=== PATIENT | male | born 1960 | race Caucasian/White ===

== ENCOUNTER 2018-05-19 11:11 | Outpatient (RCR) | payer OTHER, SELFPAY ==
[2018-05-19 11:46] VITALS: BP 149/102; PULSE 86; RESP 18; TEMP 36.4; BMI 29.9
--- NOTE | 2018-05-19 13:05 | PCM.WC.HP ---
(1) Ulcer of right leg Status: Chronic Current Visit: Yes Qualifiers: Non-pressure ulcer stage: unspecified non-pressure ulcer stage Qualified Code(s): L97.919 - Non-pressure chronic ulcer of unspecified part of right lower leg with unspecified severity Code(s): L97.919 - Non-pressure chronic ulcer of unspecified part of right lower leg with unspecified severity (2) Ulcer of right great toe due to diabetes mellitus Status: Chronic Current Visit: Yes Code(s): E11.621 - Type 2 diabetes mellitus with foot ulcer; L97.519 - Non-pressure chronic ulcer of other part of right foot with unspecified severity (3) Ulcer of right second toe Status: Chronic Current Visit: Yes Qualifiers: Non-pressure ulcer stage: unspecified non-pressure ulcer stage Qualified Code(s): L97.519 - Non-pressure chronic ulcer of other part of right foot with unspecified severity Code(s): L97.519 - Non-pressure chronic ulcer of other part of right foot with unspecified severity (4) DM (diabetes mellitus) with peripheral vascular complication Status: Chronic Current Visit: Yes Code(s): E11.51 - Type 2 diabetes mellitus with diabetic peripheral angiopathy without gangrene (5) PAD (peripheral artery disease) Status: Chronic Current Visit: Yes Code(s): I73.9 - Peripheral vascular disease, unspecified (6) Gangrene Status: Chronic Current Visit: Yes Code(s): I96 - Gangrene, not elsewhere classified (7) Coronary artery disease Status: Chronic Current Visit: No Qualifiers: Coronary Disease-Associated Artery/Lesion type: kaw artery [place] vs. transplanted heart: kaw heart Code(s): I25.10 - Atherosclerotic heart disease of kaw coronary artery without angina pectoris (8) Atrial fibrillation Status: Chronic Current Visit: No Code(s): I48.91 - Unspecified atrial fibrillation (9) Cardiac defibrillator in place Status: Chronic Current Visit: No Code(s): Z95.810 - Presence of automatic (implantable) cardiac defibrillator (10) Right leg swelling Status: Chronic Current Visit: Yes Code(s): M79.89 - Other specified soft tissue disorders (11) Ischemia of right lower extremity Status: Chronic Current Visit: Yes Code(s): I99.8 - Other disorder of circulatory system (12) History of coronary artery bypass graft x 3 Status: Acute Current Visit: No Code(s): Z95.1 - Presence of aortocoronary bypass graft (13) Tobacco abuse Status: Chronic Current Visit: Yes Code(s): Z72.0 - Tobacco use (14) Tobacco abuse counseling Status: Acute Current Visit: Yes Code(s): Z71.6 - Tobacco abuse counseling (15) Hyperlipidemia Status: Chronic Current Visit: No Code(s): E78.5 - Hyperlipidemia, unspecified History of Present Illness Date of Service: 05/19/18 Chief Complaint: Ischemia and peripheral arterial occlusive disease of the right lower extremity, associated with ulcerations of the right leg and toes. History of Wound: This is a 57-year-old male who presents as a referral from his primary care physician with ischemic ulcerations on the right leg and the toes of the right foot. These have been present for approximately 2 months. The patient has multiple medical problems. Among his problems is known peripheral arterial occlusive disease, for which she is under the care of a vascular surgeon at the [facility] in [place], [place], by the name of Dr. Joe. According to the patient, he has had extensive evaluation by Dr. Joe, including a CT scan of the vascular system of his neck, chest, abdomen, and lower extremities. The patient is scheduled to undergo major surgical revascularization of the lower extremities on June 17, 2018. As a prelude to surgical intervention, the patient has heart attack stress testing and pulmonary function tests scheduled for later this week. Unfortunately, none of the patient's [facility] records are available at this time. They will be requested, as they will be critical to the clinical management of the patient relative to his lower extremity ulcerations. The patient indicates that his right lower extremity typically swells late in the day. The etiology of the ulcerations on his right great and second toe may be due to pressure phenomenon from ill-fitted footwear. The source of the 2 ulcerations inferior to the right knee is uncertain. The patient is known to be a vasculopath, having previously suffered a myocardial infarction and having undergone coronary revascularization ?3 in the past. The patient is diabetic, and his arterial occlusive disease is likely related to his history of diabetes, and the fact he is a smoker. Prior to a referral from his primary care physician, the patient was recently treated with an intramuscular injection of Rocephin 2 g IM, and is currently taking a course of cefadroxil 1 g p.o. twice daily for a total of 7 days. The patient denies leg pain at night, but often experiences lower extremity pain with short distances of ambulation, which may represent intermittent claudication. Past Medical History Past Medical History: Chronic Problems Ulcer of right leg (Chronic) Ulcer of right great toe due to diabetes mellitus (Chronic) Ulcer of right second toe (Chronic) DM (diabetes mellitus) with peripheral vascular complication (Chronic) PAD (peripheral artery disease) (Chronic) Gangrene (Chronic) Coronary artery disease (Chronic) Atrial fibrillation (Chronic) Cardiac defibrillator in place (Chronic) Right leg swelling (Chronic) Ischemia of right lower extremity (Chronic) Tobacco abuse (Chronic) Hyperlipidemia (Chronic) Past Medical History: The patient has a history of myocardial infarction, diabetes mellitus, hyperlipidemia, hypertension, coronary artery disease, peripheral arterial occlusive disease, and atrial fibrillation. He denies a history of thyroid disease, pulmonary disease, renal disease, and cancer. Surgical History: - - Patient has previously undergone coronary revascularization ?3, at which time valve repair was performed. The patient is also undergone open reduction and internal fixation of the left femur fracture in the past. Allergies/Adverse Reactions: Allergies No Known Allergies Allergy (Verified 05/19/18 11:45) Home Medications: Ambulatory Orders Medication Instructions Recorded Aspirin E.C. [Ecotrin] 81 mg PO DAILY@0800 05/19/18 Atorvastatin Calcium [Lipitor] 40 mg PO QHS 05/19/18 Bisoprolol Fumarate [Zebeta] 10 mg PO DAILY 05/19/18 Cholecalciferol (Vitamin D3) 4,000 unit PO DAILY 05/19/18 [Vitamin D3] Famotidine 20 mg PO BID 05/19/18 Glucosamine/D3/Boswellia Melonie 1 each PO DAILY 05/19/18 [Osteo Bi-Flex Tablet] Lisinopril [Zestril] 20 mg PO DAILY 05/19/18 Metformin HCl [Metformin HCl ER] 500 mg PO TID 05/19/18 Multivitamin [Daily Multiple 1 each PO DAILY 05/19/18 Vitamin] - Family History Paternal - - The patient's father at the age of 78 from cancer of unknown etiology. The patient's mother at age of 68 from liver cancer. Lives: Spouse/ Significant Other Smoking Status: Current every day smoker - The patient smokes 1-1/2 packs of cigarettes per day and has done so for many years. Tobacco Use: Cigarettes Alcohol: Occasional Drugs: None Review of Systems Constitutional: Denies: Chills, Fever, Weight Change Eyes: Denies: Pain, Vision Change HEENT: Denies: Difficulty Hearing, Difficulty Swallowing, Sinus Congestion Cardiovascular: Denies: Chest Pain, Palpitations Respiratory: Denies: Cough, Shortness of Breath Gastrointestinal: Denies: Diarrhea, Nausea, Vomiting Genitourinary: Denies: Dysuria, Hematuria Endocrine: Denies: Heat/ Cold Intolerance, Polydipsia, Polyuria Hematologic/ Lymphatic: Denies: Easy Bruising, Easy Bleeding - Physical Exam Vital Signs Temp Pulse Resp BP 97.5 F L 86 18 149/102 H 05/19/18 11:46 05/19/18 11:46 05/19/18 11:46 05/19/18 11:46 General: Alert, Oriented x3, Cooperative, No apparent distress, Well developed, Well nourished HEENT: Atraumatic, PERRLA, EOMI, Normocephalic Oral: Moist Mucosa Neck: Supple, No JVD, Negative Carotid Bruits, Negative Hepatojugular Reflux, No Nodes, No Nuchal Rigidity, Trachea Midline Lungs: Clear to auscultation, Normal air movement, No rhonchi, No wheeze, No rales Cardiovascular: Regular rate, Regular Rhythm, Normal S1, Normal S2, No murmurs Abdomen: Soft, Non Tender, Non-Distended Extremities: No clubbing, No cyanosis, No edema, - - There are 2 ulcerations inferior to the right knee. Both are dry and escharous. There is a very slight rim of erythema surrounding the larger of the 2 ulcerations. Dimensions are documented elsewhere. 2 ulcerations are noted on the right great toe, and ulceration is also noted on the medial aspect of the right second toe. The toe ulcerations are also dry and escharous. There is no erythema associated with the toe ulcerations. Ulcer dimensions are documented elsewhere. Wound Measurements and Assessment WC - Nurse 1 - General Ulcer Measurement Start: 05/19/18 11:22 Freq: Status: Active Protocol: Activity Type Activity Date Activity User E-Sign Co-Sign Detail Recorded Client Recorded Date Recorded By Document 05/19/18 11:46 [id number] 05/19/18 12:07 05/19/18 11:46 Wound Center Nurse 1 [Ulcer Assessment] #4 RIGHT GREAT TOE -Combined with other wound No -Current Size (cm) - Length 0.4 -Current Size (cm) - Width 0.7 -Current Size (cm) - Depth 0.1 -Total Square Cm 0.28 -Date of Last Picture (Recall this 05/19/18 field) -Photo Taken Yes -Tunneling No -Undermining/Tunneling No -Circular Undermining No -Exudate Amt Small (1-33%) -Exudate Type Serosanguineous -Wound Margin Distinct, Outline Attached -Granulation Amt None Present (0 %) -Necrosis Amt None Present (0 %) -Necrotic Tissue Type Eschar -Structure Exposed None/Limited to Skin Breakdown -Texture (Scarlett-wound Skin Appearance) No Abnormality Assessed -Moisture (Scarlett-wound Skin Appearance No Abnormality ) Assessed -Color (Scarlett-wound Skin Appearance) No Abnormality Assessed -Temperature (Scarlett-wound Skin No Abnormality Appearance) (Pt Warm) -Tenderness on Palpation (Scarlett-wound No Skin Appearance) -Ulcer Cleansing Rinsed/ Irrigated with Saline -Foul Odor after Cleansing No -Anesthetic Used 4% Lidocaine Solution #3 RIGHT 2ND MEDIAL TOE -Combined with other wound No -Current Size (cm) - Length 0.7 -Current Size (cm) - Width 0.7 -Current Size (cm) - Depth 0.1 -Total Square Cm 0.49 -Date of Last Picture (Recall this 05/19/18 field) -Photo Taken Yes -Epithelialization None Present -Tunneling No -Undermining/Tunneling No -Exudate Amt Medium (34-66%) -Exudate Type Serosanguineous -Wound Margin Distinct, Outline Attached -Granulation Amt None Present (0 %) -Slough/Fibrin Yes -Necrosis Amt None Present (0 %) -Necrotic Tissue Type Eschar -Structure Exposed None/Limited to Skin Breakdown -Texture (Scarlett-wound Skin Appearance) No Abnormality Assessed -Moisture (Scarlett-wound Skin Appearance No Abnormality ) Assessed -Temperature (Scarlett-wound Skin No Abnormality Appearance) (Pt Warm) -Tenderness on Palpation (Scarlett-wound No Skin Appearance) -Ulcer Cleansing Rinsed/ Irrigated with Saline -Foul Odor after Cleansing No -Anesthetic Used 4% Lidocaine Solution #2 RU MEDIAL LE -Combined with other wound No -Current Size (cm) - Length 0.6 -Current Size (cm) - Width 0.7 -Current Size (cm) - Depth 0.1 -Total Square Cm 0.42 -Date of Last Picture (Recall this 05/19/18 field) -Photo Taken Yes -Tunneling No -Undermining/Tunneling No -Circular Undermining No -Exudate Amt None Present (0 %) -Wound Margin Distinct, Outline Attached -Granulation Amt None Present (0 %) -Slough/Fibrin No -Necrosis Amt None Present (0 %) -Necrotic Tissue Type Eschar -Structure Exposed None/Limited to Skin Breakdown -Texture (Scarlett-wound Skin Appearance) No Abnormality Assessed -Moisture (Scarlett-wound Skin Appearance No Abnormality ) Assessed -Color (Scarlett-wound Skin Appearance) No Abnormality Assessed -Temperature (Scarlett-wound Skin No Abnormality Appearance) (Pt Warm) -Tenderness on Palpation (Scarlett-wound No Skin Appearance) -Ulcer Cleansing Rinsed/ Irrigated with Saline -Foul Odor after Cleansing No -Anesthetic Used 4% Lidocaine Solution #1 RIGHT UPPER LE -Combined with other wound No -Current Size (cm) - Length 1.8 -Current Size (cm) - Width 1.6 -Current Size (cm) - Depth 0.1 -Total Square Cm 2.88 -Date of Last Picture (Recall this 05/19/18 field) -Photo Taken Yes -Tunneling No -Undermining/Tunneling No -Circular Undermining No -Exudate Amt None Present (0 %) -Wound Margin Distinct, Outline Attached -Granulation Amt None Present (0 %) -Slough/Fibrin No -Necrosis Amt None Present (0 %) -Necrotic Tissue Type Eschar -Texture (Scarlett-wound Skin Appearance) No Abnormality Assessed -Moisture (Scarlett-wound Skin Appearance No Abnormality ) Assessed -Color (Scarlett-wound Skin Appearance) No Abnormality Assessed -Temperature (Scarlett-wound Skin No Abnormality Appearance) (Pt Warm) -Tenderness on Palpation (Scarlett-wound No Skin Appearance) -Ulcer Cleansing Rinsed/ Irrigated with Saline -Foul Odor after Cleansing No -Anesthetic Used 4% Lidocaine Solution [Edema Assessment] -Lower Limb Edema Present Yes -Right Calf (cm) 40.2 -Right Ankle (cm) 23 -Left Calf (cm) 38.6 -Left Ankle (cm) 23.5 WC - Nurse 2 - General Ulcer CM Notes Start: 05/19/18 11:22 Freq: Status: Active Protocol: Activity Type Activity Date Activity User E-Sign Co-Sign Detail Recorded Client Recorded Date Recorded By Document 05/19/18 12:22 [email or web address] [id number] 05/19/18 13:00 [email or web address] 05/19/18 12:22 Wound Center Nurse 2 [Procedure/Treatment] #4 RIGHT GREAT TOE -Time 12:22 -Correct Patient Yes -Correct Side, Site, Position Yes -Correct Procedure Yes -Procedure Performed No -Wound/Ulcer Outcome Not Healed -Ulcer Cleansing Rinsed/ Irrigated with Saline -Foul Odor after Cleansing No -Bioengineered Tissue No -Bleeding Controlled with NA #3 RIGHT 2ND MEDIAL TOE -Time 12:22 -Correct Patient Yes -Correct Side, Site, Position Yes -Correct Procedure Yes -Procedure Performed No -Wound/Ulcer Outcome Not Healed -Ulcer Cleansing Not Cleansed -Foul Odor after Cleansing No -Bioengineered Tissue No -Bleeding Controlled with NA #2 RU MEDIAL LE -Time 12:22 -Correct Patient Yes -Correct Side, Site, Position Yes -Correct Procedure Yes -Procedure Performed No -Wound/Ulcer Outcome Not Healed -Ulcer Cleansing Not Cleansed -Foul Odor after Cleansing No -Bioengineered Tissue No -Bleeding Controlled with NA -Treatment Response Procedure Tolerated Well #1 RIGHT UPPER LE -Time 12:22 -Correct Patient Yes -Correct Side, Site, Position Yes -Correct Procedure Yes -Procedure Performed No -Wound/Ulcer Outcome Not Healed -Ulcer Cleansing Not Cleansed -Foul Odor after Cleansing No -Bioengineered Tissue No [See Physician Procedure note for Specifics] Pain Scale: 0-10 Numeric [Pain] -Is Patient Pain Free? Yes Neurological: Cranial nerves II-XII grossly intact, Neuro grossly intact Psych/Mental Status: Normal Affect, Agitated, Alert and oriented to time, place, person, mood and affect Debridement Note Post-Debridement Measurements/Treatment WC - Nurse 2 - General Ulcer CM Notes Start: 05/19/18 11:22 Freq: Status: Active Protocol: Activity Type Activity Date Activity User E-Sign Co-Sign Detail Recorded Client Recorded Date Recorded By Document 05/19/18 12:22 [id number] 05/19/18 13:00 05/19/18 12:22 Wound Center Nurse 2 #4 RIGHT GREAT TOE -Time 12:22 -Correct Patient Yes -Correct Side, Site, Position Yes -Correct Procedure Yes -Procedure Performed No -Wound/Ulcer Outcome Not Healed -Ulcer Cleansing Rinsed/ Irrigated with Saline -Foul Odor after Cleansing No -Bioengineered Tissue No -Bleeding Controlled with NA #3 RIGHT 2ND MEDIAL TOE -Time 12:22 -Correct Patient Yes -Correct Side, Site, Position Yes -Correct Procedure Yes -Procedure Performed No -Wound/Ulcer Outcome Not Healed -Ulcer Cleansing Not Cleansed -Foul Odor after Cleansing No -Bioengineered Tissue No -Bleeding Controlled with NA #2 RU MEDIAL LE -Time 12:22 -Correct Patient Yes -Correct Side, Site, Position Yes -Correct Procedure Yes -Procedure Performed No -Wound/Ulcer Outcome Not Healed -Ulcer Cleansing Not Cleansed -Foul Odor after Cleansing No -Bioengineered Tissue No -Bleeding Controlled with NA -Treatment Response Procedure Tolerated Well #1 RIGHT UPPER LE -Time 12:22 -Correct Patient Yes -Correct Side, Site, Position Yes -Correct Procedure Yes -Procedure Performed No -Wound/Ulcer Outcome Not Healed -Ulcer Cleansing Not Cleansed -Foul Odor after Cleansing No -Bioengineered Tissue No Pain Scale: 0-10 Numeric Is Patient Pain Free? Yes Laterality: Right The largest of the 2 ulcerations inferior to the right knee is dry and escharous. An attempt was made to unroof the ulceration by removing the eschar, but without success. The eschar is firmly adherent. Additionally, because of questions about the patient's lower extremity arterial perfusion, there was a reluctance to perform an aggressive debridement. Therefore, a #15 scalpel blade was used to gently score the eschar, in anticipation in preparation for the use of collagenase Santyl, as an enzymatic debriding agent. Assessment/Plan Active Problems Ulcer of right leg (Chronic) Ulcer of right great toe due to diabetes mellitus (Chronic) Ulcer of right second toe (Chronic) DM (diabetes mellitus) with peripheral vascular complication (Chronic) PAD (peripheral artery disease) (Chronic) Gangrene (Chronic) Right leg swelling (Chronic) Ischemia of right lower extremity (Chronic) Tobacco abuse (Chronic) Tobacco abuse counseling (Acute) Assessment: This is a 57-year-old diabetic male with severe peripheral arterial occlusive disease in his lower extremities. He is currently under the care of a vascular surgeon at the [facility] in [place], [place] - Dr. Joe. A major lower extremity revascularization procedure is scheduled for June 17, 2018. The patient is scheduled to undergo preliminary testing later this week, to include a cardiac stress test and a pulmonary function test. Patient has undergone relatively recent laboratory testing, with results as follows: BUN 12, creatinine 0.97, sodium 136, potassium 4.7, chloride 95, calcium 10.0, protein 7.0, albumin 4.4, total bilirubin 0.5, white blood count 10.2, hemoglobin 14.1, hematocrit 41.3, platelets 218,000. Triglycerides 221. Vitamin D 30.7, which appears to be low normal. Plan: The patient has been advised to elevate his lower extremities as much as possible, to minimize the swelling that he typically experiences at the end of each day. Activity has been encouraged. He has been advised to refrain from prolonged idle sitting. The patient has been counseled to stop smoking. We will defer to the patient's vascular surgeon at the [facility], who appears to be preparing for lower extremity revascularization. Optimizing perfusion is certainly a worthy goal in achieving wound healing. Given suspected severe peripheral arterial occlusive disease, it is felt that aggressive debridement of the patient's lower extremity wounds is ill advised at this time. The larger of the 2 wounds below the right knee has been gently scored, and we will implement the use of collagenase Santyl relative to the 2 ulcerations below the right knee. The ulcerations on the right foot will be kept clean and dry, and the patient has been advised to wear shoes which are properly fitted, and will not exert undue or unwanted pressure. We are to request records from the patient's caregivers at the [facility], namely Dr. Joe. The request for records will include the patient's arterial studies/CT scan. Collaboration and comanagement with the patient's other physicians is anticipated. The patient is to return in 1 week for reassessment. He has been advised to complete his course of oral antibiotics. He has been advised to contact our facility if the erythema about his ulceration should increase or worsen. The patient is known to be a smoker. Smoking cessation has been advised, in great detail. The patient has been counseled as to the adverse consequences of smoking relative to his peripheral arterial occlusive disease and wound healing potential. Influenza vaccine was not administered today. The patient weighs 220 pounds. He stands 6 feet 0 inches in height. His BMI is 29.9, which places him in an overweight category. While good and adequate nutrition has been advised, mild weight loss has been recommended, with collaboration from his primary care physician.
--- NOTE | 2018-05-19 13:11 | HP.PCM_ITS ---
(1) Ulcer of right leg Status: Chronic Current Visit: Yes Qualifiers: Non-pressure ulcer stage: unspecified non-pressure ulcer stage Qualified Code(s): L97.919 - Non-pressure chronic ulcer of unspecified part of right lower leg with unspecified severity Code(s): L97.919 - Non-pressure chronic ulcer of unspecified part of right lower leg with unspecified severity (2) Ulcer of right great toe due to diabetes mellitus Status: Chronic Current Visit: Yes Code(s): E11.621 - Type 2 diabetes mellitus with foot ulcer; L97.519 - Non-pressure chronic ulcer of other part of right foot with unspecified severity (3) Ulcer of right second toe Status: Chronic Current Visit: Yes Qualifiers: Non-pressure ulcer stage: unspecified non-pressure ulcer stage Qualified Code(s): L97.519 - Non-pressure chronic ulcer of other part of right foot with unspecified severity Code(s): L97.519 - Non-pressure chronic ulcer of other part of right foot with unspecified severity (4) DM (diabetes mellitus) with peripheral vascular complication Status: Chronic Current Visit: Yes Code(s): E11.51 - Type 2 diabetes mellitus with diabetic peripheral angiopathy without gangrene (5) PAD (peripheral artery disease) Status: Chronic Current Visit: Yes Code(s): I73.9 - Peripheral vascular disease, unspecified (6) Gangrene Status: Chronic Current Visit: Yes Code(s): I96 - Gangrene, not elsewhere classified (7) Coronary artery disease Status: Chronic Current Visit: No Qualifiers: Coronary Disease-Associated Artery/Lesion type: [place] artery [place] vs. transplanted heart: [place] heart Code(s): I25.10 - Atherosclerotic heart disease of [place] coronary artery without angina pectoris (8) Atrial fibrillation Status: Chronic Current Visit: No Code(s): I48.91 - Unspecified atrial fibrillation (9) Cardiac defibrillator in place Status: Chronic Current Visit: No Code(s): Z95.810 - Presence of automatic ( implantable) cardiac defibrillator (10) Right leg swelling Status: Chronic Current Visit: Yes Code(s): M79.89 - Other specified soft tissue disorders (11) Ischemia of right lower extremity Status: Chronic Current Visit: Yes Code(s): I99.8 - Other disorder of circulatory system (12) History of coronary artery bypass graft x 3 Status: Acute Current Visit: No Code(s): Z95.1 - Presence of aortocoronary bypass graft (13) Tobacco abuse Status: Chronic Current Visit: Yes Code(s): Z72.0 - Tobacco use (14) Tobacco abuse counseling Status: Acute Current Visit: Yes Code(s): Z71.6 - Tobacco abuse counseling (15) Hyperlipidemia Status: Chronic Current Visit: No Code(s): E78.5 - Hyperlipidemia, unspecified History of Present Illness Date of Service: 05/19/18 Chief Complaint: Ischemia and peripheral arterial occlusive disease of the right lower extremity, associated with ulcerations of the right leg and toes. History of Wound: This is a 57-year-old male who presents as a referral from his primary care physician with ischemic ulcerations on the right leg and the toes of the right foot. These have been present for approximately 2 months. The patient has multiple medical problems. Among his problems is known peripheral arterial occlusive disease, for which she is under the care of a vascular surgeon at the [facility] in [place], [place], by the name of Dr. Joe. According to the patient, he has had extensive evaluation by Dr. Joe , including a CT scan of the vascular system of his neck, chest, abdomen, and lower extremities. The patient is scheduled to undergo major surgical revascularization of the lower extremities on June 17, 2018. As a prelude to surgical intervention, the patient has heart attack stress testing and pulmonary function tests scheduled for later this week. Unfortunately, none of the patient's [facility] records are available at this time. They will be requested, as they will be critical to the clinical management of the patient relative to his lower extremity ulcerations. The patient indicates that his right lower extremity typically swells late in the day. The etiology of the ulcerations on his right great and second toe may be due to pressure phenomenon from ill-fitted footwear. The source of the 2 ulcerations inferior to the right knee is uncertain. The patient is known to be a vasculopath, having previously suffered a myocardial infarction and having undergone coronary revascularization ?3 in the past. The patient is diabetic, and his arterial occlusive disease is likely related to his history of diabetes, and the fact he is a smoker. Prior to a referral from his primary care physician, the patient was recently treated with an intramuscular injection of Rocephin 2 g IM, and is currently taking a course of cefadroxil 1 g p.o. twice daily for a total of 7 days. The patient denies leg pain at night, but often experiences lower extremity pain with short distances of ambulation, which may represent intermittent claudication. Past Medical History Past Medical History: Chronic Problems Ulcer of right leg (Chronic) Ulcer of right great toe due to diabetes mellitus (Chronic) Ulcer of right second toe (Chronic) DM (diabetes mellitus) with peripheral vascular complication (Chronic) PAD (peripheral artery disease) (Chronic) Gangrene (Chronic) Coronary artery disease (Chronic) Atrial fibrillation (Chronic) Cardiac defibrillator in place (Chronic) Right leg swelling (Chronic) Ischemia of right lower extremity (Chronic) Tobacco abuse (Chronic) Hyperlipidemia (Chronic) Past Medical History: The patient has a history of myocardial infarction, diabetes mellitus, hyperlipidemia, hypertension, coronary artery disease, peripheral arterial occlusive disease, and atrial fibrillation. He denies a history of thyroid disease, pulmonary disease, renal disease, and cancer. Surgical History: - - Patient has previously undergone coronary revascularization ?3, at which time valve repair was performed. The patient is also undergone open reduction and internal fixation of the left femur fracture in the past. Allergies/Adverse Reactions: Allergies No Known Allergies Allergy (Verified 05/19/18 11:45) Home Medications: Ambulatory Orders Medication Instructions Recorded Aspirin E.C. [Ecotrin] 81 mg PO DAILY@0800 05/19/18 Atorvastatin Calcium [Lipitor] 40 mg PO QHS 05/19/18 Bisoprolol Fumarate [Zebeta] 10 mg PO DAILY 05/19/18 Cholecalciferol (Vitamin D3) 4,000 unit PO DAILY 05/19/18 [Vitamin D3] Famotidine 20 mg PO BID 05/19/18 Glucosamine/D3/Boswellia Melonie 1 each PO DAILY 05/19/18 [Osteo Bi-Flex Tablet] Lisinopril [Zestril] 20 mg PO DAILY 05/19/18 Metformin HCl [Metformin HCl ER] 500 mg PO TID 05/19/18 Multivitamin [Daily Multiple 1 each PO DAILY 05/19/18 Vitamin] - Family History Paternal - - The patient's father at the age of 78 from cancer of unknown etiology. The patient's mother at age of 68 from liver cancer. Lives: Spouse/ Significant Other Smoking Status: Current every day smoker - The patient smokes 1-1/2 packs of cigarettes per day and has done so for many years. Tobacco Use: Cigarettes Alcohol: Occasional Drugs: None Review of Systems Constitutional: Denies: Chills, Fever, Weight Change Eyes: Denies: Pain, Vision Change HEENT: Denies: Difficulty Hearing, Difficulty Swallowing, Sinus Congestion Cardiovascular: Denies: Chest Pain, Palpitations Respiratory: Denies: Cough, Shortness of Breath Gastrointestinal: Denies: Diarrhea, Nausea, Vomiting Genitourinary: Denies: Dysuria, Hematuria Endocrine: Denies: Heat/ Cold Intolerance, Polydipsia, Polyuria Hematologic/ Lymphatic: Denies: Easy Bruising, Easy Bleeding - Physical Exam Vital Signs Temp Pulse Resp BP 97.5 F L 86 18 149/102 H 05/19/18 11:46 05/19/18 11:46 05/19/18 11:46 05/19/18 11:46 General: Alert, Oriented x3, Cooperative, No apparent distress, Well developed, Well nourished HEENT: Atraumatic, PERRLA, EOMI, Normocephalic Oral: Moist Mucosa Neck: Supple, No JVD, Negative Carotid Bruits, Negative Hepatojugular Reflux, No Nodes, No Nuchal Rigidity, Trachea Midline Lungs: Clear to auscultation, Normal air movement, No rhonchi, No wheeze, No rales Cardiovascular: Regular rate, Regular Rhythm, Normal S1, Normal S2, No murmurs Abdomen: Soft, Non Tender, Non-Distended Extremities: No clubbing, No cyanosis, No edema, - - There are 2 ulcerations inferior to the right knee. Both are dry and escharous. There is a very slight rim of erythema surrounding the larger of the 2 ulcerations. Dimensions are documented elsewhere. 2 ulcerations are noted on the right great toe, and ulceration is also noted on the medial aspect of the right second toe. The toe ulcerations are also dry and escharous. There is no erythema associated with the toe ulcerations. Ulcer dimensions are documented elsewhere. Wound Measurements and Assessment WC - Nurse 1 - General Ulcer Measurement Start: 05/19/18 11:22 Freq: Status: Active Protocol: Activity Type Activity Date Activity User E-Sign Co-Sign Detail Recorded Client Recorded Date Recorded By Document 05/19/18 11:46 [id number] 05/19/18 12:07 05/19/18 11:46 Wound Center Nurse 1 [Ulcer Assessment] #4 RIGHT GREAT TOE -Combined with other wound No -Current Size (cm) - Length 0.4 -Current Size (cm) - Width 0.7 -Current Size (cm) - Depth 0.1 -Total Square Cm 0.28 -Date of Last Picture (Recall this 05/19/18 field) -Photo Taken Yes -Tunneling No -Undermining/Tunneling No -Circular Undermining No -Exudate Amt Small (1-33%) -Exudate Type Serosanguineous -Wound Margin Distinct, Outline Attached -Granulation Amt None Present (0 %) -Necrosis Amt None Present (0 %) -Necrotic Tissue Type Eschar -Structure Exposed None/Limited to Skin Breakdown -Texture (Scarlett-wound Skin Appearance) No Abnormality Assessed -Moisture (Scarlett-wound Skin Appearance No Abnormality ) Assessed -Color (Scarlett-wound Skin Appearance) No Abnormality Assessed -Temperature (Scarlett-wound Skin No Abnormality Appearance) (Pt Warm) -Tenderness on Palpation (Scarlett-wound No Skin Appearance) -Ulcer Cleansing Rinsed/ Irrigated with Saline -Foul Odor after Cleansing No -Anesthetic Used 4% Lidocaine Solution #3 RIGHT 2ND MEDIAL TOE -Combined with other wound No -Current Size (cm) - Length 0.7 -Current Size (cm) - Width 0.7 -Current Size (cm) - Depth 0.1 -Total Square Cm 0.49 -Date of Last Picture (Recall this 05/19/18 field) -Photo Taken Yes -Epithelialization None Present -Tunneling No -Undermining/Tunneling No -Exudate Amt Medium (34-66%) -Exudate Type Serosanguineous -Wound Margin Distinct, Outline Attached -Granulation Amt None Present (0 %) -Slough/Fibrin Yes -Necrosis Amt None Present (0 %) -Necrotic Tissue Type Eschar -Structure Exposed None/Limited to Skin Breakdown -Texture (Scarlett-wound Skin Appearance) No Abnormality Assessed -Moisture (Scarlett-wound Skin Appearance No Abnormality ) Assessed -Temperature (Scarlett-wound Skin No Abnormality Appearance) (Pt Warm) -Tenderness on Palpation (Scarlett-wound No Skin Appearance) -Ulcer Cleansing Rinsed/ Irrigated with Saline -Foul Odor after Cleansing No -Anesthetic Used 4% Lidocaine Solution #2 RU MEDIAL LE -Combined with other wound No -Current Size (cm) - Length 0.6 -Current Size (cm) - Width 0.7 -Current Size (cm) - Depth 0.1 -Total Square Cm 0.42 -Date of Last Picture (Recall this 05/19/18 field) -Photo Taken Yes -Tunneling No -Undermining/Tunneling No -Circular Undermining No -Exudate Amt None Present (0 %) -Wound Margin Distinct, Outline Attached -Granulation Amt None Present (0 %) -Slough/Fibrin No -Necrosis Amt None Present (0 %) -Necrotic Tissue Type Eschar -Structure Exposed None/Limited to Skin Breakdown -Texture (Scarlett-wound Skin Appearance) No Abnormality Assessed -Moisture (Scarlett-wound Skin Appearance No Abnormality ) Assessed -Color (Scarlett-wound Skin Appearance) No Abnormality Assessed -Temperature (Scarlett-wound Skin No Abnormality Appearance) (Pt Warm) -Tenderness on Palpation (Scarlett-wound No Skin Appearance) -Ulcer Cleansing Rinsed/ Irrigated with Saline -Foul Odor after Cleansing No -Anesthetic Used 4% Lidocaine Solution #1 RIGHT UPPER LE -Combined with other wound No -Current Size (cm) - Length 1.8 -Current Size (cm) - Width 1.6 -Current Size (cm) - Depth 0.1 -Total Square Cm 2.88 -Date of Last Picture (Recall this 05/19/18 field) -Photo Taken Yes -Tunneling No -Undermining/Tunneling No -Circular Undermining No -Exudate Amt None Present (0 %) -Wound Margin Distinct, Outline Attached -Granulation Amt None Present (0 %) -Slough/Fibrin No -Necrosis Amt None Present (0 %) -Necrotic Tissue Type Eschar -Texture (Scarlett-wound Skin Appearance) No Abnormality Assessed -Moisture (Scarlett-wound Skin Appearance No Abnormality ) Assessed -Color (Scarlett-wound Skin Appearance) No Abnormality Assessed -Temperature (Scarlett-wound Skin No Abnormality Appearance) (Pt Warm) -Tenderness on Palpation (Scarlett-wound No Skin Appearance) -Ulcer Cleansing Rinsed/ Irrigated with Saline -Foul Odor after Cleansing No -Anesthetic Used 4% Lidocaine Solution [Edema Assessment] -Lower Limb Edema Present Yes -Right Calf (cm) 40.2 -Right Ankle (cm) 23 -Left Calf (cm) 38.6 -Left Ankle (cm) 23.5 WC - Nurse 2 - General Ulcer CM Notes Start: 05/19/18 11:22 Freq: Status: Active Protocol: Activity Type Activity Date Activity User E-Sign Co-Sign Detail Recorded Client Recorded Date Recorded By Document 05/19/18 12:22 [id number] 05/19/18 13:00 [email or web address] 05/19/18 12:22 Wound Center Nurse 2 [Procedure/Treatment] #4 RIGHT GREAT TOE -Time 12:22 -Correct Patient Yes -Correct Side, Site, Position Yes -Correct Procedure Yes -Procedure Performed No -Wound/Ulcer Outcome Not Healed -Ulcer Cleansing Rinsed/ Irrigated with Saline -Foul Odor after Cleansing No -Bioengineered Tissue No -Bleeding Controlled with NA #3 RIGHT 2ND MEDIAL TOE -Time 12:22 -Correct Patient Yes -Correct Side, Site, Position Yes -Correct Procedure Yes -Procedure Performed No -Wound/Ulcer Outcome Not Healed -Ulcer Cleansing Not Cleansed -Foul Odor after Cleansing No -Bioengineered Tissue No -Bleeding Controlled with NA #2 RU MEDIAL LE -Time 12:22 -Correct Patient Yes -Correct Side, Site, Position Yes -Correct Procedure Yes -Procedure Performed No -Wound/Ulcer Outcome Not Healed -Ulcer Cleansing Not Cleansed -Foul Odor after Cleansing No -Bioengineered Tissue No -Bleeding Controlled with NA -Treatment Response Procedure Tolerated Well #1 RIGHT UPPER LE -Time 12:22 -Correct Patient Yes -Correct Side, Site, Position Yes -Correct Procedure Yes -Procedure Performed No -Wound/Ulcer Outcome Not Healed -Ulcer Cleansing Not Cleansed -Foul Odor after Cleansing No -Bioengineered Tissue No [See Physician Procedure note for Specifics] Pain Scale: 0-10 Numeric [Pain] -Is Patient Pain Free? Yes Neurological: Cranial nerves II-XII grossly intact, Neuro grossly intact Psych/Mental Status: Normal Affect, Agitated, Alert and oriented to time, place , person, mood and affect Debridement Note Post-Debridement Measurements/Treatment WC - Nurse 2 - General Ulcer CM Notes Start: 05/19/18 11:22 Freq: Status: Active Protocol: Activity Type Activity Date Activity User E-Sign Co-Sign Detail Recorded Client Recorded Date Recorded By Document 05/19/18 12:22 [id number] 05/19/18 13:00 05/19/18 12:22 Wound Center Nurse 2 #4 RIGHT GREAT TOE -Time 12:22 -Correct Patient Yes -Correct Side, Site, Position Yes -Correct Procedure Yes -Procedure Performed No -Wound/Ulcer Outcome Not Healed -Ulcer Cleansing Rinsed/ Irrigated with Saline -Foul Odor after Cleansing No -Bioengineered Tissue No -Bleeding Controlled with NA #3 RIGHT 2ND MEDIAL TOE -Time 12:22 -Correct Patient Yes -Correct Side, Site, Position Yes -Correct Procedure Yes -Procedure Performed No -Wound/Ulcer Outcome Not Healed -Ulcer Cleansing Not Cleansed -Foul Odor after Cleansing No -Bioengineered Tissue No -Bleeding Controlled with NA #2 RU MEDIAL LE -Time 12:22 -Correct Patient Yes -Correct Side, Site, Position Yes -Correct Procedure Yes -Procedure Performed No -Wound/Ulcer Outcome Not Healed -Ulcer Cleansing Not Cleansed -Foul Odor after Cleansing No -Bioengineered Tissue No -Bleeding Controlled with NA -Treatment Response Procedure Tolerated Well #1 RIGHT UPPER LE -Time 12:22 -Correct Patient Yes -Correct Side, Site, Position Yes -Correct Procedure Yes -Procedure Performed No -Wound/Ulcer Outcome Not Healed -Ulcer Cleansing Not Cleansed -Foul Odor after Cleansing No -Bioengineered Tissue No Pain Scale: 0-10 Numeric Is Patient Pain Free? Yes Laterality: Right The largest of the 2 ulcerations inferior to the right knee is dry and escharous. An attempt was made to unroof the ulceration by removing the eschar , but without success. The eschar is firmly adherent. Additionally, because of questions about the patient's lower extremity arterial perfusion, there was a reluctance to perform an aggressive debridement. Therefore, a #15 scalpel blade was used to gently score the eschar, in anticipation in preparation for the use of collagenase Santyl, as an enzymatic debriding agent. Assessment/Plan Active Problems Ulcer of right leg (Chronic) Ulcer of right great toe due to diabetes mellitus (Chronic) Ulcer of right second toe (Chronic) DM (diabetes mellitus) with peripheral vascular complication (Chronic) PAD (peripheral artery disease) (Chronic) Gangrene (Chronic) Right leg swelling (Chronic) Ischemia of right lower extremity (Chronic) Tobacco abuse (Chronic) Tobacco abuse counseling (Acute) Assessment: This is a 57-year-old diabetic male with severe peripheral arterial occlusive disease in his lower extremities. He is currently under the care of a vascular surgeon at the [facility] in [place], [place] - Dr. Joe. A major lower extremity revascularization procedure is scheduled for June 17, 2018. The patient is scheduled to undergo preliminary testing later this week, to include a cardiac stress test and a pulmonary function test. Patient has undergone relatively recent laboratory testing, with results as follows: BUN 12 , creatinine 0.97, sodium 136, potassium 4.7, chloride 95, calcium 10.0, protein 7.0, albumin 4.4, total bilirubin 0.5, white blood count 10.2, hemoglobin 14.1, hematocrit 41.3, platelets 218,000. Triglycerides 221. Vitamin D 30.7, which appears to be low normal. Plan: The patient has been advised to elevate his lower extremities as much as possible, to minimize the swelling that he typically experiences at the end of each day. Activity has been encouraged. He has been advised to refrain from prolonged idle sitting. The patient has been counseled to stop smoking. We will defer to the patient's vascular surgeon at the [facility], who appears to be preparing for lower extremity revascularization. Optimizing perfusion is certainly a worthy goal in achieving wound healing. Given suspected severe peripheral arterial occlusive disease, it is felt that aggressive debridement of the patient's lower extremity wounds is ill advised at this time. The larger of the 2 wounds below the right knee has been gently scored, and we will implement the use of collagenase Santyl relative to the 2 ulcerations below the right knee. The ulcerations on the right foot will be kept clean and dry, and the patient has been advised to wear shoes which are properly fitted, and will not exert undue or unwanted pressure. We are to request records from the patient's caregivers at the [facility], namely Dr. Joe. The request for records will include the patient's arterial studies /CT scan. Collaboration and comanagement with the patient's other physicians is anticipated. The patient is to return in 1 week for reassessment. He has been advised to complete his course of oral antibiotics. He has been advised to contact our facility if the erythema about his ulceration should increase or worsen. The patient is known to be a smoker. Smoking cessation has been advised, in great detail. The patient has been counseled as to the adverse consequences of smoking relative to his peripheral arterial occlusive disease and wound healing potential. Influenza vaccine was not administered today. The patient weighs 220 pounds. He stands 6 feet 0 inches in height. His BMI is 29.9, which places him in an overweight category. While good and adequate nutrition has been advised, mild weight loss has been recommended, with collaboration from his primary care physician.
== END 2018-05-19 23:59 ==
LOC: WC 11:11
PROVIDERS: Family Provider Nurse Practitioner; PCP Nurse Practitioner; Visit Provider Surgery
DX: E11.621 Type 2 diabetes mellitus with foot ulcer (principal); E11.622 Type 2 diabetes mellitus with other skin ulcer; L97.511 Non-pressure chronic ulcer of other part of right foot limited to breakdown of skin; L97.811 Non-pressure chronic ulcer of other part of right lower leg limited to breakdown of skin; E11.51 Type 2 diabetes mellitus with diabetic peripheral angiopathy without gangrene; I25.10 Atherosclerotic heart disease of native coronary artery without angina pectoris; I48.91 Unspecified atrial fibrillation; M79.89 Other specified soft tissue disorders; Z95.1 Presence of aortocoronary bypass graft; E78.5 Hyperlipidemia, unspecified; Z79.899 Other long term (current) drug therapy; Z79.84 Long term (current) use of oral hypoglycemic drugs; F17.210 Nicotine dependence, cigarettes, uncomplicated
CPT/HCPCS: 99203; G0463

== ENCOUNTER 2018-05-26 08:17 | Outpatient (RCR) | payer OTHER, SELFPAY ==
[2018-05-20 01:35] VITALS: BP 149/102; PULSE 86; RESP 18; TEMP 36.4
[2018-05-26 12:37] VITALS: BP 131/69; PULSE 79; RESP 20; TEMP 36.6
--- NOTE | 2018-05-26 14:13 | PCM.WC.HP ---
(1) Ulcer of right leg Status: Chronic Current Visit: Yes Qualifiers: Non-pressure ulcer stage: unspecified non-pressure ulcer stage Qualified Code(s): L97.919 - Non-pressure chronic ulcer of unspecified part of right lower leg with unspecified severity Code(s): L97.919 - Non-pressure chronic ulcer of unspecified part of right lower leg with unspecified severity (2) Ulcer of right great toe due to diabetes mellitus Status: Chronic Current Visit: Yes Code(s): E11.621 - Type 2 diabetes mellitus with foot ulcer; L97.519 - Non-pressure chronic ulcer of other part of right foot with unspecified severity (3) Ulcer of right second toe Status: Chronic Current Visit: Yes Qualifiers: Non-pressure ulcer stage: unspecified non-pressure ulcer stage Code(s): L97.519 - Non-pressure chronic ulcer of other part of right foot with unspecified severity (4) DM (diabetes mellitus) with peripheral vascular complication Status: Chronic Current Visit: Yes Code(s): E11.51 - Type 2 diabetes mellitus with diabetic peripheral angiopathy without gangrene (5) PAD (peripheral artery disease) Status: Chronic Current Visit: No Code(s): I73.9 - Peripheral vascular disease, unspecified (6) Gangrene Status: Chronic Current Visit: No Code(s): I96 - Gangrene, not elsewhere classified (7) Coronary artery disease Status: Chronic Current Visit: No Qualifiers: Coronary Disease-Associated Artery/Lesion type: [place] artery [place] vs. transplanted heart: [place] heart Code(s): I25.10 - Atherosclerotic heart disease of [place] coronary artery without angina pectoris (8) Atrial fibrillation Status: Chronic Current Visit: No Code(s): I48.91 - Unspecified atrial fibrillation (9) Cardiac defibrillator in place Status: Chronic Current Visit: No Code(s): Z95.810 - Presence of automatic (implantable) cardiac defibrillator (10) Right leg swelling Status: Chronic Current Visit: No Code(s): M79.89 - Other specified soft tissue disorders (11) Ischemia of right lower extremity Status: Chronic Current Visit: Yes Code(s): I99.8 - Other disorder of circulatory system (12) History of coronary artery bypass graft x 3 Status: Acute Current Visit: No Code(s): Z95.1 - Presence of aortocoronary bypass graft (13) Tobacco abuse Status: Chronic Current Visit: Yes Code(s): Z72.0 - Tobacco use (14) Tobacco abuse counseling Status: Acute Current Visit: Yes Code(s): Z71.6 - Tobacco abuse counseling (15) Hyperlipidemia Status: Chronic Current Visit: No Code(s): E78.5 - Hyperlipidemia, unspecified History of Present Illness Date of Service: 05/26/18 Chief Complaint: Ischemia and peripheral arterial occlusive disease of the right lower extremity, associated with ulcerations of the right leg and toes. History of Wound: This is a 57-year-old male who presents as a referral from his primary care physician with ischemic ulcerations on the right leg and the toes of the right foot. These have been present for approximately 2 months. The patient has multiple medical problems. Among his problems is known peripheral arterial occlusive disease, for which she is under the care of a vascular surgeon at the [facility] in [place], [place], by the name of Dr. Joe. According to the patient, he has had extensive evaluation by Dr. Joe, including a CT scan of the vascular system of his neck, chest, abdomen, and lower extremities. The patient is scheduled to undergo major surgical revascularization of the lower extremities on June 17, 2018. As a prelude to surgical intervention, the patient has cardiac stress testing and pulmonary function tests scheduled for the next several weeks. We have obtained a copy of the patient's CTA report, which indicates the following: Normal caliber abdominal aorta with no significant focal stenosis; right leg indicates moderate stenosis of the common femoral artery extending into the origin of the profunda femoris. Superficial femoral artery is occluded shortly after its origin. Popliteal artery is reconstituted with a moderate focal stenosis in the above-knee segment. Two-vessel infrapopliteal runoff. The left leg demonstrates superficial femoral artery occluded shortly after its origin. Popliteal artery is reconstituted. Two-vessel infrapopliteal runoff. The patient indicates that his right lower extremity typically swells late in the day. The etiology of the ulcerations on his right great and second toe may be due to pressure phenomenon from ill-fitted footwear. The source of the 2 ulcerations inferior to the right knee is uncertain. The patient is known to be a vasculopath, having previously suffered a myocardial infarction and having undergone coronary revascularization ?3 in the past. The patient is diabetic, and his arterial occlusive disease is likely related to his history of diabetes, and the fact he is a smoker. The patient continues to smoke, despite medical advice to the contrary. Prior to a referral from his primary care physician, the patient was recently treated with an intramuscular injection of Rocephin 2 g IM, and is currently taking a course of cefadroxil 1 g p.o. twice daily for a total of 7 days. The patient denies leg pain at night, but often experiences lower extremity pain with short distances of ambulation, which likely represents intermittent claudication. Past Medical History Past Medical History: Chronic Problems Ulcer of right leg (Chronic) Ulcer of right great toe due to diabetes mellitus (Chronic) Ulcer of right second toe (Chronic) DM (diabetes mellitus) with peripheral vascular complication (Chronic) PAD (peripheral artery disease) (Chronic) Gangrene (Chronic) Coronary artery disease (Chronic) Atrial fibrillation (Chronic) Cardiac defibrillator in place (Chronic) Right leg swelling (Chronic) Ischemia of right lower extremity (Chronic) Tobacco abuse (Chronic) Hyperlipidemia (Chronic) Surgical History: - - Patient has previously undergone coronary revascularization ?3, at which time valve repair was performed. The patient is also undergone open reduction and internal fixation of the left femur fracture in the past. Allergies/Adverse Reactions: Allergies No Known Allergies Allergy (Verified 05/19/18 11:45) Home Medications: Ambulatory Orders Medication Instructions Recorded Aspirin E.C. [Ecotrin] 81 mg PO DAILY@0800 05/19/18 Atorvastatin Calcium [Lipitor] 40 mg PO QHS 05/19/18 Bisoprolol Fumarate [Zebeta] 10 mg PO DAILY 05/19/18 Cholecalciferol (Vitamin D3) 4,000 unit PO DAILY 05/19/18 [Vitamin D3] Famotidine 20 mg PO BID 05/19/18 Glucosamine/D3/Boswellia Melonie 1 each PO DAILY 05/19/18 [Osteo Bi-Flex Tablet] Lisinopril [Zestril] 20 mg PO DAILY 05/19/18 Metformin HCl [Metformin HCl ER] 500 mg PO TID 05/19/18 Multivitamin [Daily Multiple 1 each PO DAILY 05/19/18 Vitamin] - Family History Paternal - - The patient's father at the age of 78 from cancer of unknown etiology. The patient's mother at age of 68 from liver cancer. Smoking Status: Current every day smoker - The patient smokes 1-1/2 packs of cigarettes per day and has done so for many years. Tobacco Use: Cigarettes Review of Systems Constitutional: Denies: Chills, Fever, Weight Change Eyes: Denies: Pain, Vision Change HEENT: Denies: Difficulty Hearing, Difficulty Swallowing, Sinus Congestion Cardiovascular: Denies: Chest Pain, Palpitations Respiratory: Denies: Cough, Shortness of Breath Gastrointestinal: Denies: Diarrhea, Nausea, Vomiting Genitourinary: Denies: Dysuria, Hematuria Endocrine: Denies: Heat/ Cold Intolerance, Polydipsia, Polyuria Hematologic/ Lymphatic: Denies: Easy Bruising, Easy Bleeding - Physical Exam Vital Signs Temp Pulse Resp BP 97.9 F 79 20 H 131/69 H 05/26/18 12:37 05/26/18 12:37 05/26/18 12:37 05/26/18 12:37 General: Alert, Oriented x3, Cooperative, No apparent distress, Well developed, Well nourished HEENT: Atraumatic, PERRLA, EOMI, Normocephalic Oral: Moist Mucosa Neck: No JVD Lungs: Normal air movement Abdomen: Non-Distended Extremities: No clubbing, No cyanosis, No edema, No Calf Tenderness, - - There is little change of the patient's right lower extremity compared to the prior week. 2 escharous and dry ulcerations are noted inferior to the right knee. There is only slight erythema associated with these ulcerations. There is no significant swelling or edema in the lower extremities. 2 ulcerations are noted involving the right great toe, as well as an ulceration noted on the medial aspect of the right second toe. The foot ulcerations are dry and escharous. The right great toenail is slightly raised, suggesting the possibility of a subungual process. There is no erythema associated with the foot ulcerations. Dimensions of all ulcerations are documented elsewhere. Wound Measurements and Assessment WC - Nurse 1 - General Ulcer Measurement Start: 05/26/18 12:37 Freq: Status: Active Protocol: Activity Type Activity Date Activity User E-Sign Co-Sign Detail Recorded Client Recorded Date Recorded By Document 05/26/18 12:37 DL [id number] 05/26/18 12:50 DL 05/26/18 12:37 Wound Center Nurse 1 [Ulcer Assessment] #4 RIGHT GREAT TOE -Current Size (cm) - Length 0.3 -Current Size (cm) - Width 0.7 -Current Size (cm) - Depth 0.1 -Total Square Cm 0.21 -Photo Taken No -Exudate Amt None Present (0 %) -Wound Margin Thickened -Granulation Amt None Present (0 %) -Necrosis Amt Large (67-100%) -Necrotic Tissue Type Adherent Slough -Structure Exposed N/A -Texture (Scarlett-wound Skin Appearance) Localized Edema -Moisture (Scarlett-wound Skin Appearance Dry/Scaly ) -Color (Scarlett-wound Skin Appearance) Erythema Hemosiderin Staining Mottled -Tenderness on Palpation (Scarlett-wound Yes Skin Appearance) -Ulcer Cleansing Rinsed/ Irrigated with Saline -Foul Odor after Cleansing No -Anesthetic Used 4% Lidocaine Solution #3 RIGHT 2ND MEDIAL TOE -Current Size (cm) - Length 0.8 -Current Size (cm) - Width 0.7 -Current Size (cm) - Depth 0.1 -Total Square Cm 0.56 -Photo Taken No -Exudate Amt None Present (0 %) -Wound Margin Thickened -Granulation Amt None Present (0 %) -Necrosis Amt Large (67-100%) -Necrotic Tissue Type Eschar -Structure Exposed N/A -Texture (Scarlett-wound Skin Appearance) Localized Edema -Moisture (Scarlett-wound Skin Appearance Dry/Scaly ) -Color (Scarlett-wound Skin Appearance) Erythema Hemosiderin Staining Mottled -Temperature (Scarlett-wound Skin No Abnormality Appearance) (Pt Warm) -Tenderness on Palpation (Scarlett-wound Yes Skin Appearance) -Ulcer Cleansing Rinsed/ Irrigated with Saline -Foul Odor after Cleansing No -Anesthetic Used 4% Lidocaine Solution #2 RU MEDIAL LE -Current Size (cm) - Length 0.8 -Current Size (cm) - Width 0.8 -Current Size (cm) - Depth 0.1 -Total Square Cm 0.64 -Photo Taken No -Exudate Amt None Present (0 %) -Wound Margin Thickened -Granulation Amt None Present (0 %) -Necrosis Amt Large (67-100%) -Necrotic Tissue Type Eschar -Structure Exposed N/A -Texture (Scarlett-wound Skin Appearance) Scarring -Moisture (Scarlett-wound Skin Appearance No Abnormality ) -Color (Scarlett-wound Skin Appearance) Erythema -Temperature (Scarlett-wound Skin No Abnormality Appearance) (Pt Warm) -Ulcer Cleansing Rinsed/ Irrigated with Saline -Foul Odor after Cleansing No -Anesthetic Used 4% Lidocaine Solution #1 RIGHT UPPER LE -Current Size (cm) - Length 2.1 -Current Size (cm) - Width 2 -Current Size (cm) - Depth 0.1 -Total Square Cm 4.2 -Photo Taken No -Exudate Amt None Present (0 %) -Wound Margin Thickened -Granulation Amt None Present (0 %) -Necrosis Amt Large (67-100%) -Necrotic Tissue Type Eschar -Structure Exposed N/A -Texture (Scarlett-wound Skin Appearance) No Abnormality -Moisture (Scarlett-wound Skin Appearance No Abnormality ) -Color (Scarlett-wound Skin Appearance) Erythema Hemosiderin Staining -Temperature (Scarlett-wound Skin No Abnormality Appearance) (Pt Warm) -Ulcer Cleansing Rinsed/ Irrigated with Saline -Foul Odor after Cleansing No -Anesthetic Used 4% Lidocaine Solution [Edema Assessment] -Right Calf (cm) 39.6 -Right Ankle (cm) 23.5 WC - Nurse 2 - General Ulcer CM Notes Start: 05/26/18 12:37 Freq: Status: Active Protocol: Activity Type Activity Date Activity User E-Sign Co-Sign Detail Recorded Client Recorded Date Recorded By Document 05/26/18 13:55 KALEB [id number] 05/26/18 14:06 KALEB 05/26/18 13:55 Wound Center Nurse 2 [Procedure/Treatment] #4 RIGHT GREAT TOE -Time 13:55 -Correct Patient Yes -Correct Side, Site, Position Yes -Correct Procedure Yes -Procedure Performed No -Wound/Ulcer Outcome Not Healed -Ulcer Cleansing Rinsed/ Irrigated with Saline -Foul Odor after Cleansing No -Bioengineered Tissue No -Bleeding Controlled with NA #3 RIGHT 2ND MEDIAL TOE -Time 13:55 -Correct Patient Yes -Correct Side, Site, Position Yes -Correct Procedure Yes -Procedure Performed No -Wound/Ulcer Outcome Not Healed -Ulcer Cleansing Rinsed/ Irrigated with Saline -Foul Odor after Cleansing No -Bioengineered Tissue No -Bleeding Controlled with NA -Treatment Response Procedure Tolerated Well #2 RU MEDIAL LE -Time 13:56 -Correct Patient Yes -Correct Side, Site, Position Yes -Correct Procedure Yes -Procedure Performed Yes -Type of Procedure Debridement -Clinical Debridement Selective -Post Debridement Size (cm) - Length 0.8 -Post Debridement Size (cm) - Width 0.8 -Post Debridement Size (cm) - Depth 0.1 -Total Square Cm 0.64 -Wound/Ulcer Outcome Not Healed -Ulcer Cleansing Rinsed/ Irrigated with Saline -Foul Odor after Cleansing No -Bioengineered Tissue No -Bleeding Controlled with NA -Treatment Response Procedure Tolerated Well #1 RIGHT UPPER LE -Time 13:56 -Correct Patient Yes -Correct Side, Site, Position Yes -Correct Procedure Yes -Procedure Performed Yes -Type of Procedure Debridement -Clinical Debridement Selective -Post Debridement Size (cm) - Length 2.1 -Post Debridement Size (cm) - Width 2.0 -Post Debridement Size (cm) - Depth 0.1 -Total Square Cm 4.20 -Wound/Ulcer Outcome Not Healed -Ulcer Cleansing Rinsed/ Irrigated with Saline -Foul Odor after Cleansing No -Bioengineered Tissue No -Bleeding Controlled with NA -Treatment Response Procedure Tolerated Well [See Physician Procedure note for Specifics] Pain Scale: 0-10 Numeric [Pain] -Is Patient Pain Free? Yes Neurological: Cranial nerves II-XII grossly intact, Neuro grossly intact Psych/Mental Status: Normal Affect, Appropriate, Alert and oriented to time, place, person, mood and affect Debridement Note Post-Debridement Measurements/Treatment WC - Nurse 2 - General Ulcer CM Notes Start: 05/26/18 12:37 Freq: Status: Active Protocol: Activity Type Activity Date Activity User E-Sign Co-Sign Detail Recorded Client Recorded Date Recorded By Document 05/26/18 13:55 [id number] 05/26/18 14:06 KALEB 05/26/18 13:55 Wound Center Nurse 2 #4 RIGHT GREAT TOE -Time 13:55 -Correct Patient Yes -Correct Side, Site, Position Yes -Correct Procedure Yes -Procedure Performed No -Wound/Ulcer Outcome Not Healed -Ulcer Cleansing Rinsed/ Irrigated with Saline -Foul Odor after Cleansing No -Bioengineered Tissue No -Bleeding Controlled with NA #3 RIGHT 2ND MEDIAL TOE -Time 13:55 -Correct Patient Yes -Correct Side, Site, Position Yes -Correct Procedure Yes -Procedure Performed No -Wound/Ulcer Outcome Not Healed -Ulcer Cleansing Rinsed/ Irrigated with Saline -Foul Odor after Cleansing No -Bioengineered Tissue No -Bleeding Controlled with NA -Treatment Response Procedure Tolerated Well #2 RU MEDIAL LE -Time 13:56 -Correct Patient Yes -Correct Side, Site, Position Yes -Correct Procedure Yes -Procedure Performed Yes -Type of Procedure Debridement -Clinical Debridement Selective -Post Debridement Size (cm) - Length 0.8 -Post Debridement Size (cm) - Width 0.8 -Post Debridement Size (cm) - Depth 0.1 -Total Square Cm 0.64 -Wound/Ulcer Outcome Not Healed -Ulcer Cleansing Rinsed/ Irrigated with Saline -Foul Odor after Cleansing No -Bioengineered Tissue No -Bleeding Controlled with NA -Treatment Response Procedure Tolerated Well #1 RIGHT UPPER LE -Time 13:56 -Correct Patient Yes -Correct Side, Site, Position Yes -Correct Procedure Yes -Procedure Performed Yes -Type of Procedure Debridement -Clinical Debridement Selective -Post Debridement Size (cm) - Length 2.1 -Post Debridement Size (cm) - Width 2.0 -Post Debridement Size (cm) - Depth 0.1 -Total Square Cm 4.20 -Wound/Ulcer Outcome Not Healed -Ulcer Cleansing Rinsed/ Irrigated with Saline -Foul Odor after Cleansing No -Bioengineered Tissue No -Bleeding Controlled with NA -Treatment Response Procedure Tolerated Well Pain Scale: 0-10 Numeric Is Patient Pain Free? Yes Laterality: Right - Lower extremity Type of Debridement: Selective debridement Anesthesia Used: 4% Lidocaine Solution Depth: Down to and including healthy tissue Percentage of wound debrided: 100 Instrument Used: #10 blade Amount of bleeding with debridement: None Patient tolerated procedure well A #10 scalpel blade was again used to score the ulcerations inferior to the right knee. We are currently using collagenase Santyl topically, and seeking a means of penetrating the necrotic tissue which covers each of the 2 ulcerations. Therefore, the sterile scalpel was used to score the eschar overlying each site, in an effort to enable the collagenase Santyl to have a greater effect debriding the ulceration by enzymatic means. Assessment/Plan Active Problems Ulcer of right leg (Chronic) Ulcer of right great toe due to diabetes mellitus (Chronic) Ulcer of right second toe (Chronic) DM (diabetes mellitus) with peripheral vascular complication (Chronic) Ischemia of right lower extremity (Chronic) Tobacco abuse (Chronic) Tobacco abuse counseling (Acute) Assessment: This is a 57-year-old diabetic male with severe peripheral arterial occlusive disease in his lower extremities. He is currently under the care of a vascular surgeon at the [facility] in [place], [place] - Dr. Joe. A major lower extremity revascularization procedure is scheduled for June 17, 2018. The patient is scheduled to undergo preliminary testing in the near future, to include a cardiac stress test and a pulmonary function tests. Patient has undergone relatively recent laboratory testing, with results as follows: BUN 12, creatinine 0.97, sodium 136, potassium 4.7, chloride 95, calcium 10.0, protein 7.0, albumin 4.4, total bilirubin 0.5, white blood count 10.2, hemoglobin 14.1, hematocrit 41.3, platelets 218,000. Triglycerides 221. Vitamin D 30.7, which appears to be low normal. Plan: The patient has been advised to elevate his lower extremities as much as possible, to minimize the swelling that he typically experiences at the end of each day. Activity has been encouraged. He has been advised to refrain from prolonged idle sitting. The patient has been counseled to stop smoking. We will defer to the patient's vascular surgeon at the [facility], who appears to be preparing for lower extremity revascularization. Optimizing perfusion is certainly a worthy goal in achieving wound healing. Given peripheral arterial occlusive disease, it is felt that aggressive debridement of the patient's lower extremity wounds is ill-advised at this time. The 2 wounds below the right knee has been gently scored, and we will continue the use of collagenase Santyl relative to the 2 ulcerations below the right knee. The ulcerations on the right foot will be kept clean and dry, and the patient has been advised to wear shoes which are properly fitted, and will not exert undue or unwanted pressure. We are to request records from the patient's caregivers at the [facility], namely Dr. Joe. Collaboration and comanagement with the patient's other physicians is anticipated. We are to seek consultation with a panel bill of lading clerk to assist in the comanagement of the patient, particularly in regard to the patient's ischemic foot ulcerations. The patient is to return in 2 weeks for reassessment. One week hence, the patient has an appointment with his manager photography. He has been advised to contact our facility if the erythema about his ulceration should increase or worsen. The patient is known to be a smoker. Smoking cessation has been advised, in great detail. The patient has been counseled as to the adverse consequences of smoking relative to his peripheral arterial occlusive disease and wound healing potential. Influenza vaccine was not administered today. The patient weighs 220 pounds. He stands 6 feet 0 inches in height. His BMI is 29.9, which places him in an overweight category. While good and adequate nutrition has been advised, mild weight loss has been recommended, with collaboration from his primary care physician.
--- NOTE | 2018-05-26 14:21 | HP.PCM_ITS ---
(1) Ulcer of right leg Status: Chronic Current Visit: Yes Qualifiers: Non-pressure ulcer stage: unspecified non-pressure ulcer stage Qualified Code(s): L97.919 - Non-pressure chronic ulcer of unspecified part of right lower leg with unspecified severity Code(s): L97.919 - Non-pressure chronic ulcer of unspecified part of right lower leg with unspecified severity (2) Ulcer of right great toe due to diabetes mellitus Status: Chronic Current Visit: Yes Code(s): E11.621 - Type 2 diabetes mellitus with foot ulcer; L97.519 - Non-pressure chronic ulcer of other part of right foot with unspecified severity (3) Ulcer of right second toe Status: Chronic Current Visit: Yes Qualifiers: Non-pressure ulcer stage: unspecified non-pressure ulcer stage Code(s): L97.519 - Non-pressure chronic ulcer of other part of right foot with unspecified severity (4) DM (diabetes mellitus) with peripheral vascular complication Status: Chronic Current Visit: Yes Code(s): E11.51 - Type 2 diabetes mellitus with diabetic peripheral angiopathy without gangrene (5) PAD (peripheral artery disease) Status: Chronic Current Visit: No Code(s): I73.9 - Peripheral vascular disease, unspecified (6) Gangrene Status: Chronic Current Visit: No Code(s): I96 - Gangrene, not elsewhere classified (7) Coronary artery disease Status: Chronic Current Visit: No Qualifiers: Coronary Disease-Associated Artery/Lesion type: [place] artery [place] vs. transplanted heart: [place] heart Code(s): I25.10 - Atherosclerotic heart disease of [place] coronary artery without angina pectoris (8) Atrial fibrillation Status: Chronic Current Visit: No Code(s): I48.91 - Unspecified atrial fibrillation (9) Cardiac defibrillator in place Status: Chronic Current Visit: No Code(s): Z95.810 - Presence of automatic ( implantable) cardiac defibrillator (10) Right leg swelling Status: Chronic Current Visit: No Code(s): M79.89 - Other specified soft tissue disorders (11) Ischemia of right lower extremity Status: Chronic Current Visit: Yes Code(s): I99.8 - Other disorder of circulatory system (12) History of coronary artery bypass graft x 3 Status: Acute Current Visit: No Code(s): Z95.1 - Presence of aortocoronary bypass graft (13) Tobacco abuse Status: Chronic Current Visit: Yes Code(s): Z72.0 - Tobacco use (14) Tobacco abuse counseling Status: Acute Current Visit: Yes Code(s): Z71.6 - Tobacco abuse counseling (15) Hyperlipidemia Status: Chronic Current Visit: No Code(s): E78.5 - Hyperlipidemia, unspecified History of Present Illness Date of Service: 05/26/18 Chief Complaint: Ischemia and peripheral arterial occlusive disease of the right lower extremity, associated with ulcerations of the right leg and toes. History of Wound: This is a 57-year-old male who presents as a referral from his primary care physician with ischemic ulcerations on the right leg and the toes of the right foot. These have been present for approximately 2 months. The patient has multiple medical problems. Among his problems is known peripheral arterial occlusive disease, for which she is under the care of a vascular surgeon at the [facility] in [place], [place], by the name of Dr. Joe. According to the patient, he has had extensive evaluation by Dr. Joe , including a CT scan of the vascular system of his neck, chest, abdomen, and lower extremities. The patient is scheduled to undergo major surgical revascularization of the lower extremities on June 17, 2018. As a prelude to surgical intervention, the patient has cardiac stress testing and pulmonary function tests scheduled for the next several weeks. We have obtained a copy of the patient's CTA report, which indicates the following: Normal caliber abdominal aorta with no significant focal stenosis; right leg indicates moderate stenosis of the common femoral artery extending into the origin of the profunda femoris. Superficial femoral artery is occluded shortly after its origin. Popliteal artery is reconstituted with a moderate focal stenosis in the above-knee segment. Two-vessel infrapopliteal runoff. The left leg demonstrates superficial femoral artery occluded shortly after its origin. Popliteal artery is reconstituted. Two-vessel infrapopliteal runoff. The patient indicates that his right lower extremity typically swells late in the day. The etiology of the ulcerations on his right great and second toe may be due to pressure phenomenon from ill-fitted footwear. The source of the 2 ulcerations inferior to the right knee is uncertain. The patient is known to be a vasculopath, having previously suffered a myocardial infarction and having undergone coronary revascularization ?3 in the past. The patient is diabetic, and his arterial occlusive disease is likely related to his history of diabetes , and the fact he is a smoker. The patient continues to smoke, despite medical advice to the contrary. Prior to a referral from his primary care physician, the patient was recently treated with an intramuscular injection of Rocephin 2 g IM, and is currently taking a course of cefadroxil 1 g p.o. twice daily for a total of 7 days. The patient denies leg pain at night, but often experiences lower extremity pain with short distances of ambulation, which likely represents intermittent claudication. Past Medical History Past Medical History: Chronic Problems Ulcer of right leg (Chronic) Ulcer of right great toe due to diabetes mellitus (Chronic) Ulcer of right second toe (Chronic) DM (diabetes mellitus) with peripheral vascular complication (Chronic) PAD (peripheral artery disease) (Chronic) Gangrene (Chronic) Coronary artery disease (Chronic) Atrial fibrillation (Chronic) Cardiac defibrillator in place (Chronic) Right leg swelling (Chronic) Ischemia of right lower extremity (Chronic) Tobacco abuse (Chronic) Hyperlipidemia (Chronic) Surgical History: - - Patient has previously undergone coronary revascularization ?3, at which time valve repair was performed. The patient is also undergone open reduction and internal fixation of the left femur fracture in the past. Allergies/Adverse Reactions: Allergies No Known Allergies Allergy (Verified 05/19/18 11:45) Home Medications: Ambulatory Orders Medication Instructions Recorded Aspirin E.C. [Ecotrin] 81 mg PO DAILY@0800 05/19/18 Atorvastatin Calcium [Lipitor] 40 mg PO QHS 05/19/18 Bisoprolol Fumarate [Zebeta] 10 mg PO DAILY 05/19/18 Cholecalciferol (Vitamin D3) 4,000 unit PO DAILY 05/19/18 [Vitamin D3] Famotidine 20 mg PO BID 05/19/18 Glucosamine/D3/Boswellia Melonie 1 each PO DAILY 05/19/18 [Osteo Bi-Flex Tablet] Lisinopril [Zestril] 20 mg PO DAILY 05/19/18 Metformin HCl [Metformin HCl ER] 500 mg PO TID 05/19/18 Multivitamin [Daily Multiple 1 each PO DAILY 05/19/18 Vitamin] - Family History Paternal - - The patient's father at the age of 78 from cancer of unknown etiology. The patient's mother at age of 68 from liver cancer. Smoking Status: Current every day smoker - The patient smokes 1-1/2 packs of cigarettes per day and has done so for many years. Tobacco Use: Cigarettes Review of Systems Constitutional: Denies: Chills, Fever, Weight Change Eyes: Denies: Pain, Vision Change HEENT: Denies: Difficulty Hearing, Difficulty Swallowing, Sinus Congestion Cardiovascular: Denies: Chest Pain, Palpitations Respiratory: Denies: Cough, Shortness of Breath Gastrointestinal: Denies: Diarrhea, Nausea, Vomiting Genitourinary: Denies: Dysuria, Hematuria Endocrine: Denies: Heat/ Cold Intolerance, Polydipsia, Polyuria Hematologic/ Lymphatic: Denies: Easy Bruising, Easy Bleeding - Physical Exam Vital Signs Temp Pulse Resp BP 97.9 F 79 20 H 131/69 H 05/26/18 12:37 05/26/18 12:37 05/26/18 12:37 05/26/18 12:37 General: Alert, Oriented x3, Cooperative, No apparent distress, Well developed, Well nourished HEENT: Atraumatic, PERRLA, EOMI, Normocephalic Oral: Moist Mucosa Neck: No JVD Lungs: Normal air movement Abdomen: Non-Distended Extremities: No clubbing, No cyanosis, No edema, No Calf Tenderness, - - There is little change of the patient's right lower extremity compared to the prior week. 2 escharous and dry ulcerations are noted inferior to the right knee. There is only slight erythema associated with these ulcerations. There is no significant swelling or edema in the lower extremities. 2 ulcerations are noted involving the right great toe, as well as an ulceration noted on the medial aspect of the right second toe. The foot ulcerations are dry and escharous. The right great toenail is slightly raised, suggesting the possibility of a subungual process. There is no erythema associated with the foot ulcerations. Dimensions of all ulcerations are documented elsewhere. Wound Measurements and Assessment WC - Nurse 1 - General Ulcer Measurement Start: 05/26/18 12:37 Freq: Status: Active Protocol: Activity Type Activity Date Activity User E-Sign Co-Sign Detail Recorded Client Recorded Date Recorded By Document 05/26/18 12:37 DL [id number] 05/26/18 12:50 DL 05/26/18 12:37 Wound Center Nurse 1 [Ulcer Assessment] #4 RIGHT GREAT TOE -Current Size (cm) - Length 0.3 -Current Size (cm) - Width 0.7 -Current Size (cm) - Depth 0.1 -Total Square Cm 0.21 -Photo Taken No -Exudate Amt None Present (0 %) -Wound Margin Thickened -Granulation Amt None Present (0 %) -Necrosis Amt Large (67-100%) -Necrotic Tissue Type Adherent Slough -Structure Exposed N/A -Texture (Scarlett-wound Skin Appearance) Localized Edema -Moisture (Scarlett-wound Skin Appearance Dry/Scaly ) -Color (Scarlett-wound Skin Appearance) Erythema Hemosiderin Staining Mottled -Tenderness on Palpation (Scarlett-wound Yes Skin Appearance) -Ulcer Cleansing Rinsed/ Irrigated with Saline -Foul Odor after Cleansing No -Anesthetic Used 4% Lidocaine Solution #3 RIGHT 2ND MEDIAL TOE -Current Size (cm) - Length 0.8 -Current Size (cm) - Width 0.7 -Current Size (cm) - Depth 0.1 -Total Square Cm 0.56 -Photo Taken No -Exudate Amt None Present (0 %) -Wound Margin Thickened -Granulation Amt None Present (0 %) -Necrosis Amt Large (67-100%) -Necrotic Tissue Type Eschar -Structure Exposed N/A -Texture (Scarlett-wound Skin Appearance) Localized Edema -Moisture (Scarlett-wound Skin Appearance Dry/Scaly ) -Color (Scarlett-wound Skin Appearance) Erythema Hemosiderin Staining Mottled -Temperature (Scarlett-wound Skin No Abnormality Appearance) (Pt Warm) -Tenderness on Palpation (Scarlett-wound Yes Skin Appearance) -Ulcer Cleansing Rinsed/ Irrigated with Saline -Foul Odor after Cleansing No -Anesthetic Used 4% Lidocaine Solution #2 RU MEDIAL LE -Current Size (cm) - Length 0.8 -Current Size (cm) - Width 0.8 -Current Size (cm) - Depth 0.1 -Total Square Cm 0.64 -Photo Taken No -Exudate Amt None Present (0 %) -Wound Margin Thickened -Granulation Amt None Present (0 %) -Necrosis Amt Large (67-100%) -Necrotic Tissue Type Eschar -Structure Exposed N/A -Texture (Scarlett-wound Skin Appearance) Scarring -Moisture (Scarlett-wound Skin Appearance No Abnormality ) -Color (Scarlett-wound Skin Appearance) Erythema -Temperature (Scarlett-wound Skin No Abnormality Appearance) (Pt Warm) -Ulcer Cleansing Rinsed/ Irrigated with Saline -Foul Odor after Cleansing No -Anesthetic Used 4% Lidocaine Solution #1 RIGHT UPPER LE -Current Size (cm) - Length 2.1 -Current Size (cm) - Width 2 -Current Size (cm) - Depth 0.1 -Total Square Cm 4.2 -Photo Taken No -Exudate Amt None Present (0 %) -Wound Margin Thickened -Granulation Amt None Present (0 %) -Necrosis Amt Large (67-100%) -Necrotic Tissue Type Eschar -Structure Exposed N/A -Texture (Scarlett-wound Skin Appearance) No Abnormality -Moisture (Scarlett-wound Skin Appearance No Abnormality ) -Color (Scarlett-wound Skin Appearance) Erythema Hemosiderin Staining -Temperature (Scarlett-wound Skin No Abnormality Appearance) (Pt Warm) -Ulcer Cleansing Rinsed/ Irrigated with Saline -Foul Odor after Cleansing No -Anesthetic Used 4% Lidocaine Solution [Edema Assessment] -Right Calf (cm) 39.6 -Right Ankle (cm) 23.5 WC - Nurse 2 - General Ulcer CM Notes Start: 05/26/18 12:37 Freq: Status: Active Protocol: Activity Type Activity Date Activity User E-Sign Co-Sign Detail Recorded Client Recorded Date Recorded By Document 05/26/18 13:55 KALEB [id number] 05/26/18 14:06 KALEB 05/26/18 13:55 Wound Center Nurse 2 [Procedure/Treatment] #4 RIGHT GREAT TOE -Time 13:55 -Correct Patient Yes -Correct Side, Site, Position Yes -Correct Procedure Yes -Procedure Performed No -Wound/Ulcer Outcome Not Healed -Ulcer Cleansing Rinsed/ Irrigated with Saline -Foul Odor after Cleansing No -Bioengineered Tissue No -Bleeding Controlled with NA #3 RIGHT 2ND MEDIAL TOE -Time 13:55 -Correct Patient Yes -Correct Side, Site, Position Yes -Correct Procedure Yes -Procedure Performed No -Wound/Ulcer Outcome Not Healed -Ulcer Cleansing Rinsed/ Irrigated with Saline -Foul Odor after Cleansing No -Bioengineered Tissue No -Bleeding Controlled with NA -Treatment Response Procedure Tolerated Well #2 RU MEDIAL LE -Time 13:56 -Correct Patient Yes -Correct Side, Site, Position Yes -Correct Procedure Yes -Procedure Performed Yes -Type of Procedure Debridement -Clinical Debridement Selective -Post Debridement Size (cm) - Length 0.8 -Post Debridement Size (cm) - Width 0.8 -Post Debridement Size (cm) - Depth 0.1 -Total Square Cm 0.64 -Wound/Ulcer Outcome Not Healed -Ulcer Cleansing Rinsed/ Irrigated with Saline -Foul Odor after Cleansing No -Bioengineered Tissue No -Bleeding Controlled with NA -Treatment Response Procedure Tolerated Well #1 RIGHT UPPER LE -Time 13:56 -Correct Patient Yes -Correct Side, Site, Position Yes -Correct Procedure Yes -Procedure Performed Yes -Type of Procedure Debridement -Clinical Debridement Selective -Post Debridement Size (cm) - Length 2.1 -Post Debridement Size (cm) - Width 2.0 -Post Debridement Size (cm) - Depth 0.1 -Total Square Cm 4.20 -Wound/Ulcer Outcome Not Healed -Ulcer Cleansing Rinsed/ Irrigated with Saline -Foul Odor after Cleansing No -Bioengineered Tissue No -Bleeding Controlled with NA -Treatment Response Procedure Tolerated Well [See Physician Procedure note for Specifics] Pain Scale: 0-10 Numeric [Pain] -Is Patient Pain Free? Yes Neurological: Cranial nerves II-XII grossly intact, Neuro grossly intact Psych/Mental Status: Normal Affect, Appropriate, Alert and oriented to time, place, person, mood and affect Debridement Note Post-Debridement Measurements/Treatment WC - Nurse 2 - General Ulcer CM Notes Start: 05/26/18 12:37 Freq: Status: Active Protocol: Activity Type Activity Date Activity User E-Sign Co-Sign Detail Recorded Client Recorded Date Recorded By Document 05/26/18 13:55 [id number] 05/26/18 14:06 KALEB 05/26/18 13:55 Wound Center Nurse 2 #4 RIGHT GREAT TOE -Time 13:55 -Correct Patient Yes -Correct Side, Site, Position Yes -Correct Procedure Yes -Procedure Performed No -Wound/Ulcer Outcome Not Healed -Ulcer Cleansing Rinsed/ Irrigated with Saline -Foul Odor after Cleansing No -Bioengineered Tissue No -Bleeding Controlled with NA #3 RIGHT 2ND MEDIAL TOE -Time 13:55 -Correct Patient Yes -Correct Side, Site, Position Yes -Correct Procedure Yes -Procedure Performed No -Wound/Ulcer Outcome Not Healed -Ulcer Cleansing Rinsed/ Irrigated with Saline -Foul Odor after Cleansing No -Bioengineered Tissue No -Bleeding Controlled with NA -Treatment Response Procedure Tolerated Well #2 RU MEDIAL LE -Time 13:56 -Correct Patient Yes -Correct Side, Site, Position Yes -Correct Procedure Yes -Procedure Performed Yes -Type of Procedure Debridement -Clinical Debridement Selective -Post Debridement Size (cm) - Length 0.8 -Post Debridement Size (cm) - Width 0.8 -Post Debridement Size (cm) - Depth 0.1 -Total Square Cm 0.64 -Wound/Ulcer Outcome Not Healed -Ulcer Cleansing Rinsed/ Irrigated with Saline -Foul Odor after Cleansing No -Bioengineered Tissue No -Bleeding Controlled with NA -Treatment Response Procedure Tolerated Well #1 RIGHT UPPER LE -Time 13:56 -Correct Patient Yes -Correct Side, Site, Position Yes -Correct Procedure Yes -Procedure Performed Yes -Type of Procedure Debridement -Clinical Debridement Selective -Post Debridement Size (cm) - Length 2.1 -Post Debridement Size (cm) - Width 2.0 -Post Debridement Size (cm) - Depth 0.1 -Total Square Cm 4.20 -Wound/Ulcer Outcome Not Healed -Ulcer Cleansing Rinsed/ Irrigated with Saline -Foul Odor after Cleansing No -Bioengineered Tissue No -Bleeding Controlled with NA -Treatment Response Procedure Tolerated Well Pain Scale: 0-10 Numeric Is Patient Pain Free? Yes Laterality: Right - Lower extremity Type of Debridement: Selective debridement Anesthesia Used: 4% Lidocaine Solution Depth: Down to and including healthy tissue Percentage of wound debrided: 100 Instrument Used: #10 blade Amount of bleeding with debridement: None Patient tolerated procedure well A #10 scalpel blade was again used to score the ulcerations inferior to the right knee. We are currently using collagenase Santyl topically, and seeking a means of penetrating the necrotic tissue which covers each of the 2 ulcerations. Therefore, the sterile scalpel was used to score the eschar overlying each site, in an effort to enable the collagenase Santyl to have a greater effect debriding the ulceration by enzymatic means. Assessment/Plan Active Problems Ulcer of right leg (Chronic) Ulcer of right great toe due to diabetes mellitus (Chronic) Ulcer of right second toe (Chronic) DM (diabetes mellitus) with peripheral vascular complication (Chronic) Ischemia of right lower extremity (Chronic) Tobacco abuse (Chronic) Tobacco abuse counseling (Acute) Assessment: This is a 57-year-old diabetic male with severe peripheral arterial occlusive disease in his lower extremities. He is currently under the care of a vascular surgeon at the [facility] in [place], [place] - Dr. Joe. A major lower extremity revascularization procedure is scheduled for June 17, 2018. The patient is scheduled to undergo preliminary testing in the near future, to include a cardiac stress test and a pulmonary function tests. Patient has undergone relatively recent laboratory testing, with results as follows: BUN 12, creatinine 0.97, sodium 136, potassium 4.7, chloride 95, calcium 10.0, protein 7.0, albumin 4.4, total bilirubin 0.5, white blood count 10.2, hemoglobin 14.1, hematocrit 41.3, platelets 218,000. Triglycerides 221. Vitamin D 30.7, which appears to be low normal. Plan: The patient has been advised to elevate his lower extremities as much as possible, to minimize the swelling that he typically experiences at the end of each day. Activity has been encouraged. He has been advised to refrain from prolonged idle sitting. The patient has been counseled to stop smoking. We will defer to the patient's vascular surgeon at the [facility], who appears to be preparing for lower extremity revascularization. Optimizing perfusion is certainly a worthy goal in achieving wound healing. Given peripheral arterial occlusive disease, it is felt that aggressive debridement of the patient's lower extremity wounds is ill-advised at this time. The 2 wounds below the right knee has been gently scored, and we will continue the use of collagenase Santyl relative to the 2 ulcerations below the right knee. The ulcerations on the right foot will be kept clean and dry, and the patient has been advised to wear shoes which are properly fitted, and will not exert undue or unwanted pressure. We are to request records from the patient's caregivers at the [facility], namely Dr. Joe. Collaboration and comanagement with the patient's other physicians is anticipated. We are to seek consultation with a panel underwriting specialist to assist in the comanagement of the patient, particularly in regard to the patient's ischemic foot ulcerations. The patient is to return in 2 weeks for reassessment. One week hence, the patient has an appointment with his infection control nurse. He has been advised to contact our facility if the erythema about his ulceration should increase or worsen. The patient is known to be a smoker. Smoking cessation has been advised, in great detail. The patient has been counseled as to the adverse consequences of smoking relative to his peripheral arterial occlusive disease and wound healing potential. Influenza vaccine was not administered today. The patient weighs 220 pounds. He stands 6 feet 0 inches in height. His BMI is 29.9, which places him in an overweight category. While good and adequate nutrition has been advised, mild weight loss has been recommended, with collaboration from his primary care physician.
== END 2018-06-19 23:59 ==
LOC: WC 08:17
PROVIDERS: Family Provider Nurse Practitioner; PCP Nurse Practitioner; Visit Provider Surgery
DX: E11.621 Type 2 diabetes mellitus with foot ulcer (principal); E11.51 Type 2 diabetes mellitus with diabetic peripheral angiopathy without gangrene; E11.622 Type 2 diabetes mellitus with other skin ulcer; F17.210 Nicotine dependence, cigarettes, uncomplicated; E78.5 Hyperlipidemia, unspecified; Z95.810 Presence of automatic (implantable) cardiac defibrillator; M79.89 Other specified soft tissue disorders; I48.2 Chronic atrial fibrillation; L97.819 Non-pressure chronic ulcer of other part of right lower leg with unspecified severity; L97.519 Non-pressure chronic ulcer of other part of right foot with unspecified severity
CPT/HCPCS: 97597

== ENCOUNTER 2018-06-07 16:09 | Emergency (ER) | payer OTHER, SELFPAY ==
[2018-06-07 16:10] VITALS: BP 112/70; PULSE 81; RESP 16; TEMP 36.4; BMI 29.6
--- NOTE | 2018-06-07 17:08 | ED.VISSUMM ---
- ER Visit Summary Date of Service: 06/07/18 Chief Complaint: Patient presents for antibiotics because he thinks he has an infected right foot. History of Present Illness: The patient is a 58 M who has multiple significant medical problems including peripheral arterial disease and scheduled for vascular surgery June 17 at [facility]. He presents with 2-3 day history of pain at rest or with walking 1 or 2 steps. He has had significant redness to the foot. He was unaware that his right great toe was pale. He does complain of pain in his right great toe and does have necrosis of the tip as well as medial portion of the right great toe. He does smoke. He denies any other symptoms please read written note Physical Examination: Vital signs are normal. Head is atraumatic normocephalic. Pupils are equal round reactive. Extraocular muscles are intact. TMs are pearly white with landmarks noted. Nares patent with no drainage. Posterior pharynx without erythema or exudate. Uvula is midline. There is no dysphonia or dysphasia. Trachea is midline. There is no stridor with auscultation of the neck. Heart is regular without murmur, gallop or rub. S1 and S2 are normal. Lungs are clear to auscultation with good movement of air bilaterally. Examination of the lower extremities reveals delayed capillary refill right foot and pallor to the right great toe. There are 3 areas of necrosis noted. There is no palpable PT or DP pulse right or left. There is biphasic flow PT left no flow DP left. There is monophasic flow PT right no flow DP. Patient's foot becomes pale with elevation of 1-2 feet after 15-30 seconds. Patient has a nonhealing wound proximal right leg inferior the patella. Test Results: Lab results are pending. CBC, BMP, PT/INR and PTT were ordered. Emergency Department Course and Treatment: Call was placed to the clinic clinic for transfer line and the transfer person was informed of patient's vascular surgeon. I did speak with him. He was informed of patient's history physical my concerns. I asked specifically if he would like patient anticoagulated. He replied that is your call . Based on prior experience and similar clinical presentations other vascular surgeons requested anticoagulation; therefore, patient was anticoagulated with heparin weight-based protocol. Treatment Plan: Anticoagulation, and transferred to [facility]. Disposition: Transfer to vascular surgery [facility] main campus Impression: Ischemia right great toe and foot secondary to worsening peripheral arterial disease History of coronary disease History of hypertension History of hypercholesterolemia History of diabetes This note was generated with Spayee dictation software. It may contain incorrect words, spelling, and punctuation that were not noted in review of the chart prior to signing ED Disposition - Plan for ED Patient: Chief Complaint: Wound Referrals: Carrie Hicks [Primary Care Provider] -
[2018-06-07 17:11] LABS: Absolute Lymphocyte Count 3.23 X10^3/ul (0.83-4.51); Absolute Neutrophil Count 7.5 X10^3/uL (2.0-7.7); Basophil# 0.03 X10^3/uL; Basophil% 0.2 % (0-1); Eosinophil# 0.09 X10^3/uL; Eosinophils% 0.7 % (0-5); Hematocrit 41.2 % (40-54); Hemoglobin 14.6 g/dl (13.0-16.5); Lymphocyte # 3.23 X10^3/ul (4.0); Lymphocyte % 26.9 % (19-41); Mean Corp Hgb Conc 35.4 g/gl (32-36); Mean Corpuscular Hgb 32.4 pg (27.0-32.0); Mean Corpuscular Volume 91.4 fL (80-94); Monocyte# 1.09 X10^3/uL; Monocyte% 9.1 % (0-10); Neutrophil # 7.53 X10^3/uL (2.7-7.7); Neutrophil % 62.8 % (47-70); Platelet Count 247 K/mm3 (150-450); RBC Distribution Width CV 13.3 % (11.6-14.6); RBC Distribution Width SD 43.9 fl (35.1-43.9); Red Blood Count 4.51 M/mm3 (4.6-6.2)
[2018-06-07 17:12] LABS: POSITIVE COUNT NO; POSITIVE DIFFERENTIAL NO; POSITIVE MORPHOLOGY NO
[2018-06-07 17:21] LABS: Partial Thromboplast Time 27.1 Seconds (24.1-36.2); Prothrombin Time (Protime)PT. 12.8 SECONDS (11.7-14.9)
[2018-06-07 17:29] LABS: Anion Gap 7 (5-15); BUN 7 mg/dL (7-18); BUN/Creat Ratio 6.7 RATIO (10-20); Calcium,Total 9.2 mg/dL (8.5-10.1); Chloride 99 mmol/L (98-107); Creatinine, Serum 1.04 mg/dL (0.70-1.30); EST Glomerular Filtration Rate 78 mL/min (>60); Est Glom Filt Rate - Afr Amer 94 mL/min (>60); Estimated Creatinine Clearance 83.94 ml/min; Glucose 132 mg/dL (74-106); Potassium 4.1 mmol/L (3.5-5.1); Sodium Level 133 mmol/L (136-145)
[2018-06-07] MEDS: HEPARIN/D5w 25,000 UNITS 25,000 UNITS/250 ML IV.SOLN. 14 UNITS IV (17:57)
[2018-06-07] MEDS: Heparin Injection (Vial) 5,000 UNIT/ML VIAL 7500 UNIT IV (17:57)
[2018-06-07 18:21] VITALS: BP 123/73; PULSE 75; RESP 16; O2SAT 98
--- NOTE | 2018-06-07 18:41 | NURSING ---
KOREY MORGAN SAID WAIT TIME WILL BE 2.5 HOURS OR LONGER SINCE SQUAD ALREAD[facility] SA[facility] 2 HOURS AT THE MOST BUT TRY TO GET SQUTIM HERE SOONER
[2018-06-07 20:43] VITALS: BP 128/66; PULSE 83; RESP 16; O2SAT 97
== END 2018-06-07 21:38 | disposition short-term general hospital (02) ==
PROVIDERS: Emergency Provider Emergency Medicine; Family Provider Nurse Practitioner; PCP Nurse Practitioner
DX: I73.9 Peripheral vascular disease, unspecified (principal); I25.10 Atherosclerotic heart disease of native coronary artery without angina pectoris; I10 Essential (primary) hypertension; E78.00 Pure hypercholesterolemia, unspecified; E11.9 Type 2 diabetes mellitus without complications; I48.91 Unspecified atrial fibrillation; Z72.0 Tobacco use
CPT/HCPCS: 80048; 85025; 85610; 85730; 93005; 99284; A4216

== ENCOUNTER 2018-07-04 14:43 | Emergency (ER) | payer OTHER, SELFPAY ==
[2018-07-04 14:43] VITALS: BP 108/59; PULSE 85; RESP 18; TEMP 37; O2SAT 99; BMI 29.7
[2018-07-04 15:42] LABS: Absolute Lymphocyte Count 1.21 X10^3/ul (0.83-4.51); Basophil# 0.03 X10^3/uL; Basophil% 0.2 % (0-1); Differential Indicated SCAN CRITERIA MET; Eosinophil# 0.01 X10^3/uL; Eosinophils% 0.1 % (0-5); Hematocrit 37.2 % (40-54); Hemoglobin 12.6 g/dl (13.0-16.5); Lymphocyte # 1.21 X10^3/ul (4.0); Lymphocyte % 6.3 % (19-41); Mean Corp Hgb Conc 33.9 g/gl (32-36); Mean Corpuscular Hgb 31.7 pg (27.0-32.0); Mean Corpuscular Volume 93.7 fL (80-94); Mean Platelet Vol. 10.1 fl (6.2-12.0); Monocyte# 2.02 X10^3/uL; Monocyte% 10.4 % (0-10); Neutrophil # 16.01 X10^3/uL (2.7-7.7); Neutrophil % 82.7 % (47-70); POSITIVE COUNT NO; POSITIVE DIFFERENTIAL YES; POSITIVE MORPHOLOGY NO; Platelet Count 270 K/mm3 (150-450); RBC Distribution Width CV 13.9 % (11.6-14.6); RBC Distribution Width SD 45.9 fl (35.1-43.9); Red Blood Count 3.97 M/mm3 (4.6-6.2); White Blood Count 19.3 K/mm3 (4.4-11.0)
--- NOTE | 2018-07-04 15:45 | RAD_ITS ---
STUDY: X-RAY CHEST REASON FOR EXAM: Male, 58 years old. Flulike symptoms. TECHNIQUE: PA and lateral views. COMPARISON: None. FINDINGS: Sternotomy wires are present with mitral valve replacement. A single lead cardiac pacemaker is noted on the left. The lungs are clear and expanded. There is no demonstrated pleural abnormality. Normal size heart. Normal mediastinum and sanjiv. Normal visualized pulmonary arteries. Normal visualized aortic arch and descending thoracic aorta. There is mild thoracic spondylosis. Soft tissues and bony structures are otherwise unremarkable. RAD/Chest PA and Lateral IMPRESSION: No acute process. Electronically Signed: Aruna dEouard MD at 16:38 EDT Tel , Service support ,
[2018-07-04 15:54] LABS: International Normalized Ratio 2.2; Prothrombin Time (Protime)PT. 24.9 SECONDS (11.7-14.9)
[2018-07-04 15:58] LABS: Mucous, Urine 0 SEEN /hpf (<or=2+); Squamous Epithelial Cells - UA 0 SEEN /hpf (0-5); White Blood Cells 0 SEEN /hpf (0-5)
[2018-07-04 16:03] LABS: Color, Urine Yellow (Yellow); Glucose, Dipstick Normal (Normal); Ketone-Dipstick 15 mg/dl (Negative); Leukocyte Esterase-Dipstick Negative /ul (Negative); Nitrite-Dipstick Negative (Negative); Occult Blood-Urine 25 /ul (Negative); Protein-Dipstick Negative (Negative); Urine Bilirubin Dipstick Negative (Negative); Urine Clarity Clear (Clear); Urine Urobilinogen 1 mg/dl (Normal)
[2018-07-04 16:11] LABS: Bacteria RARE /hpf (None Seen); Red Blood Cells-Urine 0-5 SEEN /hpf (0-5)
[2018-07-04 16:24] LABS: Differential Comment SCANNED
[2018-07-04 16:40] LABS: D-Dimer Quantitative (DVT/PE) 1.27 FEU/ug/m (0.27-0.49)
--- NOTE | 2018-07-04 16:40 | ED.RN ---
ddimer 1.27 called from the lab. dr hall aware
[2018-07-04 17:19] LABS: Anion Gap 7 (5-15); BUN 12 mg/dL (7-18); BUN/Creat Ratio 10.9 RATIO (10-20); Calcium,Total 8.9 mg/dL (8.5-10.1); Chloride 100 mmol/L (98-107); EST Glomerular Filtration Rate 73 mL/min (>60); Est Glom Filt Rate - Afr Amer 88 mL/min (>60); Estimated Creatinine Clearance 79.36 ml/min; Glucose 145 mg/dL (74-106); Potassium 5.4 mmol/L (3.5-5.1); Sodium Level 131 mmol/L (136-145)
[2018-07-04 17:21] VITALS: BP 136/65; PULSE 99; RESP 17; TEMP 37.9; O2SAT 97
--- NOTE | 2018-07-04 17:36 | EKG12_ITS ---
Test Reason : GENERAL ILLNESS Blood Pressure : / mmHG Vent. Rate : 100 BPM Atrial Rate : 100 BPM P-R Int : 142 ms QRS Dur : 112 ms QT Int : 346 ms P-R-T Axes : 023 007 095 degrees QTc Int : 446 ms Normal sinus rhythm Inferior infarct , age undetermined Abnormal ECG Confirmed by PHILIP LLAMAS, LISA ([id number]), editor magazine CLEO ESTEBAN ([id number]) on 07/06/2018 3:30:14 PM Referred By: CORBY Confirmed By:LISA PALACIOS MD
--- NOTE | 2018-07-04 18:44 | ED.VISSUMM ---
- ER Visit Summary Date of Service: 07/04/18 Chief Complaint: Fever History of Present Illness: The patient is a 58 M who presents with flulike symptoms. He recently had a vascular bypass for an ischemic right great toe. The surgery was on June 11. The way the patient describes what was done it sounds like he had a femoral-popliteal bypass. He also had a vascular stent. Over the last 3 days he complains of generalized malaise and low-grade fevers. He was unable to contact his surgeon. He contacted his primary care physician who advised that he go to the emergency department and vocalize concern for DVT. The patient denies any other clear source of infection. He denies shortness of breath cough congestion rhinorrhea sore throat nausea vomiting diarrhea abdominal pain or urinary symptoms. Physical Examination: Afebrile vitals are unremarkable and within normal limits Moist mucous membranes Heart regular rate and rhythm Lungs are clear Abdomen soft nontender The incisions at his right groin and leg appear to be clean dry and intact no erythema fluctuance or drainage he has a weak dorsalis pedis Doppler signal but a strong posterior tibial Doppler signal he does have edema of the right leg and right foot Test Results: EKG shows sinus rhythm at a rate of 100. Chest x-ray shows no acute process. Urinalysis unremarkable. D-dimer 1.27. INR 2.2. Potassium 5.4 with normal BUN and creatinine. He does have white blood cell count of 19.3. Emergency Department Course and Treatment: Patient's temperature went up to 100.3. He does not have a clear source of infection. Chest x-ray and urine are normal. I do not believe his wounds are infected. Given recent vascular surgery I would be concerned for bacteremia. I spoke to the patient's vascular surgeon who had no specific concerns but advised that we could talk to the transfer line and transfer the patient. Patient was empirically treated with Zosyn and vancomycin and blood and urine cultures were obtained. I spoke to Dr. Ray, of medicine who accepted the patient for transfer to [facility]. Treatment Plan: [] Disposition: Transfer Impression: Fever of unknown origin Leukocytosis Recent vascular surgery This note was generated with Lab42ation software. It may contain incorrect words, spelling, and punctuation that were not noted in review of the chart prior to signing ED Disposition - Plan for ED Patient: Chief Complaint: General Illness Referrals: Carrie Hicks [Primary Care Provider] -
[2018-07-04 19:00] VITALS: RESP 18; O2SAT 95
[2018-07-04 21:15] VITALS: BP 128/67; PULSE 80; RESP 17; TEMP 37.4; O2SAT 95
[2018-07-04 23:00] VITALS: BP 130/72; PULSE 74; RESP 18; O2SAT 95
[2018-07-05 01:13] VITALS: BP 137/63; PULSE 72; RESP 16; O2SAT 97
== END 2018-07-05 01:40 | disposition short-term general hospital (02) ==
LOC: ED 15:04
PROVIDERS: Emergency Provider Emergency Medicine; Family Provider Nurse Practitioner; PCP Nurse Practitioner
DX: R50.9 Fever, unspecified (principal); D72.829 Elevated white blood cell count, unspecified; Z98.890 Other specified postprocedural states; K21.9 Gastro-esophageal reflux disease without esophagitis; E11.9 Type 2 diabetes mellitus without complications; I10 Essential (primary) hypertension; E78.00 Pure hypercholesterolemia, unspecified; Z72.0 Tobacco use; I73.9 Peripheral vascular disease, unspecified
CPT/HCPCS: 71046; 80048; 81001; 85025; 85379; 85610; 87040; 87086; 87088; 93005; 96365; 96366; 96367; 99285; J7040

== ENCOUNTER → 2018-07-10 10:27 | Outpatient (CLI) | payer OTHER, SELFPAY ==
[2018-07-10 11:16] LABS: Absolute Lymphocyte Count 2.02 X10^3/ul (0.83-4.51); Absolute Neutrophil Count 7.2 X10^3/uL (2.0-7.7); Basophil# 0.05 X10^3/uL; Basophil% 0.5 % (0-1); Eosinophil# 0.22 X10^3/uL; Eosinophils% 2.1 % (0-5); Hematocrit 36.2 % (40-54); Hemoglobin 11.9 g/dl (13.0-16.5); Lymphocyte # 2.02 X10^3/ul (4.0); Lymphocyte % 19.6 % (19-41); Mean Corp Hgb Conc 32.9 g/gl (32-36); Mean Corpuscular Hgb 30.5 pg (27.0-32.0); Mean Corpuscular Volume 92.8 fL (80-94); Mean Platelet Vol. 9.9 fl (6.2-12.0); Monocyte% 7.8 % (0-10); Neutrophil # 7.17 X10^3/uL (2.7-7.7); Neutrophil % 69.5 % (47-70); Platelet Count 310 K/mm3 (150-450); RBC Distribution Width CV 13.5 % (11.6-14.6); RBC Distribution Width SD 45.8 fl (35.1-43.9); White Blood Count 10.3 K/mm3 (4.4-11.0)
[2018-07-10 11:21] LABS: POSITIVE COUNT NO; POSITIVE DIFFERENTIAL NO; POSITIVE MORPHOLOGY NO
[2018-07-10 11:22] LABS: Erythrocyte Sedimentation Rate 83 mm/hr (0-20)
[2018-07-10 11:28] LABS: ALB/GLOB Ratio 0.7 RATIO (0.9-2.4); AST(SGOT) 27 U/L (15-37); Alanine Aminotransfer ALT/SGPT 76 U/L (16-61); Alkaline Phosphatase 81 U/L (45-117); Anion Gap 10 (5-15); BUN 12 mg/dL (7-18); BUN/Creat Ratio 13.2 RATIO (10-20); Calcium,Total 9.1 mg/dL (8.5-10.1); Chloride 101 mmol/L (98-107); Creatinine, Serum 0.91 mg/dL (0.70-1.30); EST Glomerular Filtration Rate 91 mL/min (>60); Est Glom Filt Rate - Afr Amer 110 mL/min (>60); Globulin 4.3 g/dL (2.2-4.2); Glucose 144 mg/dL (74-106); Potassium 4.4 mmol/L (3.5-5.1); Protein, Total 7.3 g/dL (6.4-8.2); Sodium Level 136 mmol/L (136-145)
== END ==
PROVIDERS: Family Provider Nurse Practitioner; PCP Nurse Practitioner; Visit Provider Nurse Practitioner
DX: L03.115 Cellulitis of right lower limb (principal)
CPT/HCPCS: 36415; 80053; 85025; 85652; 86140

== ENCOUNTER 2018-07-14 09:30 | Outpatient (RCR) | payer OTHER, SELFPAY ==
[2018-06-20 01:36] VITALS: BP 131/69; PULSE 79; RESP 20; TEMP 36.6
[2018-06-23 13:41] VITALS: BP 128/70; PULSE 85; RESP 16; TEMP 36.4
--- NOTE | 2018-06-23 14:10 | PCM.WC.HP ---
(1) Ulcer of right leg Status: Chronic Current Visit: Yes Qualifiers: Non-pressure ulcer stage: with fat layer exposed Qualified Code(s): L97.912 - Non-pressure chronic ulcer of unspecified part of right lower leg with fat layer exposed Code(s): L97.919 - Non-pressure chronic ulcer of unspecified part of right lower leg with unspecified severity (2) Ulcer of right great toe due to diabetes mellitus Status: Chronic Current Visit: Yes Code(s): E11.621 - Type 2 diabetes mellitus with foot ulcer; L97.519 - Non-pressure chronic ulcer of other part of right foot with unspecified severity (3) Ulcer of right second toe Status: Chronic Current Visit: Yes Qualifiers: Non-pressure ulcer stage: unspecified non-pressure ulcer stage Code(s): L97.519 - Non-pressure chronic ulcer of other part of right foot with unspecified severity (4) DM (diabetes mellitus) with peripheral vascular complication Status: Chronic Current Visit: Yes Code(s): E11.51 - Type 2 diabetes mellitus with diabetic peripheral angiopathy without gangrene (5) PAD (peripheral artery disease) Status: Chronic Current Visit: Yes Code(s): I73.9 - Peripheral vascular disease, unspecified (6) Gangrene Status: Chronic Current Visit: Yes Code(s): I96 - Gangrene, not elsewhere classified (7) Coronary artery disease Status: Chronic Current Visit: No Code(s): I25.10 - Atherosclerotic heart disease of [place] coronary artery without angina pectoris (8) Atrial fibrillation Status: Chronic Current Visit: No Code(s): I48.91 - Unspecified atrial fibrillation (9) Cardiac defibrillator in place Status: Chronic Current Visit: No Code(s): Z95.810 - Presence of automatic (implantable) cardiac defibrillator (10) Right leg swelling Status: Chronic Current Visit: Yes Code(s): M79.89 - Other specified soft tissue disorders (11) Ischemia of right lower extremity Status: Chronic Current Visit: Yes Code(s): I99.8 - Other disorder of circulatory system (12) History of coronary artery bypass graft x 3 Status: Acute Current Visit: No Code(s): Z95.1 - Presence of aortocoronary bypass graft (13) Tobacco abuse Status: Chronic Current Visit: Yes Code(s): Z72.0 - Tobacco use (14) Tobacco abuse counseling Status: Chronic Current Visit: Yes Code(s): Z71.6 - Tobacco abuse counseling (15) Hyperlipidemia Status: Chronic Current Visit: No Code(s): E78.5 - Hyperlipidemia, unspecified History of Present Illness Date of Service: 06/23/18 Chief Complaint: Ischemia and peripheral arterial occlusive disease of the right lower extremity, associated with ulcerations of the right leg and toes. History of Wound: This is a 58-year-old male who presented as a referral from his primary care physician with ischemic ulcerations on the right leg and the toes of the right foot. These had been present for approximately 2 months. The patient has multiple medical problems. Among his problems is known peripheral arterial occlusive disease, for which he is under the care of a vascular surgeon at the [facility] in [place], [place], by the name of Dr. Joe. According to the patient, he has had extensive evaluation by Dr. Joe, including a CT scan of the vascular system of his neck, chest, abdomen, and lower extremities. The patient underwent right lower extremity revascularization on June 11, 2018. Surgery was performed at the [facility]. It appears he underwent a right femoralpopliteal bypass graft, with prosthetic graft material. Evaluation today reveals an incision on the proximal portion of the medial right calf, which is healing appropriately. The distal right lower extremity is slightly swollen. The right lower extremity is warm and appears to be well perfused. The patient is diabetic, and his arterial occlusive disease is likely related to his history of diabetes, and the fact he is a smoker. The patient continues to smoke, despite medical advice to the contrary. He has, however, diminished his smoking significantly. Past Medical History Past Medical History: Chronic Problems Ulcer of right leg (Chronic) Ulcer of right great toe due to diabetes mellitus (Chronic) Ulcer of right second toe (Chronic) DM (diabetes mellitus) with peripheral vascular complication (Chronic) PAD (peripheral artery disease) (Chronic) Gangrene (Chronic) Coronary artery disease (Chronic) Atrial fibrillation (Chronic) Cardiac defibrillator in place (Chronic) Right leg swelling (Chronic) Ischemia of right lower extremity (Chronic) Tobacco abuse (Chronic) Tobacco abuse counseling (Chronic) Hyperlipidemia (Chronic) Surgical History: - - Patient has previously undergone coronary revascularization ?3, at which time valve repair was performed. The patient is also undergone open reduction and internal fixation of the left femur fracture in the past. Allergies/Adverse Reactions: Allergies No Known Allergies Allergy (Verified 05/19/18 11:45) Home Medications: Ambulatory Orders Medication Instructions Recorded Aspirin E.C. [Ecotrin] 81 mg PO DAILY@0800 05/19/18 Atorvastatin Calcium [Lipitor] 40 mg PO QHS 05/19/18 Bisoprolol Fumarate [Zebeta] 5 mg PO DAILY 05/19/18 Cholecalciferol (Vitamin D3) 4,000 unit PO DAILY 05/19/18 [Vitamin D3] Famotidine 20 mg PO BID 05/19/18 Glucosamine/D3/Boswellia Melonie 1 each PO DAILY 05/19/18 [Osteo Bi-Flex Tablet] Lisinopril [Zestril] 10 mg PO DAILY 05/19/18 Metformin HCl [Metformin HCl ER] 500 mg PO TID 05/19/18 Multivitamin [Daily Multiple 1 each PO DAILY 05/19/18 Vitamin] Sitagliptin Phosphate [Januvia] 100 mg PO DAILY 06/07/18 Spironolactone [Aldactone] 25 mg PO DAILY 06/07/18 - Family History Paternal - - The patient's father at the age of 78 from cancer of unknown etiology. The patient's mother at age of 68 from liver cancer. Smoking Status: Current every day smoker Tobacco Use: Cigarettes Review of Systems Constitutional: Denies: Chills, Fever, Weight Change Eyes: Denies: Pain, Vision Change HEENT: Denies: Difficulty Hearing, Difficulty Swallowing, Sinus Congestion Cardiovascular: Denies: Chest Pain, Palpitations Respiratory: Denies: Cough, Shortness of Breath Gastrointestinal: Denies: Diarrhea, Nausea, Vomiting Genitourinary: Denies: Dysuria, Hematuria Endocrine: Denies: Heat/ Cold Intolerance, Polydipsia, Polyuria Hematologic/ Lymphatic: Denies: Easy Bruising, Easy Bleeding - Physical Exam Vital Signs Temp Pulse Resp BP 97.6 F L 85 16 128/70 H 06/23/18 13:41 06/23/18 13:41 06/23/18 13:41 06/23/18 13:41 General: Alert, Oriented x3, Cooperative, No apparent distress, Well developed, Well nourished HEENT: Atraumatic, PERRLA, EOMI, Normocephalic Oral: Moist Mucosa Neck: No JVD Lungs: Normal air movement Abdomen: Non-Distended Extremities: No clubbing, No cyanosis, No Calf Tenderness, - - Mild swelling and edema are noted in the distal right lower extremity. A well approximated surgical incision is noted in the proximal portion of the right medial calf. This is related to the patient's recent right lower extremity revascularization. Dry eschar is noted in 2 areas inferior to the right knee. In addition, dry eschar involves the right great toe, the right second toe, and a small area on the right heel. There is no sign of infection or cellulitis involving any of these areas. Dimensions are documented elsewhere. The distal right lower extremity is well vascularized and warm. Pedal pulses are palpable. Skin: No rashes Wound Measurements and Assessment WC - Nurse 1 - General Ulcer Measurement Start: 06/23/18 13:41 Freq: Status: Active Protocol: Activity Type Activity Date Activity User E-Sign Co-Sign Detail Recorded Client Recorded Date Recorded By Document 06/23/18 13:41 [id number] 06/23/18 13:46 06/23/18 13:41 Wound Center Nurse 1 [Ulcer Assessment] #4 RIGHT GREAT TOE -Combined with other wound No -Photo Taken No -Necrotic Tissue Type Eschar -Temperature (Scarlett-wound Skin No Abnormality Appearance) (Pt Warm) -Tenderness on Palpation (Scarlett-wound No Skin Appearance) -Ulcer Cleansing Not Cleansed -Foul Odor after Cleansing No -Anesthetic Used 4% Lidocaine Solution #3 RIGHT 2ND MEDIAL TOE -Combined with other wound No -Current Size (cm) - Length 1 -Current Size (cm) - Width 0.6 -Current Size (cm) - Depth 0.1 -Total Square Cm 0.6 -Photo Taken No -Tunneling No -Undermining/Tunneling No -Circular Undermining No -Temperature (Scarlett-wound Skin No Abnormality Appearance) (Pt Warm) -Tenderness on Palpation (Scarlett-wound No Skin Appearance) -Ulcer Cleansing Not Cleansed -Foul Odor after Cleansing No -Anesthetic Used 4% Lidocaine Solution #2 RU MEDIAL LE -Combined with other wound No -Current Size (cm) - Length 1 -Current Size (cm) - Width 0.9 -Current Size (cm) - Depth 0.1 -Total Square Cm 0.9 -Photo Taken No -Tunneling No -Undermining/Tunneling No -Circular Undermining No -Granulation Amt None Present (0 %) -Necrotic Tissue Type Eschar -Moisture (Scarlett-wound Skin Appearance Dry/Scaly ) -Temperature (Scarlett-wound Skin No Abnormality Appearance) (Pt Warm) -Tenderness on Palpation (Scarlett-wound No Skin Appearance) -Ulcer Cleansing Not Cleansed -Foul Odor after Cleansing No -Anesthetic Used 4% Lidocaine Solution #1 RIGHT UPPER LE -Combined with other wound No -Current Size (cm) - Length 2.3 -Current Size (cm) - Width 2.2 -Current Size (cm) - Depth 0.1 -Total Square Cm 5.06 -Photo Taken No -Tunneling No -Undermining/Tunneling No -Circular Undermining No -Necrotic Tissue Type Eschar -Temperature (Scarlett-wound Skin No Abnormality Appearance) (Pt Warm) -Tenderness on Palpation (Scarlett-wound No Skin Appearance) -Ulcer Cleansing Not Cleansed -Foul Odor after Cleansing No -Anesthetic Used 4% Lidocaine Solution [Edema Assessment] -Lower Limb Edema Present Yes -Right Calf (cm) 43 -Right Ankle (cm) 25.5 -Left Calf (cm) 39.1 -Left Ankle (cm) 24.1 WC - Nurse 2 - General Ulcer CM Notes Start: 06/23/18 13:41 Freq: Status: Active Protocol: Activity Type Activity Date Activity User E-Sign Co-Sign Detail Recorded Client Recorded Date Recorded By Document 06/23/18 13:57 [email or web address] [id number] 06/23/18 14:06 KALEB 06/23/18 13:57 Wound Center Nurse 2 [Procedure/Treatment] #4 RIGHT GREAT TOE -Time 13:57 -Correct Patient Yes -Correct Side, Site, Position Yes -Correct Procedure Yes -Procedure Performed No -Wound/Ulcer Outcome Not Healed -Ulcer Cleansing Rinsed/ Irrigated with Saline -Foul Odor after Cleansing No -Bioengineered Tissue No -Bleeding Controlled with NA #3 RIGHT 2ND MEDIAL TOE -Time 13:58 -Correct Patient Yes -Correct Side, Site, Position Yes -Correct Procedure Yes -Procedure Performed No -Wound/Ulcer Outcome Not Healed -Ulcer Cleansing Rinsed/ Irrigated with Saline -Foul Odor after Cleansing No -Bioengineered Tissue No -Bleeding Controlled with NA -Treatment Response Procedure Tolerated Well #2 RU MEDIAL LE -Time 13:58 -Correct Patient Yes -Correct Side, Site, Position Yes -Correct Procedure Yes -Procedure Performed Yes -Type of Procedure Debridement -Clinical Debridement Subcutaneous -Post Debridement Size (cm) - Length 0.9 -Post Debridement Size (cm) - Width 0.8 -Post Debridement Size (cm) - Depth 0.2 -Total Square Cm 0.72 -Wound/Ulcer Outcome Not Healed -Ulcer Cleansing Rinsed/ Irrigated with Saline -Foul Odor after Cleansing No -Bioengineered Tissue No -Bleeding Controlled with NA -Treatment Response Procedure Tolerated Well #1 RIGHT UPPER LE -Time 13:58 -Correct Patient Yes -Correct Side, Site, Position Yes -Correct Procedure Yes -Procedure Performed Yes -Type of Procedure Debridement -Clinical Debridement Subcutaneous -Post Debridement Size (cm) - Length 2.1 -Post Debridement Size (cm) - Width 2.1 -Post Debridement Size (cm) - Depth 0.1 -Total Square Cm 4.41 -Wound/Ulcer Outcome Not Healed -Ulcer Cleansing Rinsed/ Irrigated with Saline -Foul Odor after Cleansing No -Bioengineered Tissue No -Bleeding Controlled with NA -Treatment Response Procedure Tolerated Well [See Physician Procedure note for Specifics] Pain Scale: 0-10 Numeric [Pain] -Is Patient Pain Free? Yes Neurological: Cranial nerves II-XII grossly intact, Neuro grossly intact Psych/Mental Status: Normal Affect, Appropriate, Alert and oriented to time, place, person, mood and affect Debridement Note Post-Debridement Measurements/Treatment WC - Nurse 2 - General Ulcer CM Notes Start: 06/23/18 13:41 Freq: Status: Active Protocol: Activity Type Activity Date Activity User E-Sign Co-Sign Detail Recorded Client Recorded Date Recorded By Document 06/23/18 13:57 [id number] 06/23/18 14:06 KALEB 06/23/18 13:57 Wound Center Nurse 2 #4 RIGHT GREAT TOE -Time 13:57 -Correct Patient Yes -Correct Side, Site, Position Yes -Correct Procedure Yes -Procedure Performed No -Wound/Ulcer Outcome Not Healed -Ulcer Cleansing Rinsed/ Irrigated with Saline -Foul Odor after Cleansing No -Bioengineered Tissue No -Bleeding Controlled with NA #3 RIGHT 2ND MEDIAL TOE -Time 13:58 -Correct Patient Yes -Correct Side, Site, Position Yes -Correct Procedure Yes -Procedure Performed No -Wound/Ulcer Outcome Not Healed -Ulcer Cleansing Rinsed/ Irrigated with Saline -Foul Odor after Cleansing No -Bioengineered Tissue No -Bleeding Controlled with NA -Treatment Response Procedure Tolerated Well #2 RU MEDIAL LE -Time 13:58 -Correct Patient Yes -Correct Side, Site, Position Yes -Correct Procedure Yes -Procedure Performed Yes -Type of Procedure Debridement -Clinical Debridement Subcutaneous -Post Debridement Size (cm) - Length 0.9 -Post Debridement Size (cm) - Width 0.8 -Post Debridement Size (cm) - Depth 0.2 -Total Square Cm 0.72 -Wound/Ulcer Outcome Not Healed -Ulcer Cleansing Rinsed/ Irrigated with Saline -Foul Odor after Cleansing No -Bioengineered Tissue No -Bleeding Controlled with NA -Treatment Response Procedure Tolerated Well #1 RIGHT UPPER LE -Time 13:58 -Correct Patient Yes -Correct Side, Site, Position Yes -Correct Procedure Yes -Procedure Performed Yes -Type of Procedure Debridement -Clinical Debridement Subcutaneous -Post Debridement Size (cm) - Length 2.1 -Post Debridement Size (cm) - Width 2.1 -Post Debridement Size (cm) - Depth 0.1 -Total Square Cm 4.41 -Wound/Ulcer Outcome Not Healed -Ulcer Cleansing Rinsed/ Irrigated with Saline -Foul Odor after Cleansing No -Bioengineered Tissue No -Bleeding Controlled with NA -Treatment Response Procedure Tolerated Well Pain Scale: 0-10 Numeric Is Patient Pain Free? Yes Laterality: Right - Leg Type of Debridement: Excisional debridement Anesthesia Used: 4% Lidocaine Solution Depth: Down to and including healthy tissue, in the subcutaneous layer Percentage of wound debrided: 100 Instrument Used: 5mm curette Severity: Fat Layer Exposed Amount of bleeding with debridement: Mild Bleeding Controlled with: Compression and gauze Patient tolerated procedure well There are 2 areas on the anterior aspect of the right lower extremity, inferior to the right knee, which had been previously treated by means of scoring with a scalpel, and the use of topical collagenase Santyl daily. These 2 areas of eschar were debrided today. Debridement was performed using a sterile 5 mm curet. In each case, the eschar was removed, having responded to the use of collagenase Santyl over the last several weeks. Underlying each of the eschar sites, a pink, healthy wound bed was noted. Assessment/Plan Active Problems Ulcer of right leg (Chronic) Ulcer of right great toe due to diabetes mellitus (Chronic) Ulcer of right second toe (Chronic) DM (diabetes mellitus) with peripheral vascular complication (Chronic) PAD (peripheral artery disease) (Chronic) Gangrene (Chronic) Right leg swelling (Chronic) Ischemia of right lower extremity (Chronic) Tobacco abuse (Chronic) Tobacco abuse counseling (Chronic) Assessment: This is a 58-year-old diabetic male with severe peripheral arterial occlusive disease in his lower extremities. He is currently under the care of a vascular surgeon at the [facility] in [place], [place] - Dr. Joe. He underwent right lower extremity revascularization at the [facility] on June 11, 2018. He appears to have had a good result. He is currently on Coumadin 7.5 mg p.o. daily. Plan: The patient has been advised to elevate his lower extremities as much as possible, to minimize the swelling that is noted, particularly in the right lower extremity. Following debridement of the ulcerations on the right leg, is to continue using collagenase Santyl topically on a daily basis. We are to leave the dry escharous, gangrenous sites on the right great toe, the right second toe, and the right heel undisturbed. These will be monitored serially. We are to avoid moist dressings, to minimize the likelihood of maceration. The patient continues to smoke, contrary to medical advice, though he has decreased his smoking habits significantly. He is well aware of the adverse consequences of his smoking habit. He has been advised to refrain from prolonged idle sitting. The gangrenous ulcerations on the right foot will be kept clean and dry, and the patient has been advised to wear shoes which are properly fitted, and will not exert undue or unwanted pressure. Collaboration and comanagement with the patient's other physicians is to continue. The patient is to return in 1 week for reassessment. The patient is known to be a smoker. Smoking cessation has been advised, in great detail. The patient has been counseled as to the adverse consequences of smoking relative to his peripheral arterial occlusive disease and wound healing potential. Influenza vaccine was not administered today. The patient weighs 220 pounds. He stands 6 feet 0 inches in height. His BMI is 29.9, which places him in an overweight category. While good and adequate nutrition has been advised, mild weight loss has been recommended, with collaboration from his primary care physician.
[2018-06-30 09:53] VITALS: BP 126/70; PULSE 78; RESP 16; TEMP 36.1
--- NOTE | 2018-06-30 11:23 | HP.PCM_ITS ---
(1) Ulcer of right leg Status: Chronic Current Visit: Yes Qualifiers: Non-pressure ulcer stage: with fat layer exposed Qualified Code(s): L97.912 - Non-pressure chronic ulcer of unspecified part of right lower leg with fat layer exposed Code(s): L97.919 - Non-pressure chronic ulcer of unspecified part of right lower leg with unspecified severity (2) Ulcer of right great toe due to diabetes mellitus Status: Chronic Current Visit: Yes Code(s): E11.621 - Type 2 diabetes mellitus with foot ulcer; L97.519 - Non-pressure chronic ulcer of other part of right foot with unspecified severity (3) Ulcer of right second toe Status: Chronic Current Visit: Yes Qualifiers: Non-pressure ulcer stage: unspecified non-pressure ulcer stage Code(s): L97.519 - Non-pressure chronic ulcer of other part of right foot with unspecified severity (4) DM (diabetes mellitus) with peripheral vascular complication Status: Chronic Current Visit: Yes Code(s): E11.51 - Type 2 diabetes mellitus with diabetic peripheral angiopathy without gangrene (5) PAD (peripheral artery disease) Status: Chronic Current Visit: Yes Code(s): I73.9 - Peripheral vascular disease, unspecified (6) Gangrene Status: Chronic Current Visit: Yes Code(s): I96 - Gangrene, not elsewhere classified (7) Coronary artery disease Status: Chronic Current Visit: No Code(s): I25.10 - Atherosclerotic heart disease of [place] coronary artery without angina pectoris (8) Atrial fibrillation Status: Chronic Current Visit: No Code(s): I48.91 - Unspecified atrial fibrillation (9) Cardiac defibrillator in place Status: Chronic Current Visit: No Code(s): Z95.810 - Presence of automatic ( implantable) cardiac defibrillator (10) Right leg swelling Status: Chronic Current Visit: Yes Code(s): M79.89 - Other specified soft tissue disorders (11) Ischemia of right lower extremity Status: Chronic Current Visit: Yes Code(s): I99.8 - Other disorder of circulatory system (12) History of coronary artery bypass graft x 3 Status: Acute Current Visit: No Code(s): Z95.1 - Presence of aortocoronary bypass graft (13) Tobacco abuse Status: Chronic Current Visit: Yes Code(s): Z72.0 - Tobacco use (14) Tobacco abuse counseling Status: Chronic Current Visit: Yes Code(s): Z71.6 - Tobacco abuse counseling (15) Hyperlipidemia Status: Chronic Current Visit: No Code(s): E78.5 - Hyperlipidemia, unspecified History of Present Illness Date of Service: 06/30/18 Chief Complaint: Ischemia and peripheral arterial occlusive disease of the right lower extremity, associated with ulcerations of the right leg and toes. History of Wound: This is a 58-year-old male who presented as a referral from his primary care physician with ischemic ulcerations on the right leg and the toes of the right foot. These had been present for approximately 2 months. The patient has multiple medical problems. Among his problems is known peripheral arterial occlusive disease, for which he is under the care of a vascular surgeon at the [facility] in [place], [place], by the name of Dr. Joe. According to the patient, he has had extensive evaluation by Dr. Joe , including a CT scan of the vascular system of his neck, chest, abdomen, and lower extremities. The patient underwent right lower extremity revascularization on June 11, 2018. Surgery was performed at the [facility]. It appears he underwent a right femoral?popliteal bypass graft, with prosthetic graft material. Evaluation today reveals an incision on the proximal portion of the medial right calf, which is healing appropriately. The distal right lower extremity is slightly swollen. The right lower extremity is warm and appears to be well perfused. The patient is diabetic, and his arterial occlusive disease is likely related to his history of diabetes, and the fact he is a smoker. The patient continues to smoke, despite medical advice to the contrary. He has, however, diminished his smoking significantly. Past Medical History Past Medical History: Chronic Problems Ulcer of right leg (Chronic) Ulcer of right great toe due to diabetes mellitus (Chronic) Ulcer of right second toe (Chronic) DM (diabetes mellitus) with peripheral vascular complication (Chronic) PAD (peripheral artery disease) (Chronic) Gangrene (Chronic) Coronary artery disease (Chronic) Atrial fibrillation (Chronic) Cardiac defibrillator in place (Chronic) Right leg swelling (Chronic) Ischemia of right lower extremity (Chronic) Tobacco abuse (Chronic) Tobacco abuse counseling (Chronic) Hyperlipidemia (Chronic) Surgical History: - - Patient has previously undergone coronary revascularization ?3, at which time valve repair was performed. The patient is also undergone open reduction and internal fixation of the left femur fracture in the past. Allergies/Adverse Reactions: Allergies No Known Allergies Allergy (Verified 05/19/18 11:45) Home Medications: Ambulatory Orders Medication Instructions Recorded Aspirin E.C. [Ecotrin] 81 mg PO DAILY@0800 05/19/18 Atorvastatin Calcium [Lipitor] 40 mg PO QHS 05/19/18 Bisoprolol Fumarate [Zebeta] 5 mg PO DAILY 05/19/18 Cholecalciferol (Vitamin D3) 4,000 unit PO DAILY 05/19/18 [Vitamin D3] Famotidine 20 mg PO BID 05/19/18 Glucosamine/D3/Boswellia Melonie 1 each PO DAILY 05/19/18 [Osteo Bi-Flex Tablet] Lisinopril [Zestril] 10 mg PO DAILY 05/19/18 Metformin HCl [Metformin HCl ER] 500 mg PO TID 05/19/18 Multivitamin [Daily Multiple 1 each PO DAILY 05/19/18 Vitamin] Sitagliptin Phosphate [Januvia] 100 mg PO DAILY 06/07/18 Spironolactone [Aldactone] 25 mg PO DAILY 06/07/18 - Family History Paternal - - The patient's father at the age of 78 from cancer of unknown etiology. The patient's mother at age of 68 from liver cancer. Smoking Status: Current every day smoker Tobacco Use: Cigarettes Review of Systems Constitutional: Denies: Chills, Fever, Weight Change Eyes: Denies: Pain, Vision Change HEENT: Denies: Difficulty Hearing, Difficulty Swallowing, Sinus Congestion Cardiovascular: Denies: Chest Pain, Palpitations Respiratory: Denies: Cough, Shortness of Breath Gastrointestinal: Denies: Diarrhea, Nausea, Vomiting Genitourinary: Denies: Dysuria, Hematuria Endocrine: Denies: Heat/ Cold Intolerance, Polydipsia, Polyuria Hematologic/ Lymphatic: Denies: Easy Bruising, Easy Bleeding - Physical Exam Vital Signs Temp Pulse Resp BP 96.9 F L 78 16 126/70 H 06/30/18 09:53 06/30/18 09:53 06/30/18 09:53 06/30/18 09:53 General: Alert, Oriented x3, Cooperative, No apparent distress, Well developed, Well nourished HEENT: Atraumatic, PERRLA, EOMI, Normocephalic Oral: Moist Mucosa Neck: No JVD Lungs: Normal air movement Abdomen: Non-Distended Extremities: No clubbing, No cyanosis, No Calf Tenderness, - - The right lower extremity remains warm and well perfused. The ulcerations on the right heel, right great toe, and right second toe are dry, desiccated, and escharous. The ulcerations near the right knee are now nearly totally healed and epithelialized. They have decreased significantly in size. Dimensions are documented elsewhere. There is no sign of infection or cellulitis. Wound Measurements and Assessment WC - Nurse 1 - General Ulcer Measurement Start: 06/23/18 13:41 Freq: Status: Active Protocol: Activity Type Activity Date Activity User E-Sign Co-Sign Detail Recorded Client Recorded Date Recorded By Document 06/30/18 09:53 [facility] [id number] 06/30/18 10:02 [facility] 06/30/18 09:53 Wound Center Nurse 1 [Ulcer Assessment] #4 RIGHT GREAT TOE -Combined with other wound No -Current Size (cm) - Length 1.9 -Current Size (cm) - Width 2.5 -Current Size (cm) - Depth 0.1 -Total Square Cm 4.75 -Photo Taken No -Epithelialization None Present -Tunneling No -Undermining/Tunneling No -Circular Undermining No -Exudate Amt None Present (0 %) -Wound Margin Distinct, Outline Attached -Granulation Amt None Present (0 %) -Slough/Fibrin Yes -Necrosis Amt Large (67-100%) -Necrotic Tissue Type Eschar -Structure Exposed N/A -Texture (Scarlett-wound Skin Appearance) Callus Scarring -Moisture (Scarlett-wound Skin Appearance Dry/Scaly ) -Color (Scarlett-wound Skin Appearance) Assessed -Temperature (Scarlett-wound Skin No Abnormality Appearance) (Pt Warm) -Tenderness on Palpation (Scarlett-wound No Skin Appearance) #3 RIGHT 2ND MEDIAL TOE -Combined with other wound No -Current Size (cm) - Length 0.8 -Current Size (cm) - Width 0.8 -Current Size (cm) - Depth 0.1 -Total Square Cm 0.64 -Photo Taken No -Epithelialization None Present -Tunneling No -Undermining/Tunneling No -Circular Undermining No -Exudate Amt None Present (0 %) -Wound Margin Distinct, Outline Attached -Granulation Amt None Present (0 %) -Slough/Fibrin Yes -Necrosis Amt Large (67-100%) -Necrotic Tissue Type Eschar -Structure Exposed N/A -Texture (Scarlett-wound Skin Appearance) Callus Scarring -Moisture (Scarlett-wound Skin Appearance Dry/Scaly ) -Color (Scarlett-wound Skin Appearance) Assessed -Temperature (Scarlett-wound Skin No Abnormality Appearance) (Pt Warm) -Tenderness on Palpation (Scarlett-wound No Skin Appearance) #2 RU MEDIAL LE -Combined with other wound No -Current Size (cm) - Length 0.1 -Current Size (cm) - Width 0.1 -Current Size (cm) - Depth 0.1 -Total Square Cm 0.01 -Epithelialization Large 67-100% -Tunneling No -Undermining/Tunneling No -Circular Undermining No -Granulation Amt None Present (0 %) -Necrosis Amt None Present (0 %) -Structure Exposed N/A -Texture (Scarlett-wound Skin Appearance) Scarring -Moisture (Scarlett-wound Skin Appearance Dry/Scaly ) -Color (Scarlett-wound Skin Appearance) Assessed -Temperature (Scarlett-wound Skin No Abnormality Appearance) (Pt Warm) -Tenderness on Palpation (Scarlett-wound No Skin Appearance) -Ulcer Cleansing Rinsed/ Irrigated with Saline -Foul Odor after Cleansing No -Anesthetic Used 4% Lidocaine Solution #1 RIGHT UPPER LE -Combined with other wound No -Current Size (cm) - Length 0.1 -Current Size (cm) - Width 0.1 -Current Size (cm) - Depth 0.1 -Total Square Cm 0.01 -Photo Taken No -Epithelialization Large 67-100% -Tunneling No -Undermining/Tunneling No -Circular Undermining No -Exudate Amt None Present (0 %) -Granulation Amt None Present (0 %) -Slough/Fibrin No -Necrosis Amt None Present (0 %) -Structure Exposed N/A -Texture (Scarlett-wound Skin Appearance) Scarring -Moisture (Scarlett-wound Skin Appearance Dry/Scaly ) -Color (Scarlett-wound Skin Appearance) Assessed -Temperature (Scarlett-wound Skin No Abnormality Appearance) (Pt Warm) -Tenderness on Palpation (Scarlett-wound No Skin Appearance) -Ulcer Cleansing Rinsed/ Irrigated with Saline -Foul Odor after Cleansing No -Anesthetic Used 4% Lidocaine Solution Neurological: Cranial nerves II-XII grossly intact, Neuro grossly intact Psych/Mental Status: Normal Affect, Appropriate, Alert and oriented to time, place, person, mood and affect Debridement Note Post-Debridement Measurements/Treatment WC - Nurse 2 - General Ulcer CM Notes Start: 06/23/18 13:41 Freq: Status: Active Protocol: Activity Type Activity Date Activity User E-Sign Co-Sign Detail Recorded Client Recorded Date Recorded By Document 06/23/18 13:57 [facility] [id number] 06/23/18 14:06 [facility] 06/23/18 13:57 Wound Center Nurse 2 #4 RIGHT GREAT TOE -Time 13:57 -Correct Patient Yes -Correct Side, Site, Position Yes -Correct Procedure Yes -Procedure Performed No -Wound/Ulcer Outcome Not Healed -Ulcer Cleansing Rinsed/ Irrigated with Saline -Foul Odor after Cleansing No -Bioengineered Tissue No -Bleeding Controlled with NA #3 RIGHT 2ND MEDIAL TOE -Time 13:58 -Correct Patient Yes -Correct Side, Site, Position Yes -Correct Procedure Yes -Procedure Performed No -Wound/Ulcer Outcome Not Healed -Ulcer Cleansing Rinsed/ Irrigated with Saline -Foul Odor after Cleansing No -Bioengineered Tissue No -Bleeding Controlled with NA -Treatment Response Procedure Tolerated Well #2 RU MEDIAL LE -Time 13:58 -Correct Patient Yes -Correct Side, Site, Position Yes -Correct Procedure Yes -Procedure Performed Yes -Type of Procedure Debridement -Clinical Debridement Subcutaneous -Post Debridement Size (cm) - Length 0.9 -Post Debridement Size (cm) - Width 0.8 -Post Debridement Size (cm) - Depth 0.2 -Total Square Cm 0.72 -Wound/Ulcer Outcome Not Healed -Ulcer Cleansing Rinsed/ Irrigated with Saline -Foul Odor after Cleansing No -Bioengineered Tissue No -Bleeding Controlled with NA -Treatment Response Procedure Tolerated Well #1 RIGHT UPPER LE -Time 13:58 -Correct Patient Yes -Correct Side, Site, Position Yes -Correct Procedure Yes -Procedure Performed Yes -Type of Procedure Debridement -Clinical Debridement Subcutaneous -Post Debridement Size (cm) - Length 2.1 -Post Debridement Size (cm) - Width 2.1 -Post Debridement Size (cm) - Depth 0.1 -Total Square Cm 4.41 -Wound/Ulcer Outcome Not Healed -Ulcer Cleansing Rinsed/ Irrigated with Saline -Foul Odor after Cleansing No -Bioengineered Tissue No -Bleeding Controlled with NA -Treatment Response Procedure Tolerated Well Pain Scale: 0-10 Numeric Is Patient Pain Free? Yes No debridement was completed today Assessment/Plan Active Problems Ulcer of right leg (Chronic) Ulcer of right great toe due to diabetes mellitus (Chronic) Ulcer of right second toe (Chronic) DM (diabetes mellitus) with peripheral vascular complication (Chronic) PAD (peripheral artery disease) (Chronic) Gangrene (Chronic) Right leg swelling (Chronic) Ischemia of right lower extremity (Chronic) Tobacco abuse (Chronic) Tobacco abuse counseling (Chronic) Assessment: This is a 58-year-old diabetic male with severe peripheral arterial occlusive disease in his lower extremities. He is currently under the care of a vascular surgeon at the [facility] in [place], [place] - Dr. Joe. He underwent right lower extremity revascularization at the [facility] on June 11, 2018. He appears to have had a good result. He is currently on Coumadin 7.5 mg p.o. daily. Plan: The patient has been advised to elevate his lower extremities as much as possible, to minimize the swelling that is noted, particularly in the right lower extremity. The ulcerations of the right leg are now nearly totally healed. We will now transition from the use of collagenase Santyl to the use of collagen hydrogel. Collagen hydrogel will be applied topically to the right leg ulcerations. We will leave the ulcerations of the right foot undisturbed. They are dry and desiccated, and likely to slough at some point in the future. We hope to avoid any application of moist dressings which could lead to maceration. Offloading measures and proper footwear has been recommended. Otherwise, we will continue to follow and monitor the ulcerations of the right foot serially. We are to leave the dry escharous, gangrenous sites on the right great toe, the right second toe, and the right heel undisturbed. These will be monitored serially. We are to avoid moist dressings, to minimize the likelihood of maceration. The patient continues to smoke, contrary to medical advice, though he has decreased his smoking habits significantly. He is well aware of the adverse consequences of his smoking habit. He has been advised to refrain from prolonged idle sitting. The gangrenous ulcerations on the right foot will be kept clean and dry, and the patient has been advised to wear shoes which are properly fitted, and will not exert undue or unwanted pressure. Collaboration and comanagement with the patient's other physicians is to continue. The patient is to return in 2 weeks for reassessment. The patient is known to be a smoker. Smoking cessation has been advised, in great detail. The patient has been counseled as to the adverse consequences of smoking relative to his peripheral arterial occlusive disease and wound healing potential. Influenza vaccine was not administered today. The patient weighs 220 pounds. He stands 6 feet 0 inches in height. His BMI is 29.9, which places him in an overweight category. While good and adequate nutrition has been advised, mild weight loss has been recommended, with collaboration from his primary care physician.
[2018-07-14 09:38] VITALS: BP 116/68; PULSE 87; RESP 18; TEMP 35.7
--- NOTE | 2018-07-14 10:25 | PCM.WC.HP ---
(1) Ulcer of right leg Status: Chronic Current Visit: Yes Qualifiers: Non-pressure ulcer stage: with fat layer exposed Qualified Code(s): L97.912 - Non-pressure chronic ulcer of unspecified part of right lower leg with fat layer exposed Code(s): L97.919 - Non-pressure chronic ulcer of unspecified part of right lower leg with unspecified severity (2) Ulcer of right great toe due to diabetes mellitus Status: Chronic Current Visit: Yes Code(s): E11.621 - Type 2 diabetes mellitus with foot ulcer; L97.519 - Non-pressure chronic ulcer of other part of right foot with unspecified severity (3) Ulcer of right second toe Status: Chronic Current Visit: Yes Qualifiers: Non-pressure ulcer stage: unspecified non-pressure ulcer stage Code(s): L97.519 - Non-pressure chronic ulcer of other part of right foot with unspecified severity (4) DM (diabetes mellitus) with peripheral vascular complication Status: Chronic Current Visit: Yes Code(s): E11.51 - Type 2 diabetes mellitus with diabetic peripheral angiopathy without gangrene (5) PAD (peripheral artery disease) Status: Chronic Current Visit: Yes Code(s): I73.9 - Peripheral vascular disease, unspecified (6) Gangrene Status: Chronic Current Visit: Yes Code(s): I96 - Gangrene, not elsewhere classified (7) Coronary artery disease Status: Chronic Current Visit: No Code(s): I25.10 - Atherosclerotic heart disease of [place] coronary artery without angina pectoris (8) Atrial fibrillation Status: Chronic Current Visit: No Code(s): I48.91 - Unspecified atrial fibrillation (9) Cardiac defibrillator in place Status: Chronic Current Visit: No Code(s): Z95.810 - Presence of automatic (implantable) cardiac defibrillator (10) Right leg swelling Status: Chronic Current Visit: Yes Code(s): M79.89 - Other specified soft tissue disorders (11) Ischemia of right lower extremity Status: Chronic Current Visit: Yes Code(s): I99.8 - Other disorder of circulatory system (12) History of coronary artery bypass graft x 3 Status: Acute Current Visit: No Code(s): Z95.1 - Presence of aortocoronary bypass graft (13) Tobacco abuse Status: Chronic Current Visit: Yes Code(s): Z72.0 - Tobacco use (14) Tobacco abuse counseling Status: Chronic Current Visit: Yes Code(s): Z71.6 - Tobacco abuse counseling (15) Hyperlipidemia Status: Chronic Current Visit: No Code(s): E78.5 - Hyperlipidemia, unspecified History of Present Illness Chief Complaint: Ischemia and peripheral arterial occlusive disease of the right lower extremity, associated with ulcerations of the right leg and toes. History of Wound: This is a 58-year-old male who presented as a referral from his primary care physician with ischemic ulcerations on the right leg and the toes of the right foot. These had been present for approximately 2 months. The patient has multiple medical problems. Among his problems is known peripheral arterial occlusive disease, for which he is under the care of a vascular surgeon at the [facility] in [place], [place], by the name of Dr. Joe. According to the patient, he has had extensive evaluation by Dr. Joe, including a CT scan of the vascular system of his neck, chest, abdomen, and lower extremities. The patient underwent right lower extremity revascularization on June 11, 2018. Surgery was performed at the [facility]. It appears he underwent a right femoral?popliteal bypass graft, with prosthetic graft material. Evaluation today reveals an incision on the proximal portion of the medial right calf, which is healing appropriately. The distal right lower extremity is slightly swollen. The right lower extremity is warm and appears to be well perfused. The patient is diabetic, and his arterial occlusive disease is likely related to his history of diabetes, and the fact he is a smoker. The patient continues to smoke, despite medical advice to the contrary. He has, however, diminished his smoking significantly. Past Medical History Past Medical History: Chronic Problems Ulcer of right leg (Chronic) Ulcer of right great toe due to diabetes mellitus (Chronic) Ulcer of right second toe (Chronic) DM (diabetes mellitus) with peripheral vascular complication (Chronic) PAD (peripheral artery disease) (Chronic) Gangrene (Chronic) Coronary artery disease (Chronic) Atrial fibrillation (Chronic) Cardiac defibrillator in place (Chronic) Right leg swelling (Chronic) Ischemia of right lower extremity (Chronic) Tobacco abuse (Chronic) Tobacco abuse counseling (Chronic) Hyperlipidemia (Chronic) Surgical History: - - Patient has previously undergone coronary revascularization ?3, at which time valve repair was performed. The patient is also undergone open reduction and internal fixation of the left femur fracture in the past. Allergies/Adverse Reactions: Allergies No Known Allergies Allergy (Verified 07/04/18 14:47) Home Medications: Ambulatory Orders Medication Instructions Recorded Aspirin E.C. [Ecotrin] 81 mg PO DAILY@0800 05/19/18 Atorvastatin Calcium [Lipitor] 40 mg PO QHS 05/19/18 Bisoprolol Fumarate [Zebeta] 5 mg PO DAILY 05/19/18 Cholecalciferol (Vitamin D3) 4,000 unit PO DAILY 05/19/18 [Vitamin D3] Famotidine 20 mg PO BID 05/19/18 Glucosamine/D3/Boswellia Melonie 1 each PO DAILY 05/19/18 [Osteo Bi-Flex Tablet] Lisinopril [Zestril] 10 mg PO DAILY 05/19/18 Metformin HCl [Metformin HCl ER] 500 mg PO TID 05/19/18 Multivitamin [Daily Multiple 1 each PO DAILY 05/19/18 Vitamin] Sitagliptin Phosphate [Januvia] 100 mg PO DAILY 06/07/18 Spironolactone [Aldactone] 25 mg PO DAILY 06/07/18 Cyanocobalamin (Vitamin B-12) 500 mcg PO DAILY 07/04/18 [Vitamin B-12] Magnesium Oxide [Magnesium] 400 mg PO DAILY 07/04/18 Warfarin [Coumadin ([facility])] 7.5 mg PO SUMOWETHFR 07/04/18 Warfarin [Coumadin ([facility])] 7.5 mg PO TUSA 07/04/18 - Family History Paternal - - The patient's father at the age of 78 from cancer of unknown etiology. The patient's mother at age of 68 from liver cancer. Smoking Status: Current every day smoker Tobacco Use: Cigarettes Review of Systems Constitutional: Denies: Chills, Fever, Weight Change Eyes: Denies: Pain, Vision Change HEENT: Denies: Difficulty Hearing, Difficulty Swallowing, Sinus Congestion Cardiovascular: Denies: Chest Pain, Palpitations Respiratory: Denies: Cough, Shortness of Breath Gastrointestinal: Denies: Diarrhea, Nausea, Vomiting Genitourinary: Denies: Dysuria, Hematuria Endocrine: Denies: Heat/ Cold Intolerance, Polydipsia, Polyuria Hematologic/ Lymphatic: Denies: Easy Bruising, Easy Bleeding - Physical Exam Vital Signs Temp Pulse Resp BP 96.2 F L 87 18 116/68 07/14/18 09:38 07/14/18 09:38 07/14/18 09:38 07/14/18 09:38 General: Alert, Oriented x3, Cooperative, No apparent distress, Well developed, Well nourished HEENT: Atraumatic, PERRLA, EOMI, Normocephalic Oral: Moist Mucosa Neck: No JVD Lungs: Normal air movement Abdomen: Non-Distended Extremities: No clubbing, No cyanosis, No edema, No Calf Tenderness, - - The ulcerations inferior to the right knee are now completely healed and epithelialized. There is a very small open ulceration on the medial aspect of the right second toe. Dry gangrene persists at the distal tip of the right great toe, with some elevation of the dry eschar. There is no sign of infection or cellulitis. Dimensions are documented elsewhere. Skin: No rashes Wound Measurements and Assessment WC - Nurse 1 - General Ulcer Measurement Start: 06/23/18 13:41 Freq: Status: Active Protocol: Activity Type Activity Date Activity User E-Sign Co-Sign Detail Recorded Client Recorded Date Recorded By Document 07/14/18 09:38 DV [id number] 07/14/18 09:49 DV 07/14/18 09:38 Wound Center Nurse 1 [Ulcer Assessment] #4 RIGHT GREAT TOE -Combined with other wound No -Current Size (cm) - Length 3.0 -Current Size (cm) - Width 2.2 -Current Size (cm) - Depth 0.1 -Total Square Cm 6.60 -Date of Last Picture (Recall this 07/14/18 field) -Photo Taken Yes -Epithelialization None Present -Tunneling No -Undermining/Tunneling No -Circular Undermining No -Exudate Amt Small (1-33%) -Exudate Type Serosanguineous -Wound Margin Indistinct, Non -Visible -Granulation Amt None Present (0 %) -Granulation Quality N/A -Slough/Fibrin Yes -Necrosis Amt Large (67-100%) -Necrotic Tissue Type Eschar -Structure Exposed None/Limited to Skin Breakdown -Texture (Scarlett-wound Skin Appearance) Assessed Scarring -Moisture (Scarlett-wound Skin Appearance Assessed ) Dry/Scaly -Color (Scarlett-wound Skin Appearance) Assessed Palor -Temperature (Scarlett-wound Skin No Abnormality Appearance) (Pt Warm) -Tenderness on Palpation (Scarlett-wound No Skin Appearance) -Ulcer Cleansing Rinsed/ Irrigated with Saline -Foul Odor after Cleansing No -Anesthetic Used 4% Lidocaine Solution #3 RIGHT 2ND MEDIAL TOE -Combined with other wound No -Current Size (cm) - Length 0.6 -Current Size (cm) - Width 0.2 -Current Size (cm) - Depth 0.1 -Total Square Cm 0.12 -Date of Last Picture (Recall this 07/14/18 field) -Photo Taken Yes -Epithelialization Small 1-33% -Tunneling No -Undermining/Tunneling No -Circular Undermining No -Exudate Amt Small (1-33%) -Wound Margin Distinct, Outline Attached -Granulation Amt None Present (0 %) -Granulation Quality N/A -Slough/Fibrin No -Necrosis Amt Small (1-33%) -Necrotic Tissue Type Adherent Slough -Structure Exposed None/Limited to Skin Breakdown -Texture (Scarlett-wound Skin Appearance) Assessed Scarring -Moisture (Scarlett-wound Skin Appearance Assessed ) Dry/Scaly -Color (Scarlett-wound Skin Appearance) Assessed Palor -Temperature (Scarlett-wound Skin No Abnormality Appearance) (Pt Warm) -Tenderness on Palpation (Scarlett-wound No Skin Appearance) -Ulcer Cleansing Rinsed/ Irrigated with Saline -Foul Odor after Cleansing No -Anesthetic Used 4% Lidocaine Solution #2 RU MEDIAL LE -Combined with other wound No -Current Size (cm) - Length 0.1 -Current Size (cm) - Width 0.1 -Current Size (cm) - Depth 0.1 -Total Square Cm 0.01 -Date of Last Picture (Recall this 07/14/18 field) -Photo Taken Yes -Epithelialization Large 67-100% -Tunneling No -Undermining/Tunneling No -Circular Undermining No -Exudate Amt None Present (0 %) -Wound Margin Flat & Intact -Granulation Amt None Present (0 %) -Granulation Quality N/A -Slough/Fibrin No -Necrosis Amt None Present (0 %) -Structure Exposed N/A -Texture (Scarlett-wound Skin Appearance) Assessed Scarring -Moisture (Scarlett-wound Skin Appearance No Abnormality ) Assessed -Color (Scarlett-wound Skin Appearance) No Abnormality Assessed -Temperature (Scarlett-wound Skin No Abnormality Appearance) (Pt Warm) -Ulcer Cleansing Rinsed/ Irrigated with Saline -Foul Odor after Cleansing No #1 RIGHT UPPER LE -Combined with other wound No -Current Size (cm) - Length 0.1 -Current Size (cm) - Width 0.1 -Current Size (cm) - Depth 0.1 -Total Square Cm 0.01 -Date of Last Picture (Recall this 07/14/18 field) -Photo Taken Yes -Epithelialization Large 67-100% -Tunneling No -Undermining/Tunneling No -Circular Undermining No -Exudate Amt None Present (0 %) -Wound Margin Flat & Intact -Necrosis Amt None Present (0 %) -Structure Exposed None/Limited to Skin Breakdown -Texture (Scarlett-wound Skin Appearance) No Abnormality Assessed -Moisture (Scarlett-wound Skin Appearance No Abnormality ) Assessed -Color (Scarlett-wound Skin Appearance) No Abnormality Assessed -Ulcer Cleansing Rinsed/ Irrigated with Saline -Foul Odor after Cleansing No [Edema Assessment] -Lower Limb Edema Present No -Right Calf (cm) 43.0 -Right Ankle (cm) 26.0 WC - Nurse 2 - General Ulcer CM Notes Start: 06/23/18 13:41 Freq: Status: Active Protocol: Activity Type Activity Date Activity User E-Sign Co-Sign Detail Recorded Client Recorded Date Recorded By Document 07/14/18 09:59 [id number] 07/14/18 10:23 07/14/18 09:59 Wound Center Nurse 2 [Procedure/Treatment] #4 RIGHT GREAT TOE -Time 09:59 -Correct Patient Yes -Correct Side, Site, Position Yes -Correct Procedure Yes -Procedure Performed Yes -Type of Procedure Debridement -Clinical Debridement Subcutaneous -Post Debridement Size (cm) - Length 0.5 -Post Debridement Size (cm) - Width 1.0 -Post Debridement Size (cm) - Depth 0.2 -Total Square Cm 0.50 -Wound/Ulcer Outcome Healed- Epithelialized -Ulcer Cleansing Rinsed/ Irrigated with Saline -Foul Odor after Cleansing No -Bioengineered Tissue No -Bleeding Controlled with NA -Treatment Response Procedure Tolerated Well #3 RIGHT 2ND MEDIAL TOE -Time 10:06 -Correct Patient Yes -Correct Side, Site, Position Yes -Correct Procedure Yes -Procedure Performed Yes -Type of Procedure Debridement -Clinical Debridement Subcutaneous -Post Debridement Size (cm) - Length 0.4 -Post Debridement Size (cm) - Width 0.3 -Post Debridement Size (cm) - Depth 0.1 -Total Square Cm 0.12 -Wound/Ulcer Outcome Not Healed -Ulcer Cleansing Rinsed/ Irrigated with Saline -Foul Odor after Cleansing No -Bioengineered Tissue No -Topical Lidocaine (%) 4 -Lidocaine (ml) 5 -Bleeding Controlled with NA -Treatment Response Procedure Tolerated Well #2 RU MEDIAL LE -Time 10:05 -Correct Patient Yes -Correct Side, Site, Position Yes -Correct Procedure Yes -Procedure Performed No -Post Debridement Size (cm) - Length 0 -Post Debridement Size (cm) - Width 0 -Post Debridement Size (cm) - Depth 0 -Total Square Cm 0 -Wound/Ulcer Outcome Healed- Epithelialized #1 RIGHT UPPER LE -Time 10:05 -Correct Patient Yes -Correct Side, Site, Position Yes -Correct Procedure Yes -Procedure Performed No -Post Debridement Size (cm) - Length 0 -Post Debridement Size (cm) - Width 0 -Post Debridement Size (cm) - Depth 0 -Total Square Cm 0 -Wound/Ulcer Outcome Healed- Epithelialized [See Physician Procedure note for Specifics] Pain Scale: 0-10 Numeric [Pain] -Is Patient Pain Free? Yes Neurological: Cranial nerves II-XII grossly intact, Neuro grossly intact Psych/Mental Status: Normal Affect, Appropriate, Alert and oriented to time, place, person, mood and affect Debridement Note Post-Debridement Measurements/Treatment WC - Nurse 2 - General Ulcer CM Notes Start: 06/23/18 13:41 Freq: Status: Active Protocol: Activity Type Activity Date Activity User E-Sign Co-Sign Detail Recorded Client Recorded Date Recorded By Document 06/23/18 13:57 [id number] 06/23/18 14:06 JS Document 06/30/18 11:00 JS [id number] 06/30/18 11:20 JS Document 07/14/18 09:59 [id number] 07/14/18 10:23 JS 06/23/18 06/30/18 07/14/18 13:57 11:00 09:59 Wound Center Nurse 2 #4 RIGHT GREAT TOE -Time 13:57 11:00 09:59 -Correct Patient Yes Yes Yes -Correct Side, Site, Position Yes Yes Yes -Correct Procedure Yes Yes Yes -Procedure Performed No No Yes -Type of Procedure Debridement -Clinical Debridement Subcutaneous -Post Debridement Size (cm) - Length 0.5 -Post Debridement Size (cm) - Width 1.0 -Post Debridement Size (cm) - Depth 0.2 -Total Square Cm 0.50 -Wound/Ulcer Outcome Not Healed Not Healed Healed- Epithelialized -Ulcer Cleansing Rinsed/ Rinsed/ Rinsed/ Irrigated with Irrigated with Irrigated with Saline Saline Saline -Foul Odor after Cleansing No No No -Bioengineered Tissue No No No -Bleeding Controlled with NA NA NA -Treatment Response Procedure Tolerated Well #3 RIGHT 2ND MEDIAL TOE -Time 13:58 11:00 10:06 -Correct Patient Yes Yes Yes -Correct Side, Site, Position Yes Yes Yes -Correct Procedure Yes Yes Yes -Procedure Performed No No Yes -Type of Procedure Debridement -Clinical Debridement Subcutaneous -Post Debridement Size (cm) - Length 0.4 -Post Debridement Size (cm) - Width 0.3 -Post Debridement Size (cm) - Depth 0.1 -Total Square Cm 0.12 -Wound/Ulcer Outcome Not Healed Not Healed Not Healed -Ulcer Cleansing Rinsed/ Rinsed/ Rinsed/ Irrigated with Irrigated with Irrigated with Saline Saline Saline -Foul Odor after Cleansing No No No -Bioengineered Tissue No No No -Topical Lidocaine (%) 4 -Lidocaine (ml) 5 -Bleeding Controlled with NA NA NA -Treatment Response Procedure Procedure Procedure Tolerated Well Tolerated Well Tolerated Well #2 RU MEDIAL LE -Time : 11:01 10:05 -Correct Patient Yes Yes Yes -Correct Side, Site, Position Yes Yes Yes -Correct Procedure Yes Yes Yes -Procedure Performed Yes No No -Type of Procedure Debridement -Clinical Debridement Subcutaneous -Post Debridement Size (cm) - Length 0.9 0 -Post Debridement Size (cm) - Width 0.8 0 -Post Debridement Size (cm) - Depth 0.2 0 -Total Square Cm 0.72 0 -Wound/Ulcer Outcome Not Healed Not Healed Healed- Epithelialized -Ulcer Cleansing Rinsed/ Rinsed/ Irrigated with Irrigated with Saline Saline -Foul Odor after Cleansing No No -Bioengineered Tissue No No -Bleeding Controlled with NA NA -Treatment Response Procedure Procedure Tolerated Well Tolerated Well #1 RIGHT UPPER LE -Time 13:58 11:01 10:05 -Correct Patient Yes Yes Yes -Correct Side, Site, Position Yes Yes Yes -Correct Procedure Yes Yes Yes -Procedure Performed Yes No No -Type of Procedure Debridement -Clinical Debridement Subcutaneous -Post Debridement Size (cm) - Length 2.1 0 -Post Debridement Size (cm) - Width 2.1 0 -Post Debridement Size (cm) - Depth 0.1 0 -Total Square Cm 4.41 0 -Wound/Ulcer Outcome Not Healed Not Healed Healed- Epithelialized -Ulcer Cleansing Rinsed/ Rinsed/ Irrigated with Irrigated with Saline Saline -Foul Odor after Cleansing No No -Bioengineered Tissue No No -Bleeding Controlled with NA NA -Treatment Response Procedure Procedure Tolerated Well Tolerated Well Pain Scale: 0-10 Numeric Is Patient Pain Free? Yes Yes Yes Laterality: Right - Medial second toe Type of Debridement: Excisional debridement Anesthesia Used: 4% Lidocaine Solution Depth: Down to and including healthy tissue, in the subcutaneous layer Percentage of wound debrided: 100 Instrument Used: 7mm curette Severity: Fat Layer Exposed Amount of bleeding with debridement: Mild Bleeding Controlled with: Compression and gauze Patient tolerated procedure well With respect to the patient's right great toe ulceration, the portion of the dry eschar has auto-elevated, and that portion which has elevated has been sharply excised. This has left a very small superficial open ulceration on the plantar aspect of the right great toe, though the remaining of the ulceration of the right great toe consists of dry eschar. - Additional Wound Laterality: Right - Great toe Type of Debridement: Excisional debridement Anesthesia Used: 4% Lidocaine Solution Depth: Down to and including healthy tissue, in the subcutaneous layer Percentage of wound debrided: 100 Instrument Used: 7mm curette Severity: Fat Layer Exposed Amount of bleeding with debridement: Mild Bleeding Controlled with: Compression and gauze Patient tolerated procedure: Patient tolerated procedure well Assessment/Plan Active Problems Ulcer of right leg (Chronic) Ulcer of right great toe due to diabetes mellitus (Chronic) Ulcer of right second toe (Chronic) DM (diabetes mellitus) with peripheral vascular complication (Chronic) PAD (peripheral artery disease) (Chronic) Gangrene (Chronic) Right leg swelling (Chronic) Ischemia of right lower extremity (Chronic) Tobacco abuse (Chronic) Tobacco abuse counseling (Chronic) Assessment: This is a 58-year-old diabetic male with severe peripheral arterial occlusive disease in his lower extremities. He is currently under the care of a vascular surgeon at the [facility] in [place], [place] - Dr. Joe. He underwent right lower extremity revascularization at the [facility] on June 11, 2018. He appears to have had a good result. He is currently on Coumadin 7.5 mg p.o. daily. Plan: The patient has been advised to elevate his lower extremities as much as possible, to minimize the swelling that is noted, particularly in the right lower extremity. The ulcerations of the right leg inferior to the right knee, are totally healed. Collagen hydrogel will be used topically on the small ulceration on the medial aspect of the right second toe. Collagen hydrogel will also be used topically on a very small open portion of the ulceration on the right great toe. The dry eschar on the remaining portion of the right great toe will be left undisturbed. Offloading measures and proper footwear has been recommended. Otherwise, we will continue to follow and monitor the ulcerations of the right foot serially. We are to leave the dry escharous, gangrenous sites on the right great toe undisturbed. This will be monitored serially. The patient continues to smoke, contrary to medical advice, though he has decreased his smoking habits significantly. He is well aware of the adverse consequences of his smoking habit. He has been advised to refrain from prolonged idle sitting. The gangrenous ulcerations on the right foot will be kept clean and dry, and the patient has been advised to wear shoes which are properly fitted, and will not exert undue or unwanted pressure. Collaboration and comanagement with the patient's other physicians is to continue. The patient is to return in 2 weeks for reassessment. The patient is known to be a smoker. Smoking cessation has been advised, in great detail. The patient has been counseled as to the adverse consequences of smoking relative to his peripheral arterial occlusive disease and wound healing potential. Influenza vaccine was not administered today. The patient weighs 220 pounds. He stands 6 feet 0 inches in height. His BMI is 29.9, which places him in an overweight category. While good and adequate nutrition has been advised, mild weight loss has been recommended, with collaboration from his primary care physician.
--- NOTE | 2018-07-14 10:30 | HP.PCM_ITS ---
(1) Ulcer of right leg Status: Chronic Current Visit: Yes Qualifiers: Non-pressure ulcer stage: with fat layer exposed Qualified Code(s): L97.912 - Non-pressure chronic ulcer of unspecified part of right lower leg with fat layer exposed Code(s): L97.919 - Non-pressure chronic ulcer of unspecified part of right lower leg with unspecified severity (2) Ulcer of right great toe due to diabetes mellitus Status: Chronic Current Visit: Yes Code(s): E11.621 - Type 2 diabetes mellitus with foot ulcer; L97.519 - Non-pressure chronic ulcer of other part of right foot with unspecified severity (3) Ulcer of right second toe Status: Chronic Current Visit: Yes Qualifiers: Non-pressure ulcer stage: unspecified non-pressure ulcer stage Code(s): L97.519 - Non-pressure chronic ulcer of other part of right foot with unspecified severity (4) DM (diabetes mellitus) with peripheral vascular complication Status: Chronic Current Visit: Yes Code(s): E11.51 - Type 2 diabetes mellitus with diabetic peripheral angiopathy without gangrene (5) PAD (peripheral artery disease) Status: Chronic Current Visit: Yes Code(s): I73.9 - Peripheral vascular disease, unspecified (6) Gangrene Status: Chronic Current Visit: Yes Code(s): I96 - Gangrene, not elsewhere classified (7) Coronary artery disease Status: Chronic Current Visit: No Code(s): I25.10 - Atherosclerotic heart disease of [place] coronary artery without angina pectoris (8) Atrial fibrillation Status: Chronic Current Visit: No Code(s): I48.91 - Unspecified atrial fibrillation (9) Cardiac defibrillator in place Status: Chronic Current Visit: No Code(s): Z95.810 - Presence of automatic (implantable) cardiac defibrillator (10) Right leg swelling Status: Chronic Current Visit: Yes Code(s): M79.89 - Other specified soft tissue disorders (11) Ischemia of right lower extremity Status: Chronic Current Visit: Yes Code(s): I99.8 - Other disorder of circulatory system (12) History of coronary artery bypass graft x 3 Status: Acute Current Visit: No Code(s): Z95.1 - Presence of aortocoronary bypass graft (13) Tobacco abuse Status: Chronic Current Visit: Yes Code(s): Z72.0 - Tobacco use (14) Tobacco abuse counseling Status: Chronic Current Visit: Yes Code(s): Z71.6 - Tobacco abuse counseling (15) Hyperlipidemia Status: Chronic Current Visit: No Code(s): E78.5 - Hyperlipidemia, unspecified History of Present Illness Chief Complaint: Ischemia and peripheral arterial occlusive disease of the right lower extremity, associated with ulcerations of the right leg and toes. History of Wound: This is a 58-year-old male who presented as a referral from his primary care physician with ischemic ulcerations on the right leg and the toes of the right foot. These had been present for approximately 2 months. The patient has multiple medical problems. Among his problems is known peripheral arterial occlusive disease, for which he is under the care of a vascular surgeon at the [facility] in [place], [place], by the name of Dr. Joe. Mariia g to the patient, he has had extensive evaluation by Dr. Joe, including a CT scan of the vascular system of his neck, chest, abdomen, and lower extremities. The patient underwent right lower extremity revascularization on June 11, 2018. Surgery was performed at the [facility]. It appears he underwent a right femoral?popliteal bypass graft, with prosthetic graft material. Evaluation today reveals an incision on the proximal portion of the medial right calf, which is healing appropriately. The distal right lower extremity is slightly swollen. The right lower extremity is warm and appears to be well perfused. The patient is diabetic, and his arterial occlusive disease is likely related to his history of diabetes, and the fact he is a smoker. The patient continues to smoke, despite medical advice to the contrary. He has, however, diminished his smoking significantly. Past Medical History Past Medical History: Chronic Problems Ulcer of right leg (Chronic) Ulcer of right great toe due to diabetes mellitus (Chronic) Ulcer of right second toe (Chronic) DM (diabetes mellitus) with peripheral vascular complication (Chronic) PAD (peripheral artery disease) (Chronic) Gangrene (Chronic) Coronary artery disease (Chronic) Atrial fibrillation (Chronic) Cardiac defibrillator in place (Chronic) Right leg swelling (Chronic) Ischemia of right lower extremity (Chronic) Tobacco abuse (Chronic) Tobacco abuse counseling (Chronic) Hyperlipidemia (Chronic) Surgical History: - - Patient has previously undergone coronary revascularization ?3, at which time valve repair was performed. The patient is also undergone open reduction and internal fixation of the left femur fracture in the past. Allergies/Adverse Reactions: Allergies No Known Allergies Allergy (Verified 07/04/18 14:47) Home Medications: Ambulatory Orders Medication Instructions Recorded Aspirin E.C. [Ecotrin] 81 mg PO DAILY@0800 05/19/18 Atorvastatin Calcium [Lipitor] 40 mg PO QHS 05/19/18 Bisoprolol Fumarate [Zebeta] 5 mg PO DAILY 05/19/18 Cholecalciferol (Vitamin D3) 4,000 unit PO DAILY 05/19/18 [Vitamin D3] Famotidine 20 mg PO BID 05/19/18 Glucosamine/D3/Boswellia Melonie 1 each PO DAILY 05/19/18 [Osteo Bi-Flex Tablet] Lisinopril [Zestril] 10 mg PO DAILY 05/19/18 Metformin HCl [Metformin HCl ER] 500 mg PO TID 05/19/18 Multivitamin [Daily Multiple 1 each PO DAILY 05/19/18 Vitamin] Sitagliptin Phosphate [Januvia] 100 mg PO DAILY 06/07/18 Spironolactone [Aldactone] 25 mg PO DAILY 06/07/18 Cyanocobalamin (Vitamin B-12) 500 mcg PO DAILY 07/04/18 [Vitamin B-12] Magnesium Oxide [Magnesium] 400 mg PO DAILY 07/04/18 Warfarin [Coumadin ([facility])] 7.5 mg PO SUMOWETHFR 07/04/18 Warfarin [Coumadin ([facility])] 7.5 mg PO TUSA 07/04/18 - Family History Paternal - - The patient's father at the age of 78 from cancer of unknown etiology. The patient's mother at age of 68 from liver cancer. Smoking Status: Current every day smoker Tobacco Use: Cigarettes Review of Systems Constitutional: Denies: Chills, Fever, Weight Change Eyes: Denies: Pain, Vision Change HEENT: Denies: Difficulty Hearing, Difficulty Swallowing, Sinus Congestion Cardiovascular: Denies: Chest Pain, Palpitations Respiratory: Denies: Cough, Shortness of Breath Gastrointestinal: Denies: Diarrhea, Nausea, Vomiting Genitourinary: Denies: Dysuria, Hematuria Endocrine: Denies: Heat/ Cold Intolerance, Polydipsia, Polyuria Hematologic/ Lymphatic: Denies: Easy Bruising, Easy Bleeding - Physical Exam Vital Signs Temp Pulse Resp BP 96.2 F L 87 18 116/68 09/25/18 09:38 07/14/18 09:38 07/14/18 09:38 07/14/18 09:38 General: Alert, Oriented x3, Cooperative, No apparent distress, Well developed, Well nourished HEENT: Atraumatic, PERRLA, EOMI, Normocephalic Oral: Moist Mucosa Neck: No JVD Lungs: Normal air movement Abdomen: Non-Distended Extremities: No clubbing, No cyanosis, No edema, No Calf Tenderness, - - The ulcerations inferior to the right knee are now completely healed and epithelialized. There is a very small open ulceration on the medial aspect of the right second toe. Dry gangrene persists at the distal tip of the right great toe, with some elevation of the dry eschar. There is no sign of infection or cellulitis. Dimensions are documented elsewhere. Skin: No rashes Wound Measurements and Assessment WC - Nurse 1 - General Ulcer Measurement Start: 06/23/18 13:41 Freq: Status: Active Protocol: Activity Type Activity Date Activity User E-Sign Co-Sign Detail Recorded Client Recorded Date Recorded By Document 07/14/18 09:38 DV [id number] 07/14/18 09:49 DV 07/14/18 09:38 Wound Center Nurse 1 [Ulcer Assessment] #4 RIGHT GREAT TOE -Combined with other wound No -Current Size (cm) - Length 3.0 -Current Size (cm) - Width 2.2 -Current Size (cm) - Depth 0.1 -Total Square Cm 6.60 -Date of Last Picture (Recall this 07/14/18 field) -Photo Taken Yes -Epithelialization None Present -Tunneling No -Undermining/Tunneling No -Circular Undermining No -Exudate Amt Small (1-33%) -Exudate Type Serosanguineous -Wound Margin Indistinct, Non -Visible -Granulation Amt None Present (0 %) -Granulation Quality N/A -Slough/Fibrin Yes -Necrosis Amt Large (67-100%) -Necrotic Tissue Type Eschar -Structure Exposed None/Limited to Skin Breakdown -Texture (Scarlett-wound Skin Appearance) Assessed Scarring -Moisture (Scarlett-wound Skin Appearance Assessed ) Dry/Scaly -Color (Scarlett-wound Skin Appearance) Assessed Palor -Temperature (Scarlett-wound Skin No Abnormality Appearance) (Pt Warm) -Tenderness on Palpation (Scarlett-wound No Skin Appearance) -Ulcer Cleansing Rinsed/ Irrigated with Saline -Foul Odor after Cleansing No -Anesthetic Used 4% Lidocaine Solution #3 RIGHT 2ND MEDIAL TOE -Combined with other wound No -Current Size (cm) - Length 0.6 -Current Size (cm) - Width 0.2 -Current Size (cm) - Depth 0.1 -Total Square Cm 0.12 -Date of Last Picture (Recall this 07/14/18 field) -Photo Taken Yes -Epithelialization Small 1-33% -Tunneling No -Undermining/Tunneling No -Circular Undermining No -Exudate Amt Small (1-33%) -Wound Margin Distinct, Outline Attached -Granulation Amt None Present (0 %) -Granulation Quality N/A -Slough/Fibrin No -Necrosis Amt Small (1-33%) -Necrotic Tissue Type Adherent Slough -Structure Exposed None/Limited to Skin Breakdown -Texture (Scarlett-wound Skin Appearance) Assessed Scarring -Moisture (Scarlett-wound Skin Appearance Assessed ) Dry/Scaly -Color (Scarlett-wound Skin Appearance) Assessed Palor -Temperature (Scarlett-wound Skin No Abnormality Appearance) (Pt Warm) -Tenderness on Palpation (Scarlett-wound No Skin Appearance) -Ulcer Cleansing Rinsed/ Irrigated with Saline -Foul Odor after Cleansing No -Anesthetic Used 4% Lidocaine Solution #2 RU MEDIAL LE -Combined with other wound No -Current Size (cm) - Length 0.1 -Current Size (cm) - Width 0.1 -Current Size (cm) - Depth 0.1 -Total Square Cm 0.01 -Date of Last Picture (Recall this 07/14/18 field) -Photo Taken Yes -Epithelialization Large 67-100% -Tunneling No -Undermining/Tunneling No -Circular Undermining No -Exudate Amt None Present (0 %) -Wound Margin Flat & Intact -Granulation Amt None Present (0 %) -Granulation Quality N/A -Slough/Fibrin No -Necrosis Amt None Present (0 %) -Structure Exposed N/A -Texture (Scarlett-wound Skin Appearance) Assessed Scarring -Moisture (Scarlett-wound Skin Appearance No Abnormality ) Assessed -Color (Scarlett-wound Skin Appearance) No Abnormality Assessed -Temperature (Scarlett-wound Skin No Abnormality Appearance) (Pt Warm) -Ulcer Cleansing Rinsed/ Irrigated with Saline -Foul Odor after Cleansing No #1 RIGHT UPPER LE -Combined with other wound No -Current Size (cm) - Length 0.1 -Current Size (cm) - Width 0.1 -Current Size (cm) - Depth 0.1 -Total Square Cm 0.01 -Date of Last Picture (Recall this 07/14/18 field) -Photo Taken Yes -Epithelialization Large 67-100% -Tunneling No -Undermining/Tunneling No -Circular Undermining No -Exudate Amt None Present (0 %) -Wound Margin Flat & Intact -Necrosis Amt None Present (0 %) -Structure Exposed None/Limited to Skin Breakdown -Texture (Scarlett-wound Skin Appearance) No Abnormality Assessed -Moisture (Scarlett-wound Skin Appearance No Abnormality ) Assessed -Color (Scarlett-wound Skin Appearance) No Abnormality Assessed -Ulcer Cleansing Rinsed/ Irrigated with Saline -Foul Odor after Cleansing No [Edema Assessment] -Lower Limb Edema Present No -Right Calf (cm) 43.0 -Right Ankle (cm) 26.0 WC - Nurse 2 - General Ulcer CM Notes Start: 06/23/18 13:41 Freq: Status: Active Protocol: Activity Type Activity Date Activity User E-Sign Co-Sign Detail Recorded Client Recorded Date Recorded By Document 07/14/18 09:59 [id number] 07/14/18 10:23 07/14/18 09:59 Wound Center Nurse 2 [Procedure/Treatment] #4 RIGHT GREAT TOE -Time 09:59 -Correct Patient Yes -Correct Side, Site, Position Yes -Correct Procedure Yes -Procedure Performed Yes -Type of Procedure Debridement -Clinical Debridement Subcutaneous -Post Debridement Size (cm) - Length 0.5 -Post Debridement Size (cm) - Width 1.0 -Post Debridement Size (cm) - Depth 0.2 -Total Square Cm 0.50 -Wound/Ulcer Outcome Healed- Epithelialized -Ulcer Cleansing Rinsed/ Irrigated with Saline -Foul Odor after Cleansing No -Bioengineered Tissue No -Bleeding Controlled with NA -Treatment Response Procedure Tolerated Well #3 RIGHT 2ND MEDIAL TOE -Time 10:06 -Correct Patient Yes -Correct Side, Site, Position Yes -Correct Procedure Yes -Procedure Performed Yes -Type of Procedure Debridement -Clinical Debridement Subcutaneous -Post Debridement Size (cm) - Length 0.4 -Post Debridement Size (cm) - Width 0.3 -Post Debridement Size (cm) - Depth 0.1 -Total Square Cm 0.12 -Wound/Ulcer Outcome Not Healed -Ulcer Cleansing Rinsed/ Irrigated with Saline -Foul Odor after Cleansing No -Bioengineered Tissue No -Topical Lidocaine (%) 4 -Lidocaine (ml) 5 -Bleeding Controlled with NA -Treatment Response Procedure Tolerated Well #2 RU MEDIAL LE -Time 10:05 -Correct Patient Yes -Correct Side, Site, Position Yes -Correct Procedure Yes -Procedure Performed No -Post Debridement Size (cm) - Length 0 -Post Debridement Size (cm) - Width 0 -Post Debridement Size (cm) - Depth 0 -Total Square Cm 0 -Wound/Ulcer Outcome Healed- Epithelialized #1 RIGHT UPPER LE -Time 10:05 -Correct Patient Yes -Correct Side, Site, Position Yes -Correct Procedure Yes -Procedure Performed No -Post Debridement Size (cm) - Length 0 -Post Debridement Size (cm) - Width 0 -Post Debridement Size (cm) - Depth 0 -Total Square Cm 0 -Wound/Ulcer Outcome Healed- Epithelialized [See Physician Procedure note for Specifics] Pain Scale: 0-10 Numeric [Pain] -Is Patient Pain Free? Yes Neurological: Cranial nerves II-XII grossly intact, Neuro grossly intact Psych/Mental Status: Normal Affect, Appropriate, Alert and oriented to time, place, person, mood and affect Debridement Note Post-Debridement Measurements/Treatment WC - Nurse 2 - General Ulcer CM Notes Start: 06/23/18 13:41 Freq: Status: Active Protocol: Activity Type Activity Date Activity User E-Sign Co-Sign Detail Recorded Client Recorded Date Recorded By Document 06/23/18 13:57 [id number] 06/23/18 14:06 JS Document 06/30/18 11:00 JS [id number] 06/30/18 11:20 JS Document 07/14/18 09:59 [id number] 07/14/18 10:23 JS 06/23/18 06/30/18 07/14/18 13:57 11:00 09:59 Wound Center Nurse 2 #4 RIGHT GREAT TOE -Time 13:57 11:00 09:59 -Correct Patient Yes Yes Yes -Correct Side, Site, Position Yes Yes Yes -Correct Procedure Yes Yes Yes -Procedure Performed No No Yes -Type of Procedure Debridement -Clinical Debridement Subcutaneous -Post Debridement Size (cm) - Length 0.5 -Post Debridement Size (cm) - Width 1.0 -Post Debridement Size (cm) - Depth 0.2 -Total Square Cm 0.50 -Wound/Ulcer Outcome Not Healed Not Healed Healed- Epithelialized -Ulcer Cleansing Rinsed/ Rinsed/ Rinsed/ Irrigated with Irrigated with Irrigated with Saline Saline Saline -Foul Odor after Cleansing No No No -Bioengineered Tissue No No No -Bleeding Controlled with NA NA NA -Treatment Response Procedure Tolerated Well #3 RIGHT 2ND MEDIAL TOE -Time 13: 11:00 10:06 -Correct Patient Yes Yes Yes -Correct Side, Site, Position Yes Yes Yes -Correct Procedure Yes Yes Yes -Procedure Performed No No Yes -Type of Procedure Debridement -Clinical Debridement Subcutaneous -Post Debridement Size (cm) - Length 0.4 -Post Debridement Size (cm) - Width 0.3 -Post Debridement Size (cm) - Depth 0.1 -Total Square Cm 0.12 -Wound/Ulcer Outcome Not Healed Not Healed Not Healed -Ulcer Cleansing Rinsed/ Rinsed/ Rinsed/ Irrigated with Irrigated with Irrigated with Saline Saline Saline -Foul Odor after Cleansing No No No -Bioengineered Tissue No No No -Topical Lidocaine (%) 4 -Lidocaine (ml) 5 -Bleeding Controlled with NA NA NA -Treatment Response Procedure Procedure Procedure Tolerated Well Tolerated Well Tolerated Well #2 RU MEDIAL LE -Time : 11:01 10:05 -Correct Patient Yes Yes Yes -Correct Side, Site, Position Yes Yes Yes -Correct Procedure Yes Yes Yes -Procedure Performed Yes No No -Type of Procedure Debridement -Clinical Debridement Subcutaneous -Post Debridement Size (cm) - Length 0.9 0 -Post Debridement Size (cm) - Width 0.8 0 -Post Debridement Size (cm) - Depth 0.2 0 -Total Square Cm 0.72 0 -Wound/Ulcer Outcome Not Healed Not Healed Healed- Epithelialized -Ulcer Cleansing Rinsed/ Rinsed/ Irrigated with Irrigated with Saline Saline -Foul Odor after Cleansing No No -Bioengineered Tissue No No -Bleeding Controlled with NA NA -Treatment Response Procedure Procedure Tolerated Well Tolerated Well #1 RIGHT UPPER LE -Time 13:58 11:01 10:05 -Correct Patient Yes Yes Yes -Correct Side, Site, Position Yes Yes Yes -Correct Procedure Yes Yes Yes -Procedure Performed Yes No No -Type of Procedure Debridement -Clinical Debridement Subcutaneous -Post Debridement Size (cm) - Length 2.1 0 -Post Debridement Size (cm) - Width 2.1 0 -Post Debridement Size (cm) - Depth 0.1 0 -Total Square Cm 4.41 0 -Wound/Ulcer Outcome Not Healed Not Healed Healed- Epithelialized -Ulcer Cleansing Rinsed/ Rinsed/ Irrigated with Irrigated with Saline Saline -Foul Odor after Cleansing No No -Bioengineered Tissue No No -Bleeding Controlled with NA NA -Treatment Response Procedure Procedure Tolerated Well Tolerated Well Pain Scale: 0-10 Numeric Is Patient Pain Free? Yes Yes Yes Laterality: Right - Medial second toe Type of Debridement: Excisional debridement Anesthesia Used: 4% Lidocaine Solution Depth: Down to and including healthy tissue, in the subcutaneous layer Percentage of wound debrided: 100 Instrument Used: 7mm curette Severity: Fat Layer Exposed Amount of bleeding with debridement: Mild Bleeding Controlled with: Compression and gauze Patient tolerated procedure well With respect to the patient's right great toe ulceration, the portion of the dry eschar has auto-elevated, and that portion which has elevated has been sharply excised. This has left a very small superficial open ulceration on the plantar aspect of the right great toe, though the remaining of the ulceration of the right great toe consists of dry eschar. - Additional Wound Laterality: Right - Great toe Type of Debridement: Excisional debridement Anesthesia Used: 4% Lidocaine Solution Depth: Down to and including healthy tissue, in the subcutaneous layer Percentage of wound debrided: 100 Instrument Used: 7mm curette Severity: Fat Layer Exposed Amount of bleeding with debridement: Mild Bleeding Controlled with: Compression and gauze Patient tolerated procedure: Patient tolerated procedure well Assessment/Plan Active Problems Ulcer of right leg (Chronic) Ulcer of right great toe due to diabetes mellitus (Chronic) Ulcer of right second toe (Chronic) DM (diabetes mellitus) with peripheral vascular complication (Chronic) PAD (peripheral artery disease) (Chronic) Gangrene (Chronic) Right leg swelling (Chronic) Ischemia of right lower extremity (Chronic) Tobacco abuse (Chronic) Tobacco abuse counseling (Chronic) Assessment: This is a 58-year-old diabetic male with severe peripheral arterial occlusive disease in his lower extremities. He is currently under the care of a vascular surgeon at the [facility] in [place], [place] - Dr. Joe. He underwent right lower extremity revascularization at the [facility] on June 11, 2018. He appears to have had a good result. He is currently on Coum lorri 7.5 mg p.o. daily. Plan: The patient has been advised to elevate his lower extremities as much as possible, to minimize the swelling that is noted, particularly in the right lower extremity. The ulcerations of the right leg inferior to the right knee, are totally healed. Collagen hydrogel will be used topically on the small ulceration on the medial aspect of the right second toe. Collagen hydrogel will also be used topically on a very small open portion of the ulceration on the right great toe. The dry eschar on the remaining portion of the right great toe will be left undisturbed. Offloading measures and proper footwear has been recommended. Otherwise, we will continue to follow and monitor the ulcerations of the right foot serially. We are to leave the dry escharous, gangrenous sites on the right great toe undisturbed. This will be monitored serially. The patient continues to smoke, contrary to medical advice, though he has decreased his smoking habits significantly. He is well aware of the adverse consequences of his smoking habit. He has been advised to refrain from prolonged idle sitting. The gangrenous ulcerations on the right foot will be kept clean and dry, and the patient has been advised to wear shoes which are properly fitted, and will not exert undue or unwanted pressure. Collaboration and comanagement with the patient's other physicians is to continue. The patient is to return in 2 weeks for reassessment. The patient is known to be a smoker. Smoking cessation has been advised, in great detail. The patient has been counseled as to the adverse consequences of smoking relative to his peripheral arterial occlusive disease and wound healing potential. Influenza vaccine was not administered today. The patient weighs 220 pounds. He stands 6 feet 0 inches in height. His BMI is 29.9, which places him in an overweight category. While good and adequate nutrition has been advised, mild weight loss has been recommen ded, with collaboration from his primary care physician.
== END 2018-07-19 23:59 ==
LOC: WC 09:30
PROVIDERS: Family Provider Nurse Practitioner; PCP Nurse Practitioner; Visit Provider Surgery
DX: E11.622 Type 2 diabetes mellitus with other skin ulcer (principal); L97.812 Non-pressure chronic ulcer of other part of right lower leg with fat layer exposed; M79.89 Other specified soft tissue disorders; F17.210 Nicotine dependence, cigarettes, uncomplicated; E78.5 Hyperlipidemia, unspecified; Z79.899 Other long term (current) drug therapy; Z79.82 Long term (current) use of aspirin; E11.52 Type 2 diabetes mellitus with diabetic peripheral angiopathy with gangrene; I96 Gangrene, not elsewhere classified; I25.10 Atherosclerotic heart disease of native coronary artery without angina pectoris; Z95.1 Presence of aortocoronary bypass graft; I48.2 Chronic atrial fibrillation; Z95.810 Presence of automatic (implantable) cardiac defibrillator; E11.621 Type 2 diabetes mellitus with foot ulcer; L97.512 Non-pressure chronic ulcer of other part of right foot with fat layer exposed
CPT/HCPCS: 11042; 99212; 99213; G0463

== ENCOUNTER 2018-08-18 10:00 | Outpatient (RCR) | payer OTHER, SELFPAY ==
[2018-07-20 01:12] VITALS: BP 116/68; PULSE 87; RESP 18; TEMP 35.7
[2018-07-21 09:40] VITALS: BP 132/82; PULSE 84; RESP 18; TEMP 36.1
--- NOTE | 2018-07-21 10:30 | PCM.WC.HP ---
(1) Ulcer of right leg Status: Resolved Current Visit: No Qualifiers: Code(s): L97.919 - Non-pressure chronic ulcer of unspecified part of right lower leg with unspecified severity (2) Ulcer of right great toe due to diabetes mellitus Status: Chronic Current Visit: Yes Code(s): E11.621 - Type 2 diabetes mellitus with foot ulcer; L97.519 - Non-pressure chronic ulcer of other part of right foot with unspecified severity (3) Ulcer of right second toe Status: Chronic Current Visit: Yes Qualifiers: Non-pressure ulcer stage: with fat layer exposed Qualified Code(s): L97.512 - Non-pressure chronic ulcer of other part of right foot with fat layer exposed Code(s): L97.519 - Non-pressure chronic ulcer of other part of right foot with unspecified severity (4) DM (diabetes mellitus) with peripheral vascular complication Status: Chronic Current Visit: Yes Code(s): E11.51 - Type 2 diabetes mellitus with diabetic peripheral angiopathy without gangrene (5) PAD (peripheral artery disease) Status: Chronic Current Visit: Yes Code(s): I73.9 - Peripheral vascular disease, unspecified (6) Gangrene Status: Chronic Current Visit: Yes Code(s): I96 - Gangrene, not elsewhere classified (7) Coronary artery disease Status: Chronic Current Visit: No Code(s): I25.10 - Atherosclerotic heart disease of [place] coronary artery without angina pectoris (8) Atrial fibrillation Status: Chronic Current Visit: No Code(s): I48.91 - Unspecified atrial fibrillation (9) Cardiac defibrillator in place Status: Chronic Current Visit: No Code(s): Z95.810 - Presence of automatic (implantable) cardiac defibrillator (10) Right leg swelling Status: Chronic Current Visit: Yes Code(s): M79.89 - Other specified soft tissue disorders (11) Ischemia of right lower extremity Status: Chronic Current Visit: Yes Code(s): I99.8 - Other disorder of circulatory system (12) History of coronary artery bypass graft x 3 Status: Acute Current Visit: No Code(s): Z95.1 - Presence of aortocoronary bypass graft (13) Tobacco abuse Status: Chronic Current Visit: Yes Code(s): Z72.0 - Tobacco use (14) Tobacco abuse counseling Status: Chronic Current Visit: Yes Code(s): Z71.6 - Tobacco abuse counseling (15) Hyperlipidemia Status: Chronic Current Visit: No Code(s): E78.5 - Hyperlipidemia, unspecified History of Present Illness Chief Complaint: Ischemia and peripheral arterial occlusive disease of the right lower extremity, associated with ulcerations of the right leg and toes. History of Wound: This is a 58-year-old male who presented as a referral from his primary care physician with ischemic ulcerations on the right leg and the toes of the right foot. These had been present for approximately 2 months. The patient has multiple medical problems. Among his problems is known peripheral arterial occlusive disease, for which he is under the care of a vascular surgeon at the [facility] in [place], [place], by the name of Dr. Joe. According to the patient, he has had extensive evaluation by Dr. Joe, including a CT scan of the vascular system of his neck, chest, abdomen, and lower extremities. The patient underwent right lower extremity revascularization on June 11, 2018. Surgery was performed at the [facility]. It appears he underwent a right femoral?popliteal bypass graft, with prosthetic graft material. Evaluation today reveals an incision on the proximal portion of the medial right calf, which is healing appropriately. The distal right lower extremity is slightly swollen. The right lower extremity is warm and appears to be well perfused. The patient is diabetic, and his arterial occlusive disease is likely related to his history of diabetes, and the fact he is a smoker. The patient continues to smoke, despite medical advice to the contrary. He has, however, diminished his smoking significantly. Past Medical History Past Medical History: Chronic Problems Ulcer of right great toe due to diabetes mellitus (Chronic) Ulcer of right second toe (Chronic) DM (diabetes mellitus) with peripheral vascular complication (Chronic) PAD (peripheral artery disease) (Chronic) Gangrene (Chronic) Coronary artery disease (Chronic) Atrial fibrillation (Chronic) Cardiac defibrillator in place (Chronic) Right leg swelling (Chronic) Ischemia of right lower extremity (Chronic) Tobacco abuse (Chronic) Tobacco abuse counseling (Chronic) Hyperlipidemia (Chronic) Surgical History: - - Patient has previously undergone coronary revascularization ?3, at which time valve repair was performed. The patient is also undergone open reduction and internal fixation of the left femur fracture in the past. Allergies/Adverse Reactions: Allergies No Known Allergies Allergy (Verified 07/04/18 14:47) Home Medications: Ambulatory Orders Medication Instructions Recorded Aspirin E.C. [Ecotrin] 81 mg PO DAILY@0800 05/19/18 Atorvastatin Calcium [Lipitor] 40 mg PO QHS 05/19/18 Bisoprolol Fumarate [Zebeta] 5 mg PO DAILY 05/19/18 Cholecalciferol (Vitamin D3) 4,000 unit PO DAILY 05/19/18 [Vitamin D3] Famotidine 20 mg PO BID 05/19/18 Glucosamine/D3/Boswellia Melonie 1 each PO DAILY 05/19/18 [Osteo Bi-Flex Tablet] Lisinopril [Zestril] 10 mg PO DAILY 05/19/18 Metformin HCl [Metformin HCl ER] 500 mg PO TID 05/19/18 Multivitamin [Daily Multiple 1 each PO DAILY 05/19/18 Vitamin] Sitagliptin Phosphate [Januvia] 100 mg PO DAILY 06/07/18 Spironolactone [Aldactone] 25 mg PO DAILY 06/07/18 Cyanocobalamin (Vitamin B-12) 500 mcg PO DAILY 07/04/18 [Vitamin B-12] Magnesium Oxide [Magnesium] 400 mg PO DAILY 07/04/18 Warfarin [Coumadin ([facility])] 7.5 mg PO SUMOWETHFR 07/04/18 Warfarin [Coumadin ([facility])] 7.5 mg PO TUSA 07/04/18 - Family History Paternal - - The patient's father at the age of 78 from cancer of unknown etiology. The patient's mother at age of 68 from liver cancer. Smoking Status: Current every day smoker Tobacco Use: Cigarettes Review of Systems Constitutional: Denies: Chills, Fever, Weight Change Eyes: Denies: Pain, Vision Change HEENT: Denies: Difficulty Hearing, Difficulty Swallowing, Sinus Congestion Cardiovascular: Denies: Chest Pain, Palpitations Respiratory: Denies: Cough, Shortness of Breath Gastrointestinal: Denies: Diarrhea, Nausea, Vomiting Genitourinary: Denies: Dysuria, Hematuria Endocrine: Denies: Heat/ Cold Intolerance, Polydipsia, Polyuria Hematologic/ Lymphatic: Denies: Easy Bruising, Easy Bleeding - Physical Exam Vital Signs Temp Pulse Resp BP 96.9 F L 84 18 132/82 H 07/21/18 09:40 07/21/18 09:40 07/21/18 09:40 10/02/18 09:40 General: Alert, Oriented x3, Cooperative, No apparent distress, Well developed, Well nourished HEENT: Atraumatic, PERRLA, EOMI, Normocephalic Oral: Moist Mucosa Neck: No JVD Lungs: Normal air movement Abdomen: Non-Distended Extremities: No clubbing, No cyanosis, No Calf Tenderness, - - Slight swelling and edema persist in the right lower extremity. The patient's recent surgical incisions appear to be healing appropriately. The patient's right leg ulcerations remain completely healed. The ulcerations at the tip of the right great toe and on the medial aspect of the right second toe are dry and escharous. There is no sign of infection or cellulitis. Dimensions are documented elsewhere. Skin: No rashes, No breakdown Wound Measurements and Assessment WC - Nurse 1 - General Ulcer Measurement Start: 07/21/18 09:40 Freq: Status: Active Protocol: Activity Type Activity Date Activity User E-Sign Co-Sign Detail Recorded Client Recorded Date Recorded By Document 07/21/18 09:40 [id number] 07/21/18 09:54 07/21/18 09:40 Wound Center Nurse 1 [Ulcer Assessment] #4 RIGHT GREAT TOE -Combined with other wound No -Current Size (cm) - Length 0.1 -Current Size (cm) - Width 0.1 -Current Size (cm) - Depth 0.1 -Total Square Cm 0.01 -Photo Taken Yes -Epithelialization Small 1-33% -Tunneling No -Undermining/Tunneling No -Circular Undermining No -Classification - Thickness Unclassifiable (Eschar Covered ) -Exudate Amt None Present (0 %) -Wound Margin Indistinct, Non -Visible -Granulation Amt None Present (0 %) -Slough/Fibrin Yes -Necrosis Amt Large (67-100%) -Necrotic Tissue Type Eschar -Structure Exposed N/A -Texture (Scarlett-wound Skin Appearance) No Abnormality Assessed -Moisture (Scarlett-wound Skin Appearance Assessed ) Dry/Scaly -Color (Scarlett-wound Skin Appearance) Assessed -Temperature (Scarlett-wound Skin No Abnormality Appearance) (Pt Warm) -Tenderness on Palpation (Scarlett-wound No Skin Appearance) -Ulcer Cleansing Rinsed/ Irrigated with Saline -Foul Odor after Cleansing No #3 RIGHT 2ND MEDIAL TOE -Combined with other wound No -Current Size (cm) - Length 0.4 -Current Size (cm) - Width 0.3 -Current Size (cm) - Depth 0.1 -Total Square Cm 0.12 -Photo Taken Yes -Epithelialization Medium 34-66% -Tunneling No -Undermining/Tunneling No -Circular Undermining No -Exudate Amt None Present (0 %) -Wound Margin Flat & Intact -Granulation Amt None Present (0 %) -Slough/Fibrin Yes -Necrosis Amt Large (67-100%) -Necrotic Tissue Type Eschar -Structure Exposed N/A -Texture (Scarlett-wound Skin Appearance) Assessed -Moisture (Scarlett-wound Skin Appearance Assessed ) Dry/Scaly -Color (Scarlett-wound Skin Appearance) Assessed -Temperature (Scarlett-wound Skin No Abnormality Appearance) (Pt Warm) -Tenderness on Palpation (Scarlett-wound No Skin Appearance) -Ulcer Cleansing Rinsed/ Irrigated with Saline -Foul Odor after Cleansing No -Anesthetic Used 4% Lidocaine Solution #2 RU MEDIAL LE -Combined with other wound No -Current Size (cm) - Length 0 -Current Size (cm) - Width 0 -Current Size (cm) - Depth 0 -Total Square Cm 0 -Photo Taken Yes -Epithelialization Large 67-100% #1 RIGHT UPPER LE -Combined with other wound No -Current Size (cm) - Length 0 -Current Size (cm) - Width 0 -Current Size (cm) - Depth 0 -Total Square Cm 0 -Photo Taken Yes -Epithelialization Large 67-100% [Edema Assessment] -Lower Limb Edema Present Yes -Right Calf (cm) 41.7 -Right Ankle (cm) 27.0 WC - Nurse 2 - General Ulcer CM Notes Start: 07/21/18 09:40 Freq: Status: Active Protocol: Activity Type Activity Date Activity User E-Sign Co-Sign Detail Recorded Client Recorded Date Recorded By Document 07/21/18 10:26 DV [id number] 07/21/18 10:28 DV 07/21/18 10:26 Wound Center Nurse 2 [Procedure/Treatment] #4 RIGHT GREAT TOE -Time 10:27 -Correct Patient Yes -Correct Side, Site, Position Yes -Procedure Performed No -Wound/Ulcer Outcome Not Healed -Bleeding Controlled with NA #3 RIGHT 2ND MEDIAL TOE -Time 10:27 -Correct Patient Yes -Correct Side, Site, Position Yes -Procedure Performed No -Wound/Ulcer Outcome Not Healed -Bleeding Controlled with NA [See Physician Procedure note for Specifics] Pain Scale: 0-10 Numeric [Pain] -Is Patient Pain Free? Yes Musculoskeletal: No Muscle Wasting Neurological: Cranial nerves II-XII grossly intact, Neuro grossly intact Psych/Mental Status: Normal Affect, Appropriate, Alert and oriented to time, place, person, mood and affect Debridement Note Post-Debridement Measurements/Treatment WC - Nurse 2 - General Ulcer CM Notes Start: 07/21/18 09:40 Freq: Status: Active Protocol: Activity Type Activity Date Activity User E-Sign Co-Sign Detail Recorded Client Recorded Date Recorded By Document 07/21/18 10:26 DV [id number] 07/21/18 10:28 DV 07/21/18 10:26 Wound Center Nurse 2 #4 RIGHT GREAT TOE -Time 10:27 -Correct Patient Yes -Correct Side, Site, Position Yes -Procedure Performed No -Wound/Ulcer Outcome Not Healed -Bleeding Controlled with NA #3 RIGHT 2ND MEDIAL TOE -Time 10:27 -Correct Patient Yes -Correct Side, Site, Position Yes -Procedure Performed No -Wound/Ulcer Outcome Not Healed -Bleeding Controlled with NA Pain Scale: 0-10 Numeric Is Patient Pain Free? Yes No debridement was completed today Assessment/Plan Active Problems Ulcer of right great toe due to diabetes mellitus (Chronic) Ulcer of right second toe (Chronic) DM (diabetes mellitus) with peripheral vascular complication (Chronic) PAD (peripheral artery disease) (Chronic) Gangrene (Chronic) Right leg swelling (Chronic) Ischemia of right lower extremity (Chronic) Tobacco abuse (Chronic) Tobacco abuse counseling (Chronic) Assessment: This is a 58-year-old diabetic male with severe peripheral arterial occlusive disease in his lower extremities. He is currently under the care of a vascular surgeon at the [facility] in [place], [place] - Dr. Joe. He underwent right lower extremity revascularization at the [facility] on June 11, 2018. He appears to have had a good result. He is currently on Coumadin 7.5 mg p.o. daily. He was evaluated by Dr. Joe last week, who was pleased with the patient's progress. Plan: The patient has been advised to elevate his lower extremities as much as possible, to minimize the swelling that is noted, particularly in the right lower extremity. The ulcerations of the right leg inferior to the right knee remain totally healed. The gangrenous ulcerations of the medial right second toe and of the tip of the right great toe are dry, without evidence of infection or cellulitis. The patient has been instructed to keep the sites clean and dry, as there appears to be no need for any topical dressings at this time. The gangrenous areas are likely to auto-amputate and slough. In other words, the dry gangrene on the right great toe and second toe will be left undisturbed. Offloading measures and proper footwear has been recommended. Otherwise, we will continue to follow and monitor the ulcerations of the right foot serially. The patient continues to smoke, contrary to medical advice, though he has decreased his smoking habits significantly. He is well aware of the adverse consequences of his smoking habit. He has been advised to refrain from prolonged idle sitting. The gangrenous ulcerations on the right foot will be kept clean and dry, and the patient has been advised to wear shoes which are properly fitted, and will not exert undue or unwanted pressure. Collaboration and comanagement with the patient's other physicians is to continue. The patient is to return in 2 weeks for reassessment. The patient is known to be a smoker. Smoking cessation has been advised, in great detail. The patient has been counseled as to the adverse consequences of smoking relative to his peripheral arterial occlusive disease and wound healing potential. Influenza vaccine was not administered today. The patient weighs 220 pounds. He stands 6 feet 0 inches in height. His BMI is 29.9, which places him in an overweight category. While good and adequate nutrition has been advised, mild weight loss has been recommended, with collaboration from his primary care physician.
[2018-08-04 10:13] VITALS: BP 119/71; PULSE 79; RESP 16; TEMP 36.6
--- NOTE | 2018-08-04 11:48 | PCM.WC.HP ---
(1) Ulcer of right great toe due to diabetes mellitus Status: Chronic Current Visit: Yes Code(s): E11.621 - Type 2 diabetes mellitus with foot ulcer; L97.519 - Non-pressure chronic ulcer of other part of right foot with unspecified severity (2) Ulcer of right second toe Status: Chronic Current Visit: Yes Qualifiers: Non-pressure ulcer stage: with fat layer exposed Qualified Code(s): L97.512 - Non-pressure chronic ulcer of other part of right foot with fat layer exposed Code(s): L97.519 - Non-pressure chronic ulcer of other part of right foot with unspecified severity (3) DM (diabetes mellitus) with peripheral vascular complication Status: Chronic Current Visit: Yes Code(s): E11.51 - Type 2 diabetes mellitus with diabetic peripheral angiopathy without gangrene (4) PAD (peripheral artery disease) Status: Chronic Current Visit: Yes Code(s): I73.9 - Peripheral vascular disease, unspecified (5) Gangrene Status: Chronic Current Visit: Yes Code(s): I96 - Gangrene, not elsewhere classified (6) Coronary artery disease Status: Chronic Current Visit: No Code(s): I25.10 - Atherosclerotic heart disease of [place] coronary artery without angina pectoris (7) Atrial fibrillation Status: Chronic Current Visit: No Code(s): I48.91 - Unspecified atrial fibrillation (8) Cardiac defibrillator in place Status: Chronic Current Visit: No Code(s): Z95.810 - Presence of automatic (implantable) cardiac defibrillator (9) Right leg swelling Status: Chronic Current Visit: Yes Code(s): M79.89 - Other specified soft tissue disorders (10) Ischemia of right lower extremity Status: Chronic Current Visit: Yes Code(s): I99.8 - Other disorder of circulatory system (11) History of coronary artery bypass graft x 3 Status: Acute Current Visit: No Code(s): Z95.1 - Presence of aortocoronary bypass graft (12) Tobacco abuse Status: Chronic Current Visit: Yes Code(s): Z72.0 - Tobacco use (13) Tobacco abuse counseling Status: Chronic Current Visit: Yes Code(s): Z71.6 - Tobacco abuse counseling (14) Hyperlipidemia Status: Chronic Current Visit: No Code(s): E78.5 - Hyperlipidemia, unspecified History of Present Illness Chief Complaint: Ischemia and peripheral arterial occlusive disease of the right lower extremity, associated with ulcerations of the right leg and toes. History of Wound: This is a 58-year-old male who presented as a referral from his primary care physician with ischemic ulcerations on the right leg and the toes of the right foot. These had been present for approximately 2 months. The patient has multiple medical problems. Among his problems is known peripheral arterial occlusive disease, for which he is under the care of a vascular surgeon at the [facility] in [place], [place], by the name of Dr. Joe. According to the patient, he has had extensive evaluation by Dr. Joe, including a CT scan of the vascular system of his neck, chest, abdomen, and lower extremities. The patient underwent right lower extremity revascularization on June 11, 2018. Surgery was performed at the [facility]. It appears he underwent a right femoral?popliteal bypass graft, with prosthetic graft material. Evaluation today reveals an incision on the proximal portion of the medial right calf, which is healing appropriately. The distal right lower extremity is slightly swollen. The right lower extremity is warm and appears to be well perfused. The patient is diabetic, and his arterial occlusive disease is likely related to his history of diabetes, and the fact he is a smoker. The patient continues to smoke, despite medical advice to the contrary. He has, however, diminished his smoking significantly. Past Medical History Past Medical History: Chronic Problems Ulcer of right great toe due to diabetes mellitus (Chronic) Ulcer of right second toe (Chronic) DM (diabetes mellitus) with peripheral vascular complication (Chronic) PAD (peripheral artery disease) (Chronic) Gangrene (Chronic) Coronary artery disease (Chronic) Atrial fibrillation (Chronic) Cardiac defibrillator in place (Chronic) Right leg swelling (Chronic) Ischemia of right lower extremity (Chronic) Tobacco abuse (Chronic) Tobacco abuse counseling (Chronic) Hyperlipidemia (Chronic) Surgical History: - - Patient has previously undergone coronary revascularization ?3, at which time valve repair was performed. The patient is also undergone open reduction and internal fixation of the left femur fracture in the past. Allergies/Adverse Reactions: Allergies No Known Allergies Allergy (Verified 07/04/18 14:47) Home Medications: Ambulatory Orders Medication Instructions Recorded Aspirin E.C. [Ecotrin] 81 mg PO DAILY@0800 05/19/18 Atorvastatin Calcium [Lipitor] 40 mg PO QHS 05/19/18 Bisoprolol Fumarate [Zebeta] 5 mg PO DAILY 05/19/18 Cholecalciferol (Vitamin D3) 4,000 unit PO DAILY 05/19/18 [Vitamin D3] Famotidine 20 mg PO BID 05/19/18 Glucosamine/D3/Boswellia Melonie 1 each PO DAILY 05/19/18 [Osteo Bi-Flex Tablet] Lisinopril [Zestril] 10 mg PO DAILY 05/19/18 Metformin HCl [Metformin HCl ER] 500 mg PO TID 05/19/18 Multivitamin [Daily Multiple 1 each PO DAILY 05/19/18 Vitamin] Sitagliptin Phosphate [Januvia] 100 mg PO DAILY 06/07/18 Spironolactone [Aldactone] 25 mg PO DAILY 06/07/18 Cyanocobalamin (Vitamin B-12) 500 mcg PO DAILY 07/04/18 [Vitamin B-12] Magnesium Oxide [Magnesium] 400 mg PO DAILY 07/04/18 Warfarin [Coumadin ([facility])] 7.5 mg PO SUMOWETHFR 07/04/18 Warfarin [Coumadin ([facility])] 7.5 mg PO TUSA 07/04/18 - Family History Paternal - - The patient's father at the age of 78 from cancer of unknown etiology. The patient's mother at age of 68 from liver cancer. Smoking Status: Current every day smoker Tobacco Use: Cigarettes Review of Systems Constitutional: Denies: Chills, Fever, Weight Change Eyes: Denies: Pain, Vision Change HEENT: Denies: Difficulty Hearing, Difficulty Swallowing, Sinus Congestion Cardiovascular: Denies: Chest Pain, Palpitations Respiratory: Denies: Cough, Shortness of Breath Gastrointestinal: Denies: Diarrhea, Nausea, Vomiting Genitourinary: Denies: Dysuria, Hematuria Endocrine: Denies: Heat/ Cold Intolerance, Polydipsia, Polyuria Hematologic/ Lymphatic: Denies: Easy Bruising, Easy Bleeding - Physical Exam Vital Signs Temp Pulse Resp BP 97.9 F 79 16 119/71 08/04/18 10:13 08/04/18 10:13 08/04/18 10:13 08/04/18 10:13 General: Alert, Oriented x3, Cooperative, No apparent distress, Well developed, Well nourished HEENT: Atraumatic, PERRLA, EOMI, Normocephalic Oral: Moist Mucosa Neck: No JVD Lungs: Normal air movement Abdomen: Non-Distended Extremities: No clubbing, No cyanosis, No Calf Tenderness, - - Very slight swelling and edema is noted in the right lower extremity. The dry gangrene of the right great toe and the medial aspect of the right second toe persist. Gangrene remains dry, without any evidence of infection, cellulitis, or drainage. Dimensions are documented elsewhere. The peripheral right lower extremity appears warm and well perfused. The incision on the medial aspect of the proximal right calf is well approximated. A small eschar remains at the inferior pole. There is slight erythema at the site, though not appearing to be frankly cellulitic. The patient has been applying Betadine topically. Wound Measurements and Assessment WC - Nurse 1 - General Ulcer Measurement Start: 07/21/18 09:40 Freq: Status: Active Protocol: Activity Type Activity Date Activity User E-Sign Co-Sign Detail Recorded Client Recorded Date Recorded By Document 08/04/18 10:13 [id number] 08/04/18 10:17 08/04/18 10:13 Wound Center Nurse 1 [Ulcer Assessment] #4 RIGHT GREAT TOE -Combined with other wound No -Current Size (cm) - Length 1.4 -Current Size (cm) - Width 2.0 -Total Square Cm 2.80 -Photo Taken No -Epithelialization None Present -Tunneling No -Undermining/Tunneling No -Circular Undermining No -Exudate Amt None Present (0 %) -Wound Margin Distinct, Outline Attached -Granulation Amt None Present (0 %) -Slough/Fibrin Yes -Necrosis Amt Large (67-100%) -Necrotic Tissue Type Eschar -Texture (Scarlett-wound Skin Appearance) Assessed Scarring -Moisture (Scarlett-wound Skin Appearance Assessed ) Dry/Scaly -Color (Scarlett-wound Skin Appearance) Assessed Hemosiderin Staining -Temperature (Scarlett-wound Skin No Abnormality Appearance) (Pt Warm) -Tenderness on Palpation (Scarlett-wound No Skin Appearance) -Ulcer Cleansing Rinsed/ Irrigated with Saline #3 RIGHT 2ND MEDIAL TOE -Combined with other wound No -Current Size (cm) - Length 0.1 -Current Size (cm) - Width 0.1 -Current Size (cm) - Depth 0.1 -Total Square Cm 0.01 -Photo Taken No -Epithelialization None Present -Tunneling No -Undermining/Tunneling No -Circular Undermining No -Exudate Amt None Present (0 %) -Wound Margin Distinct, Outline Attached -Granulation Amt None Present (0 %) -Necrosis Amt Small (1-33%) -Necrotic Tissue Type Eschar -Texture (Scarlett-wound Skin Appearance) Assessed Callus Scarring -Moisture (Scarlett-wound Skin Appearance Assessed ) Dry/Scaly -Color (Scarlett-wound Skin Appearance) Assessed Hemosiderin Staining -Temperature (Scarlett-wound Skin No Abnormality Appearance) (Pt Warm) -Tenderness on Palpation (Scarlett-wound No Skin Appearance) -Ulcer Cleansing Rinsed/ Irrigated with Saline -Foul Odor after Cleansing No WC - Nurse 2 - General Ulcer CM Notes Start: 07/21/18 09:40 Freq: Status: Active Protocol: Activity Type Activity Date Activity User E-Sign Co-Sign Detail Recorded Client Recorded Date Recorded By Document 08/04/18 11:36 [id number] 08/04/18 11:43 08/04/18 11:36 Wound Center Nurse 2 [Procedure/Treatment] #4 RIGHT GREAT TOE -Time 11:36 -Correct Patient Yes -Correct Side, Site, Position Yes -Correct Procedure Yes -Procedure Performed No -Wound/Ulcer Outcome Not Healed -Ulcer Cleansing Not Cleansed -Foul Odor after Cleansing No -Bleeding Controlled with NA -Treatment Response Procedure Tolerated Well #3 RIGHT 2ND MEDIAL TOE -Time 11:37 -Correct Patient Yes -Correct Side, Site, Position Yes -Correct Procedure Yes -Procedure Performed No -Wound/Ulcer Outcome Not Healed -Ulcer Cleansing Not Cleansed -Foul Odor after Cleansing No -Bioengineered Tissue No -Bleeding Controlled with NA -Treatment Response Procedure Tolerated Well [See Physician Procedure note for Specifics] Pain Scale: 0-10 Numeric [Pain] -Is Patient Pain Free? Yes Musculoskeletal: No Muscle Wasting Neurological: Cranial nerves II-XII grossly intact, Neuro grossly intact Psych/Mental Status: Normal Affect, Appropriate, Alert and oriented to time, place, person, mood and affect Debridement Note Post-Debridement Measurements/Treatment WC - Nurse 2 - General Ulcer CM Notes Start: 07/21/18 09:40 Freq: Status: Active Protocol: Activity Type Activity Date Activity User E-Sign Co-Sign Detail Recorded Client Recorded Date Recorded By Document 07/21/18 10:26 DV [id number] 07/21/18 10:28 DV Document 08/04/18 11:36 JS [id number] 08/04/18 11:43 JS 07/21/18 08/04/18 10:26 11:36 Wound Center Nurse 2 #4 RIGHT GREAT TOE -Time 10:27 11:36 -Correct Patient Yes Yes -Correct Side, Site, Position Yes Yes -Correct Procedure Yes -Procedure Performed No No -Wound/Ulcer Outcome Not Healed Not Healed -Ulcer Cleansing Not Cleansed -Foul Odor after Cleansing No -Bleeding Controlled with NA NA -Treatment Response Procedure Tolerated Well #3 RIGHT 2ND MEDIAL TOE -Time 10:27 11:37 -Correct Patient Yes Yes -Correct Side, Site, Position Yes Yes -Correct Procedure Yes -Procedure Performed No No -Wound/Ulcer Outcome Not Healed Not Healed -Ulcer Cleansing Not Cleansed -Foul Odor after Cleansing No -Bioengineered Tissue No -Bleeding Controlled with NA NA -Treatment Response Procedure Tolerated Well Pain Scale: 0-10 Numeric Is Patient Pain Free? Yes Yes No debridement was completed today Assessment/Plan Active Problems Ulcer of right great toe due to diabetes mellitus (Chronic) Ulcer of right second toe (Chronic) DM (diabetes mellitus) with peripheral vascular complication (Chronic) PAD (peripheral artery disease) (Chronic) Gangrene (Chronic) Right leg swelling (Chronic) Ischemia of right lower extremity (Chronic) Tobacco abuse (Chronic) Tobacco abuse counseling (Chronic) Assessment: This is a 58-year-old diabetic male with severe peripheral arterial occlusive disease in his lower extremities. He is currently under the care of a vascular surgeon at the [facility] in [place], [place] - Dr. Joe. He underwent right lower extremity revascularization at the [facility] on June 11, 2018. He appears to have had a good result. He is currently on Coumadin 7.5 mg p.o. daily. He was evaluated by Dr. Joe last week, who was pleased with the patient's progress. Plan: The patient has been advised to elevate his lower extremities as much as possible, to minimize the swelling that is noted, particularly in the right lower extremity. The ulcerations of the right leg inferior to the right knee remain totally healed. The gangrenous ulcerations of the medial right second toe and of the tip of the right great toe are dry, without evidence of infection or cellulitis. The patient has been instructed to keep the sites clean and dry, as there appears to be no need for any topical dressings at this time. The gangrenous areas are likely to auto-amputate and slough. In other words, the dry gangrene on the right great toe and second toe will be left undisturbed. Offloading measures and proper footwear has been recommended. Otherwise, we will continue to follow and monitor the ulcerations of the right foot serially. The patient continues to smoke, contrary to medical advice, though he has decreased his smoking habits significantly. He is well aware of the adverse consequences of his smoking habit. He has been advised to refrain from prolonged idle sitting. The gangrenous ulcerations on the right foot will be kept clean and dry, and the patient has been advised to wear shoes which are properly fitted, and will not exert undue or unwanted pressure. Collaboration and comanagement with the patient's other physicians is to continue. The small site at the inferior pole of his medial right calf incision is to be monitored serially. The patient will continue to use Betadine topically. He has been instructed to seek medical attention if the very slight erythema in the area worsens. At this juncture, jose guadalupe infection and cellulitis are not apparent, but continued monitoring will be undertaken. The patient is to return in 2 weeks for reassessment. The patient is known to be a smoker. Smoking cessation has been advised, in great detail. The patient has been counseled as to the adverse consequences of smoking relative to his peripheral arterial occlusive disease and wound healing potential. Influenza vaccine was not administered today. The patient weighs 220 pounds. He stands 6 feet 0 inches in height. His BMI is 29.9, which places him in an overweight category. While good and adequate nutrition has been advised, mild weight loss has been recommended, with collaboration from his primary care physician.
--- NOTE | 2018-08-04 11:53 | HP.PCM_ITS ---
(1) Ulcer of right great toe due to diabetes mellitus Status: Chronic Current Visit: Yes Code(s): E11.621 - Type 2 diabetes mellitus with foot ulcer; L97.519 - Non-pressure chronic ulcer of other part of right foot with unspecified severity (2) Ulcer of right second toe Status: Chronic Current Visit: Yes Qualifiers: Non-pressure ulcer stage: with fat layer exposed Qualified Code(s): L97.512 - Non-pressure chronic ulcer of other part of right foot with fat layer exposed Code(s): L97.519 - Non-pressure chronic ulcer of other part of right foot with unspecified severity (3) DM (diabetes mellitus) with peripheral vascular complication Status: Chronic Current Visit: Yes Code(s): E11.51 - Type 2 diabetes mellitus with diabetic peripheral angiopathy without gangrene (4) PAD (peripheral artery disease) Status: Chronic Current Visit: Yes Code(s): I73.9 - Peripheral vascular disease, unspecified (5) Gangrene Status: Chronic Current Visit: Yes Code(s): I96 - Gangrene, not elsewhere classified (6) Coronary artery disease Status: Chronic Current Visit: No Code(s): I25.10 - Atherosclerotic heart disease of [place] coronary artery without angina pectoris (7) Atrial fibrillation Status: Chronic Current Visit: No Code(s): I48.91 - Unspecified atrial fibrillation (8) Cardiac defibrillator in place Status: Chronic Current Visit: No Code(s): Z95.810 - Presence of automatic (implantable) cardiac defibrillator (9) Right leg swelling Status: Chronic Current Visit: Yes Code(s): M79.89 - Other specified soft tissue disorders (10) Ischemia of right lower extremity Status: Chronic Current Visit: Yes Code(s): I99.8 - Other disorder of circulatory system (11) History of coronary artery bypass graft x 3 Status: Acute Current Visit: No Code(s): Z95.1 - Presence of aortocoronary bypass graft (12) Tobacco abuse Status: Chronic Current Visit: Yes Code(s): Z72.0 - Tobacco use (13) Tobacco abuse counseling Status: Chronic Current Visit: Yes Code(s): Z71.6 - Tobacco abuse counseling (14) Hyperlipidemia Status: Chronic Current Visit: No Code(s): E78.5 - Hyperlipidemia, unspecified History of Present Illness Chief Complaint: Ischemia and peripheral arterial occlusive disease of the right lower extremity, associated with ulcerations of the right leg and toes. History of Wound: This is a 58-year-old male who presented as a referral from his primary care physician with ischemic ulcerations on the right leg and the toes of the right foot. These had been present for approximately 2 months. The patient has multiple medical problems. Among his problems is known peripheral arterial occlusive disease, for which he is under the care of a vascular surgeon at the [facility] in [place], [place], by the name of Dr. Joe. According to the patient, he has had extensive evaluation by Dr. Joe, including a CT scan of the vascular system of his neck, chest, abdomen, and lower extremities. The patient underwent right lower extremity revascularization on June 11, 2018. Surgery was performed at the [facility]. It appears he underwent a right femoral?popliteal bypass graft, with prosthetic graft material. Evaluation today reveals an incision on the proximal portion of the medial right calf, which is healing appropriately. The distal right lower extremity is slightly swollen. The right lower extremity is warm and appears to be well perfused. The patient is diabetic, and his arterial occlusive disease is likely related to his history of diabetes, and the fact he is a smoker. The patient continues to smoke, despite medical advice to the contrary. He has, however, diminished his smoking significantly. Past Medical History Past Medical History: Chronic Problems Ulcer of right great toe due to diabetes mellitus (Chronic) Ulcer of right second toe (Chronic) DM (diabetes mellitus) with peripheral vascular complication (Chronic) PAD (peripheral artery disease) (Chronic) Gangrene (Chronic) Coronary artery disease (Chronic) Atrial fibrillation (Chronic) Cardiac defibrillator in place (Chronic) Right leg swelling (Chronic) Ischemia of right lower extremity (Chronic) Tobacco abuse (Chronic) Tobacco abuse counseling (Chronic) Hyperlipidemia (Chronic) Surgical History: - - Patient has previously undergone coronary alex scularization ?3, at which time valve repair was performed. The patient is also undergone open reduction and internal fixation of the left femur fracture in the past. Allergies/Adverse Reactions: Allergies No Known Allergies Allergy (Verified 07/04/18 14:47) Home Medications: Ambulatory Orders Medication Instructions Recorded Aspirin E.C. [Ecotrin] 81 mg PO DAILY@0800 05/19/18 Atorvastatin Calcium [Lipitor] 40 mg PO QHS 05/19/18 Bisoprolol Fumarate [Zebeta] 5 mg PO DAILY 05/19/18 Cholecalciferol (Vitamin D3) 4,000 unit PO DAILY 05/19/18 [Vitamin D3] Famotidine 20 mg PO BID 05/19/18 Glucosamine/D3/Boswellia Melonie 1 each PO DAILY 05/19/18 [Osteo Bi-Flex Tablet] Lisinopril [Zestril] 10 mg PO DAILY 05/19/18 Metformin HCl [Metformin HCl ER] 500 mg PO TID 05/19/18 Multivitamin [Daily Multiple 1 each PO DAILY 05/19/18 Vitamin] Sitagliptin Phosphate [Januvia] 100 mg PO DAILY 06/07/18 Spironolactone [Aldactone] 25 mg PO DAILY 06/07/18 Cyanocobalamin (Vitamin B-12) 500 mcg PO DAILY 07/04/18 [Vitamin B-12] Magnesium Oxide [Magnesium] 400 mg PO DAILY 07/04/18 Warfarin [Coumadin ([facility])] 7.5 mg PO SUMOWETHFR 07/04/18 Warfarin [Coumadin ([facility])] 7.5 mg PO TUSA 07/04/18 - Family History Paternal - - The patient's father at the age of 78 from cancer of unknown etiology. The patient's mother at age of 68 from liver cancer. Smoking Status: Current every day smoker Tobacco Use: Cigarettes Review of Systems Constitutional: Denies: Chills, Fever, Weight Change Eyes: Denies: Pain, Vision Change HEENT: Denies: Difficulty Hearing, Difficulty Swallowing, Sinus Congestion Cardiovascular: Denies: Chest Pain, Palpitations Respiratory: Denies: Cough, Shortness of Breath Gastrointestinal: Denies: Diarrhea, Nausea, Vomiting Genitourinary: Denies: Dysuria, Hematuria Endocrine: Denies: Heat/ Cold Intolerance, Polydipsia, Polyuria Hematologic/ Lymphatic: Denies: Easy Bruising, Easy Bleeding - Physical Exam Vital Signs Temp Pulse Resp BP 97.9 F 79 16 119/71 08/04/18 10:13 08/04/18 10:13 08/04/18 10:13 08/04/18 10:13 General: Alert, Oriented x3, Cooperative, No apparent distress, Well developed, Well nourished HEENT: Atraumatic, PERRLA, EOMI, Normocephalic Oral: Moist Mucosa Neck: No JVD Lungs: Normal air movement Abdomen: Non-Distended Extremities: No clubbing, No cyanosis, No Calf Tenderness, - - Very slight swelling and edema is noted in the right lower extremity. The dry gangrene of the right great toe and the medial aspect of the right second toe persist. Gangrene remains dry, without any evidence of infection, cellulitis, or drainage. Dimensions are documented elsewhere. The peripheral right lower extremity appears warm and well perfused. The incision on the medial aspect of the proximal right calf is well approximated. A small eschar remains at the inferior pole. There is slight erythema at the site, though not appearing to be frankly cellulitic. The patient has been applying Betadine topically. Wound Measurements and Assessment WC - Nurse 1 - General Ulcer Measurement Start: 07/21/18 09:40 Freq: Status: Active Protocol: Activity Type Activity Date Activity User E-Sign Co-Sign Detail Recorded Client Recorded Date Recorded By Document 08/04/18 10:13 [id number] 08/04/18 10:17 08/04/18 10:13 Wound Center Nurse 1 [Ulcer Assessment] #4 RIGHT GREAT TOE -Combined with other wound No -Current Size (cm) - Length 1.4 -Current Size (cm) - Width 2.0 -Total Square Cm 2.80 -Photo Taken No -Epithelialization None Present -Tunneling No -Undermining/Tunneling No -Circular Undermining No -Exudate Amt None Present (0 %) -Wound Margin Distinct, Outline Attached -Granulation Amt None Present (0 %) -Slough/Fibrin Yes -Necrosis Amt Large (67-100%) -Necrotic Tissue Type Eschar -Texture (Scarlett-wound Skin Appearance) Assessed Scarring -Moisture (Scarlett-wound Skin Appearance Assessed ) Dry/Scaly -Color (Scarlett-wound Skin Appearance) Assessed Hemosiderin Staining -Temperature (Scarlett-wound Skin No Abnormality Appearance) (Pt Warm) -Tenderness on Palpation (Scarlett-wound No Skin Appearance) -Ulcer Cleansing Rinsed/ Irrigated with Saline #3 RIGHT 2ND MEDIAL TOE -Combined with other wound No -Current Size (cm) - Length 0.1 -Current Size (cm) - Width 0.1 -Current Size (cm) - Depth 0.1 -Total Square Cm 0.01 -Photo Taken No -Epithelialization None Present -Tunneling No -Undermining/Tunneling No -Circular Undermining No -Exudate Amt None Present (0 %) -Wound Margin Distinct, Outline Attached -Granulation Amt None Present (0 %) -Necrosis Amt Small (1-33%) -Necrotic Tissue Type Eschar -Texture (Scarlett-wound Skin Appearance) Assessed Callus Scarring -Moisture (Scarlett-wound Skin Appearance Assessed ) Dry/Scaly -Color (Scarlett-wound Skin Appearance) Assessed Hemosiderin Staining -Temperature (Scarlett-wound Skin No Abnormality Appearance) (Pt Warm) -Tenderness on Palpation (Csarlett-wound No Skin Appearance) -Ulcer Cleansing Rinsed/ Irrigated with Saline -Foul Odor after Cleansing No WC - Nurse 2 - General Ulcer CM Notes Start: 07/21/18 09:40 Freq: Status: Active Protocol: Activity Type Activity Date Activity User E-Sign Co-Sign Detail Recorded Client Recorded Date Recorded By Document 08/04/18 11:36 [id number] 08/04/18 11:43 08/04/18 11:36 Wound Center Nurse 2 [Procedure/Treatment] #4 RIGHT GREAT TOE -Time 11:36 -Correct Patient Yes -Correct Side, Site, Position Yes -Correct Procedure Yes -Procedure Performed No -Wound/Ulcer Outcome Not Healed -Ulcer Cleansing Not Cleansed -Foul Odor after Cleansing No -Bleeding Controlled with NA -Treatment Response Procedure Tolerated Well #3 RIGHT 2ND MEDIAL TOE -Time 11:37 -Correct Patient Yes -Correct Side, Site, Position Yes -Correct Procedure Yes -Procedure Performed No -Wound/Ulcer Outcome Not Healed -Ulcer Cleansing Not Cleansed -Foul Odor after Cleansing No -Bioengineered Tissue No -Bleeding Controlled with NA -Treatment Response Procedure Tolerated Well [See Physician Procedure note for Specifics] Pain Scale: 0-10 Numeric [Pain] -Is Patient Pain Free? Yes Musculoskeletal: No Muscle Wasting Neurological: Cranial nerves II-XII grossly intact, Neuro grossly intact Psych/Mental Status: Normal Affect, Appropriate, Alert and oriented to time, place, person, mood and affect Debridement Note Post-Debridement Measurements/Treatment WC - Nurse 2 - General Ulcer CM Notes Start: 07/21/18 09:40 Freq: Status: Active Protocol: Activity Type Activity Date Activity User E-Sign Co-Sign Detail Recorded Client Recorded Date Recorded By Document 10/02/18 10:26 DV [id number] 07/21/18 10:28 DV Document 08/04/18 11:36 JS [id number] 08/04/18 11:43 JS 07/21/18 08/04/18 10:26 11:36 Wound Center Nurse 2 #4 RIGHT GREAT TOE -Time 10:27 11:36 -Correct Patient Yes Yes -Correct Side, Site, Position Yes Yes -Correct Procedure Yes -Procedure Performed No No -Wound/Ulcer Outcome Not Healed Not Healed -Ulcer Cleansing Not Cleansed -Foul Odor after Cleansing No -Bleeding Controlled with NA NA -Treatment Response Procedure Tolerated Well #3 RIGHT 2ND MEDIAL TOE -Time 10:27 11:37 -Correct Patient Yes Yes -Correct Side, Site, Position Yes Yes -Correct Procedure Yes -Procedure Performed No No -Wound/Ulcer Outcome Not Healed Not Healed -Ulcer Cleansing Not Cleansed -Foul Odor after Cleansing No -Bioengineered Tissue No -Bleeding Controlled with NA NA -Treatment Response Procedure Tolerated Well Pain Scale: 0-10 Numeric Is Patient Pain Free? Yes Yes No debridement was completed today Assessment/Plan Active Problems Ulcer of right great toe due to diabetes mellitus (Chronic) Ulcer of right second toe (Chronic) DM (diabetes mellitus) with peripheral vascular complication (Chronic) PAD (peripheral artery disease) (Chronic) Gangrene (Chronic) Right leg swelling (Chronic) Ischemia of right lower extremity (Chronic) Tobacco abuse (Chronic) Tobacco abuse counseling (Chronic) Assessment: This is a 58-year-old diabetic male with severe peripheral arterial occlusive disease in his lower extremities. He is currently under the care of a vascular surgeon at the [facility] in [place], [place] - Dr. Joe. He underwent right lower extremity revascularization at the [facility] on June 11, 2018. He appears to have had a good result. He is currently on Coumadin 7.5 mg p.o. daily. He was evaluated by Dr. Joe last week, who was pleased with the patient's progress. Plan: The patient has been advised to elevate his lower extremities as much as p ossible, to minimize the swelling that is noted, particularly in the right lower extremity. The ulcerations of the right leg inferior to the right knee remain totally healed. The gangrenous ulcerations of the medial right second toe and of the tip of the right great toe are dry, without evidence of infection or cellulitis. The patient has been instructed to keep the sites clean and dry, as there appears to be no need for any topical dressings at this time. The gangrenous areas are likely to auto-amputate and slough. In other words, the dry gangrene on the right great toe and second toe will be left undisturbed. Offloading measures and proper footwear has been recommended. Otherwise, we will continue to follow and monitor the ulcerations of the right foot serially. The patient continues to smoke, contrary to medical advice, though he has decreased his smoking habits significantly. He is well aware of the adverse consequences of his smoking habit. He has been advised to refrain from prolonged idle sitting. The gangrenous ulcerations on the right foot will be kept clean and dry, and the patient has been advised to wear shoes which are properly fitted, and will not exert undue or unwanted pressure. Collaboration and comanagement with the patient's other physicians is to continue. The small site at the inferior pole of his medial right calf incision is to be monitored serially. The patient will continue to use Betadine topically. He has been instructed to seek medical attention if the very slight erythema in the area worsens. At this juncture, jose guadalupe infection and cellulitis are not apparent, but continued monitoring will be undertaken. The patient is to return in 2 weeks for reassessment. The patient is known to be a smoker. Smoking cessation has been advised, in great detail. The patient has been counseled as to the adverse consequences of smoking relative to his peripheral arterial occlusive disease and wound healing potential. Influenza vaccine was not administered today. The patient weighs 220 pounds. He stands 6 feet 0 inches in height. His BMI is 29.9, which places him in an overweight category. While good and adequate nutrition has been advised, mild weight loss has been recommended, with collaboration from his primary care physician.
[2018-08-18 10:23] VITALS: BP 128/72; PULSE 81; RESP 18; TEMP 36.2
--- NOTE | 2018-08-18 11:57 | PCM.WC.HP ---
(1) Ulcer of right great toe due to diabetes mellitus Status: Chronic Current Visit: Yes Code(s): E11.621 - Type 2 diabetes mellitus with foot ulcer; L97.519 - Non-pressure chronic ulcer of other part of right foot with unspecified severity (2) Ulcer of right second toe Status: Chronic Current Visit: Yes Qualifiers: Non-pressure ulcer stage: with fat layer exposed Qualified Code(s): L97.512 - Non-pressure chronic ulcer of other part of right foot with fat layer exposed Code(s): L97.519 - Non-pressure chronic ulcer of other part of right foot with unspecified severity (3) DM (diabetes mellitus) with peripheral vascular complication Status: Chronic Current Visit: Yes Code(s): E11.51 - Type 2 diabetes mellitus with diabetic peripheral angiopathy without gangrene (4) PAD (peripheral artery disease) Status: Chronic Current Visit: Yes Code(s): I73.9 - Peripheral vascular disease, unspecified (5) Gangrene Status: Chronic Current Visit: Yes Code(s): I96 - Gangrene, not elsewhere classified (6) Coronary artery disease Status: Chronic Current Visit: No Code(s): I25.10 - Atherosclerotic heart disease of [place] coronary artery without angina pectoris (7) Atrial fibrillation Status: Chronic Current Visit: No Code(s): I48.91 - Unspecified atrial fibrillation (8) Cardiac defibrillator in place Status: Chronic Current Visit: No Code(s): Z95.810 - Presence of automatic (implantable) cardiac defibrillator (9) Right leg swelling Status: Chronic Current Visit: Yes Code(s): M79.89 - Other specified soft tissue disorders (10) Ischemia of right lower extremity Status: Chronic Current Visit: Yes Code(s): I99.8 - Other disorder of circulatory system (11) History of coronary artery bypass graft x 3 Status: Acute Current Visit: No Code(s): Z95.1 - Presence of aortocoronary bypass graft (12) Tobacco abuse Status: Chronic Current Visit: Yes Code(s): Z72.0 - Tobacco use (13) Tobacco abuse counseling Status: Chronic Current Visit: Yes Code(s): Z71.6 - Tobacco abuse counseling (14) Hyperlipidemia Status: Chronic Current Visit: No Code(s): E78.5 - Hyperlipidemia, unspecified History of Present Illness Chief Complaint: Ischemia and peripheral arterial occlusive disease of the right lower extremity, associated with ulcerations of the right leg and toes. History of Wound: This is a 58-year-old male who presented as a referral from his primary care physician with ischemic ulcerations on the right leg and the toes of the right foot. These had been present for approximately 2 months. The patient has multiple medical problems. Among his problems is known peripheral arterial occlusive disease, for which he is under the care of a vascular surgeon at the [facility] in [place], [place], by the name of Dr. Joe. According to the patient, he has had extensive evaluation by Dr. Joe, including a CT scan of the vascular system of his neck, chest, abdomen, and lower extremities. The patient underwent right lower extremity revascularization on June 11, 2018. Surgery was performed at the [facility]. It appears he underwent a right femoral?popliteal bypass graft, with prosthetic graft material. Evaluation today reveals an incision on the proximal portion of the medial right calf, which is healing appropriately. The distal right lower extremity is slightly swollen. The right lower extremity is warm and appears to be well perfused. The patient is diabetic, and his arterial occlusive disease is likely related to his history of diabetes, and the fact he is a smoker. The patient continues to smoke, despite medical advice to the contrary. He has, however, diminished his smoking significantly. Past Medical History Past Medical History: Chronic Problems Ulcer of right great toe due to diabetes mellitus (Chronic) Ulcer of right second toe (Chronic) DM (diabetes mellitus) with peripheral vascular complication (Chronic) PAD (peripheral artery disease) (Chronic) Gangrene (Chronic) Coronary artery disease (Chronic) Atrial fibrillation (Chronic) Cardiac defibrillator in place (Chronic) Right leg swelling (Chronic) Ischemia of right lower extremity (Chronic) Tobacco abuse (Chronic) Tobacco abuse counseling (Chronic) Hyperlipidemia (Chronic) Surgical History: - - Patient has previously undergone coronary revascularization ?3, at which time valve repair was performed. The patient is also undergone open reduction and internal fixation of the left femur fracture in the past. Allergies/Adverse Reactions: Allergies No Known Allergies Allergy (Verified 07/04/18 14:47) Home Medications: Ambulatory Orders Medication Instructions Recorded Aspirin E.C. [Ecotrin] 81 mg PO DAILY@0800 05/19/18 Atorvastatin Calcium [Lipitor] 40 mg PO QHS 05/19/18 Bisoprolol Fumarate [Zebeta] 5 mg PO DAILY 05/19/18 Cholecalciferol (Vitamin D3) 4,000 unit PO DAILY 05/19/18 [Vitamin D3] Famotidine 20 mg PO BID 05/19/18 Glucosamine/D3/Boswellia Melonie 1 each PO DAILY 05/19/18 [Osteo Bi-Flex Tablet] Lisinopril [Zestril] 10 mg PO DAILY 05/19/18 Metformin HCl [Metformin HCl ER] 500 mg PO TID 05/19/18 Multivitamin [Daily Multiple 1 each PO DAILY 05/19/18 Vitamin] Sitagliptin Phosphate [Januvia] 100 mg PO DAILY 06/07/18 Spironolactone [Aldactone] 25 mg PO DAILY 06/07/18 Cyanocobalamin (Vitamin B-12) 500 mcg PO DAILY 07/04/18 [Vitamin B-12] Magnesium Oxide [Magnesium] 400 mg PO DAILY 07/04/18 Warfarin [Coumadin ([facility])] 7.5 mg PO SUMOWETHFR 07/04/18 Warfarin [Coumadin ([facility])] 7.5 mg PO TUSA 07/04/18 - Family History Paternal - - The patient's father at the age of 78 from cancer of unknown etiology. The patient's mother at age of 68 from liver cancer. Smoking Status: Current every day smoker Tobacco Use: Cigarettes Review of Systems Constitutional: Denies: Chills, Fever, Weight Change Eyes: Denies: Pain, Vision Change HEENT: Denies: Difficulty Hearing, Difficulty Swallowing, Sinus Congestion Cardiovascular: Denies: Chest Pain, Palpitations Respiratory: Denies: Cough, Shortness of Breath Gastrointestinal: Denies: Diarrhea, Nausea, Vomiting Genitourinary: Denies: Dysuria, Hematuria Endocrine: Denies: Heat/ Cold Intolerance, Polydipsia, Polyuria Hematologic/ Lymphatic: Denies: Easy Bruising, Easy Bleeding - Physical Exam Vital Signs Temp Pulse Resp BP 97.1 F L 81 18 128/72 H 08/18/18 10:23 08/18/18 10:23 08/18/18 10:23 08/18/18 10:23 General: Alert, Oriented x3, Cooperative, No apparent distress, Well developed, Well nourished HEENT: Atraumatic, PERRLA, EOMI, Normocephalic Oral: Moist Mucosa Neck: No JVD Lungs: Normal air movement Abdomen: Non-Distended Extremities: No clubbing, No cyanosis, No Calf Tenderness, - - The gangrenous changes of the right second toe have now completely resolved. The gangrenous portion has sloughed. Dry gangrene persists in the right great toe, located at the tip. There is no drainage or moisture. There is no erythema or cellulitis. There is no sign of an action. Skin: No rashes Wound Measurements and Assessment WC - Nurse 1 - General Ulcer Measurement Start: 07/21/18 09:40 Freq: Status: Active Protocol: Activity Type Activity Date Activity User E-Sign Co-Sign Detail Recorded Client Recorded Date Recorded By Document 08/18/18 10:23 [id number] 08/18/18 10:26 08/18/18 10:23 Wound Center Nurse 1 [Ulcer Assessment] #4 RIGHT GREAT TOE -Combined with other wound No -Current Size (cm) - Length 3.0 -Current Size (cm) - Width 2.2 -Current Size (cm) - Depth 0 -Total Square Cm 6.60 -Photo Taken No -Epithelialization None Present -Tunneling No -Undermining/Tunneling No -Circular Undermining No -Classification - Thickness Unclassifiable (Eschar Covered ) -Exudate Amt None Present (0 %) -Wound Margin Distinct, Outline Attached -Granulation Amt None Present (0 %) -Granulation Quality N/A -Slough/Fibrin Yes -Necrosis Amt Large (67-100%) -Necrotic Tissue Type Eschar -Structure Exposed N/A -Moisture (Scarlett-wound Skin Appearance Assessed ) Dry/Scaly -Color (Scarlett-wound Skin Appearance) No Abnormality Assessed -Temperature (Scarlett-wound Skin No Abnormality Appearance) (Pt Warm) -Tenderness on Palpation (Scarlett-wound No Skin Appearance) -Ulcer Cleansing Rinsed/ Irrigated with Saline -Foul Odor after Cleansing No #3 RIGHT 2ND MEDIAL TOE -Combined with other wound No -Current Size (cm) - Length 0 -Current Size (cm) - Width 0 -Current Size (cm) - Depth 0 -Total Square Cm 0 -Date of Last Picture (Recall this 08/18/18 field) -Photo Taken Yes -Epithelialization Large 67-100% -Tunneling No -Undermining/Tunneling No -Circular Undermining No -Classification - Thickness Full Thickness without Exposed Support Structure -Exudate Amt None Present (0 %) -Wound Margin Distinct, Outline Attached -Granulation Amt Large (67-100%) -Granulation Quality [place]ore[place] Torres -Slough/Fibrin No -Necrosis Amt None Present (0 %) -Structure Exposed None/Limited to Skin Breakdown -Texture (Scarlett-wound Skin Appearance) No Abnormality Assessed -Moisture (Scarlett-wound Skin Appearance Assessed ) Dry/Scaly -Color (Scarlett-wound Skin Appearance) No Abnormality Assessed -Temperature (Scarlett-wound Skin No Abnormality Appearance) (Pt Warm) -Tenderness on Palpation (Scarlett-wound No Skin Appearance) -Ulcer Cleansing Rinsed/ Irrigated with Saline -Foul Odor after Cleansing No [Edema Assessment] -Lower Limb Edema Present No WC - Nurse 2 - General Ulcer CM Notes Start: 07/21/18 09:40 Freq: Status: Active Protocol: Activity Type Activity Date Activity User E-Sign Co-Sign Detail Recorded Client Recorded Date Recorded By Document 08/18/18 11:36 [id number] 08/18/18 11:48 08/18/18 11:36 Wound Center Nurse 2 [Procedure/Treatment] #4 RIGHT GREAT TOE -Time 11:38 -Correct Patient Yes -Correct Side, Site, Position Yes -Correct Procedure Yes -Procedure Performed No -Wound/Ulcer Outcome Not Healed -Ulcer Cleansing Not Cleansed -Foul Odor after Cleansing No -Bleeding Controlled with NA [See Physician Procedure note for Specifics] Pain Scale: 0-10 Numeric [Pain] -Is Patient Pain Free? Yes Neurological: Cranial nerves II-XII grossly intact, Neuro grossly intact Psych/Mental Status: Normal Affect, Appropriate, Alert and oriented to time, place, person, mood and affect Debridement Note Post-Debridement Measurements/Treatment - Nurse 2 - General Ulcer CM Notes Start: 07/21/18 09:40 Freq: Status: Active Protocol: Activity Type Activity Date Activity User E-Sign Co-Sign Detail Recorded Client Recorded Date Recorded By Document 07/21/18 10:26 DV [id number] 07/21/18 10:28 DV Document 08/04/18 11:36 JS [id number] 08/04/18 11:43 JS Document 08/18/18 11:36 JS [id number] 08/18/18 11:48 JS 07/21/18 08/04/18 08/18/18 10:26 11:36 11:36 Wound Center Nurse 2 #4 RIGHT GREAT TOE -Time 10: 11:36 11:38 -Correct Patient Yes Yes Yes -Correct Side, Site, Position Yes Yes Yes -Correct Procedure Yes Yes -Procedure Performed No No No -Wound/Ulcer Outcome Not Healed Not Healed Not Healed -Ulcer Cleansing Not Cleansed Not Cleansed -Foul Odor after Cleansing No No -Bleeding Controlled with NA NA NA -Treatment Response Procedure Tolerated Well #3 RIGHT 2ND MEDIAL TOE -Time 10: 11:37 -Correct Patient Yes Yes -Correct Side, Site, Position Yes Yes -Correct Procedure Yes -Procedure Performed No No -Wound/Ulcer Outcome Not Healed Not Healed -Ulcer Cleansing Not Cleansed -Foul Odor after Cleansing No -Bioengineered Tissue No -Bleeding Controlled with NA NA -Treatment Response Procedure Tolerated Well Pain Scale: 0-10 Numeric Is Patient Pain Free? Yes Yes Yes No debridement was completed today Assessment/Plan Active Problems Ulcer of right great toe due to diabetes mellitus (Chronic) Ulcer of right second toe (Chronic) DM (diabetes mellitus) with peripheral vascular complication (Chronic) PAD (peripheral artery disease) (Chronic) Gangrene (Chronic) Right leg swelling (Chronic) Ischemia of right lower extremity (Chronic) Tobacco abuse (Chronic) Tobacco abuse counseling (Chronic) Assessment: This is a 58-year-old diabetic male with severe peripheral arterial occlusive disease in his lower extremities. He is currently under the care of a vascular surgeon at the [facility] in [place], [place] - Dr. Joe. He underwent right lower extremity revascularization at the [facility] on June 11, 2018. He appears to have had a good result. He is currently on Coumadin 7.5 mg p.o. daily. He has shown good progress in recent weeks. The dry gangrenous site on the right second toe has now sloughed, and the right second toe demonstrates no residual wounds or ulcerations. Dry gangrene persists on the tip of the right great toe, without sign of infection or cellulitis. Plan: The patient has been advised to elevate his lower extremities as much as possible, to minimize the swelling, particularly in the right lower extremity. The ulcerations of the right leg inferior to the right knee remain totally healed. The gangrenous ulceration of the tip of the right great toe is dry, without evidence of infection or cellulitis. The gangrenous ulceration on the right second toe is now completely resolved. The patient has been instructed to keep the site clean and dry, as there appears to be no need for any topical dressings at this time. The gangrenous area is expected to auto-amputate and slough. In other words, the dry gangrene on the right great toe will be left undisturbed. Offloading measures and proper footwear have been recommended. Otherwise, we will continue to follow and monitor the ulceration of the right great toe serially. Patient has an appointment with his Obstetric Assistant, Dr. Meraz, August 25. The patient continues to smoke, contrary to medical advice, though he has decreased his smoking habit significantly. He is well aware of the adverse consequences of his smoking habit. He has been advised to refrain from prolonged idle sitting. The gangrenous ulceration on the right foot will be kept clean and dry, and the patient has been advised to wear shoes which are properly fitted, and will not exert undue or unwanted pressure or friction. Collaboration and comanagement with the patient's other physicians is to continue. At this juncture, jose guadalupe infection and cellulitis are not apparent, but continued monitoring will be undertaken. Optimizing the patient's glycemic control has also been recommended. The patient is to return in 3 weeks for reassessment. The patient is known to be a smoker. Smoking cessation has been advised, in great detail. The patient has been counseled as to the adverse consequences of smoking relative to his peripheral arterial occlusive disease and wound healing potential. Influenza vaccine was not administered today. The patient weighs 220 pounds. He stands 6 feet 0 inches in height. His BMI is 29.9, which places him in an overweight category. While good and adequate nutrition has been advised, mild weight loss has been recommended, with collaboration from his primary care physician.
--- NOTE | 2018-08-18 12:05 | HP.PCM_ITS ---
(1) Ulcer of right great toe due to diabetes mellitus Status: Chronic Current Visit: Yes Code(s): E11.621 - Type 2 diabetes mellitus with foot ulcer; L97.519 - Non-pressure chronic ulcer of other part of right foot with unspecified severity (2) Ulcer of right second toe Status: Chronic Current Visit: Yes Qualifiers: Non-pressure ulcer stage: with fat layer exposed Qualified Code(s): L97.512 - Non-pressure chronic ulcer of other part of right foot with fat layer exposed Code(s): L97.519 - Non-pressure chronic ulcer of other part of right foot with unspecified severity (3) DM (diabetes mellitus) with peripheral vascular complication Status: Chronic Current Visit: Yes Code(s): E11.51 - Type 2 diabetes mellitus with diabetic peripheral angiopathy without gangrene (4) PAD (peripheral artery disease) Status: Chronic Current Visit: Yes Code(s): I73.9 - Peripheral vascular disease, unspecified (5) Gangrene Status: Chronic Current Visit: Yes Code(s): I96 - Gangrene, not elsewhere classified (6) Coronary artery disease Status: Chronic Current Visit: No Code(s): I25.10 - Atherosclerotic heart disease of eek coronary artery without angina pectoris (7) Atrial fibrillation Status: Chronic Current Visit: No Code(s): I48.91 - Unspecified atrial fibrillation (8) Cardiac defibrillator in place Status: Chronic Current Visit: No Code(s): Z95.810 - Presence of automatic (implantable) cardiac defibrillator (9) Right leg swelling Status: Chronic Current Visit: Yes Code(s): M79.89 - Other specified soft tissue disorders (10) Ischemia of right lower extremity Status: Chronic Current Visit: Yes Code(s): I99.8 - Other disorder of circulatory system (11) History of coronary artery bypass graft x 3 Status: Acute Current Visit: No Code(s): Z95.1 - Presence of aortocoronary bypass graft (12) Tobacco abuse Status: Chronic Current Visit: Yes Code(s): Z72.0 - Tobacco use (13) Tobacco abuse counseling Status: Chronic Current Visit: Yes Code(s): Z71.6 - Tobacco abuse counseling (14) Hyperlipidemia Status: Chronic Current Visit: No Code(s): E78.5 - Hyperlipidemia, unspecified History of Present Illness Chief Complaint: Ischemia and peripheral arterial occlusive disease of the right lower extremity, associated with ulcerations of the right leg and toes. History of Wound: This is a 58-year-old male who presented as a referral from his primary care physician with ischemic ulcerations on the right leg and the toes of the right foot. These had been present for approximately 2 months. The patient has multiple medical problems. Among his problems is known peripheral arterial occlusive disease, for which he is under the care of a vascular surgeon at the [facility] in [place], [place], by the name of Dr. Joe. According to the patient, he has had extensive evaluation by Dr. Joe, including a CT scan of the vascular system of his neck, chest, abdomen, and lower extremities. The patient underwent right lower extremity revascularization on June 11, 2018. Surgery was performed at the [facility]. It appears he underwent a right femoral?popliteal bypass graft, with prosthetic graft material. Evaluation today reveals an incision on the proximal portion of the medial right calf, which is healing appropriately. The distal right lower extremity is slightly swollen. The right lower extremity is warm and appears to be well perfused. The patient is diabetic, and his arterial occlusive disease is likely related to his history of diabetes, and the fact he is a smoker. The patient continues to smoke, despite medical advice to the contrary. He has, however, diminished his smoking significantly. Past Medical History Past Medical History: Chronic Problems Ulcer of right great toe due to diabetes mellitus (Chronic) Ulcer of right second toe (Chronic) DM (diabetes mellitus) with peripheral vascular complication (Chronic) PAD (peripheral artery disease) (Chronic) Gangrene (Chronic) Coronary artery disease (Chronic) Atrial fibrillation (Chronic) Cardiac defibrillator in place (Chronic) Right leg swelling (Chronic) Ischemia of right lower extremity (Chronic) Tobacco abuse (Chronic) Tobacco abuse counseling (Chronic) Hyperlipidemia (Chronic) Surgical History: - - Patient has previously undergone coronary alex scularization ?3, at which time valve repair was performed. The patient is also undergone open reduction and internal fixation of the left femur fracture in the past. Allergies/Adverse Reactions: Allergies No Known Allergies Allergy (Verified 07/04/18 14:47) Home Medications: Ambulatory Orders Medication Instructions Recorded Aspirin E.C. [Ecotrin] 81 mg PO DAILY@0800 05/19/18 Atorvastatin Calcium [Lipitor] 40 mg PO QHS 05/19/18 Bisoprolol Fumarate [Zebeta] 5 mg PO DAILY 05/19/18 Cholecalciferol (Vitamin D3) 4,000 unit PO DAILY 05/19/18 [Vitamin D3] Famotidine 20 mg PO BID 05/19/18 Glucosamine/D3/Boswellia Melonie 1 each PO DAILY 05/19/18 [Osteo Bi-Flex Tablet] Lisinopril [Zestril] 10 mg PO DAILY 05/19/18 Metformin HCl [Metformin HCl ER] 500 mg PO TID 05/19/18 Multivitamin [Daily Multiple 1 each PO DAILY 05/19/18 Vitamin] Sitagliptin Phosphate [Januvia] 100 mg PO DAILY 06/07/18 Spironolactone [Aldactone] 25 mg PO DAILY 06/07/18 Cyanocobalamin (Vitamin B-12) 500 mcg PO DAILY 07/04/18 [Vitamin B-12] Magnesium Oxide [Magnesium] 400 mg PO DAILY 07/04/18 Warfarin [Coumadin ([facility])] 7.5 mg PO SUMOWETHFR 07/04/18 Warfarin [Coumadin ([facility])] 7.5 mg PO TUSA 07/04/18 - Family History Paternal - - The patient's father at the age of 78 from cancer of unknown etiology. The patient's mother at age of 68 from liver cancer. Smoking Status: Current every day smoker Tobacco Use: Cigarettes Review of Systems Constitutional: Denies: Chills, Fever, Weight Change Eyes: Denies: Pain, Vision Change HEENT: Denies: Difficulty Hearing, Difficulty Swallowing, Sinus Congestion Cardiovascular: Denies: Chest Pain, Palpitations Respiratory: Denies: Cough, Shortness of Breath Gastrointestinal: Denies: Diarrhea, Nausea, Vomiting Genitourinary: Denies: Dysuria, Hematuria Endocrine: Denies: Heat/ Cold Intolerance, Polydipsia, Polyuria Hematologic/ Lymphatic: Denies: Easy Bruising, Easy Bleeding - Physical Exam Vital Signs Temp Pulse Resp BP 97.1 F L 81 18 128/72 H 08/18/18 10:23 08/18/18 10:23 08/18/18 10:23 08/18/18 10:23 General: Alert, Oriented x3, Cooperative, No apparent distress, Well developed, Well nourished HEENT: Atraumatic, PERRLA, EOMI, Normocephalic Oral: Moist Mucosa Neck: No JVD Lungs: Normal air movement Abdomen: Non-Distended Extremities: No clubbing, No cyanosis, No Calf Tenderness, - - The gangrenous changes of the right second toe have now completely resolved. The gangrenous portion has sloughed. Dry gangrene persists in the right great toe, located at the tip. There is no drainage or moisture. There is no erythema or cellulitis. There is no sign of an action. Skin: No rashes Wound Measurements and Assessment WC - Nurse 1 - General Ulcer Measurement Start: 07/21/18 09:40 Freq: Status: Active Protocol: Activity Type Activity Date Activity User E-Sign Co-Sign Detail Recorded Client Recorded Date Recorded By Document 08/18/18 10:23 [id number] 08/18/18 10:26 TM 08/18/18 10:23 Wound Center Nurse 1 [Ulcer Assessment] #4 RIGHT GREAT TOE -Combined with other wound No -Current Size (cm) - Length 3.0 -Current Size (cm) - Width 2.2 -Current Size (cm) - Depth 0 -Total Square Cm 6.60 -Photo Taken No -Epithelialization None Present -Tunneling No -Undermining/Tunneling No -Circular Undermining No -Classification - Thickness Unclassifiable (Eschar Covered ) -Exudate Amt None Present (0 %) -Wound Margin Distinct, Outline Attached -Granulation Amt None Present (0 %) -Granulation Quality N/A -Slough/Fibrin Yes -Necrosis Amt Large (67-100%) -Necrotic Tissue Type Eschar -Structure Exposed N/A -Moisture (Scarlett-wound Skin Appearance Assessed ) Dry/Scaly -Color (Scarlett-wound Skin Appearance) No Abnormality Assessed -Temperature (Scarlett-wound Skin No Abnormality Appearance) (Pt Warm) -Tenderness on Palpation (Scarlett-wound No Skin Appearance) -Ulcer Cleansing Rinsed/ Irrigated with Saline -Foul Odor after Cleansing No #3 RIGHT 2ND MEDIAL TOE -Combined with other wound No -Current Size (cm) - Length 0 -Current Size (cm) - Width 0 -Current Size (cm) - Depth 0 -Total Square Cm 0 -Date of Last Picture (Recall this 08/18/18 field) -Photo Taken Yes -Epithelialization Large 67-100% -Tunneling No -Undermining/Tunneling No -Circular Undermining No -Classification - Thickness Full Thickness without Exposed Support Structure -Exudate Amt None Present (0 %) -Wound Margin Distinct, Outline Attached -Granulation Amt Large (67-100%) -Granulation Quality Elgin -Slough/Fibrin No -Necrosis Amt None Present (0 %) -Structure Exposed None/Limited to Skin Breakdown -Texture (Scarlett-wound Skin Appearance) No Abnormality Assessed -Moisture (Scarlett-wound Skin Appearance Assessed ) Dry/Scaly -Color (Scarlett-wound Skin Appearance) No Abnormality Assessed -Temperature (Scarlett-wound Skin No Abnormality Appearance) (Pt Warm) -Tenderness on Palpation (Scarlett-wound No Skin Appearance) -Ulcer Cleansing Rinsed/ Irrigated with Saline -Foul Odor after Cleansing No [Edema Assessment] -Lower Limb Edema Present No WC - Nurse 2 - General Ulcer CM Notes Start: 07/21/18 09:40 Freq: Status: Active Protocol: Activity Type Activity Date Activity User E-Sign Co-Sign Detail Recorded Client Recorded Date Recorded By Document 08/18/18 11:36 [id number] 08/18/18 11:48 08/18/18 11:36 Wound Center Nurse 2 [Procedure/Treatment] #4 RIGHT GREAT TOE -Time 11:38 -Correct Patient Yes -Correct Side, Site, Position Yes -Correct Procedure Yes -Procedure Performed No -Wound/Ulcer Outcome Not Healed -Ulcer Cleansing Not Cleansed -Foul Odor after Cleansing No -Bleeding Controlled with NA [See Physician Procedure note for Specifics] Pain Scale: 0-10 Numeric [Pain] -Is Patient Pain Free? Yes Neurological: Cranial nerves II-XII grossly intact, Neuro grossly intact Psych/Mental Status: Normal Affect, Appropriate, Alert and oriented to time, place, person, mood and affect Debridement Note Post-Debridement Measurements/Treatment WC - Nurse 2 - General Ulcer CM Notes Start: 07/21/18 09:40 Freq: Status: Active Protocol: Activity Type Activity Date Activity User E-Sign Co-Sign Detail Recorded Client Recorded Date Recorded By Document 07/21/18 10:26 DV [id number] 07/21/18 10:28 DV Document 08/04/18 11:36 JS [id number] 08/04/18 11:43 JS Document 08/18/18 11:36 [id number] 08/18/18 11:48 JS 07/21/18 08/04/18 08/18/18 10:26 11:36 11:36 Wound Center Nurse 2 #4 RIGHT GREAT TOE -Time 10: 11:36 11:38 -Correct Patient Yes Yes Yes -Correct Side, Site, Position Yes Yes Yes -Correct Procedure Yes Yes -Procedure Performed No No No -Wound/Ulcer Outcome Not Healed Not Healed Not Healed -Ulcer Cleansing Not Cleansed Not Cleansed -Foul Odor after Cleansing No No -Bleeding Controlled with NA NA NA -Treatment Response Procedure Tolerated Well #3 RIGHT 2ND MEDIAL TOE -Time 10: 11:37 -Correct Patient Yes Yes -Correct Side, Site, Position Yes Yes -Correct Procedure Yes -Procedure Performed No No -Wound/Ulcer Outcome Not Healed Not Healed -Ulcer Cleansing Not Cleansed -Foul Odor after Cleansing No -Bioengineered Tissue No -Bleeding Controlled with NA NA -Treatment Response Procedure Tolerated Well Pain Scale: 0-10 Numeric Is Patient Pain Free? Yes Yes Yes No debridement was completed today Assessment/Plan Active Problems Ulcer of right great toe due to diabetes mellitus (Chronic) Ulcer of right second toe (Chronic) DM (diabetes mellitus) with peripheral vascular complication (Chronic) PAD (peripheral artery disease) (Chronic) Gangrene (Chronic) Right leg swelling (Chronic) Ischemia of right lower extremity (Chronic) Tobacco abuse (Chronic) Tobacco abuse counseling (Chronic) Assessment: This is a 58-year-old diabetic male with severe peripheral arterial occlusive disease in his lower extremities. He is currently under the care of a vascular surgeon at the [facility] in [place], [place] - Dr. Joe. He underwent right lower extremity revascularization at the [facility] on June 11, 2018. He appears to have had a good result. He is currently on Coumadin 7.5 mg p.o. daily. He has shown good progress in recent weeks. The dry gangrenous site on the right second toe has now sloughed, and the right second toe demonstrates no residual wounds or ulcerations. Dry gangrene persists on the tip of the right great toe, without sign of infection or cellulitis. Plan: The patient has been advised to elevate his lower extremities as much as possible, to minimize the swelling, particularly in the right lower extremity. The ulcerations of the right leg inferior to the right knee remain totally healed. The gangrenous ulceration of the tip of the right great toe is dry, without evidence of infection or cellulitis. The gangrenous ulceration on the right second toe is now completely resolved. The patient has been instructed to keep the site clean and dry, as there appears to be no need for any topical dressings at this time. The gangrenous area is expected to auto-amputate and slough. In other words, the dry gangrene on the right great toe will be left undisturbed. Offloading measures and proper footwear have been recommended. Otherwise, we will continue to follow and monitor the ulceration of the right great toe serially. Patient has an appointment with his [employer] Operator, Dr. Meraz , August 25. The patient continues to smoke, contrary to medical advice, though he has decreased his smoking habit significantly. He is well aware of the adverse consequences of his smoking habit. He has been advised to refrain from prolonged idle sitting. The gangrenous ulceration on the right foot will be kept clean and dry, and the patient has been advised to wear shoes which are properly fitted, and will not exert undue or unwanted pressure or friction. Collaboration and comanagement with the patient's other physicians is to continue. At this juncture, jose guadalupe infection and cellulitis are not apparent, but continued monitoring will be undertaken. Optimizing the patient's glycemic control has also been recommended. The patient is to return in 3 weeks for reassessment. The patient is known to be a smoker. Smoking cessation has been advised, in great detail. The patient has been counseled as to the adverse consequences of smoking relative to his peripheral arterial occlusive disease and wound healing potential. Influenza vaccine was not administered today. The patient weighs 220 pounds. He stands 6 feet 0 inches in height. His BMI is 29.9, which places him in an overweight category. While good and adequate nutrition has been advised, mild weight loss has been recommended, with collaboration from his primary care physician.
== END 2018-08-19 23:59 ==
LOC: WC 10:00
PROVIDERS: Family Provider Nurse Practitioner; PCP Nurse Practitioner; Visit Provider Surgery
DX: E11.621 Type 2 diabetes mellitus with foot ulcer (principal); L97.512 Non-pressure chronic ulcer of other part of right foot with fat layer exposed; I25.10 Atherosclerotic heart disease of native coronary artery without angina pectoris; E11.52 Type 2 diabetes mellitus with diabetic peripheral angiopathy with gangrene; I96 Gangrene, not elsewhere classified; M79.89 Other specified soft tissue disorders; I48.91 Unspecified atrial fibrillation; Z95.810 Presence of automatic (implantable) cardiac defibrillator; E78.5 Hyperlipidemia, unspecified; Z95.1 Presence of aortocoronary bypass graft; Z79.899 Other long term (current) drug therapy; Z79.82 Long term (current) use of aspirin; Z79.01 Long term (current) use of anticoagulants; F17.210 Nicotine dependence, cigarettes, uncomplicated
CPT/HCPCS: 99211; 99212; 99213; G0463

== ENCOUNTER 2018-09-08 08:12 | Outpatient (RCR) | payer OTHER, SELFPAY ==
[2018-08-20 01:13] VITALS: BP 128/72; PULSE 81; RESP 18; TEMP 36.2
[2018-09-08 10:18] VITALS: BP 118/73; PULSE 79; RESP 18; TEMP 35.9
--- NOTE | 2018-09-08 11:12 | PCM.WC.HP ---
(1) Ulcer of right leg Status: Chronic Current Visit: Yes Qualifiers: Code(s): L97.919 - Non-pressure chronic ulcer of unspecified part of right lower leg with unspecified severity (2) Ulcer of right great toe due to diabetes mellitus Status: Chronic Current Visit: Yes Code(s): E11.621 - Type 2 diabetes mellitus with foot ulcer; L97.519 - Non-pressure chronic ulcer of other part of right foot with unspecified severity (3) Ulcer of right second toe Status: Resolved Current Visit: No Qualifiers: Code(s): L97.519 - Non-pressure chronic ulcer of other part of right foot with unspecified severity (4) DM (diabetes mellitus) with peripheral vascular complication Status: Chronic Current Visit: Yes Code(s): E11.51 - Type 2 diabetes mellitus with diabetic peripheral angiopathy without gangrene (5) PAD (peripheral artery disease) Status: Chronic Current Visit: Yes Code(s): I73.9 - Peripheral vascular disease, unspecified (6) Gangrene Status: Chronic Current Visit: Yes Code(s): I96 - Gangrene, not elsewhere classified (7) Coronary artery disease Status: Chronic Current Visit: No Qualifiers: Coronary Disease-Associated Artery/Lesion type: [place] artery [place] vs. transplanted heart: [place] heart Code(s): I25.10 - Atherosclerotic heart disease of [place] coronary artery without angina pectoris (8) Atrial fibrillation Status: Chronic Current Visit: No Code(s): I48.91 - Unspecified atrial fibrillation (9) Cardiac defibrillator in place Status: Chronic Current Visit: No Code(s): Z95.810 - Presence of automatic (implantable) cardiac defibrillator (10) Right leg swelling Status: Chronic Current Visit: No Code(s): M79.89 - Other specified soft tissue disorders (11) Ischemia of right lower extremity Status: Chronic Current Visit: No Code(s): I99.8 - Other disorder of circulatory system (12) History of coronary artery bypass graft x 3 Status: Acute Current Visit: No Code(s): Z95.1 - Presence of aortocoronary bypass graft (13) Tobacco abuse Status: Chronic Current Visit: Yes Code(s): Z72.0 - Tobacco use (14) Tobacco abuse counseling Status: Chronic Current Visit: Yes Code(s): Z71.6 - Tobacco abuse counseling (15) Hyperlipidemia Status: Chronic Current Visit: No Code(s): E78.5 - Hyperlipidemia, unspecified History of Present Illness Chief Complaint: Ischemia and peripheral arterial occlusive disease of the right lower extremity, associated with ulcerations of the right leg and toes. History of Wound: This is a 58-year-old male who presented as a referral from his primary care physician with ischemic ulcerations on the right leg and the toes of the right foot. These had been present for approximately 2 months. The patient has multiple medical problems. Among his problems is known peripheral arterial occlusive disease, for which he is under the care of a vascular surgeon at the [facility] in [place], [place], by the name of Dr. Joe. According to the patient, he has had extensive evaluation by Dr. Joe, including a CT scan of the vascular system of his neck, chest, abdomen, and lower extremities. The patient underwent right lower extremity revascularization on June 11, 2018. Surgery was performed at the [facility]. It appears he underwent a right femoral?popliteal bypass graft, with prosthetic graft material. Evaluation today reveals an incision on the proximal portion of the medial right calf, which is healing appropriately. The distal right lower extremity is slightly swollen. The right lower extremity is warm and appears to be well perfused. The patient is diabetic, and his arterial occlusive disease is likely related to his history of diabetes, and the fact he is a smoker. The patient continues to smoke, despite medical advice to the contrary. He has, however, diminished his smoking significantly. Past Medical History Past Medical History: Chronic Problems Ulcer of right leg (Chronic) Ulcer of right great toe due to diabetes mellitus (Chronic) DM (diabetes mellitus) with peripheral vascular complication (Chronic) PAD (peripheral artery disease) (Chronic) Gangrene (Chronic) Coronary artery disease (Chronic) Atrial fibrillation (Chronic) Cardiac defibrillator in place (Chronic) Right leg swelling (Chronic) Ischemia of right lower extremity (Chronic) Tobacco abuse (Chronic) Tobacco abuse counseling (Chronic) Hyperlipidemia (Chronic) Surgical History: - - Patient has previously undergone coronary revascularization ?3, at which time valve repair was performed. The patient is also undergone open reduction and internal fixation of the left femur fracture in the past. Allergies/Adverse Reactions: Allergies No Known Allergies Allergy (Verified 07/04/18 14:47) Home Medications: Ambulatory Orders Medication Instructions Recorded Aspirin E.C. [Ecotrin] 81 mg PO DAILY@0800 05/19/18 Atorvastatin Calcium [Lipitor] 40 mg PO QHS 05/19/18 Bisoprolol Fumarate [Zebeta] 5 mg PO DAILY 05/19/18 Cholecalciferol (Vitamin D3) 4,000 unit PO DAILY 05/19/18 [Vitamin D3] Famotidine 20 mg PO BID 05/19/18 Glucosamine/D3/Boswellia Melonie 1 each PO DAILY 05/19/18 [Osteo Bi-Flex Tablet] Lisinopril [Zestril] 10 mg PO DAILY 05/19/18 Metformin HCl [Metformin HCl ER] 500 mg PO TID 05/19/18 Multivitamin [Daily Multiple 1 each PO DAILY 05/19/18 Vitamin] Sitagliptin Phosphate [Januvia] 100 mg PO DAILY 06/07/18 Spironolactone [Aldactone] 25 mg PO DAILY 06/07/18 Cyanocobalamin (Vitamin B-12) 500 mcg PO DAILY 07/04/18 [Vitamin B-12] Magnesium Oxide [Magnesium] 400 mg PO DAILY 07/04/18 Warfarin [Coumadin ([facility])] 7.5 mg PO SUMOWETHFR 07/04/18 Warfarin [Coumadin ([facility])] 7.5 mg PO TUSA 07/04/18 - Family History Paternal - - The patient's father at the age of 78 from cancer of unknown etiology. The patient's mother at age of 68 from liver cancer. Smoking Status: Current every day smoker Tobacco Use: Cigarettes Review of Systems Constitutional: Denies: Chills, Fever, Weight Change Eyes: Denies: Pain, Vision Change HEENT: Denies: Difficulty Hearing, Difficulty Swallowing, Sinus Congestion Cardiovascular: Denies: Chest Pain, Palpitations Respiratory: Denies: Cough, Shortness of Breath Gastrointestinal: Denies: Diarrhea, Nausea, Vomiting Genitourinary: Denies: Dysuria, Hematuria Endocrine: Denies: Heat/ Cold Intolerance, Polydipsia, Polyuria Hematologic/ Lymphatic: Denies: Easy Bruising, Easy Bleeding - Physical Exam Vital Signs Temp Pulse Resp BP 96.7 F L 79 18 118/73 09/08/18 10:18 09/08/18 10:18 09/08/18 10:18 09/08/18 10:18 General: Alert, Oriented x3, Cooperative, No apparent distress, Well developed, Well nourished HEENT: Atraumatic, PERRLA, EOMI, Normocephalic Oral: Moist Mucosa Neck: No JVD Lungs: Normal air movement Abdomen: Non-Distended Extremities: No clubbing, No cyanosis, No edema, No Calf Tenderness, - - The distal tip of the right great toe remains gangrenous and dry. There is no erythema. There is no sign of infection or cellulitis. Dimensions are documented elsewhere. The patient also has a small dry ulceration on the dorsum of his left great toe. The surgical incision on the medial aspect of the right lower extremity appears to be well approximated and healing appropriately. Skin: No rashes Wound Measurements and Assessment WC - Nurse 1 - General Ulcer Measurement Start: 09/08/18 10:17 Freq: Status: Active Protocol: Activity Type Activity Date Activity User E-Sign Co-Sign Detail Recorded Client Recorded Date Recorded By Document 09/08/18 10:18 DL [id number] 09/08/18 10:26 DL 09/08/18 10:18 Wound Center Nurse 1 [Ulcer Assessment] #4 RIGHT GREAT TOE -Current Size (cm) - Length 3.5 -Current Size (cm) - Width 2.8 -Current Size (cm) - Depth 0.1 -Total Square Cm 9.80 -Photo Taken Yes -Exudate Amt None Present (0 %) -Wound Margin Thickened -Granulation Amt None Present (0 %) -Necrosis Amt Large (67-100%) -Necrotic Tissue Type Eschar -Structure Exposed N/A -Texture (Scarlett-wound Skin Appearance) Scarring -Moisture (Scarlett-wound Skin Appearance Dry/Scaly ) -Color (Scarlett-wound Skin Appearance) Erythema Hemosiderin Staining -Temperature ([place]ar[place]et-wound Skin No Abnormality Appearance) (Pt Warm) -Ulcer Cleansing Rinsed/ Irrigated with Saline -Foul Odor after Cleansing No -Anesthetic Used 4% Lidocaine Solution [Edema Assessment] -Right Calf (cm) 41.5 -Right Ankle (cm) 21.8 Musculoskeletal: No Muscle Wasting Neurological: Cranial nerves II-XII grossly intact, Neuro grossly intact Psych/Mental Status: Normal Affect, Appropriate, Alert and oriented to time, place, person, mood and affect Debridement Note No debridement was completed today Assessment/Plan Active Problems Ulcer of right leg (Chronic) Ulcer of right great toe due to diabetes mellitus (Chronic) DM (diabetes mellitus) with peripheral vascular complication (Chronic) PAD (peripheral artery disease) (Chronic) Gangrene (Chronic) Tobacco abuse (Chronic) Tobacco abuse counseling (Chronic) Assessment: This is a 58-year-old diabetic male with severe peripheral arterial occlusive disease in his lower extremities. He is currently under the care of a vascular surgeon at the [facility] in [place], [place] - Dr. Joe. He underwent right lower extremity revascularization at the [facility] on June 11, 2018. He appears to have had a good result. He is currently on Coumadin 7.5 mg p.o. daily. He has shown good progress in recent weeks. The dry gangrenous site on the right second toe has now sloughed, and the right second toe demonstrates no residual wounds or ulcerations. Dry gangrene persists on the tip of the right great toe, without sign of infection or cellulitis. The patient indicates that with some mild drainage from the tip of the right great toe, following an incident recently in which he stubbed it. In other words, the patient sustained minor trauma to the right great toe, and has had a small amount of drainage from the site within the last 24-48 hours. Current assessment, however, reveals no evidence of drainage, purulent or otherwise. Patient has also revealed a small dry eschar on the dorsum of the left great toe, stating that the dog got it. Both great toes demonstrate dry eschar/gangrene, with no evidence of overt infection. These sites bear continued observation. Patient has an appointment to be evaluated by Dr. Meraz, 3d modeler, on September 17, 2018. We are to make an effort to arrange to move up the appointment to a date much sooner. Plan: The patient has been advised to elevate his lower extremities as much as possible, to minimize the swelling, particularly in the right lower extremity. The ulcerations of the right leg inferior to the right knee remain totally healed. The gangrenous ulceration of the tip of the right great toe is dry, without evidence of infection or cellulitis. The gangrenous ulceration on the right second toe is now completely resolved. The patient has been instructed to keep the site clean and dry, as there appears to be no need for any topical dressings at this time. The gangrenous area is expected to auto-amputate and slough. In other words, the dry gangrene on the right great toe will be left undisturbed. Offloading measures and proper footwear have been recommended. Otherwise, we will continue to follow and monitor the ulceration of the right great toe serially. Patient has an appointment with his National Accounts Recruiter, Dr. Meraz, September 17. The patient continues to smoke, contrary to medical advice, though he has decreased his smoking habit significantly. He has an appointment with his primary care physician on September 23, 2018, for initiation of Chantix. He is well aware of the adverse consequences of his smoking habit. He has been advised to refrain from prolonged idle sitting. The gangrenous ulceration on the right foot will be kept clean and dry, and the patient has been advised to wear shoes which are properly fitted, and will not exert undue or unwanted pressure or friction. Collaboration and comanagement with the patient's other physicians is to continue. At this juncture, jose guadalupe infection and cellulitis are not apparent, but continued monitoring will be undertaken. Optimizing the patient's glycemic control has also been recommended. He is to be evaluated by a 3d modeler within the next week to 10 days. While he related a small amount of drainage from the right great toe, there is no obvious sign of infection, and no drainage noted by physical examination today. There is a dry eschar on the left great toe, result of a recent dog bite, with no sign of significant deep injury, and no evidence of infection. The patient is to return in 3 weeks for reassessment. The patient is known to be a smoker. Smoking cessation has been advised, in great detail. The patient has been counseled as to the adverse consequences of smoking relative to his peripheral arterial occlusive disease and wound healing potential. Influenza vaccine was not administered today. The patient weighs 220 pounds. He stands 6 feet 0 inches in height. His BMI is 29.9, which places him in an overweight category. While good and adequate nutrition has been advised, mild weight loss has been recommended, with collaboration from his primary care physician.
--- NOTE | 2018-09-08 11:17 | HP.PCM_ITS ---
(1) Ulcer of right leg Status: Chronic Current Visit: Yes Qualifiers: Code(s): L97.919 - Non-pressure chronic ulcer of unspecified part of right lower leg with unspecified severity (2) Ulcer of right great toe due to diabetes mellitus Status: Chronic Current Visit: Yes Code(s): E11.621 - Type 2 diabetes mellitus with foot ulcer; L97.519 - Non-pressure chronic ulcer of other part of right foot with unspecified severity (3) Ulcer of right second toe Status: Resolved Current Visit: No Qualifiers: Code(s): L97.519 - Non-pressure chronic ulcer of other part of right foot with unspecified severity (4) DM (diabetes mellitus) with peripheral vascular complication Status: Chronic Current Visit: Yes Code(s): E11.51 - Type 2 diabetes mellitus with diabetic peripheral angiopathy without gangrene (5) PAD (peripheral artery disease) Status: Chronic Current Visit: Yes Code(s): I73.9 - Peripheral vascular disease, unspecified (6) Gangrene Status: Chronic Current Visit: Yes Code(s): I96 - Gangrene, not elsewhere classified (7) Coronary artery disease Status: Chronic Current Visit: No Qualifiers: Coronary Disease-Associated Artery/Lesion type: [place] artery [place] vs. transplanted heart: [place] heart Code(s): I25.10 - Atherosclerotic heart disease of [place] coronary artery without angina pectoris (8) Atrial fibrillation Status: Chronic Current Visit: No Code(s): I48.91 - Unspecified atrial fibrillation (9) Cardiac defibrillator in place Status: Chronic Current Visit: No Code(s): Z95.810 - Presence of automatic (implantable) cardiac defibrillator (10) Right leg swelling Status: Chronic Current Visit: No Code(s): M79.89 - Other specified soft tissue disorders (11) Ischemia of right lower extremity Status: Chronic Current Visit: No Code(s): I99.8 - Other disorder of circulatory system (12) History of coronary artery bypass graft x 3 Status: Acute Current Visit: No Code(s): Z95.1 - Presence of aortocoronary bypass graft (13) Tobacco abuse Status: Chronic Current Visit: Yes Code(s): Z72.0 - Tobacco use (14) Tobacco abuse counseling Status: Chronic Current Visit: Yes Code(s): Z71.6 - Tobacco abuse counseling (15) Hyperlipidemia Status: Chronic Current Visit: No Code(s): E78.5 - Hyperlipidemia, unspecified History of Present Illness Chief Complaint: Ischemia and peripheral arterial occlusive disease of the right lower extremity, associated with ulcerations of the right leg and toes. History of Wound: This is a 58-year-old male who presented as a referral from his primary care physician with ischemic ulcerations on the right leg and the toes of the right foot. These had been present for approximately 2 months. The patient has multiple medical problems. Among his problems is known peripheral arterial occlusive disease, for which he is under the care of a vascular surgeon at the [facility] in [place], [place], by the name of Dr. Joe. According to the patient, he has had extensive evaluation by Dr. Joe, including a CT scan of the vascular system of his neck, chest, abdomen, and lower extremities. The patient underwent right lower extremity revascularization on June 11, 2018. Surgery was performed at the [facility]. It appears he underwent a right femoral?popliteal bypass graft, with prosthetic graft material. Evaluation today reveals an incision on the proximal portion of the medial right calf, which is healing appropriately. The distal right lower extremity is slightly swollen. The right lower extremity is warm and appears to be well perfused. The patient is diabetic, and his arterial occlusive disease is likely related to his history of diabetes, and the fact he is a smoker. The patient continues to smoke, despite medical advice to the contrary. He has, however, diminished his smoking significantly. Past Medical History Past Medical History: Chronic Problems Ulcer of right leg (Chronic) Ulcer of right great toe due to diabetes mellitus (Chronic) DM (diabetes mellitus) with peripheral vascular complication (Chronic) PAD (peripheral artery disease) (Chronic) Gangrene (Chronic) Coronary artery disease (Chronic) Atrial fibrillation (Chronic) Cardiac defibrillator in place (Chronic) Right leg swelling (Chronic) Ischemia of right lower extremity (Chronic) Tobacco abuse (Chronic) Tobacco abuse counseling (Chronic) Hyperlipidemia (Chronic) Surgical History: - - Patient has previously undergone coronary revascularization ?3, at which time valve repair was performed. The patient is also undergone open reduction and internal fixation of the left femur fracture in the past. Allergies/Adverse Reactions: Allergies No Known Allergies Allergy (Verified 07/04/18 14:47) Home Medications: Ambulatory Orders Medication Instructions Recorded Aspirin E.C. [Ecotrin] 81 mg PO DAILY@0800 05/19/18 Atorvastatin Calcium [Lipitor] 40 mg PO QHS 05/19/18 Bisoprolol Fumarate [Zebeta] 5 mg PO DAILY 05/19/18 Cholecalciferol (Vitamin D3) 4,000 unit PO DAILY 05/19/18 [Vitamin D3] Famotidine 20 mg PO BID 05/19/18 Glucosamine/D3/Boswellia Melonie 1 each PO DAILY 05/19/18 [Osteo Bi-Flex Tablet] Lisinopril [Zestril] 10 mg PO DAILY 05/19/18 Metformin HCl [Metformin HCl ER] 500 mg PO TID 05/19/18 Multivitamin [Daily Multiple 1 each PO DAILY 05/19/18 Vitamin] Sitagliptin Phosphate [Januvia] 100 mg PO DAILY 06/07/18 Spironolactone [Aldactone] 25 mg PO DAILY 06/07/18 Cyanocobalamin (Vitamin B-12) 500 mcg PO DAILY 07/04/18 [Vitamin B-12] Magnesium Oxide [Magnesium] 400 mg PO DAILY 07/04/18 Warfarin [Coumadin ([facility])] 7.5 mg PO SUMOWETHFR 07/04/18 Warfarin [Coumadin ([facility])] 7.5 mg PO TUSA 07/04/18 - Family History Paternal - - The patient's father at the age of 78 from cancer of unknown etiology. The patient's mother at age of 68 from liver cancer. Smoking Status: Current every day smoker Tobacco Use: Cigarettes Review of Systems Constitutional: Denies: Chills, Fever, Weight Change Eyes: Denies: Pain, Vision Change HEENT: Denies: Difficulty Hearing, Difficulty Swallowing, Sinus Congestion Cardiovascular: Denies: Chest Pain, Palpitations Respiratory: Denies: Cough, Shortness of Breath Gastrointestinal: Denies: Diarrhea, Nausea, Vomiting Genitourinary: Denies: Dysuria, Hematuria Endocrine: Denies: Heat/ Cold Intolerance, Polydipsia, Polyuria Hematologic/ Lymphatic: Denies: Easy Bruising, Easy Bleeding - Physical Exam Vital Signs Temp Pulse Resp BP 96.7 F L 79 18 118/73 09/08/18 10:18 09/08/18 10:18 09/08/18 10:18 09/08/18 10:18 General: Alert, Oriented x3, Cooperative, No apparent distress, Well developed, Well nourished HEENT: Atraumatic, PERRLA, EOMI, Normocephalic Oral: Moist Mucosa Neck: No JVD Lungs: Normal air movement Abdomen: Non-Distended Extremities: No clubbing, No cyanosis, No edema, No Calf Tenderness, - - The distal tip of the right great toe remains gangrenous and dry. There is no erythema. There is no sign of infection or cellulitis. Dimensions are documented elsewhere. The patient also has a small dry ulceration on the dorsum of his left great toe. The surgical incision on the medial aspect of the right lower extremity appears to be well approximated and healing appropriately. Skin: No rashes Wound Measurements and Assessment WC - Nurse 1 - General Ulcer Measurement Start: 09/08/18 10:17 Freq: Status: Active Protocol: Activity Type Activity Date Activity User E-Sign Co-Sign Detail Recorded Client Recorded Date Recorded By Document 09/08/18 10:18 DL [id number] 09/08/18 10:26 DL 09/08/18 10:18 Wound Center Nurse 1 [Ulcer Assessment] #4 RIGHT GREAT TOE -Current Size (cm) - Length 3.5 -Current Size (cm) - Width 2.8 -Current Size (cm) - Depth 0.1 -Total Square Cm 9.80 -Photo Taken Yes -Exudate Amt None Present (0 %) -Wound Margin Thickened -Granulation Amt None Present (0 %) -Necrosis Amt Large (67-100%) -Necrotic Tissue Type Eschar -Structure Exposed N/A -Texture (Scarlett-wound Skin Appearance) Scarring -Moisture (Scarlett-wound Skin Appearance Dry/Scaly ) -Color (Scarlett-wound Skin Appearance) Erythema Hemosiderin Staining -Temperature (Scarlett-wound Skin No Abnormality Appearance) (Pt Warm) -Ulcer Cleansing Rinsed/ Irrigated with Saline -Foul Odor after Cleansing No -Anesthetic Used 4% Lidocaine Solution [Edema Assessment] -Right Calf (cm) 41.5 -Right Ankle (cm) 21.8 Musculoskeletal: No Muscle Wasting Neurological: Cranial nerves II-XII grossly intact, Neuro grossly intact Psych/Mental Status: Normal Affect, Appropriate, Alert and oriented to time, place, person, mood and affect Debridement Note No debridement was completed today Assessment/Plan Active Problems Ulcer of right leg (Chronic) Ulcer of right great toe due to diabetes mellitus (Chronic) DM (diabetes mellitus) with peripheral vascular complication (Chronic) PAD (peripheral artery disease) (Chronic) Gangrene (Chronic) Tobacco abuse (Chronic) Tobacco abuse counseling (Chronic) Assessment: This is a 58-year-old diabetic male with severe peripheral arterial occlusive disease in his lower extremities. He is currently under the care of a vascular surgeon at the [facility] in [place], [place] - Dr. Joe. He underwent right lower extremity revascularization at the [facility] on June 11, 2018. He appears to have had a good result. He is currently on Coumadin 7.5 mg p.o. daily. He has shown good progress in recent weeks. The dry gangrenous site on the right second toe has now sloughed, and the right second toe demonstrates no residual wounds or ulcerations. Dry gangrene persists on the tip of the right great toe, without sign of infection or cellulitis. The patient indicates that with some mild drainage from the tip of the right great toe, following an incident recently in which he stubbed it. In other words, the patient sustained minor trauma to the right great toe, and has had a small amount of drainage from the site within the last 24-48 hours. Current assessment, however, reveals no evidence of drainage, purulent or otherwise. Patient has also revealed a small dry eschar on the dorsum of the left great toe, stating that the dog got it. Both great toes demonstrate dry eschar/gangrene, with no evidence of overt infection. These sites bear continued observation. Patient has an appointment to be evaluated by Dr. Meraz, intraoperative neuro tech, on September 17, 2018. We are to make an effort to arrange to move up the appointment to a date much sooner. Plan: The patient has been advised to elevate his lower extremities as much as possible, to minimize the swelling, particularly in the right lower extremity. The ulcerations of the right leg inferior to the right knee remain totally healed. The gangrenous ulceration of the tip of the right great toe is dry, without evidence of infection or cellulitis. The gangrenous ulceration on the right second toe is now completely resolved. The patient has been instructed to keep the site clean and dry, as there appears to be no need for any topical dressings at this time. The gangrenous area is expected to auto-amputate and slough. In other words, the dry gangrene on the right great toe will be left undisturbed. Offloading measures and proper footwear have been recommended. Otherwise, we will continue to follow and monitor the ulceration of the right great toe serially. Patient has an appointment with his Marketing Reporting Analyst, Dr. Meraz, September 17. The patient continues to smoke, contrary to medical advice, though he has decreased his smoking habit significantly. He has an appointment with his primary care physician on September 23, 2018, for initiation of Chantix. He is well aware of the adverse consequences of his smoking habit. He has been advised to refrain from prolonged idle sitting. The gangrenous ulceration on the right foot will be kept clean and dry, and the patient has been advised to wear shoes which are properly fitted, and will not exert undue or unwanted pressure or friction. Collaboration and comanagement with the patient's other physicians is to continue. At this juncture, jose guadalupe infection and cellulitis are not apparent, but continued monitoring will be undertaken. Optimizing the patient's glycemic control has also been recommended. He is to be evaluated by a intraoperative neuro tech within the next week to 10 days. While he related a small amount of drainage from the right great toe, there is no obvious sign of infection, and no drainage noted by physical examination today. There is a dry eschar on the left great toe, result of a recent dog bite, with no sign of significant deep injury, and no evidence of infection. The patient is to return in 3 weeks for reassessment. The patient is known to be a smoker. Smoking cessation has been advised, in great detail. The patient has been counseled as to the adverse consequences of smoking relative to his peripheral arterial occlusive disease and wound healing potential. Influenza vaccine was not administered today. The patient weighs 220 pounds. He stands 6 feet 0 inches in height. His BMI is 29.9, which places him in an overweight category. While good and adequate nutrition has been advised, mild weight loss has been recommended, with collaboration from his primary care physician.
== END 2018-09-18 23:59 ==
LOC: WC 08:12
PROVIDERS: Family Provider Nurse Practitioner; PCP Nurse Practitioner; Visit Provider Surgery
DX: E11.622 Type 2 diabetes mellitus with other skin ulcer (principal); L97.819 Non-pressure chronic ulcer of other part of right lower leg with unspecified severity; I25.10 Atherosclerotic heart disease of native coronary artery without angina pectoris; I48.2 Chronic atrial fibrillation; Z95.810 Presence of automatic (implantable) cardiac defibrillator; M79.89 Other specified soft tissue disorders; Z95.1 Presence of aortocoronary bypass graft; E78.5 Hyperlipidemia, unspecified; F17.210 Nicotine dependence, cigarettes, uncomplicated; Z79.899 Other long term (current) drug therapy; Z79.01 Long term (current) use of anticoagulants; Z79.82 Long term (current) use of aspirin; Z79.84 Long term (current) use of oral hypoglycemic drugs; E11.52 Type 2 diabetes mellitus with diabetic peripheral angiopathy with gangrene
CPT/HCPCS: 99212; G0463

== ENCOUNTER 2018-10-14 11:15 | Outpatient (RCR) | payer OTHER, SELFPAY ==
[2018-09-19 01:04] VITALS: BP 118/73; PULSE 79; RESP 18; TEMP 35.9
[2018-09-23 09:54] VITALS: BP 157/92; PULSE 86; RESP 16; TEMP 35.6; BMI 29.7
--- NOTE | 2018-09-23 13:12 | PN.PCM_ITS ---
(1) Ulcer of right foot with fat layer exposed Status: Chronic Current Visit: Yes Code(s): L97.512 - Non-pressure chronic ulcer of other part of right foot with fat layer exposed (2) Chronic ulcer of left foot with fat layer exposed Status: Chronic Current Visit: Yes Code(s): L97.522 - Non-pressure chronic ulcer of other part of left foot with fat layer exposed (3) DM (diabetes mellitus) with peripheral vascular complication Status: Chronic Current Visit: Yes Code(s): E11.51 - Type 2 diabetes meche chavez with diabetic peripheral angiopathy without gangrene (4) PAD (peripheral artery disease) Status: Chronic Current Visit: Yes Code(s): I73.9 - Peripheral vascular disease, unspecified Type of Wound Chief Complaint: Ischemia and peripheral arterial occlusive disease of the right lower extremity, associated with ulcerations of the right leg and toes. History of Wound: This is a 58-year-old male returns to clinic for ischemic ulcerations on the right and left toes. The patient underwent right lower extremity revascularization on June 11, 2018. Surgery was performed at the [facility]. It appears he underwent a right femoral?popliteal bypass graft, with prosthetic graft material. The patient is diabetic, and his arterial occlusive disease is likely related to his history of diabetes, and the fact he is a smoker. He has decreased foot pain. He denies current claudication, he denies fever, chill, nausea, vomiting. Progress of Wound: Improving quality - Physical Exam Vital Signs Temp Pulse Resp BP 96.0 F L 86 16 157/92 H 09/23/18 09:54 09/23/18 09:54 09/23/18 09:54 09/23/18 09:54 General: Alert, Oriented x3, Cooperative Extremities: No cyanosis, Capillary Refill Less than 3 Seconds, No Calf Tenderness - Negative Kwame and Navarro signs bilateral, Diminished Peripheral Pul ses Skin: Ulcer/ Wound - No purulence, erythema, streaking, odor, or infection bilateral. There is no necrosis or eschar noted today in both ulcer sites to bilateral hallux are granular with decreased fibrous tissue. Peripheral skin is hairless and atrophic. Wound Measurements and Assessment WC - Nurse 1 - General Ulcer Measurement Start: 09/23/18 09:54 Freq: Status: Active Protocol: Activity Type Activity Date Activity User E-Sign Co-Sign Detail Recorded Client Recorded Date Recorded By Document 09/23/18 09:54 MW [email or web address] 09/23/18 10:00 MW 09/23/18 09:54 Wound Center Nurse 1 [Ulcer Assessment] #5 LEFT GREAT TOE -Combined with other wound No -Current Size (cm) - Length 0.3 -Current Size (cm) - Width 0.2 -Current Size (cm) - Depth 0.1 -Total Square Cm 0.06 -Photo Taken No -Epithelialization None Present -Tunneling No -Circular Undermining No -Exudate Amt Small (1-33%) -Exudate Type Serosanguineous -Wound Margin Flat & Intact -Granulation Amt None Present (0 %) -Granulation Quality N/A -Slough/Fibrin Yes -Necrosis Amt Large (67-100%) -Necrotic Tissue Type Adherent Slough -Texture (Scarlett-wound Skin Appearance) Assessed Localized Edema Scarring -Moisture (Scarlett-wound Skin Appearance Assessed ) Maceration Dry/Scaly -Color (Scarlett-wound Skin Appearance) No Abnormality Assessed -Temperature (Scarlett-wound Skin No Abnormality Appearance) (Pt Warm) -Tenderness on Palpation (Scarlett-wound Yes Skin Appearance) -Ulcer Cleansing Not Cleansed -Foul Odor after Cleansing No -Anesthetic Used 4% Lidocaine Solution #4 RIGHT GREAT TOE -Combined with other wound No -Current Size (cm) - Length 2.3 -Current Size (cm) - Width 1.6 -Current Size (cm) - Depth 0.1 -Total Square Cm 3.68 -Photo Taken No -Epithelialization None Present -Tunneling No -Undermining/Tunneling No -Circular Undermining No -Exudate Amt Small (1-33%) -Exudate Type Serosanguineous -Wound Margin Flat & Intact -Granulation Amt Small (1-33%) -Granulation Quality Hyper- granulation Red -Slough/Fibrin Yes -Necrosis Amt Large (67-100%) -Necrotic Tissue Type Adherent Slough -Structure Exposed N/A -Texture (Scarlett-wound Skin Appearance) Assessed Localized Edema Scarring -Moisture (Scarlett-wound Skin Appearance Assessed ) Maceration Dry/Scaly -Color (Scarlett-wound Skin Appearance) No Abnormality Assessed -Temperature (Scarlett-wound Skin No Abnormality Appearance) (Pt Warm) -Tenderness on Palpation (Scarlett-wound No Skin Appearance) -Ulcer Cleansing Rinsed/ Irrigated with Saline -Foul Odor after Cleansing No -Anesthetic Used 4% Lidocaine Solution [Edema Assessment] -Lower Limb Edema Present No WC - Nurse 2 - General Ulcer CM Notes Start: 09/23/18 09:54 Freq: Status: Active Protocol: Activity Type Activity Date Activity User E-Sign Co-Sign Detail Recorded Client Recorded Date Recorded By Document 09/23/18 10:32 [id number] 09/23/18 10:34 09/23/18 10:32 Wound Center Nurse 2 [Procedure/Treatment] #5 LEFT GREAT TOE -Time 10:32 -Correct Patient Yes -Correct Side, Site, Position Yes -Correct Procedure Yes -Procedure Performed Yes -Type of Procedure Debridement -Clinical Debridement Subcutaneous -Post Debridement Size (cm) - Length 5.0 -Post Debridement Size (cm) - Width 4.0 -Post Debridement Size (cm) - Depth 0.2 -Total Square Cm 20.00 -Wound/Ulcer Outcome Not Healed -Ulcer Cleansing Rinsed/ Irrigated with Saline -Foul Odor after Cleansing No -Bioengineered Tissue No -Topical Lidocaine (%) 5 -Bleeding Controlled with Pressure -Offloading Yes -Type of Offloading Surgical Shoe -Treatment Response Procedure Tolerated Well #4 RIGHT GREAT TOE -Time 10:32 -Correct Patient Yes -Correct Side, Site, Position Yes -Correct Procedure Yes -Procedure Performed Yes -Type of Procedure Debridement -Clinical Debridement Subcutaneous -Post Debridement Size (cm) - Length 1.0 -Post Debridement Size (cm) - Width 1.2 -Post Debridement Size (cm) - Depth 0.1 -Total Square Cm 1.20 -Wound/Ulcer Outcome Not Healed -Ulcer Cleansing Rinsed/ Irrigated with Saline -Foul Odor after Cleansing No -Bioengineered Tissue No -Topical Lidocaine (%) 5 -Bleeding Controlled with Pressure -Offloading Yes -Type of Offloading Surgical Shoe -Treatment Response Procedure Tolerated Well [See Physician Procedure note for Specifics] Pain Scale: 0-10 Numeric [Pain] -Is Patient Pain Free? Yes Musculoskeletal: No Tenderness to Palpation of Joints or Extremities, Muscle Wasting Neurological: - - Lack of normal epicritic sensation light touch bilateral lower extremities consistent with neuropathy Psych/Mental Status: Normal Affect, Appropriate Debridement Note Post-Debridement Measurements/Treatment [email or web address] - Nurse 2 - General Ulcer CM Notes Start: 09/23/18 09:54 Freq: Status: Active Protocol: Activity Type Activity Date Activity User E-Sign Co-Sign Detail Recorded Client Recorded Date Recorded By Document 09/23/18 10:32 [email or web address] 09/23/18 10:34 09/23/18 10:32 Wound Center Nurse 2 #5 LEFT GREAT TOE -Time 10:32 -Correct Patient Yes -Correct Side, Site, Position Yes -Correct Procedure Yes -Procedure Performed Yes -Type of Procedure Debridement -Clinical Debridement Subcutaneous -Post Debridement Size (cm) - Length 5.0 -Post Debridement Size (cm) - Width 4.0 -Post Debridement Size (cm) - Depth 0.2 -Total Square Cm 20.00 -Wound/Ulcer Outcome Not Healed -Ulcer Cleansing Rinsed/ Irrigated with Saline -Foul Odor after Cleansing No -Bioengineered Tissue No -Topical Lidocaine (%) 5 -Bleeding Controlled with Pressure -Offloading Yes -Type of Offloading Surgical Shoe -Treatment Response Procedure Tolerated Well #4 RIGHT GREAT TOE -Time 10:32 -Correct Patient Yes -Correct Side, Site, Position Yes -Correct Procedure Yes -Procedure Performed Yes -Type of Procedure Debridement -Clinical Debridement Subcutaneous -Post Debridement Size (cm) - Length 1.0 -Post Debridement Size (cm) - Width 1.2 -Post Debridement Size (cm) - Depth 0.1 -Total Square Cm 1.20 -Wound/Ulcer Outcome Not Healed -Ulcer Cleansing Rinsed/ Irrigated with Saline -Foul Odor after Cleansing No -Bioengineered Tissue No -Topical Lidocaine (%) 5 -Bleeding Controlled with Pressure -Offloading Yes -Type of Offloading Surgical Shoe -Treatment Response Procedure Tolerated Well Pain Scale: 0-10 Numeric Is Patient Pain Free? Yes Wound debrided: dorsal hallux Laterality: Left Wound Grade/Stage: grade 1 Type of Debridement: Excisional debridement Anesthesia Used: 5% Lidocaine Gel Depth: in the subcutaneous layer Percentage of wound debrided: 100 Instrument Used: #15 blade Tissue Removed: fibrous, devitalized subcutaneous, biofilm, slough Severity: Fat Layer Exposed Amount of bleeding with debridement: Mild Bleeding Controlled with: Pressure Patient tolerated procedure well - Additional Wound Wound debrided: distal hallux Laterality: Right Wound Grade/Stage: grade 1 Type of Debridement: Excisional debridement Anesthesia Used: 5% Lidocaine Gel Depth: in the subcutaneous layer Percentage of wound debrided: 100 Instrument Used: #15 blade Tissue Removed: fibrous, devitalized subcutaneous, biofilm, slough Severity: Fat Layer Exposed Amount of bleeding with debridement: Mild Bleeding Controlled with: Pressure Patient tolerated procedure: Patient tolerated procedure well Assessment/Plan Active Problems DM (diabetes mellitus) with peripheral vascular complication (Chronic) PAD (peripheral artery disease) (Chronic) Ulcer of right foot with fat layer exposed (Chronic) Chronic ulcer of left foot with fat layer exposed (Chronic) Assessment: Ulcer right hallux fat layer exposed, no infection. Ulcer left hallux fat layer exposed, no infection. Peripheral vascular disease status post intervention. Diabetes with neuropathy. Malnutrition. Delayed healing Plan: I reviewed and discussed his case today. Debridement was performed as noted in the nursing clinical panel. This patient is familiar with me and I did see him within the past 1-2 [facility] in which I performed a debridement to remove all eschar tissue. No deep tissue or deep infection was appreciated at that time. I recommended proceeding with an advanced wound care plan with collagenase application daily. He has been doing well with this and I recommend continuation. The fibrous tissue continues to decrease and I recommend advanced wound care product application, epi fix. The indication, planned procedure, possible benefits, risks, and anticipated healing course and management were discussed in detail with the patient. He understands and is amenable to proceed at this time. Insurance prior authorization will be initiated. This is medically necessary to optimize healing and he is high risk for continued limb loss. He was reassured no local signs of infection noted today. I do recommend nutritional supplementation and a prescription was provided for Tc. He was advised on safe and proper use. I recommend offloading the ulcers to promote healing by wearing surgical shoes; he already has this. His previous x-rays were reviewed at [facility]. It is also noted that he had previous lab work performed on June 2018. It is also noted that he had vascular surgery intervention and is currently reperfused. To continue on Coumadin as advised and to follow-up with vascular surgery as scheduled. It is also noted that he is a smoker and he is on Chantix smoking cessation program. He is advised to discontinue. He was also advised on proper glycemic control to optimize healing. He understands he is high risk for limb loss. I do not recommend surgical intervention at this time and he was reassured significant improvement is noted since his last debridement. I answered all his questions. To return to clinic in 1 week or call sooner if he has any questions.
[2018-09-30 16:12] VITALS: BP 126/72; PULSE 79; RESP 16; TEMP 36.2; BMI 29.7
--- NOTE | 2018-09-30 18:25 | PN.PCM_ITS ---
(1) Ulcer of right foot with fat layer exposed Status: Chronic Current Visit: Yes Code(s): L97.512 - Non-pressure chronic ulcer of other part of right foot with fat layer exposed (2) Chronic ulcer of left foot with fat layer exposed Status: Chronic Current Visit: Yes Code(s): L97.522 - Non-pressure chronic ulcer of other part of left foot with fat layer exposed (3) DM (diabetes mellitus) with peripheral vascular complication Status: Chronic Current Visit: Yes Code(s): E11.51 - Type 2 diabetes meche chavez with diabetic peripheral angiopathy without gangrene (4) PAD (peripheral artery disease) Status: Chronic Current Visit: Yes Code(s): I73.9 - Peripheral vascular disease, unspecified Type of Wound Date of Service: 09/30/18 Chief Complaint: Arterial disease. Right and left great toe ulcers History of Wound: This is a 58-year-old male returns to clinic for ischemic ulcerations on the right and left toes. The patient underwent right lower extremity revascularization on June 11, 2018. Surgery was performed at the [facility]. It appears he underwent a right femoral?popliteal bypass graft, with prosthetic graft material. He has been changing his dressing daily with Santyl and he believes is going well. He has decreased foot pain. He denies current claudication, he denies fever, chill, nausea, vomiting. Progress of Wound: Improving - Physical Exam Vital Signs Temp Pulse Resp BP 97.1 F L 79 16 126/72 H 09/30/18 16:12 09/30/18 16:12 09/30/18 16:12 09/30/18 16:12 General: Alert, Oriented x3, Cooperative Extremities: No cyanosis, Capillary Refill Less than 3 Seconds, No Calf Tenderness - Negative Kwame and Navarro sign bilateral, Diminished Peripheral Pulses - Palpable DP bilateral, Edema - Mild, - - Minimal discomfort with palpation to the right hallux distal ulcer site Skin: Ulcer/ Wound - No purulence, erythema, streaking, odor, or acute signs of infection. There is no eschar or deep tissue exposure noted. There is no bogginess or fluctuance on palpation bilateral lower extremities Wound Measurements and Assessment WC - Nurse 1 - General Ulcer Measurement Start: 09/23/18 09:54 Freq: Status: Active Protocol: Activity Type Activity Date Activity User E-Sign Co-Sign Detail Recorded Client Recorded Date Recorded By Document 09/30/18 16:12 DV [id number] 09/30/18 16:16 DV 09/30/18 16:12 Wound Center Nurse 1 [Ulcer Assessment] #5 LEFT GREAT TOE -Combined with other wound No -Current Size (cm) - Length 0.4 -Current Size (cm) - Width 0.4 -Current Size (cm) - Depth 0.1 -Total Square Cm 0.16 -Photo Taken No -Epithelialization None Present -Tunneling No -Undermining/Tunneling No -Circular Undermining No -Exudate Amt None Present (0 %) -Wound Margin Distinct, Outline Attached -Granulation Amt None Present (0 %) -Slough/Fibrin Yes -Necrosis Amt Large (67-100%) -Necrotic Tissue Type Adherent Slough -Texture (Scarlett-wound Skin Appearance) Assessed -Moisture (Scarlett-wound Skin Appearance Assessed ) -Color (Scarlett-wound Skin Appearance) Assessed -Temperature (Scarlett-wound Skin No Abnormality Appearance) (Pt Warm) -Tenderness on Palpation (Scarlett-wound Yes Skin Appearance) -Ulcer Cleansing Rinsed/ Irrigated with Saline -Foul Odor after Cleansing No -Anesthetic Used 4% Lidocaine Solution #4 RIGHT GREAT TOE -Combined with other wound No -Current Size (cm) - Length 1.3 -Current Size (cm) - Width 0.6 -Current Size (cm) - Depth 0.1 -Total Square Cm 0.78 -Photo Taken No -Epithelialization Small 1-33% -Tunneling No -Undermining/Tunneling No -Circular Undermining No -Exudate Amt Small (1-33%) -Exudate Type Serosanguineous -Wound Margin Distinct, Outline Attached -Granulation Amt Small (1-33%) -Granulation Quality Hyper- granulation Red -Slough/Fibrin Yes -Necrosis Amt Medium (34-66%) -Necrotic Tissue Type Adherent Slough -Texture (Scarlett-wound Skin Appearance) Scarring -Moisture (Scarlett-wound Skin Appearance Maceration ) -Color (Scarlett-wound Skin Appearance) Assessed -Temperature (Scarlett-wound Skin No Abnormality Appearance) (Pt Warm) -Tenderness on Palpation (Scarlett-wound Yes Skin Appearance) -Ulcer Cleansing Wound Cleanser -Foul Odor after Cleansing No -Anesthetic Used 4% Lidocaine Solution WC - Nurse 2 - General Ulcer CM Notes Start: 09/23/18 09:54 Freq: Status: Active Protocol: Activity Type Activity Date Activity User E-Sign Co-Sign Detail Recorded Client Recorded Date Recorded By Document 09/30/18 16:29 [id number] 09/30/18 16:30 09/30/18 16:29 Wound Center Nurse 2 [Procedure/Treatment] #5 LEFT GREAT TOE -Time 16:29 -Correct Patient Yes -Correct Side, Site, Position Yes -Correct Procedure Yes -Procedure Performed Yes -Type of Procedure Debridement -Clinical Debridement Subcutaneous -Post Debridement Size (cm) - Length 0.5 -Post Debridement Size (cm) - Width 0.4 -Post Debridement Size (cm) - Depth 0.1 -Total Square Cm 0.20 -Wound/Ulcer Outcome Not Healed -Ulcer Cleansing Rinsed/ Irrigated with Saline -Foul Odor after Cleansing No -Bleeding Controlled with Pressure -Offloading No -Treatment Response Procedure Tolerated Well #4 RIGHT GREAT TOE -Time 16:30 -Correct Patient Yes -Correct Side, Site, Position Yes -Correct Procedure Yes -Procedure Performed Yes -Type of Procedure Debridement -Clinical Debridement Subcutaneous -Post Debridement Size (cm) - Length 1.4 -Post Debridement Size (cm) - Width 0.6 -Post Debridement Size (cm) - Depth 0.1 -Total Square Cm 0.84 -Wound/Ulcer Outcome Not Healed -Ulcer Cleansing Rinsed/ Irrigated with Saline -Foul Odor after Cleansing No -Bioengineered Tissue No -Bleeding Controlled with Pressure -Offloading No -Treatment Response Procedure Tolerated Well [See Physician Procedure note for Specifics] Pain Scale: 0-10 Numeric [Pain] -Is Patient Pain Free? Yes Musculoskeletal: No Tenderness to Palpation of Joints or Extremities, Muscle Wasting Neurological: - - Lack of normal epicritic sensation light touch bilateral consistent with neuropathy Psych/Mental Status: Normal Affect, Appropriate Debridement Note Post-Debridement Measurements/Treatment WC - Nurse 2 - General Ulcer CM Notes Start: 09/23/18 09:54 Freq: Status: Active Protocol: Activity Type Activity Date Activity User E-Sign Co-Sign Detail Recorded Client Recorded Date Recorded By Document 09/23/18 10:32 TM [id number] 09/23/18 10:34 Document 09/30/18 16:29 [id number] 09/30/18 16:30 [email or web address] 09/23/1818 10:32 16:29 Wound Center Nurse 2 #5 LEFT GREAT TOE -Time 10:32 16:29 -Correct Patient Yes Yes -Correct Side, Site, Position Yes Yes -Correct Procedure Yes Yes -Procedure Performed Yes Yes -Type of Procedure Debridement Debridement -Clinical Debridement Subcutaneous Subcutaneous -Post Debridement Size (cm) - Length 5.0 0.5 -Post Debridement Size (cm) - Width 4.0 0.4 -Post Debridement Size (cm) - Depth 0.2 0.1 -Total Square Cm 20.00 0.20 -Wound/Ulcer Outcome Not Healed Not Healed -Ulcer Cleansing Rinsed/ Rinsed/ Irrigated with Irrigated with Saline Saline -Foul Odor after Cleansing No No -Bioengineered Tissue No -Topical Lidocaine (%) 5 -Bleeding Controlled with Pressure Pressure -Offloading Yes No -Type of Offloading Surgical Shoe -Treatment Response Procedure Procedure Tolerated Well Tolerated Well #4 RIGHT GREAT TOE -Time 10:32 16:30 -Correct Patient Yes Yes -Correct Side, Site, Position Yes Yes -Correct Procedure Yes Yes -Procedure Performed Yes Yes -Type of Procedure Debridement Debridement -Clinical Debridement Subcutaneous Subcutaneous -Post Debridement Size (cm) - Length 1.0 1.4 -Post Debridement Size (cm) - Width 1.2 0.6 -Post Debridement Size (cm) - Depth 0.1 0.1 -Total Square Cm 1.20 0.84 -Wound/Ulcer Outcome Not Healed Not Healed -Ulcer Cleansing Rinsed/ Rinsed/ Irrigated with Irrigated with Saline Saline -Foul Odor after Cleansing No No -Bioengineered Tissue No No -Topical Lidocaine (%) 5 -Bleeding Controlled with Pressure Pressure -Offloading Yes No -Type of Offloading Surgical Shoe -Treatment Response Procedure Procedure Tolerated Well Tolerated Well Pain Scale: 0-10 Numeric Is Patient Pain Free? Yes Yes Wound debrided: distal hallux Laterality: Right Wound Grade/Stage: grade 1 Type of Debridement: Excisional debridement Anesthesia Used: 5% Lidocaine Gel Depth: in the subcutaneous layer Percentage of wound debrided: 100 Instrument Used: #15 blade Tissue Removed: fibrous, devitalized subcutaneous, biofilm, slough Severity: Fat Layer Exposed Amount of bleeding with debridement: Mild Bleeding Controlled with: Pressure Patient tolerated procedure well - Additional Wound Wound debrided: dorsal hallux Laterality: Left Wound Grade/Stage: grade 1 Type of Debridement: Excisional debridement Anesthesia Used: 5% Lidocaine Gel Depth: in the subcutaneous layer Percentage of wound debrided: 100 Instrument Used: #15 blade Tissue Removed: fibrous, devitalized subcutaneous, biofilm, slough Severity: Fat Layer Exposed Amount of bleeding with debridement: Mild Bleeding Controlled with: Pressure Patient tolerated procedure: Patient tolerated procedure well Assessment/Plan Active Problems DM (diabetes mellitus) with peripheral vascular complication (Chronic) PAD (peripheral artery disease) (Chronic) Ulcer of right foot with fat layer exposed (Chronic) Chronic ulcer of left foot with fat layer exposed (Chronic) Assessment: Ulcer right hallux fat layer exposed, no infection. Ulcer left hallux fat layer exposed, no infection. Peripheral vascular disease status post intervention. Diabetes with neuropathy. Malnutrition. Delayed healing Plan: I reviewed and discussed his case today. Debridement was performed as noted in the nursing clinical panel. Significant size reduction in quality improvement is noted to bilateral ulcer sites. No deep tissue or deep infection was appreciated at that time. I recommended proceeding with an advanced wound care plan with collagenase application daily. I recommend advanced wound care product application, epi fix. The indication, planned procedure, possible benefits, risks, and anticipated healing course and management were discussed in detail with the patient. He understands and is amenable to proceed at this time. Insurance prior authorization has been initiated and this is still pending. This is medically necessary to optimize healing and he is high risk for continued limb loss. He was reassured no local signs of infection noted today. I do recommend nutritional supplementation and a prescription was provided for Tc. He was advised on safe and proper use. I recommend offloading the ulcers to promote healing by wearing surgical shoes; he already has this. His previous x-[facility]. It is also noted that he had previous lab work performed on June 2018. It is also noted that he had vascular surgery intervention and is currently reperfused. To continue on Coumadin as advised and to follow-up with vascular surgery as scheduled. It is also noted that he is a smoker and he is on Chantix smoking cessation program. He is advised to discontinue Backo products. He was also advised on proper glycemic control to optimize healing. He understands he is high risk for limb loss. I do not recommend surgical intervention at this time and he was reassured significant improvement is noted since his last debridement. I answered all his questions. To return to clinic in 1 week or call sooner if he has any questions.
[2018-10-07 11:00] VITALS: BP 114/69; PULSE 77; RESP 20; TEMP 36.1; BMI 29.7
--- NOTE | 2018-10-07 11:21 | PCM.WC.PN ---
(1) Ulcer of right foot with fat layer exposed Status: Chronic Current Visit: Yes Code(s): L97.512 - Non-pressure chronic ulcer of other part of right foot with fat layer exposed (2) Chronic ulcer of left foot with fat layer exposed Status: Chronic Current Visit: Yes Code(s): L97.522 - Non-pressure chronic ulcer of other part of left foot with fat layer exposed (3) DM (diabetes mellitus) with peripheral vascular complication Status: Chronic Current Visit: Yes Code(s): E11.51 - Type 2 diabetes mellitus with diabetic peripheral angiopathy without gangrene (4) PAD (peripheral artery disease) Status: Chronic Current Visit: Yes Code(s): I73.9 - Peripheral vascular disease, unspecified Type of Wound Date of Service: 10/07/18 Chief Complaint: Arterial disease. Right and left great toe ulcers History of Wound: This is a 58-year-old male returns to clinic for ischemic ulcerations on the right and left toes. The patient underwent right lower extremity revascularization on June 11, 2018. Surgery was performed at the [facility]. It appears he underwent a right femoral?popliteal bypass graft, with prosthetic graft material. He has been changing his dressing daily with Santyl and he believes is going well. He has resolved foot pain. He denies current claudication, he denies fever, chill, nausea, vomiting. Progress of Wound: Improving - Physical Exam Vital Signs Temp Pulse Resp BP 97 F L 77 20 H 114/69 10/07/18 11:00 10/07/18 11:00 10/07/18 11:00 10/07/18 11:00 General: Alert, Oriented x3, Cooperative HEENT: Atraumatic Extremities: No cyanosis, Capillary Refill Less than 3 Seconds, No Calf Tenderness, Diminished Peripheral Pulses, Edema - Mild bilateral Skin: Ulcer/ Wound - No purulence, erythema, streaking, odor, or acute signs of infection bilateral lower extremity. There is peripheral epithelialization noted. There is no maceration, necrosis, or deep tissue loss. Wound Measurements and Assessment WC - Nurse 1 - General Ulcer Measurement Start: 09/23/18 09:54 Freq: Status: Active Protocol: Activity Type Activity Date Activity User E-Sign Co-Sign Detail Recorded Client Recorded Date Recorded By Document 10/07/18 11:00 DL [id number] 10/07/18 11:06 DL 10/07/18 11:00 Wound Center Nurse 1 [Ulcer Assessment] #5 LEFT GREAT TOE -Current Size (cm) - Length 0.4 -Current Size (cm) - Width 0.4 -Current Size (cm) - Depth 0.1 -Total Square Cm 0.16 -Photo Taken No -Exudate Amt Small (1-33%) -Exudate Type Serosanguineous -Wound Margin Distinct, Outline Attached -Granulation Amt Small (1-33%) -Granulation Quality [place] -Necrosis Amt Small (1-33%) -Necrotic Tissue Type Adherent Slough -Structure Exposed N/A -Texture (Scarlett-wound Skin Appearance) Scarring -Moisture (Scarlett-wound Skin Appearance Maceration ) -Color (Scarlett-wound Skin Appearance) Hemosiderin Staining -Temperature (Scarlett-wound Skin No Abnormality Appearance) (Pt Warm) -Tenderness on Palpation (Scarlett-wound No Skin Appearance) -Ulcer Cleansing Rinsed/ Irrigated with Saline -Foul Odor after Cleansing No -Anesthetic Used 4% Lidocaine Solution #4 RIGHT GREAT TOE -Current Size (cm) - Length 1.1 -Current Size (cm) - Width 1.1 -Current Size (cm) - Depth 0.1 -Total Square Cm 1.21 -Photo Taken No -Exudate Amt Small (1-33%) -Exudate Type Serosanguineous -Wound Margin Thickened -Granulation Amt Medium (34-66%) -Granulation Quality Pale -Necrosis Amt Medium (34-66%) -Necrotic Tissue Type Adherent Slough -Structure Exposed N/A -Texture (Scarlett-wound Skin Appearance) Callus Scarring -Moisture (Scarlett-wound Skin Appearance Dry/Scaly ) -Color (Scarlett-wound Skin Appearance) Hemosiderin Staining -Temperature (Scarlett-wound Skin No Abnormality Appearance) (Pt Warm) -Tenderness on Palpation (Scarlett-wound No Skin Appearance) -Ulcer Cleansing Rinsed/ Irrigated with Saline -Foul Odor after Cleansing No -Anesthetic Used 4% Lidocaine Solution WC - Nurse 2 - General Ulcer CM Notes Start: 09/23/18 09:54 Freq: Status: Active Protocol: Activity Type Activity Date Activity User E-Sign Co-Sign Detail Recorded Client Recorded Date Recorded By Document 10/07/18 11:16 JF [id number] 10/07/18 11:19 10/07/18 11:16 Wound Center Nurse 2 [Procedure/Treatment] #5 LEFT GREAT TOE -Time 11:16 -Correct Patient Yes -Correct Side, Site, Position Yes -Correct Procedure Yes -Procedure Performed Yes -Type of Procedure Debridement -Clinical Debridement Subcutaneous -Post Debridement Size (cm) - Length 0.4 -Post Debridement Size (cm) - Width 0.3 -Post Debridement Size (cm) - Depth 0.2 -Total Square Cm 0.12 -Wound/Ulcer Outcome Not Healed -Ulcer Cleansing Rinsed/ Irrigated with Saline -Foul Odor after Cleansing No -Bioengineered Tissue No -Bleeding Controlled with Pressure -Offloading No -Treatment Response Procedure Tolerated Well #4 RIGHT GREAT TOE -Time 11:17 -Correct Patient Yes -Correct Side, Site, Position Yes -Correct Procedure Yes -Procedure Performed Yes -Type of Procedure Debridement -Clinical Debridement Subcutaneous -Post Debridement Size (cm) - Length 0.3 -Post Debridement Size (cm) - Width 0.4 -Post Debridement Size (cm) - Depth 0.1 -Total Square Cm 0.12 -Wound/Ulcer Outcome Not Healed -Ulcer Cleansing Rinsed/ Irrigated with Saline -Foul Odor after Cleansing No -Bioengineered Tissue No -Bleeding Controlled with Pressure -Offloading No -Type of Offloading Surgical Shoe -Treatment Response Procedure Tolerated Well [See Physician Procedure note for Specifics] Pain Scale: 0-10 Numeric [Pain] -Is Patient Pain Free? Yes Musculoskeletal: No Tenderness to Palpation of Joints or Extremities, Muscle Wasting Neurological: - - Lack of full epicritic sensation light touch bilateral lower extremities Psych/Mental Status: Normal Affect, Appropriate Debridement Note Post-Debridement Measurements/Treatment WC - Nurse 2 - General Ulcer CM Notes Start: 09/23/18 09:54 Freq: Status: Active Protocol: Activity Type Activity Date Activity User E-Sign Co-Sign Detail Recorded Client Recorded Date Recorded By Document 09/23/18 10:32 [id number] 09/23/18 10:34 Document 09/30/18 16:29 [id number] 09/30/18 16:30 Document 10/07/18 11:16 [id number] 10/07/18 11:19 09/23/18 09/30/18 10/07/18 10:32 16:29 11:16 Wound Center Nurse 2 #5 LEFT GREAT TOE -Time 10:32 16:29 11:16 -Correct Patient Yes Yes Yes -Correct Side, Site, Position Yes Yes Yes -Correct Procedure Yes Yes Yes -Procedure Performed Yes Yes Yes -Type of Procedure Debridement Debridement Debridement -Clinical Debridement Subcutaneous Subcutaneous Subcutaneous -Post Debridement Size (cm) - Length 5.0 0.5 0.4 -Post Debridement Size (cm) - Width 4.0 0.4 0.3 -Post Debridement Size (cm) - Depth 0.2 0.1 0.2 -Total Square Cm 20.00 0.20 0.12 -Wound/Ulcer Outcome Not Healed Not Healed Not Healed -Ulcer Cleansing Rinsed/ Rinsed/ Rinsed/ Irrigated with Irrigated with Irrigated with Saline Saline Saline -Foul Odor after Cleansing No No No -Bioengineered Tissue No No -Topical Lidocaine (%) 5 -Bleeding Controlled with Pressure Pressure Pressure -Offloading Yes No No -Type of Offloading Surgical Shoe -Treatment Response Procedure Procedure Procedure Tolerated Well Tolerated Well Tolerated Well #4 RIGHT GREAT TOE -Time 10:32 16:30 11:17 -Correct Patient Yes Yes Yes -Correct Side, Site, Position Yes Yes Yes -Correct Procedure Yes Yes Yes -Procedure Performed Yes Yes Yes -Type of Procedure Debridement Debridement Debridement -Clinical Debridement Subcutaneous Subcutaneous Subcutaneous -Post Debridement Size (cm) - Length 1.0 1.4 0.3 -Post Debridement Size (cm) - Width 1.2 0.6 0.4 -Post Debridement Size (cm) - Depth 0.1 0.1 0.1 -Total Square Cm 1.20 0.84 0.12 -Wound/Ulcer Outcome Not Healed Not Healed Not Healed -Ulcer Cleansing Rinsed/ Rinsed/ Rinsed/ Irrigated with Irrigated with Irrigated with Saline Saline Saline -Foul Odor after Cleansing No No No -Bioengineered Tissue No No No -Topical Lidocaine (%) 5 -Bleeding Controlled with Pressure Pressure Pressure -Offloading Yes No No -Type of Offloading Surgical Shoe Surgical Shoe -Treatment Response Procedure Procedure Procedure Tolerated Well Tolerated Well Tolerated Well Pain Scale: 0-10 Numeric Is Patient Pain Free? Yes Yes Yes Wound debrided: distal hallux Laterality: Right Wound Grade/Stage: grade 1 Type of Debridement: Excisional debridement Anesthesia Used: 4% Lidocaine Solution Depth: in the subcutaneous layer Percentage of wound debrided: 100 Instrument Used: #15 blade Tissue Removed: fibrous, devitalized subcutaneous, biofilm, slough Severity: Fat Layer Exposed Amount of bleeding with debridement: Mild Bleeding Controlled with: Pressure Patient tolerated procedure well - Additional Wound Wound debrided: dorsal hallux Laterality: Left Wound Grade/Stage: grade 1 Type of Debridement: Excisional debridement Anesthesia Used: 4% Lidocaine Solution Depth: in the subcutaneous layer Percentage of wound debrided: 100 Instrument Used: #15 blade Tissue Removed: fibrous, devitalized subcutaneous, biofilm, slough Severity: Fat Layer Exposed Amount of bleeding with debridement: Mild Bleeding Controlled with: Pressure Patient tolerated procedure: Patient tolerated procedure well Assessment/Plan Active Problems DM (diabetes mellitus) with peripheral vascular complication (Chronic) PAD (peripheral artery disease) (Chronic) Ulcer of right foot with fat layer exposed (Chronic) Chronic ulcer of left foot with fat layer exposed (Chronic) Assessment: Ulcer right hallux fat layer exposed, no infection. Ulcer left hallux fat layer exposed, no infection. Peripheral vascular disease status post intervention. Diabetes with neuropathy. Malnutrition. Delayed healing Plan: I reviewed and discussed his case today. Debridement was performed as noted in the nursing clinical panel. Significant size reduction in quality improvement is noted to bilateral ulcer sites. No deep tissue or deep infection was appreciated at that time. I recommended he continues with an advanced wound care plan with collagenase application daily. I recommend advanced wound care product application, epi fix. This was not covered by his insurance. He was reassured no local signs of infection noted today. I do recommend nutritional supplementation and a prescription was provided for Tc. He was advised on safe and proper use. I recommend offloading the ulcers to promote healing by wearing surgical shoes; he already has this. The top of his left surgical shoe Velcro strap portion was cut with scissors to alleviate pressure at the ulcer site. [facility] It is also noted that he had previous lab work performed on June 2018. It is also noted that he had vascular surgery intervention and is currently reperfused. To continue on Coumadin as advised and to follow-up with vascular surgery as scheduled. It is also noted that he is a smoker and he is on [employer] smoking cessation program. He is advised to discontinue Backo products. He was also advised on proper glycemic control to optimize healing. He understands he is high risk for limb loss. I do not recommend surgical intervention at this time and he was reassured significant improvement is noted since his last debridement. I answered all his questions. To return to clinic in 1 week or call sooner if he has any concerns.
[2018-10-14 11:35] VITALS: BP 116/64; PULSE 82; RESP 18; TEMP 36.2; BMI 29.7
--- NOTE | 2018-10-14 13:23 | PCM.WC.PN ---
(1) Ulcer of right foot with fat layer exposed Status: Chronic Current Visit: Yes Code(s): L97.512 - Non-pressure chronic ulcer of other part of right foot with fat layer exposed (2) Chronic ulcer of left foot with fat layer exposed Status: Chronic Current Visit: Yes Code(s): L97.522 - Non-pressure chronic ulcer of other part of left foot with fat layer exposed (3) DM (diabetes mellitus) with peripheral vascular complication Status: Chronic Current Visit: Yes Code(s): E11.51 - Type 2 diabetes mellitus with diabetic peripheral angiopathy without gangrene (4) PAD (peripheral artery disease) Status: Chronic Current Visit: Yes Code(s): I73.9 - Peripheral vascular disease, unspecified Type of Wound Date of Service: 10/14/18 Chief Complaint: Arterial disease. Right and left great toe ulcers History of Wound: This is a 58-year-old male returns to clinic for ischemic ulcerations on the right and left toes. The patient underwent right lower extremity revascularization on June 11, 2018. Surgery was performed at the [facility]. It appears he underwent a right femoral?popliteal bypass graft, with prosthetic graft material. He has been changing his dressing daily with Santyl and he believes is going well. He has resolved foot pain. He denies current claudication, he denies fever, chill, nausea, vomiting. Progress of Wound: Improving - Physical Exam Vital Signs Temp Pulse Resp BP 97.1 F L 82 18 116/64 10/14/18 11:35 10/14/18 11:35 10/14/18 11:35 10/14/18 11:35 General: Alert, Oriented x3, Cooperative Extremities: No cyanosis, Capillary Refill Less than 3 Seconds, No Calf Tenderness - Negative Kwame and Navarro sign bilateral, Diminished Peripheral Pulses, Edema - Mild, Tenderness - Minimal tenderness with ulcer debridement bilateral Skin: Ulcer/ Wound - No purulence, erythema, streaking, odor, or infection. Peripheral epithelialization is progressive. The peripheral skin is hairless and atrophic. Wound Measurements and Assessment WC - Nurse 1 - General Ulcer Measurement Start: 09/23/18 09:54 Freq: Status: Active Protocol: Activity Type Activity Date Activity User E-Sign Co-Sign Detail Recorded Client Recorded Date Recorded By Document 10/14/18 11:35 RB [id number] 10/14/18 11:47 RB 10/14/18 11:35 Wound Center Nurse 1 [Ulcer Assessment] #5 LEFT GREAT TOE -Combined with other wound No -Current Size (cm) - Length 0.3 -Current Size (cm) - Width 0.3 -Current Size (cm) - Depth 0.1 -Total Square Cm 0.09 -Photo Taken No -Tunneling No -Undermining/Tunneling No -Circular Undermining No -Exudate Amt Small (1-33%) -Exudate Type Serosanguineous -Wound Margin Distinct, Outline Attached -Granulation Amt Medium (34-66%) -Granulation Quality [place] -Slough/Fibrin Yes -Necrosis Amt Large (67-100%) -Necrotic Tissue Type Adherent Slough -Structure Exposed N/A -Texture (Scarlett-wound Skin Appearance) Assessed Callus -Moisture (Scarlett-wound Skin Appearance Assessed ) -Color (Scarlett-wound Skin Appearance) Assessed -Temperature (Scarlett-wound Skin No Abnormality Appearance) (Pt Warm) -Tenderness on Palpation (Scarlett-wound No Skin Appearance) -Foul Odor after Cleansing No -Anesthetic Used 5% Lidocaine Gel #4 RIGHT GREAT TOE -Combined with other wound No -Current Size (cm) - Length 0.3 -Current Size (cm) - Width 0.4 -Current Size (cm) - Depth 0.1 -Total Square Cm 0.12 -Photo Taken No -Tunneling No -Undermining/Tunneling No -Circular Undermining No -Exudate Amt Small (1-33%) -Exudate Type Serosanguineous -Wound Margin Distinct, Outline Attached -Granulation Amt Large (67-100%) -Granulation Quality [place] -Slough/Fibrin Yes -Necrosis Amt Small (1-33%) -Necrotic Tissue Type Adherent Slough -Structure Exposed N/A -Texture (Scarlett-wound Skin Appearance) Assessed Callus -Moisture (Scarlett-wound Skin Appearance Assessed ) -Color (Scarlett-wound Skin Appearance) Assessed -Temperature (Scarlett-wound Skin No Abnormality Appearance) (Pt Warm) -Tenderness on Palpation (Scarlett-wound No Skin Appearance) -Ulcer Cleansing Rinsed/ Irrigated with Saline -Foul Odor after Cleansing No -Anesthetic Used 5% Lidocaine Gel [Edema Assessment] -Lower Limb Edema Present Yes WC - Nurse 2 - General Ulcer CM Notes Start: 12/05/18 09:54 Freq: Status: Active Protocol: Activity Type Activity Date Activity User E-Sign Co-Sign Detail Recorded Client Recorded Date Recorded By Document 10/14/18 12:11 [id number] 10/14/18 12:12 10/14/18 12:11 Wound Center Nurse 2 [Procedure/Treatment] #5 LEFT GREAT TOE -Time 12:11 -Correct Patient Yes -Correct Side, Site, Position Yes -Correct Procedure Yes -Procedure Performed Yes -Type of Procedure Debridement -Clinical Debridement Subcutaneous -Post Debridement Size (cm) - Length 0.3 -Post Debridement Size (cm) - Width 0.3 -Post Debridement Size (cm) - Depth 0.3 -Total Square Cm 0.09 -Wound/Ulcer Outcome Not Healed -Ulcer Cleansing Rinsed/ Irrigated with Saline -Foul Odor after Cleansing No -Bioengineered Tissue No -Bleeding Controlled with Pressure -Offloading Yes -Type of Offloading Surgical Shoe -Treatment Response Procedure Tolerated Well #4 RIGHT GREAT TOE -Time 12:11 -Correct Patient Yes -Correct Side, Site, Position Yes -Correct Procedure Yes -Procedure Performed Yes -Type of Procedure Debridement -Clinical Debridement Subcutaneous -Post Debridement Size (cm) - Length 0.2 -Post Debridement Size (cm) - Width 0.4 -Post Debridement Size (cm) - Depth 0.2 -Total Square Cm 0.08 -Wound/Ulcer Outcome Not Healed -Ulcer Cleansing Rinsed/ Irrigated with Saline -Foul Odor after Cleansing No -Bioengineered Tissue No -Bleeding Controlled with Pressure -Offloading Yes -Type of Offloading Surgical Shoe -Treatment Response Procedure Tolerated Well [See Physician Procedure note for Specifics] Pain Scale: 0-10 Numeric [Pain] -Is Patient Pain Free? Yes Musculoskeletal: No Tenderness to Palpation of Joints or Extremities, Muscle Wasting Neurological: - - Lack of normal epicritic sensation bilateral lower extremities Psych/Mental Status: Normal Affect, Appropriate Debridement Note Post-Debridement Measurements/Treatment WC - Nurse 2 - General Ulcer CM Notes Start: 09/23/18 09:54 Freq: Status: Active Protocol: Activity Type Activity Date Activity User E-Sign Co-Sign Detail Recorded Client Recorded Date Recorded By Document 09/23/18 10:32 [id number] 09/23/18 10:34 Document 09/30/18 16:29 [email or web address] 09/30/18 16:30 Document 10/07/18 11:16 [id number] 10/07/18 11:19 Document 10/14/18 12:11 [id number] 10/14/18 12:12 09/23/18 09/30/18 10/07/18 10:32 16:29 11:16 Wound Center Nurse 2 #5 LEFT GREAT TOE -Time 10:32 16:29 11:16 -Correct Patient Yes Yes Yes -Correct Side, Site, Position Yes Yes Yes -Correct Procedure Yes Yes Yes -Procedure Performed Yes Yes Yes -Type of Procedure Debridement Debridement Debridement -Clinical Debridement Subcutaneous Subcutaneous Subcutaneous -Post Debridement Size (cm) - Length 5.0 0.5 0.4 -Post Debridement Size (cm) - Width 4.0 0.4 0.3 -Post Debridement Size (cm) - Depth 0.2 0.1 0.2 -Total Square Cm 20.00 0.20 0.12 -Wound/Ulcer Outcome Not Healed Not Healed Not Healed -Ulcer Cleansing Rinsed/ Rinsed/ Rinsed/ Irrigated with Irrigated with Irrigated with Saline Saline Saline -Foul Odor after Cleansing No No No -Bioengineered Tissue No No -Topical Lidocaine (%) 5 -Bleeding Controlled with Pressure Pressure Pressure -Offloading Yes No No -Type of Offloading Surgical Shoe -Treatment Response Procedure Procedure Procedure Tolerated Well Tolerated Well Tolerated Well #4 RIGHT GREAT TOE -Time 10:32 16:30 11:17 -Correct Patient Yes Yes Yes -Correct Side, Site, Position Yes Yes Yes -Correct Procedure Yes Yes Yes -Procedure Performed Yes Yes Yes -Type of Procedure Debridement Debridement Debridement -Clinical Debridement Subcutaneous Subcutaneous Subcutaneous -Post Debridement Size (cm) - Length 1.0 1.4 0.3 -Post Debridement Size (cm) - Width 1.2 0.6 0.4 -Post Debridement Size (cm) - Depth 0.1 0.1 0.1 -Total Square Cm 1.20 0.84 0.12 -Wound/Ulcer Outcome Not Healed Not Healed Not Healed -Ulcer Cleansing Rinsed/ Rinsed/ Rinsed/ Irrigated with Irrigated with Irrigated with Saline Saline Saline -Foul Odor after Cleansing No No No -Bioengineered Tissue No No No -Topical Lidocaine (%) 5 -Bleeding Controlled with Pressure Pressure Pressure -Offloading Yes No No -Type of Offloading Surgical Shoe Surgical Shoe -Treatment Response Procedure Procedure Procedure Tolerated Well Tolerated Well Tolerated Well Pain Scale: 0-10 Numeric Is Patient Pain Free? Yes Yes Yes 10/14/18 12:11 Wound Center Nurse 2 #5 LEFT GREAT TOE -Time 12:11 -Correct Patient Yes -Correct Side, Site, Position Yes -Correct Procedure Yes -Procedure Performed Yes -Type of Procedure Debridement -Clinical Debridement Subcutaneous -Post Debridement Size (cm) - Length 0.3 -Post Debridement Size (cm) - Width 0.3 -Post Debridement Size (cm) - Depth 0.3 -Total Square Cm 0.09 -Wound/Ulcer Outcome Not Healed -Ulcer Cleansing Rinsed/ Irrigated with Saline -Foul Odor after Cleansing No -Bioengineered Tissue No -Topical Lidocaine (%) -Bleeding Controlled with Pressure -Offloading Yes -Type of Offloading Surgical Shoe -Treatment Response Procedure Tolerated Well #4 RIGHT GREAT TOE -Time 12:11 -Correct Patient Yes -Correct Side, Site, Position Yes -Correct Procedure Yes -Procedure Performed Yes -Type of Procedure Debridement -Clinical Debridement Subcutaneous -Post Debridement Size (cm) - Length 0.2 -Post Debridement Size (cm) - Width 0.4 -Post Debridement Size (cm) - Depth 0.2 -Total Square Cm 0.08 -Wound/Ulcer Outcome Not Healed -Ulcer Cleansing Rinsed/ Irrigated with Saline -Foul Odor after Cleansing No -Bioengineered Tissue No -Topical Lidocaine (%) -Bleeding Controlled with Pressure -Offloading Yes -Type of Offloading Surgical Shoe -Treatment Response Procedure Tolerated Well Pain Scale: 0-10 Numeric Is Patient Pain Free? Yes Wound debrided: hallux dorsal Laterality: Left Type of Debridement: Excisional debridement Anesthesia Used: 5% Lidocaine Gel Depth: in the subcutaneous layer Percentage of wound debrided: 100 Instrument Used: #15 blade Tissue Removed: fibrous, devitalized subcutaneous, biofilm, slough Severity: Fat Layer Exposed Amount of bleeding with debridement: Mild Bleeding Controlled with: Pressure Patient tolerated procedure well - Additional Wound Wound debrided: distal hallux Laterality: Right Type of Debridement: Excisional debridement Anesthesia Used: 5% Lidocaine Gel Depth: in the subcutaneous layer Percentage of wound debrided: 100 Instrument Used: #15 blade Tissue Removed: fibrous, devitalized subcutaneous, biofilm, slough Severity: Fat Layer Exposed Amount of bleeding with debridement: Mild Bleeding Controlled with: Pressure Patient tolerated procedure: Patient tolerated procedure well Assessment/Plan Active Problems DM (diabetes mellitus) with peripheral vascular complication (Chronic) PAD (peripheral artery disease) (Chronic) Ulcer of right foot with fat layer exposed (Chronic) Chronic ulcer of left foot with fat layer exposed (Chronic) Assessment: Ulcer right hallux fat layer exposed, no infection. Ulcer left hallux fat layer exposed, no infection. Peripheral vascular disease status post intervention. Diabetes with neuropathy. Malnutrition. Delayed healing Plan: I reviewed and discussed his case today. Debridement was performed as noted in the nursing clinical panel. Significant size reduction in quality improvement is noted to bilateral ulcer sites. No deep tissue or deep infection was appreciated at that time. I recommended he continues with an advanced wound care plan with collagenase application daily. I recommend advanced wound care product application, epi fix. This was not covered by his insurance. He was reassured no local signs of infection noted today. I do recommend nutritional supplementation and a prescription was provided for Tc. He was advised on safe and proper use. I recommend offloading the ulcers to promote healing by wearing surgical shoes; he already has this. The top of his left surgical shoe Velcro strap portion was cut with scissors previously to alleviate pressure at the ulcer site. His [facility]. It is also noted that he had previous lab work performed on June 2018. It is also noted that he had vascular surgery intervention and is currently reperfused. To continue on Coumadin as advised and to follow-up with vascular surgery as scheduled. It is also noted that he is a smoker and he is on [employer] smoking cessation program. He is advised to discontinue tobacco products or any product that has nicotine in its due to the vasoconstriction issue. He was also advised on proper glycemic control to optimize healing. He understands he is high risk for limb loss. I do not recommend surgical intervention at this time and he was reassured significant improvement is noted since his last debridement. I answered all his questions. To return to clinic in 1 week or call sooner if he has any concerns.
== END 2018-10-19 23:59 ==
LOC: WC 11:15
PROVIDERS: Family Provider Nurse Practitioner; PCP Nurse Practitioner; Visit Provider Podiatrist
DX: E11.622 Type 2 diabetes mellitus with other skin ulcer (principal); L97.512 Non-pressure chronic ulcer of other part of right foot with fat layer exposed; L97.522 Non-pressure chronic ulcer of other part of left foot with fat layer exposed; E11.51 Type 2 diabetes mellitus with diabetic peripheral angiopathy without gangrene; E11.40 Type 2 diabetes mellitus with diabetic neuropathy, unspecified; F17.200 Nicotine dependence, unspecified, uncomplicated
CPT/HCPCS: 11042; 97602

== ENCOUNTER 2018-11-18 09:30 | Outpatient (RCR) | payer OTHER, SELFPAY ==
[2018-10-20 00:48] VITALS: BP 116/64; PULSE 82; RESP 18; TEMP 36.2
[2018-10-21 10:27] VITALS: BP 138/78; PULSE 77; RESP 16; TEMP 35.7; BMI 29.7
--- NOTE | 2018-10-21 10:58 | PCM.WC.PN ---
(1) Chronic ulcer of left foot with fat layer exposed Status: Chronic Current Visit: Yes Code(s): L97.522 - Non-pressure chronic ulcer of other part of left foot with fat layer exposed (2) Ulcer of right foot with fat layer exposed Status: Resolved Current Visit: Yes Code(s): L97.512 - Non-pressure chronic ulcer of other part of right foot with fat layer exposed (3) DM (diabetes mellitus) with peripheral vascular complication Status: Chronic Current Visit: Yes Code(s): E11.51 - Type 2 diabetes mellitus with diabetic peripheral angiopathy without gangrene (4) PAD (peripheral artery disease) Status: Chronic Current Visit: Yes Code(s): I73.9 - Peripheral vascular disease, unspecified (5) Tobacco abuse counseling Status: Chronic Current Visit: Yes Code(s): Z71.6 - Tobacco abuse counseling Type of Wound Date of Service: 10/21/18 Chief Complaint: Right and left great toe ulcers History of Wound: This is a 58-year-old male returns to clinic for ischemic ulcerations on the right and left toes. The patient underwent right lower extremity revascularization on June 11, 2018. Surgery was performed at the [facility]. It appears he underwent a right femoral?popliteal bypass graft, with prosthetic graft material. He has been changing his dressing daily with Santyl and he believes is going well. He has resolved foot pain. He denies current claudication, he denies fever, chill, nausea, vomiting. He denies right toe drainage the past several days. Progress of Wound: Improving left. Healed right - Physical Exam Vital Signs Temp Pulse Resp BP 96.2 F L 77 16 138/78 H 10/21/18 10:27 10/21/18 10:27 10/21/18 10:27 10/21/18 10:27 General: Alert, Oriented x3, Cooperative Extremities: No cyanosis, Capillary Refill Less than 3 Seconds, No Calf Tenderness, Diminished Peripheral Pulses, Edema, - - Decreased loaded first metatarsophalangeal joint range of motion bilateral Skin: Ulcer/ Wound - No purulence, erythema, streaking, odor, deep probing, necrosis or infection left foot. There is full epithelialization noted to the right hallux and the site is now healed. Peripheral skin is hairless and atrophic bilateral Wound Measurements and Assessment WC - Nurse 1 - General Ulcer Measurement Start: 10/21/18 10:27 Freq: Status: Active Protocol: Activity Type Activity Date Activity User E-Sign Co-Sign Detail Recorded Client Recorded Date Recorded By Document 10/21/18 10:27 [facility] [id number] 10/21/18 10:32 [facility] 10/21/18 10:27 Wound Center Nurse 1 [Ulcer Assessment] #5 LEFT GREAT TOE -Combined with other wound No -Current Size (cm) - Length 0.1 -Current Size (cm) - Width 0.1 -Current Size (cm) - Depth 0.1 -Total Square Cm 0.01 -Date of Last Picture (Recall this 10/21/18 field) -Photo Taken Yes -Epithelialization Large 67-100% -Tunneling No -Undermining/Tunneling No -Circular Undermining No -Exudate Amt None Present (0 %) -Texture (Scarlett-wound Skin Appearance) Scarring -Moisture (Scarlett-wound Skin Appearance Dry/Scaly ) -Color (Scarlett-wound Skin Appearance) Assessed -Temperature (Scarlett-wound Skin No Abnormality Appearance) (Pt Warm) -Tenderness on Palpation (Scarlett-wound No Skin Appearance) -Ulcer Cleansing Rinsed/ Irrigated with Saline -Foul Odor after Cleansing No -Anesthetic Used 5% Lidocaine Gel #4 RIGHT GREAT TOE -Combined with other wound No -Current Size (cm) - Length 0.1 -Current Size (cm) - Width 0.1 -Current Size (cm) - Depth 0.1 -Total Square Cm 0.01 -Date of Last Picture (Recall this 10/21/18 field) -Photo Taken Yes -Epithelialization Large 67-100% -Tunneling No -Undermining/Tunneling No -Circular Undermining No -Exudate Amt None Present (0 %) -Texture (Scarlett-wound Skin Appearance) Scarring -Moisture (Scarlett-wound Skin Appearance Dry/Scaly ) -Color (Scarlett-wound Skin Appearance) Assessed -Temperature (Scarlett-wound Skin No Abnormality Appearance) (Pt Warm) -Tenderness on Palpation (Scarlett-wound No Skin Appearance) -Ulcer Cleansing Rinsed/ Irrigated with Saline -Foul Odor after Cleansing No -Anesthetic Used 5% Lidocaine Gel WC - Nurse 2 - General Ulcer CM Notes Start: 10/21/18 10:27 Freq: Status: Active Protocol: Activity Type Activity Date Activity User E-Sign Co-Sign Detail Recorded Client Recorded Date Recorded By Document 10/21/18 10:41 [email or web address] [id number] 10/21/18 10:42 BENJIE 10/21/18 10:41 Wound Center Nurse 2 [Procedure/Treatment] #5 LEFT GREAT TOE -Time 10:42 -Correct Patient Yes -Correct Side, Site, Position Yes -Correct Procedure Yes -Procedure Performed Yes -Type of Procedure Debridement -Clinical Debridement Subcutaneous -Post Debridement Size (cm) - Length 0.2 -Post Debridement Size (cm) - Width 0.2 -Post Debridement Size (cm) - Depth 0.1 -Total Square Cm 0.04 -Wound/Ulcer Outcome Not Healed -Ulcer Cleansing Rinsed/ Irrigated with Saline -Foul Odor after Cleansing No -Bioengineered Tissue No -Bleeding Controlled with Pressure -Offloading Yes -Type of Offloading Surgical Shoe -Treatment Response Procedure Tolerated Well #4 RIGHT GREAT TOE -Correct Patient No -Correct Side, Site, Position No -Correct Procedure No -Procedure Performed No -Post Debridement Size (cm) - Length 0 -Post Debridement Size (cm) - Width 0 -Post Debridement Size (cm) - Depth 0 -Total Square Cm 0 -Wound/Ulcer Outcome Healed- Epithelialized [See Physician Procedure note for Specifics] Pain Scale: 0-10 Numeric [Pain] -Is Patient Pain Free? Yes Musculoskeletal: No Tenderness to Palpation of Joints or Extremities, Muscle Wasting Neurological: - - Lack of epicritic sensation light touch bilateral Psych/Mental Status: Normal Affect, Appropriate Debridement Note Post-Debridement Measurements/Treatment WC - Nurse 2 - General Ulcer CM Notes Start: 10/21/18 10:27 Freq: Status: Active Protocol: Activity Type Activity Date Activity User E-Sign Co-Sign Detail Recorded Client Recorded Date Recorded By Document 10/21/18 10:41 [email or web address] [id number] 10/21/18 10:42 10/21/18 10:41 Wound Center Nurse 2 #5 LEFT GREAT TOE -Time 10:42 -Correct Patient Yes -Correct Side, Site, Position Yes -Correct Procedure Yes -Procedure Performed Yes -Type of Procedure Debridement -Clinical Debridement Subcutaneous -Post Debridement Size (cm) - Length 0.2 -Post Debridement Size (cm) - Width 0.2 -Post Debridement Size (cm) - Depth 0.1 -Total Square Cm 0.04 -Wound/Ulcer Outcome Not Healed -Ulcer Cleansing Rinsed/ Irrigated with Saline -Foul Odor after Cleansing No -Bioengineered Tissue No -Bleeding Controlled with Pressure -Offloading Yes -Type of Offloading Surgical Shoe -Treatment Response Procedure Tolerated Well #4 RIGHT GREAT TOE -Correct Patient No -Correct Side, Site, Position No -Correct Procedure No -Procedure Performed No -Post Debridement Size (cm) - Length 0 -Post Debridement Size (cm) - Width 0 -Post Debridement Size (cm) - Depth 0 -Total Square Cm 0 -Wound/Ulcer Outcome Healed- Epithelialized Pain Scale: 0-10 Numeric Is Patient Pain Free? Yes Wound debrided: left dorsal hallux Laterality: Left Wound Grade/Stage: grade 1 Type of Debridement: Excisional debridement Anesthesia Used: 5% Lidocaine Gel Depth: in the subcutaneous layer Percentage of wound debrided: 100 Instrument Used: #15 blade Tissue Removed: fibrous, devitalized subcutaneous, biofilm, slough Severity: Fat Layer Exposed Amount of bleeding with debridement: Mild Bleeding Controlled with: Pressure Patient tolerated procedure well Assessment/Plan Active Problems DM (diabetes mellitus) with peripheral vascular complication (Chronic) PAD (peripheral artery disease) (Chronic) Tobacco abuse counseling (Chronic) Chronic ulcer of left foot with fat layer exposed (Chronic) Assessment: Ulcer right hallux -healed today. Ulcer left hallux fat layer exposed, no infection. Peripheral vascular disease status post intervention. Diabetes with neuropathy. Malnutrition. Delayed healing Plan: I reviewed and discussed his case today. Debridement was performed as noted in the nursing clinical panel. Significant size reduction in quality improvement is noted to left ulcer site. It is noted that the right hallux ulcer site is fully epithelialized and is healed. To D/C dressing to the right toe ulcer that has recently healed. No deep tissue or deep infection was appreciated at that time. I recommended he continues with an advanced wound care plan with collagenase application daily to the left open ulcer. He was reassured no local signs of infection noted today. I do recommend nutritional supplementation and a prescription was provided for Tc. He was advised on safe and proper use. I recommend offloading the ulcers to promote healing by wearing surgical shoes; he already has this. His previous x-[facility]. It is also noted that he had previous lab work performed on June 2018. It is also noted that he had vascular surgery intervention and is currently reperfused. To continue on Coumadin as advised and to follow-up with vascular surgery as scheduled. It is also noted that he is a smoker and he is on [employer] smoking cessation program. He is advised to discontinue tobacco products or any product that has nicotine in its due to the vasoconstriction issue. He was also advised on proper glycemic control to optimize healing. He understands he is high risk for limb loss. I do not recommend surgical intervention at this time and he was reassured significant improvement is noted since his last debridement. I answered all his questions. To return to clinic in 1 week or call sooner if he has any concerns.
[2018-10-28 09:37] VITALS: RESP 18; TEMP 36.2; BMI 29.7
--- NOTE | 2018-10-28 10:26 | PCM.WC.PN ---
(1) Chronic ulcer of left foot with fat layer exposed Status: Chronic Current Visit: Yes Code(s): L97.522 - Non-pressure chronic ulcer of other part of left foot with fat layer exposed (2) Ulcer of right foot with fat layer exposed Status: Acute Current Visit: Yes Code(s): L97.512 - Non-pressure chronic ulcer of other part of right foot with fat layer exposed (3) DM (diabetes mellitus) with peripheral vascular complication Status: Chronic Current Visit: Yes Code(s): E11.51 - Type 2 diabetes mellitus with diabetic peripheral angiopathy without gangrene (4) PAD (peripheral artery disease) Status: Chronic Current Visit: Yes Code(s): I73.9 - Peripheral vascular disease, unspecified (5) Tobacco abuse counseling Status: Chronic Current Visit: Yes Code(s): Z71.6 - Tobacco abuse counseling Type of Wound Date of Service: 10/28/18 Chief Complaint: Right and left great toe ulcers History of Wound: This is a 58-year-old male returns to clinic for ischemic ulcerations on the right and left toes. The patient underwent right lower extremity revascularization on June 11, 2018. Surgery was performed at the [facility]. It appears he underwent a right femoral?popliteal bypass graft, with prosthetic graft material. He has been changing his dressing daily with Santyl and he believes is going well. He has resolved foot pain. He denies current claudication, he denies fever, chill, nausea, vomiting. He noticed a new scab formation on the right great toe and thinks his ulcer has returned. He is not taking nutritional supplementation because they are not tolerated due to the poor taste. Progress of Wound: Improving left. Returned stable ulcer right - Physical Exam Vital Signs Temp Pulse Resp BP 97.1 F L 77 18 138/78 H 10/28/18 09:37 10/21/18 10:27 10/28/18 09:37 10/21/18 10:27 General: Alert, Oriented x3, Cooperative Extremities: No cyanosis, Capillary Refill Less than 3 Seconds, No Calf Tenderness - Negative Kwame and Navarro bilateral, Diminished Peripheral Pulses, Edema - Mild bilateral, - - Decreased loaded first metatarsal phalangeal joint range of motion bilateral Skin: Ulcer/ Wound - No purulence, erythema, streaking, odor, or infection. Peripheral skin is hairless and atrophic and there is no gangrene bilateral Wound Measurements and Assessment - Nurse 1 - General Ulcer Measurement Start: 10/21/18 10:27 Freq: Status: Active Protocol: Activity Type Activity Date Activity User E-Sign Co-Sign Detail Recorded Client Recorded Date Recorded By Document 10/28/18 09:37 [facility] [id number] 10/28/18 09:43 [facility] 10/28/18 09:37 Wound Center Nurse 1 [Ulcer Assessment] #5 LEFT GREAT TOE -Combined with other wound No -Current Size (cm) - Length 0.1 -Current Size (cm) - Width 0.1 -Current Size (cm) - Depth 0.1 -Total Square Cm 0.01 -Photo Taken No -Epithelialization Small 1-33% -Tunneling No -Undermining/Tunneling No -Circular Undermining No -Exudate Amt Small -Exudate Type Serous -Wound Margin Distinct, Outline Attached -Granulation Amt None Present (0 %) -Slough/Fibrin Yes -Necrosis Amt Large (67-100%) -Necrotic Tissue Type Adherent Slough -Texture (Scarlett-wound Skin Appearance) Scarring -Moisture (Scarlett-wound Skin Appearance Dry/Scaly ) -Color (Scarlett-wound Skin Appearance) Erythema -Temperature (Scarlett-wound Skin No Abnormality Appearance) (Pt Warm) -Tenderness on Palpation (Scarlett-wound No Skin Appearance) -Ulcer Cleansing Rinsed/ Irrigated with Saline -Foul Odor after Cleansing No -Anesthetic Used 5% Lidocaine Gel WC - Nurse 2 - General Ulcer CM Notes Start: 10/21/18 10:27 Freq: Status: Active Protocol: Activity Type Activity Date Activity User E-Sign Co-Sign Detail Recorded Client Recorded Date Recorded By Document 10/28/18 09:54 [id number] 10/28/18 09:56 10/28/18 09:54 Wound Center Nurse 2 [Procedure/Treatment] -Time 09:55 -Correct Patient Yes -Correct Side, Site, Position Yes -Correct Procedure Yes -Procedure Performed Yes -Type of Procedure Debridement -Clinical Debridement Subcutaneous -Post Debridement Size (cm) - Length 0.1 -Post Debridement Size (cm) - Width 0.1 -Post Debridement Size (cm) - Depth 0.1 -Total Square Cm 0.01 -Wound/Ulcer Outcome Not Healed -Ulcer Cleansing Rinsed/ Irrigated with Saline -Foul Odor after Cleansing No -Bioengineered Tissue No -Bleeding Controlled with Pressure -Offloading Yes -Type of Offloading Surgical Shoe -Treatment Response Procedure Tolerated Well #4 RIGHT GREAT TOE -Time 09:55 -Correct Patient Yes -Correct Side, Site, Position Yes -Correct Procedure Yes -Procedure Performed Yes -Type of Procedure Debridement -Clinical Debridement Subcutaneous -Post Debridement Size (cm) - Length 0.5 -Post Debridement Size (cm) - Width 0.8 -Post Debridement Size (cm) - Depth 0.2 -Total Square Cm 0.40 -Wound/Ulcer Outcome Not Healed -Ulcer Cleansing Rinsed/ Irrigated with Saline -Foul Odor after Cleansing No -Bioengineered Tissue No -Bleeding Controlled with Pressure -Offloading Yes -Type of Offloading Camwalker -Treatment Response Procedure Tolerated Well [See Physician Procedure note for Specifics] Pain Scale: 0-10 Numeric [Pain] -Is Patient Pain Free? Yes Musculoskeletal: No Tenderness to Palpation of Joints or Extremities, Muscle Wasting Neurological: - - Lack of normal epicritic sensation consistent with neuropathy bilateral lower extremities Psych/Mental Status: Normal Affect, Appropriate Debridement Note Post-Debridement Measurements/Treatment WC - Nurse 2 - General Ulcer CM Notes Start: 10/21/18 10:27 Freq: Status: Active Protocol: Activity Type Activity Date Activity User E-Sign Co-Sign Detail Recorded Client Recorded Date Recorded By Document 10/21/18 10:41 [id number] 10/21/18 10:42 Document 10/28/18 09:54 [id number] 10/28/18 09:56 10/21/18 10/28/18 10:41 09:54 Wound Center Nurse 2 #5 LEFT GREAT TOE -Time 10:42 09:55 -Correct Patient Yes Yes -Correct Side, Site, Position Yes Yes -Correct Procedure Yes Yes -Procedure Performed Yes Yes -Type of Procedure Debridement Debridement -Clinical Debridement Subcutaneous Subcutaneous -Post Debridement Size (cm) - Length 0.2 0.1 -Post Debridement Size (cm) - Width 0.2 0.1 -Post Debridement Size (cm) - Depth 0.1 0.1 -Total Square Cm 0.04 0.01 -Wound/Ulcer Outcome Not Healed Not Healed -Ulcer Cleansing Rinsed/ Rinsed/ Irrigated with Irrigated with Saline Saline -Foul Odor after Cleansing No No -Bioengineered Tissue No No -Bleeding Controlled with Pressure Pressure -Offloading Yes Yes -Type of Offloading Surgical Shoe Surgical Shoe -Treatment Response Procedure Procedure Tolerated Well Tolerated Well #4 RIGHT GREAT TOE -Time 09:55 -Correct Patient No Yes -Correct Side, Site, Position No Yes -Correct Procedure No Yes -Procedure Performed No Yes -Type of Procedure Debridement -Clinical Debridement Subcutaneous -Post Debridement Size (cm) - Length 0 0.5 -Post Debridement Size (cm) - Width 0 0.8 -Post Debridement Size (cm) - Depth 0 0.2 -Total Square Cm 0 0.40 -Wound/Ulcer Outcome Healed- Not Healed Epithelialized -Ulcer Cleansing Rinsed/ Irrigated with Saline -Foul Odor after Cleansing No -Bioengineered Tissue No -Bleeding Controlled with Pressure -Offloading Yes -Type of Offloading Camwalker -Treatment Response Procedure Tolerated Well Pain Scale: 0-10 Numeric Is Patient Pain Free? Yes Yes Wound debrided: hallux Laterality: Right Wound Grade/Stage: grade 1 Type of Debridement: Excisional debridement Anesthesia Used: 5% Lidocaine Gel Depth: in the subcutaneous layer Percentage of wound debrided: 100 Instrument Used: #15 blade Tissue Removed: fibrous, devitalized subcutaneous, biofilm, slough Severity: Fat Layer Exposed Amount of bleeding with debridement: Mild Bleeding Controlled with: Pressure Patient tolerated procedure well - Additional Wound Wound debrided: hallux Laterality: Left Wound Grade/Stage: grade 1 Type of Debridement: Excisional debridement Anesthesia Used: 5% Lidocaine Gel Depth: in the subcutaneous layer Percentage of wound debrided: 100 Instrument Used: #15 blade Tissue Removed: fibrous, devitalized subcutaneous, biofilm, slough Severity: Fat Layer Exposed Amount of bleeding with debridement: Mild Bleeding Controlled with: Pressure Patient tolerated procedure: Patient tolerated procedure well Assessment/Plan Active Problems DM (diabetes mellitus) with peripheral vascular complication (Chronic) PAD (peripheral artery disease) (Chronic) Tobacco abuse counseling (Chronic) Ulcer of right foot with fat layer exposed (Acute) Chronic ulcer of left foot with fat layer exposed (Chronic) Assessment: Ulcer right hallux - returned today, fat layer exposed. Ulcer left hallux fat layer exposed, no infection. Peripheral vascular disease status post intervention. Diabetes with neuropathy. Malnutrition. Delayed healing Plan: I reviewed and discussed his case today. Debridement was performed as noted in the nursing clinical panel. It is noted that the right hallux ulcer site has returned and this is stable and noninfected. To change bilateral ulcer dressings daily with Santyl. No deep tissue or deep infection was appreciated at that time. I recommended he continues with an advanced wound care plan with collagenase application daily to the left open ulcer. He was reassured no local signs of infection noted today. I do recommend nutritional supplementation and a prescription was provided for Tc previously. He was advised on safe and proper use. I recommend offloading the ulcers to promote healing by wearing surgical shoes; he already has this. His [facility] It is also noted that he had previous lab work performed on June 2018. It is also noted that he had vascular surgery intervention and is currently reperfused. To continue on Coumadin as advised and to follow-up with vascular surgery as scheduled. It is also noted that he is a smoker and he is on [email or web address] smoking cessation program. He is advised to discontinue tobacco products or any product that has nicotine in its due to the vasoconstriction issue. He was also advised on proper glycemic control to optimize healing. He understands he is high risk for limb loss. I do not recommend surgical intervention at this time and he was reassured significant improvement is noted since his last debridement. I answered all his questions. To return to clinic in 1 week or call sooner if he has any concerns.
--- NOTE | 2018-10-28 10:30 | PN.PCM_ITS ---
(1) Chronic ulcer of left foot with fat layer exposed Status: Chronic Current Visit: Yes Code(s): L97.522 - Non-pressure chronic ulcer of other part of left foot with fat layer exposed (2) Ulcer of right foot with fat layer exposed Status: Acute Current Visit: Yes Code(s): L97.512 - Non-pressure chronic ulcer of other part of right foot with fat layer exposed (3) DM (diabetes mellitus) with peripheral vascular complication Status: Chronic Current Visit: Yes Code(s): E11.51 - Type 2 diabetes mellitu s with diabetic peripheral angiopathy without gangrene (4) PAD (peripheral artery disease) Status: Chronic Current Visit: Yes Code(s): I73.9 - Peripheral vascular disease, unspecified (5) Tobacco abuse counseling Status: Chronic Current Visit: Yes Code(s): Z71.6 - Tobacco abuse counseling Type of Wound Date of Service: 10/28/18 Chief Complaint: Right and left great toe ulcers History of Wound: This is a 58-year-old male returns to clinic for ischemic ulcerations on the right and left toes. The patient underwent right lower extremity revascularization on June 11, 2018. Surgery was performed at the [facility]. It appears he underwent a right femoral?popliteal bypass graft, with prosthetic graft material. He has been changing his dressing daily with Santyl and he believes is going well. He has resolved foot pain. He denies current claudication, he denies fever, chill, nausea, vomiting. He noticed a new scab formation on the right great toe and thinks his ulcer has returned. He is not taking nutritional supplementation because they are not tolerated due to the poor taste. Progress of Wound: Improving left. Returned stable ulcer right - Physical Exam Vital Signs Temp Pulse Resp BP 97.1 F L 77 18 138/78 H 10/28/18 09:37 10/21/18 10:27 10/28/18 09:37 10/21/18 10:27 General: Alert, Oriented x3, Cooperative Extremities: No cyanosis, Capillary Refill Less than 3 Seconds, No Calf Tenderness - Negative Kwame and Navarro bilateral, Diminished Peripheral Pulses, Edema - Mild bilateral, - - Decreased loaded first metatarsal phalangeal joint range of motion bilateral Skin: Ulcer/ Wound - No purulence, erythema, streaking, odor, or infection. Peripheral skin is hairless and atrophic and there is no gangrene bilateral Wound Measurements and Assessment WC - Nurse 1 - General Ulcer Measurement Start: 10/21/18 10:27 Freq: Status: Active Protocol: Activity Type Activity Date Activity User E-Sign Co-Sign Detail Recorded Client Recorded Date Recorded By Document 10/28/18 09:37 [facility] [id number] 10/28/18 09:43 [facility] 10/28/18 09:37 Wound Center Nurse 1 [Ulcer Assessment] #5 LEFT GREAT TOE -Combined with other wound No -Current Size (cm) - Length 0.1 -Current Size (cm) - Width 0.1 -Current Size (cm) - Depth 0.1 -Total Square Cm 0.01 -Photo Taken No -Epithelialization Small 1-33% -Tunneling No -Undermining/Tunneling No -Circular Undermining No -Exudate Amt Small -Exudate Type Serous -Wound Margin Distinct, Outline Attached -Granulation Amt None Present (0 %) -Slough/Fibrin Yes -Necrosis Amt Large (67-100%) -Necrotic Tissue Type Adherent Slough -Texture (Scarlett-wound Skin Appearance) Scarring -Moisture (Scarlett-wound Skin Appearance Dry/Scaly ) -Color (Scarlett-wound Skin Appearance) Erythema -Temperature (Scarlett-wound Skin No Abnormality Appearance) (Pt Warm) -Tenderness on Palpation (Scarlett-wound No Skin Appearance) -Ulcer Cleansing Rinsed/ Irrigated with Saline -Foul Odor after Cleansing No -Anesthetic Used 5% Lidocaine Gel WC - Nurse 2 - General Ulcer CM Notes Start: 10/21/18 10:27 Freq: Status: Active Protocol: Activity Type Activity Date Activity User E-Sign Co-Sign Detail Recorded Client Recorded Date Recorded By Document 10/28/18 09:54 [id number] 10/28/18 09:56 10/28/18 09:54 Wound Center Nurse 2 [Procedure/Treatment] -Time 09:55 -Correct Patient Yes -Correct Side, Site, Position Yes -Correct Procedure Yes -Procedure Performed Yes -Type of Procedure Debridement -Clinical Debridement Subcutaneous -Post Debridement Size (cm) - Length 0.1 -Post Debridement Size (cm) - Width 0.1 -Post Debridement Size (cm) - Depth 0.1 -Total Square Cm 0.01 -Wound/Ulcer Outcome Not Healed -Ulcer Cleansing Rinsed/ Irrigated with Saline -Foul Odor after Cleansing No -Bioengineered Tissue No -Bleeding Controlled with Pressure -Offloading Yes -Type of Offloading Surgical Shoe -Treatment Response Procedure Tolerated Well #4 RIGHT GREAT TOE -Time 09:55 -Correct Patient Yes -Correct Side, Site, Position Yes -Correct Procedure Yes -Procedure Performed Yes -Type of Procedure Debridement -Clinical Debridement Subcutaneous -Post Debridement Size (cm) - Length 0.5 -Post Debridement Size (cm) - Width 0.8 -Post Debridement Size (cm) - Depth 0.2 -Total Square Cm 0.40 -Wound/Ulcer Outcome Not Healed -Ulcer Cleansing Rinsed/ Irrigated with Saline -Foul Odor after Cleansing No -Bioengineered Tissue No -Bleeding Controlled with Pressure -Offloading Yes -Type of Offloading Camwalker -Treatment Response Procedure Tolerated Well [See Physician Procedure note for Specifics] Pain Scale: 0-10 Numeric [Pain] -Is Patient Pain Free? Yes Musculoskeletal: No Tenderness to Palpation of Joints or Extremities, Muscle Wasting Neurological: - - Lack of normal epicritic sensation consistent with neuropathy bilateral lower extremities Psych/Mental Status: Normal Affect, Appropriate Debridement Note Post-Debridement Measurements/Treatment WC - Nurse 2 - General Ulcer CM Notes Start: 10/21/18 10:27 Freq: Status: Active Protocol: Activity Type Activity Date Activity User E-Sign Co-Sign Detail Recorded Client Recorded Date Recorded By Document 10/21/18 10:41 [id number] 10/21/18 10:42 Document 10/28/18 09:54 [id number] 10/28/18 09:56 10/21/18 10/28/18 10:41 09:54 Wound Center Nurse 2 #5 LEFT GREAT TOE -Time 10:42 09:55 -Correct Patient Yes Yes -Correct Side, Site, Position Yes Yes -Correct Procedure Yes Yes -Procedure Performed Yes Yes -Type of Procedure Debridement Debridement -Clinical Debridement Subcutaneous Subcutaneous -Post Debridement Size (cm) - Length 0.2 0.1 -Post Debridement Size (cm) - Width 0.2 0.1 -Post Debridement Size (cm) - Depth 0.1 0.1 -Total Square Cm 0.04 0.01 -Wound/Ulcer Outcome Not Healed Not Healed -Ulcer Cleansing Rinsed/ Rinsed/ Irrigated with Irrigated with Saline Saline -Foul Odor after Cleansing No No -Bioengineered Tissue No No -Bleeding Controlled with Pressure Pressure -Offloading Yes Yes -Type of Offloading Surgical Shoe Surgical Shoe -Treatment Response Procedure Procedure Tolerated Well Tolerated Well #4 RIGHT GREAT TOE -Time 09:55 -Correct Patient No Yes -Correct Side, Site, Position No Yes -Correct Procedure No Yes -Procedure Performed No Yes -Type of Procedure Debridement -Clinical Debridement Subcutaneous -Post Debridement Size (cm) - Length 0 0.5 -Post Debridement Size (cm) - Width 0 0.8 -Post Debridement Size (cm) - Depth 0 0.2 -Total Square Cm 0 0.40 -Wound/Ulcer Outcome Healed- Not Healed Epithelialized -Ulcer Cleansing Rinsed/ Irrigated with Saline -Foul Odor after Cleansing No -Bioengineered Tissue No -Bleeding Controlled with Pressure -Offloading Yes -Type of Offloading Camwalker -Treatment Response Procedure Tolerated Well Pain Scale: 0-10 Numeric Is Patient Pain Free? Yes Yes Wound debrided: hallux Laterality: Right Wound Grade/Stage: grade 1 Type of Debridement: Excisional debridement Anesthesia Used: 5% Lidocaine Gel Depth: in the subcutaneous layer Percentage of wound debrided: 100 Instrument Used: #15 blade Tissue Removed: fibrous, devitalized subcutaneous, biofilm, slough Severity: Fat Layer Exposed Amount of bleeding with debridement: Mild Bleeding Controlled with: Pressure Patient tolerated procedure well - Additional Wound Wound debrided: hallux Laterality: Left Wound Grade/Stage: grade 1 Type of Debridement: Excisional debridement Anesthesia Used: 5% Lidocaine Gel Depth: in the subcutaneous layer Percentage of wound debrided: 100 Instrument Used: #15 blade Tissue Removed: fibrous, devitalized subcutaneous, biofilm, slough Severity: Fat Layer Exposed Amount of bleeding with debridement: Mild Bleeding Controlled with: Pressure Patient tolerated procedure: Patient tolerated procedure well Assessment/Plan Active Problems DM (diabetes mellitus) with peripheral vascular complication (Chronic) PAD (peripheral artery disease) (Chronic) Tobacco abuse counseling (Chronic) Ulcer of right foot with fat layer exposed (Acute) Chronic ulcer of left foot with fat layer exposed (Chronic) Assessment: Ulcer right hallux - returned today, fat layer exposed. Ulcer left hallux fat layer exposed, no infection. Peripheral vascular disease status post intervention. Diabetes with neuropathy. Malnutrition. Delayed healing Plan: I reviewed and discussed his case today. Debridement was performed as noted in the nursing clinical panel. It is noted that the right hallux ulcer site has returned and this is stable and noninfected. To change bilateral ulcer dressings daily with Santyl. No deep tissue or deep infection was appreciated at that time. I recommended he continues with an advanced wound care plan with collagenase application daily to the left open ulcer. He was reassured no local signs of infection noted today. I do recommend nutritional supplementation and a prescription was provided for Tc previously. He was advised on safe and proper use. I recommend offloading the ulcers to promote healing by wearing surgical shoes; he already has this. His previous x-[facility]. It is also noted that he had previous lab work performed on June 2018. It is also noted that he had vascular surgery intervention and is currently reperfused. To continue on Coumadin as advised and to follow-up with vascular surgery as scheduled. It is also noted that he is a smoker and he is on [employer] smoking cessation program. He is advised to discontinue tobacco products or any product that has nicotine in its due to the vasoconstriction issue. He was also advised on proper glycemic control to optimize healing. He understands he is high risk for limb loss. I do not recommend surgical intervention at this time and he was reassured significant improvement is noted since his last debridement. I answered all his questions. To return to clinic in 1 week or call sooner if he has any concerns.
[2018-11-04 09:19] VITALS: BP 131/66; PULSE 78; RESP 16; TEMP 35.7; BMI 29.7
--- NOTE | 2018-11-04 12:15 | PCM.WC.PN ---
(1) Chronic ulcer of left foot with fat layer exposed Status: Chronic Current Visit: Yes Code(s): L97.522 - Non-pressure chronic ulcer of other part of left foot with fat layer exposed (2) Ulcer of right foot with fat layer exposed Status: Resolved Current Visit: Yes Code(s): L97.512 - Non-pressure chronic ulcer of other part of right foot with fat layer exposed (3) DM (diabetes mellitus) with peripheral vascular complication Status: Chronic Current Visit: Yes Code(s): E11.51 - Type 2 diabetes mellitus with diabetic peripheral angiopathy without gangrene (4) PAD (peripheral artery disease) Status: Chronic Current Visit: Yes Code(s): I73.9 - Peripheral vascular disease, unspecified (5) Tobacco abuse counseling Status: Chronic Current Visit: Yes Code(s): Z71.6 - Tobacco abuse counseling Type of Wound Date of Service: 11/04/18 Chief Complaint: Right and left great toe ulcers History of Wound: This is a 58-year-old male returns to clinic for ischemic ulcerations on the right and left toes. The patient underwent right lower extremity revascularization on June 11, 2018. Surgery was performed at the [facility]. It appears he underwent a right femoral?popliteal bypass graft, with prosthetic graft material. He has been changing his dressing daily with Santyl and he believes is going well. He has resolved foot pain. He denies current claudication, he denies fever, chill, nausea, vomiting. He denies right toe drainage. He retry taking the drip Tc nutritional supplementation and is able to tolerate it once or twice daily. He also did reduce his smoking activity by about 50%. Progress of Wound: Improving left, healed right - Physical Exam Vital Signs Temp Pulse Resp BP 96.2 F L 78 16 131/66 H 11/04/18 09:19 11/04/18 09:19 11/04/18 09:19 11/04/18 09:19 General: Alert, Oriented x3, Cooperative Extremities: No cyanosis, Capillary Refill Less than 3 Seconds, No Calf Tenderness, Diminished Peripheral Pulses, Edema - Mild Skin: Ulcer/ Wound - No purulence, erythema or streaking, odor, or infection left foot. The peripheral skin is hairless and atrophic. There is full epithelialization to the right hallux ulcer previous site. Wound Measurements and Assessment WC - Nurse 1 - General Ulcer Measurement Start: 10/21/18 10:27 Freq: Status: Active Protocol: Activity Type Activity Date Activity User E-Sign Co-Sign Detail Recorded Client Recorded Date Recorded By Document 11/04/18 09:19 [facility] [id number] 11/04/18 09:25 [facility] 11/04/18 09:19 Wound Center Nurse 1 [Ulcer Assessment] #5 LEFT GREAT TOE -Combined with other wound No -Current Size (cm) - Length 0.2 -Current Size (cm) - Width 0.2 -Current Size (cm) - Depth 0.2 -Total Square Cm 0.04 -Photo Taken No -Epithelialization None Present -Tunneling No -Undermining/Tunneling No -Circular Undermining No -Exudate Amt None Present -Wound Margin Flat & Intact -Granulation Amt Large (67-100%) -Granulation Quality [place] -Slough/Fibrin No -Necrosis Amt Small (1-33%) -Necrotic Tissue Type Adherent Slough -Texture (Scarlett-wound Skin Appearance) Scarring -Moisture (Scarlett-wound Skin Appearance Dry/Scaly ) -Color (Scarlett-wound Skin Appearance) Assessed -Temperature (Scarlett-wound Skin No Abnormality Appearance) (Pt Warm) -Tenderness on Palpation (Scarlett-wound No Skin Appearance) -Ulcer Cleansing Rinsed/ Irrigated with Saline -Foul Odor after Cleansing No -Anesthetic Used 5% Lidocaine Gel #4 RIGHT GREAT TOE -Combined with other wound No -Current Size (cm) - Length 0.1 -Current Size (cm) - Width 0.1 -Current Size (cm) - Depth 0.1 -Total Square Cm 0.01 -Photo Taken No -Epithelialization Large 67-100% -Tunneling No -Undermining/Tunneling No -Circular Undermining No -Exudate Amt None Present -Texture (Scarlett-wound Skin Appearance) Scarring -Moisture (Scarlett-wound Skin Appearance Dry/Scaly ) -Color (Scarlett-wound Skin Appearance) Assessed -Temperature (Scarlett-wound Skin No Abnormality Appearance) (Pt Warm) -Tenderness on Palpation (Scarlett-wound No Skin Appearance) -Ulcer Cleansing Rinsed/ Irrigated with Saline -Foul Odor after Cleansing No -Anesthetic Used 5% Lidocaine Gel [id number] - Nurse 2 - General Ulcer CM Notes Start: 10/21/18 10:27 Freq: Status: Active Protocol: Activity Type Activity Date Activity User E-Sign Co-Sign Detail Recorded Client Recorded Date Recorded By Document 11/04/18 09:46 [id number] 11/04/18 09:48 11/04/18 09:46 Wound Center Nurse 2 [Procedure/Treatment] #5 LEFT GREAT TOE -Time 09:46 -Correct Patient Yes -Correct Side, Site, Position Yes -Correct Procedure Yes -Procedure Performed Yes -Type of Procedure Debridement -Clinical Debridement Subcutaneous -Post Debridement Size (cm) - Length 0.3 -Post Debridement Size (cm) - Width 0.2 -Post Debridement Size (cm) - Depth 0.1 -Total Square Cm 0.06 -Wound/Ulcer Outcome Not Healed -Ulcer Cleansing Rinsed/ Irrigated with Saline -Foul Odor after Cleansing No -Bioengineered Tissue No -Bleeding Controlled with Pressure -Offloading No -Type of Offloading Surgical Shoe -Treatment Response Procedure Tolerated Well #4 RIGHT GREAT TOE -Time 09:46 -Correct Patient No -Correct Side, Site, Position No -Correct Procedure No -Procedure Performed No -Post Debridement Size (cm) - Length 0 -Post Debridement Size (cm) - Width 0 -Post Debridement Size (cm) - Depth 0 -Total Square Cm 0 -Wound/Ulcer Outcome Healed- Epithelialized -Ulcer Cleansing Rinsed/ Irrigated with Saline -Foul Odor after Cleansing No -Bioengineered Tissue No -Bleeding Controlled with Pressure -Offloading Yes -Type of Offloading Surgical Shoe -Treatment Response Procedure Tolerated Well [See Physician Procedure note for Specifics] Pain Scale: 0-10 Numeric [Pain] -Is Patient Pain Free? Yes Musculoskeletal: No Tenderness to Palpation of Joints or Extremities, Muscle Wasting Neurological: Sensory exam intact to light touch and pain, - Psych/Mental Status: Normal Affect, Appropriate Debridement Note Post-Debridement Measurements/Treatment WC - Nurse 2 - General Ulcer CM Notes Start: 10/21/18 10:27 Freq: Status: Active Protocol: Activity Type Activity Date Activity User E-Sign Co-Sign Detail Recorded Client Recorded Date Recorded By Document 10/21/18 10:41 [id number] 10/21/18 10:42 Document 10/28/18 09:54 [id number] 10/28/18 09:56 Document 11/04/18 09:46 [id number] 11/04/18 09:48 JF 10/21/18 10/28/18 11/04/18 10:41 09:54 09:46 Wound Center Nurse 2 #5 LEFT GREAT TOE -Time 10:42 09:55 09:46 -Correct Patient Yes Yes Yes -Correct Side, Site, Position Yes Yes Yes -Correct Procedure Yes Yes Yes -Procedure Performed Yes Yes Yes -Type of Procedure Debridement Debridement Debridement -Clinical Debridement Subcutaneous Subcutaneous Subcutaneous -Post Debridement Size (cm) - Length 0.2 0.1 0.3 -Post Debridement Size (cm) - Width 0.2 0.1 0.2 -Post Debridement Size (cm) - Depth 0.1 0.1 0.1 -Total Square Cm 0.04 0.01 0.06 -Wound/Ulcer Outcome Not Healed Not Healed Not Healed -Ulcer Cleansing Rinsed/ Rinsed/ Rinsed/ Irrigated with Irrigated with Irrigated with Saline Saline Saline -Foul Odor after Cleansing No No No -Bioengineered Tissue No No No -Bleeding Controlled with Pressure Pressure Pressure -Offloading Yes Yes No -Type of Offloading Surgical Shoe Surgical Shoe Surgical Shoe -Treatment Response Procedure Procedure Procedure Tolerated Well Tolerated Well Tolerated Well #4 RIGHT GREAT TOE -Time 09:55 09:46 -Correct Patient No Yes No -Correct Side, Site, Position No Yes No -Correct Procedure No Yes No -Procedure Performed No Yes No -Type of Procedure Debridement -Clinical Debridement Subcutaneous -Post Debridement Size (cm) - Length 0 0.5 0 -Post Debridement Size (cm) - Width 0 0.8 0 -Post Debridement Size (cm) - Depth 0 0.2 0 -Total Square Cm 0 0.40 0 -Wound/Ulcer Outcome Healed- Not Healed Healed- Epithelialized Epithelialized -Ulcer Cleansing Rinsed/ Rinsed/ Irrigated with Irrigated with Saline Saline -Foul Odor after Cleansing No No -Bioengineered Tissue No No -Bleeding Controlled with Pressure Pressure -Offloading Yes Yes -Type of Offloading Camwalker Surgical Shoe -Treatment Response Procedure Procedure Tolerated Well Tolerated Well Pain Scale: 0-10 Numeric Is Patient Pain Free? Yes Yes Yes Wound debrided: dorsal hallux Laterality: Left Type of Debridement: Excisional debridement Anesthesia Used: 5% Lidocaine Gel Depth: in the subcutaneous layer Percentage of wound debrided: 100 Instrument Used: #15 blade Tissue Removed: fibrous, devitalized subcutaneous, biofilm, slough Severity: Fat Layer Exposed Amount of bleeding with debridement: Mild Bleeding Controlled with: Pressure Patient tolerated procedure well Assessment/Plan Active Problems DM (diabetes mellitus) with peripheral vascular complication (Chronic) PAD (peripheral artery disease) (Chronic) Tobacco abuse counseling (Chronic) Chronic ulcer of left foot with fat layer exposed (Chronic) Assessment: Ulcer right hallux -healed again. Ulcer left hallux fat layer exposed, no infection. Peripheral vascular disease status post intervention. Diabetes with neuropathy. Malnutrition. Delayed healing Plan: I reviewed and discussed his case today. Debridement was performed as noted in the nursing clinical panel to the left foot. It is noted that the right hallux ulcer site has healed once again. To change left ulcer dressings daily with Santyl. No deep tissue or deep infection was appreciated at that time. I recommended he continues with an advanced wound care plan with collagenase application daily to the left open ulcer. He was reassured no local signs of infection noted today. I do recommend nutritional supplementation and a prescription was provided for Tc previously. He was advised on safe and proper use. I recommend offloading the ulcer to promote healing by wearing surgical shoes; he already has this. His [facility] It is also noted that he had previous lab work performed on June 2018. It is also noted that he had vascular surgery intervention and is currently reperfused. To continue on Coumadin as advised and to follow-up with vascular surgery as scheduled. It is also noted that he is a smoker and he is on [employer] smoking cessation program. He is advised to discontinue tobacco products or any product that has nicotine in its due to the vasoconstriction issue. His smoking reduction is noted he was encouraged to continue. He was also advised on proper glycemic control to optimize healing. He understands he is high risk for limb loss. I do not recommend surgical intervention at this time and he was reassured significant improvement is noted since his last debridement. I answered all his questions. To return to clinic in 1 week or call sooner if he has any concerns.
[2018-11-18 09:43] VITALS: BP 124/75; PULSE 75; RESP 18; TEMP 35.5; BMI 29.7
--- NOTE | 2018-11-18 12:32 | PCM.WC.PN ---
(1) Ulcer of right lower extremity with fat layer exposed Status: Acute Current Visit: Yes Code(s): L97.912 - Non-pressure chronic ulcer of unspecified part of right lower leg with fat layer exposed (2) Chronic ulcer of left foot with fat layer exposed Status: Resolved Current Visit: Yes Code(s): L97.522 - Non-pressure chronic ulcer of other part of left foot with fat layer exposed (3) DM (diabetes mellitus) with peripheral vascular complication Status: Resolved Current Visit: Yes Code(s): E11.51 - Type 2 diabetes mellitus with diabetic peripheral angiopathy without gangrene (4) PAD (peripheral artery disease) Status: Chronic Current Visit: Yes Code(s): I73.9 - Peripheral vascular disease, unspecified (5) Tobacco abuse counseling Status: Chronic Current Visit: Yes Code(s): Z71.6 - Tobacco abuse counseling Type of Wound Date of Service: 11/18/18 Chief Complaint: new right leg ulcer. left great toe ulcers History of Wound: This is a 58-year-old male returns to clinic for ischemic ulcerations on the right and left toes. The patient underwent right lower extremity revascularization on June 11, 2018. Surgery was performed at the [facility]. It appears he underwent a right femoral?popliteal bypass graft, with prosthetic graft material. He has been changing his dressing daily with Santyl and he reports his left great toe ulcer site is healed and is not been draining the past week. He has resolved foot pain. He denies current claudication, he denies fever, chill, nausea, vomiting. He denies right toe drainage. He continues to reduce his smoking activity. He did notice a new ulcer site to the right leg 4 days ago with moderate amounts of drainage. He denies pain, redness, or odor. He has been applying iodine to this site. Progress of Wound: Healed left great toe ulcer site. New right leg ulcer site - Physical Exam Vital Signs Temp Pulse Resp BP 96 F L 75 18 124/75 H 11/18/18 09:43 11/18/18 09:43 11/18/18 09:43 11/18/18 09:43 General: Alert, Oriented x3, Cooperative HEENT: Atraumatic Extremities: No cyanosis, Capillary Refill Less than 3 Seconds, No Calf Tenderness - Negative Kwame and Navarro sign bilateral, Diminished Peripheral Pulses, Edema - Mild right leg Skin: Ulcer/ Wound - No purulence, erythema or streaking, odor, or infection bilateral lower extremities. No interdigital macerations bilateral. The bilateral hallux ulcer sites remained healed with full epithelialization. The peripheral skin is hairless and atrophic bilateral Wound Measurements and Assessment WC - Nurse 1 - General Ulcer Measurement Start: 10/21/18 10:27 Freq: Status: Active Protocol: Activity Type Activity Date Activity User E-Sign Co-Sign Detail Recorded Client Recorded Date Recorded By Document 11/18/18 09:43 RB [id number] 11/18/18 09:49 RB 11/18/18 09:43 Wound Center Nurse 1 [Ulcer Assessment] #5 LEFT GREAT TOE -Combined with other wound No -Current Size (cm) - Length 0 -Current Size (cm) - Width 0 -Current Size (cm) - Depth 0 -Total Square Cm 0 -Photo Taken Yes -Epithelialization Large 67-100% -Tunneling No -Undermining/Tunneling No -Circular Undermining No -Exudate Amt None Present -Wound Margin Distinct, Outline Attached -Granulation Amt Large (67-100%) -Granulation Quality [place] -Slough/Fibrin No -Necrosis Amt None Present (0 %) -Structure Exposed N/A -Texture (Scarlett-wound Skin Appearance) Assessed -Moisture (Scarlett-wound Skin Appearance Assessed ) -Color (Scarlett-wound Skin Appearance) Assessed -Temperature (Scarlett-wound Skin No Abnormality Appearance) (Pt Warm) -Tenderness on Palpation (Scarlett-wound No Skin Appearance) -Foul Odor after Cleansing No WC - Nurse 2 - General Ulcer CM Notes Start: 10/21/18 10:27 Freq: Status: Active Protocol: Activity Type Activity Date Activity User E-Sign Co-Sign Detail Recorded Client Recorded Date Recorded By Document 11/18/18 10:01 [email or web address] [id number] 11/18/18 10:03 [email or web address] 11/18/18 10:01 Wound Center Nurse 2 [Procedure/Treatment] 6-right medial upper leg wound -Time 10:02 -Correct Patient Yes -Correct Side, Site, Position Yes -Correct Procedure Yes -Procedure Performed Yes -Type of Procedure Debridement -Clinical Debridement Subcutaneous -Post Debridement Size (cm) - Length 0.4 -Post Debridement Size (cm) - Width 0.5 -Post Debridement Size (cm) - Depth 0.2 -Total Square Cm 0.20 -Wound/Ulcer Outcome Not Healed -Ulcer Cleansing Rinsed/ Irrigated with Saline -Foul Odor after Cleansing No -Bioengineered Tissue No -Bleeding Controlled with Pressure -Offloading No -Treatment Response Procedure Tolerated Well #5 LEFT GREAT TOE -Correct Patient No -Correct Side, Site, Position No -Correct Procedure No -Procedure Performed No -Post Debridement Size (cm) - Length 0 -Post Debridement Size (cm) - Width 0 -Post Debridement Size (cm) - Depth 0 -Total Square Cm 0 -Wound/Ulcer Outcome Healed- Epithelialized [See Physician Procedure note for Specifics] Pain Scale: 0-10 Numeric [Pain] -Is Patient Pain Free? Yes Musculoskeletal: No Tenderness to Palpation of Joints or Extremities, Muscle Wasting, - - Compartments of bilateral lower extremity remain soft to palpate Neurological: Sensory exam intact to light touch and pain Psych/Mental Status: Normal Affect, Appropriate Debridement Note Post-Debridement Measurements/Treatment WC - Nurse 2 - General Ulcer CM Notes Start: 10/21/18 10:27 Freq: Status: Active Protocol: Activity Type Activity Date Activity User E-Sign Co-Sign Detail Recorded Client Recorded Date Recorded By Document 10/21/18 10:41 [id number] 10/21/18 10:42 Document 10/28/18 09:54 [id number] 10/28/18 09:56 Document 11/04/18 09:46 [id number] 11/04/18 09:48 Document 11/18/18 10:01 [id number] 11/18/18 10:03 10/21/18 10/28/18 11/04/18 10:41 09:54 09:46 Wound Center Nurse 2 6-right medial upper leg wound -Time -Correct Patient -Correct Side, Site, Position -Correct Procedure -Procedure Performed -Type of Procedure -Clinical Debridement -Post Debridement Size (cm) - Length -Post Debridement Size (cm) - Width -Post Debridement Size (cm) - Depth -Total Square Cm -Wound/Ulcer Outcome -Ulcer Cleansing -Foul Odor after Cleansing -Bioengineered Tissue -Bleeding Controlled with -Offloading -Treatment Response #5 LEFT GREAT TOE -Time 10:42 09:55 09:46 -Correct Patient Yes Yes Yes -Correct Side, Site, Position Yes Yes Yes -Correct Procedure Yes Yes Yes -Procedure Performed Yes Yes Yes -Type of Procedure Debridement Debridement Debridement -Clinical Debridement Subcutaneous Subcutaneous Subcutaneous -Post Debridement Size (cm) - Length 0.2 0.1 0.3 -Post Debridement Size (cm) - Width 0.2 0.1 0.2 -Post Debridement Size (cm) - Depth 0.1 0.1 0.1 -Total Square Cm 0.04 0.01 0.06 -Wound/Ulcer Outcome Not Healed Not Healed Not Healed -Ulcer Cleansing Rinsed/ Rinsed/ Rinsed/ Irrigated with Irrigated with Irrigated with Saline Saline Saline -Foul Odor after Cleansing No No No -Bioengineered Tissue No No No -Bleeding Controlled with Pressure Pressure Pressure -Offloading Yes Yes No -Type of Offloading Surgical Shoe Surgical Shoe Surgical Shoe -Treatment Response Procedure Procedure Procedure Tolerated Well Tolerated Well Tolerated Well #4 RIGHT GREAT TOE -Time 09:55 09:46 -Correct Patient No Yes No -Correct Side, Site, Position No Yes No -Correct Procedure No Yes No -Procedure Performed No Yes No -Type of Procedure Debridement -Clinical Debridement Subcutaneous -Post Debridement Size (cm) - Length 0 0.5 0 -Post Debridement Size (cm) - Width 0 0.8 0 -Post Debridement Size (cm) - Depth 0 0.2 0 -Total Square Cm 0 0.40 0 -Wound/Ulcer Outcome Healed- Not Healed Healed- Epithelialized Epithelialized -Ulcer Cleansing Rinsed/ Rinsed/ Irrigated with Irrigated with Saline Saline -Foul Odor after Cleansing No No -Bioengineered Tissue No No -Bleeding Controlled with Pressure Pressure -Offloading Yes Yes -Type of Offloading Camwalker Surgical Shoe -Treatment Response Procedure Procedure Tolerated Well Tolerated Well Pain Scale: 0-10 Numeric Is Patient Pain Free? Yes Yes Yes 11/18/18 10:01 Wound Center Nurse 2 6-right medial upper leg wound -Time 10:02 -Correct Patient Yes -Correct Side, Site, Position Yes -Correct Procedure Yes -Procedure Performed Yes -Type of Procedure Debridement -Clinical Debridement Subcutaneous -Post Debridement Size (cm) - Length 0.4 -Post Debridement Size (cm) - Width 0.5 -Post Debridement Size (cm) - Depth 0.2 -Total Square Cm 0.20 -Wound/Ulcer Outcome Not Healed -Ulcer Cleansing Rinsed/ Irrigated with Saline -Foul Odor after Cleansing No -Bioengineered Tissue No -Bleeding Controlled with Pressure -Offloading No -Treatment Response Procedure Tolerated Well #5 LEFT GREAT TOE -Time -Correct Patient No -Correct Side, Site, Position No -Correct Procedure No -Procedure Performed No -Type of Procedure -Clinical Debridement -Post Debridement Size (cm) - Length 0 -Post Debridement Size (cm) - Width 0 -Post Debridement Size (cm) - Depth 0 -Total Square Cm 0 -Wound/Ulcer Outcome Healed- Epithelialized -Ulcer Cleansing -Foul Odor after Cleansing -Bioengineered Tissue -Bleeding Controlled with -Offloading -Type of Offloading -Treatment Response #4 RIGHT GREAT TOE -Time -Correct Patient -Correct Side, Site, Position -Correct Procedure -Procedure Performed -Type of Procedure -Clinical Debridement -Post Debridement Size (cm) - Length -Post Debridement Size (cm) - Width -Post Debridement Size (cm) - Depth -Total Square Cm -Wound/Ulcer Outcome -Ulcer Cleansing -Foul Odor after Cleansing -Bioengineered Tissue -Bleeding Controlled with -Offloading -Type of Offloading -Treatment Response Pain Scale: 0-10 Numeric Is Patient Pain Free? Yes Wound debrided: proximal medial leg Laterality: Right Type of Debridement: Excisional debridement Anesthesia Used: 5% Lidocaine Gel Depth: in the subcutaneous layer Percentage of wound debrided: 100 Instrument Used: #15 blade Tissue Removed: fibrous, devitalized subcutaneous, biofilm, slough Severity: Fat Layer Exposed Amount of bleeding with debridement: Mild Bleeding Controlled with: Pressure Patient tolerated procedure well Assessment/Plan Active Problems DM (diabetes mellitus) with peripheral vascular complication (Chronic) PAD (peripheral artery disease) (Chronic) Tobacco abuse counseling (Chronic) Ulcer of right lower extremity with fat layer exposed (Acute) Assessment: Ulcer right hallux -healed. Ulcer left hallux -healed. New right leg ulcer, fat layer exposed. Peripheral vascular disease status post intervention. Diabetes with neuropathy. Malnutrition. Delayed healing Plan: I reviewed and discussed his case today. Debridement was performed as noted in the nursing clinical panel to the right leg. Bilateral hallux ulcer sites remained healed with full epithelialization. He was reassured no infection is noted. To change right leg ulcer dressings daily with Santyl; he has this at home already. No deep tissue or deep infection was appreciated at that time. I do recommend nutritional supplementation and a prescription was provided for Tc previously. He was advised on safe and proper use. I recommend offloading the ulcer to promote healing by wearing surgical shoes; he already has this. It is also noted that he had vascular surgery intervention and is currently reperfused. To continue on Coumadin as advised and to follow-up with vascular surgery as scheduled. It is also noted that he is a smoker and he is on [employer] smoking cessation program. He is advised to discontinue tobacco products or any product that has nicotine in its due to the vasoconstriction issue. His smoking reduction is noted he was encouraged to continue. He was also advised on proper glycemic control to optimize healing. He understands he is high risk for limb loss. I recommend compression with 1 Tubigrip to control his leg edema. He is reassured there are no signs of blood clot or infection to the limb. To return to clinic in 1 week or call sooner if he has any concerns.
--- NOTE | 2018-11-18 12:36 | PN.PCM_ITS ---
(1) Ulcer of right lower extremity with fat layer exposed Status: Acute Current Visit: Yes Code(s): L97.912 - Non-pressure chronic ulcer of unspecified part of right lower leg with fat layer exposed (2) Chronic ulcer of left foot with fat layer exposed Status: Resolved Current Visit: Yes Code(s): L97.522 - Non-pressure chronic ulcer of other part of left foot with fat layer exposed (3) DM (diabetes mellitus) with peripheral vascular complication Status: Resolved Current Visit: Yes Code(s): E11.51 - Type 2 diabetes mellitus with diabetic peripheral angiopathy without gangrene (4) PAD (peripheral artery disease) Status: Chronic Current Visit: Yes Code(s): I73.9 - Peripheral vascular disease, unspecified (5) Tobacco abuse counseling Status: Chronic Current Visit: Yes Code(s): Z71.6 - Tobacco abuse counseling Type of Wound Date of Service: 11/18/18 Chief Complaint: new right leg ulcer. left great toe ulcers History of Wound: This is a 58-year-old male returns to clinic for ischemic ulcerations on the right and left toes. The patient underwent right lower extremity revascularization on June 11, 2018. Surgery was performed at the [facility], [place]. It appears he underwent a right femoral?popliteal bypass graft, with prosthetic graft material. He has been changing his dressing daily with Santyl and he reports his left great toe ulcer site is healed and is not been draining the past week. He has resolved foot pain. He denies current claudication, he denies fever, chill, nausea, vomiting. He denies right toe drainage. He continues to reduce his smoking activity. He did notice a new u lcer site to the right leg 4 days ago with moderate amounts of drainage. He denies pain, redness, or odor. He has been applying iodine to this site. Progress of Wound: Healed left great toe ulcer site. New right leg ulcer site - Physical Exam Vital Signs Temp Pulse Resp BP 96 F L 75 18 124/75 H 11/18/18 09:43 11/18/18 09:43 11/18/18 09:43 11/18/18 09:43 General: Alert, Oriented x3, Cooperative HEENT: Atraumatic Extremities: No cyanosis, Capillary Refill Less than 3 Seconds, No Calf Tenderness - Negative Kwame and Navarro sign bilateral, Diminished Peripheral Pulses, Edema - Mild right leg Skin: Ulcer/ Wound - No purulence, erythema or streaking, odor, or infection bilateral lower extremities. No interdigital macerations bilateral. The bilateral hallux ulcer sites remained healed with full epithelialization. The peripheral skin is hairless and atrophic bilateral Wound Measurements and Assessment WC - Nurse 1 - General Ulcer Measurement Start: 10/21/18 10:27 Freq: Status: Active Protocol: Activity Type Activity Date Activity User E-Sign Co-Sign Detail Recorded Client Recorded Date Recorded By Document 11/18/18 09:43 RB [id number] 11/18/18 09:49 RB 11/18/18 09:43 Wound Center Nurse 1 [Ulcer Assessment] #5 LEFT GREAT TOE -Combined with other wound No -Current Size (cm) - Length 0 -Current Size (cm) - Width 0 -Current Size (cm) - Depth 0 -Total Square Cm 0 -Photo Taken Yes -Epithelialization Large 67-100% -Tunneling No -Undermining/Tunneling No -Circular Undermining No -Exudate Amt None Present -Wound Margin Distinct, Outline Attached -Granulation Amt Large (67-100%) -Granulation Quality [place] -Slough/Fibrin No -Necrosis Amt None Present (0 %) -Structure Exposed N/A -Texture (Scarlett-wound Skin Appearance) Assessed -Moisture (Scarlett-wound Skin Appearance Assessed ) -Color (Scarlett-wound Skin Appearance) Assessed -Temperature (Scarlett-wound Skin No Abnormality Appearance) (Pt Warm) -Tenderness on Palpation (Scarlett-wound No Skin Appearance) -Foul Odor after Cleansing No WC - Nurse 2 - General Ulcer CM Notes Start: 10/21/18 10:27 Freq: Status: Active Protocol: Activity Type Activity Date Activity User E-Sign Co-Sign Detail Recorded Client Recorded Date Recorded By Document 11/18/18 10:01 [email or web address] [id number] 11/18/18 10:03 BENJIE 11/18/18 10:01 Wound Center Nurse 2 [Procedure/Treatment] 6-right medial upper leg wound -Time 10:02 -Correct Patient Yes -Correct Side, Site, Position Yes -Correct Procedure Yes -Procedure Performed Yes -Type of Procedure Debridement -Clinical Debridement Subcutaneous -Post Debridement Size (cm) - Length 0.4 -Post Debridement Size (cm) - Width 0.5 -Post Debridement Size (cm) - Depth 0.2 -Total Square Cm 0.20 -Wound/Ulcer Outcome Not Healed -Ulcer Cleansing Rinsed/ Irrigated with Saline -Foul Odor after Cleansing No -Bioengineered Tissue No -Bleeding Controlled with Pressure -Offloading No -Treatment Response Procedure Tolerated Well #5 LEFT GREAT TOE -Correct Patient No -Correct Side, Site, Position No -Correct Procedure No -Procedure Performed No -Post Debridement Size (cm) - Length 0 -Post Debridement Size (cm) - Width 0 -Post Debridement Size (cm) - Depth 0 -Total Square Cm 0 -Wound/Ulcer Outcome Healed- Epithelialized [See Physician Procedure note for Specifics] Pain Scale: 0-10 Numeric [Pain] -Is Patient Pain Free? Yes Musculoskeletal: No Tenderness to Palpation of Joints or Extremities, Muscle Wasting, - - Compartments of bilateral lower extremity remain soft to palpate Neurological: Sensory exam intact to light touch and pain Psych/Mental Status: Normal Affect, Appropriate Debridement Note Post-Debridement Measurements/Treatment WC - Nurse 2 - General Ulcer CM Notes Start: 10/21/18 10:27 Freq: Status: Active Protocol: Activity Type Activity Date Activity User E-Sign Co-Sign Detail Recorded Client Recorded Date Recorded By Document 10/21/18 10:41 [id number] 10/21/18 10:42 Document 10/28/18 09:54 [id number] 10/28/18 09:56 Document 11/04/18 09:46 [id number] 11/04/18 09:48 Document 11/18/18 10:01 [id number] 11/18/18 10:03 10/21/18 10/28/18 11/04/18 10:41 09:54 09:46 Wound Center Nurse 2 6-right medial upper leg wound -Time -Correct Patient -Correct Side, Site, Position -Correct Procedure -Procedure Performed -Type of Procedure -Clinical Debridement -Post Debridement Size (cm) - Length -Post Debridement Size (cm) - Width -Post Debridement Size (cm) - Depth -Total Square Cm -Wound/Ulcer Outcome -Ulcer Cleansing -Foul Odor after Cleansing -Bioengineered Tissue -Bleeding Controlled with -Offloading -Treatment Response #5 LEFT GREAT TOE -Time 10:42 09:55 09:46 -Correct Patient Yes Yes Yes -Correct Side, Site, Position Yes Yes Yes -Correct Procedure Yes Yes Yes -Procedure Performed Yes Yes Yes -Type of Procedure Debridement Debridement Debridement -Clinical Debridement Subcutaneous Subcutaneous Subcutaneous -Post Debridement Size (cm) - Length 0.2 0.1 0.3 -Post Debridement Size (cm) - Width 0.2 0.1 0.2 -Post Debridement Size (cm) - Depth 0.1 0.1 0.1 -Total Square Cm 0.04 0.01 0.06 -Wound/Ulcer Outcome Not Healed Not Healed Not Healed -Ulcer Cleansing Rinsed/ Rinsed/ Rinsed/ Irrigated with Irrigated with Irrigated with Saline Saline Saline -Foul Odor after Cleansing No No No -Bioengineered Tissue No No No -Bleeding Controlled with Pressure Pressure Pressure -Offloading Yes Yes No -Type of Offloading Surgical Shoe Surgical Shoe Surgical Shoe -Treatment Response Procedure Procedure Procedure Tolerated Well Tolerated Well Tolerated Well #4 RIGHT GREAT TOE -Time 09:55 09:46 -Correct Patient No Yes No -Correct Side, Site, Position No Yes No -Correct Procedure No Yes No -Procedure Performed No Yes No -Type of Procedure Debridement -Clinical Debridement Subcutaneous -Post Debridement Size (cm) - Length 0 0.5 0 -Post Debridement Size (cm) - Width 0 0.8 0 -Post Debridement Size (cm) - Depth 0 0.2 0 -Total Square Cm 0 0.40 0 -Wound/Ulcer Outcome Healed- Not Healed Healed- Epithelialized Epithelialized -Ulcer Cleansing Rinsed/ Rinsed/ Irrigated with Irrigated with Saline Saline -Foul Odor after Cleansing No No -Bioengineered Tissue No No -Bleeding Controlled with Pressure Pressure -Offloading Yes Yes -Type of Offloading Camwalker Surgical Shoe -Treatment Response Procedure Procedure Tolerated Well Tolerated Well Pain Scale: 0-10 Numeric Is Patient Pain Free? Yes Yes Yes 11/18/18 10:01 Wound Center Nurse 2 6-right medial upper leg wound -Time 10:02 -Correct Patient Yes -Correct Side, Site, Position Yes -Correct Procedure Yes -Procedure Performed Yes -Type of Procedure Debridement -Clinical Debridement Subcutaneous -Post Debridement Size (cm) - Length 0.4 -Post Debridement Size (cm) - Width 0.5 -Post Debridement Size (cm) - Depth 0.2 -Total Square Cm 0.20 -Wound/Ulcer Outcome Not Healed -Ulcer Cleansing Rinsed/ Irrigated with Saline -Foul Odor after Cleansing No -Bioengineered Tissue No -Bleeding Controlled with Pressure -Offloading No -Treatment Response Procedure Tolerated Well #5 LEFT GREAT TOE -Time -Correct Patient No -Correct Side, Site, Position No -Correct Procedure No -Procedure Performed No -Type of Procedure -Clinical Debridement -Post Debridement Size (cm) - Length 0 -Post Debridement Size (cm) - Width 0 -Post Debridement Size (cm) - Depth 0 -Total Square Cm 0 -Wound/Ulcer Outcome Healed- Epithelialized -Ulcer Cleansing -Foul Odor after Cleansing -Bioengineered Tissue -Bleeding Controlled with -Offloading -Type of Offloading -Treatment Response #4 RIGHT GREAT TOE -Time -Correct Patient -Correct Side, Site, Position -Correct Procedure -Procedure Performed -Type of Procedure -Clinical Debridement -Post Debridement Size (cm) - Length -Post Debridement Size (cm) - Width -Post Debridement Size (cm) - Depth -Total Square Cm -Wound/Ulcer Outcome -Ulcer Cleansing -Foul Odor after Cleansing -Bioengineered Tissue -Bleeding Controlled with -Offloading -Type of Offloading -Treatment Response Pain Scale: 0-10 Numeric Is Patient Pain Free? Yes Wound debrided: proximal medial leg Laterality: Right Type of Debridement: Excisional debridement Anesthesia Used: 5% Lidocaine Gel Depth: in the subcutaneous layer Percentage of wound debrided: 100 Instrument Used: #15 blade Tissue Removed: fibrous, devitalized subcutaneous, biofilm, slough Severity: Fat Layer Exposed Amount of bleeding with debridement: Mild Bleeding Controlled with: Pressure Patient tolerated procedure well Assessment/Plan Active Problems DM (diabetes mellitus) with peripheral vascular complication (Chronic) PAD (peripheral artery disease) (Chronic) Tobacco abuse counseling (Chronic) Ulcer of right lower extremity with fat layer exposed (Acute) Assessment: Ulcer right hallux -healed. Ulcer left hallux -healed. New right leg ulcer, fat layer exposed. Peripheral vascular disease status post intervention. Diabetes with neuropathy. Malnutrition. Delayed healing Plan: I reviewed and discussed his case today. Debridement was performed as noted in the nursing clinical panel to the right leg. Bilateral hallux ulcer sites remained healed with full epithelialization. He was reassured no infection is noted. To change right leg ulcer dressings daily with Santyl; he has this at home already. No deep tissue or deep infection was appreciated at that time. I do recommend nutritional supplementation and a prescription was provided for Tc previously. He was advised on safe and proper use. I recommend offloading the ulcer to promote healing by wearing surgical shoes; he already has this. It is also noted that he had vascular surgery intervention and is currently reperfused. To continue on Coumadin as advised and to follow- up with vascular surgery as scheduled. It is also noted that he is a smoker and he is on [employer] smoking cessation program. He is advised to discontinue tobacco products or any product that has nicotine in its due to the vasoconstriction issue. His smoking reduction is noted he was encouraged to continue. He was also advised on proper glycemic control to optimize healing. He understands he is high risk for limb loss. I recommend compression with 1 Tubigrip to control his leg edema. He is reassured there are no signs of blood clot or infection to the limb. To return to clinic in 1 week or call sooner if he has any concerns.
== END 2018-11-19 23:59 ==
LOC: WC 09:30
PROVIDERS: Family Provider Nurse Practitioner; PCP Nurse Practitioner; Visit Provider Podiatrist
DX: E11.622 Type 2 diabetes mellitus with other skin ulcer (principal); L97.512 Non-pressure chronic ulcer of other part of right foot with fat layer exposed; L97.522 Non-pressure chronic ulcer of other part of left foot with fat layer exposed; E11.51 Type 2 diabetes mellitus with diabetic peripheral angiopathy without gangrene; E11.40 Type 2 diabetes mellitus with diabetic neuropathy, unspecified; F17.200 Nicotine dependence, unspecified, uncomplicated
CPT/HCPCS: 11042

== ENCOUNTER 2018-12-16 09:00 | Outpatient (RCR) | payer OTHER, SELFPAY ==
[2018-11-20 01:09] VITALS: BP 124/75; PULSE 75; RESP 18; TEMP 35.5
[2018-11-25 09:30] VITALS: BP 120/70; PULSE 76; RESP 18; TEMP 36.2; BMI 29.7
--- NOTE | 2018-11-25 10:41 | PN.PCM_ITS ---
(1) Ulcer of right lower extremity with fat layer exposed Status: Chronic Current Visit: Yes Code(s): L97.912 - Non-pressure chronic ulcer of unspecified part of right lower leg with fat layer exposed (2) PAD (peripheral artery disease) Status: Chronic Current Visit: Yes Code(s): I73.9 - Peripheral vascular disease, unspecified (3) Tobacco abuse Status: Chronic Current Visit: Yes Code(s): Z72.0 - Tobacco use (4) Edema of right lower extremity Status: Chronic Current Visit: Yes Code(s): R60.0 - Localized edema Type of Wound Date of Service: 11/25/18 Chief Complaint: right leg ulcer History of Wound: This is a 58-year-old male returns to clinic for ischemic ulcerations on the right and left toes. The patient underwent right lower extremity revascularization on June 11, 2018. Surgery was performed at the [facility]. It appears he underwent a right femoral?popliteal bypass graft, with prosthetic graft material. He has been changing his dressing daily with Santyl and he reports his left great toe ulcer site is healed and is not been draining the past week. He has resolved foot pain. He denies current claudication, he denies fever, chill, nausea, vomiting. He denies right toe drainage. He continues to reduce his smoking activity. He denies pain to his right leg ulcer site and thinks this is getting smaller. Progress of Wound: Stable and improving right leg ulcer site - Physical Exam Vital Signs Temp Pulse Resp BP 97.1 F L 76 18 120/70 11/25/18 09:30 11/25/18 09:30 11/25/18 09:30 11/25/18 09:30 General: Alert, Oriented x3, Cooperative Extremities: No cyanosis, Capillary Refill Less than 3 Seconds, No Calf Tenderness - Negative Kwame and Navarro sign bilateral, Diminished Peripheral Pulses, Edema - Mild right lower extremity Skin: Ulcer/ Wound - No purulence, erythema, streaking, odor, or infection. There is peripheral epithelialization noted to the right leg ulcer site. Peripheral skin is hairless and atrophic. There is no ulcer noted to the left lower extremity Wound Measurements and Assessment WC - Nurse 1 - General Ulcer Measurement Start: 11/25/18 09:30 Freq: Status: Active Protocol: Activity Type Activity Date Activity User E-Sign Co-Sign Detail Recorded Client Recorded Date Recorded By Document 11/25/18 09:30 [id number] 11/25/18 09:32 11/25/18 09:30 Wound Center Nurse 1 [Ulcer Assessment] 6-right medial upper leg wound -Combined with other wound No -Current Size (cm) - Length 0.1 -Current Size (cm) - Width 0.1 -Current Size (cm) - Depth 0.1 -Total Square Cm 0.01 -Photo Taken No -Epithelialization Large 67-100% -Tunneling No -Undermining/Tunneling No -Circular Undermining No -Exudate Amt None Present -Granulation Amt Large (67-100%) -Granulation Quality Red -Slough/Fibrin Yes -Necrosis Amt None Present (0 %) -Necrotic Tissue Type Adherent Slough -Structure Exposed N/A -Texture (Scarlett-wound Skin Appearance) Assessed Localized Edema -Moisture (Scarlett-wound Skin Appearance Assessed ) Dry/Scaly -Color (Scarlett-wound Skin Appearance) Assessed Hemosiderin Staining -Temperature (Scarlett-wound Skin No Abnormality Appearance) (Pt Warm) -Tenderness on Palpation (Scarlett-wound No Skin Appearance) -Ulcer Cleansing Wound Cleanser -Foul Odor after Cleansing No -Anesthetic Used 4% Lidocaine Solution [Edema Assessment] -Lower Limb Edema Present Yes -Right Calf (cm) 41.5 -Right Ankle (cm) 24.0 WC - Nurse 2 - General Ulcer CM Notes Start: 11/25/18 09:30 Freq: Status: Active Protocol: Activity Type Activity Date Activity User E-Sign Co-Sign Detail Recorded Client Recorded Date Recorded By Document 11/25/18 09:43 [id number] 11/25/18 09:45 11/25/18 09:43 Wound Center Nurse 2 [Procedure/Treatment] 6-right medial upper leg wound -Time 09:43 -Correct Patient Yes -Correct Side, Site, Position Yes -Correct Procedure Yes -Procedure Performed Yes -Type of Procedure Debridement -Clinical Debridement Subcutaneous -Post Debridement Size (cm) - Length 0.3 -Post Debridement Size (cm) - Width 0.1 -Post Debridement Size (cm) - Depth 0.1 -Total Square Cm 0.03 -Wound/Ulcer Outcome Not Healed -Ulcer Cleansing Rinsed/ Irrigated with Saline -Foul Odor after Cleansing No -Bioengineered Tissue No -Bleeding Controlled with Pressure -Offloading No -Treatment Response Procedure Tolerated Well [See Physician Procedure note for Specifics] Pain Scale: 0-10 Numeric [Pain] -Is Patient Pain Free? Yes Musculoskeletal: No Tenderness to Palpation of Joints or Extremities, Muscle Wasting Neurological: Sensory exam intact to light touch and pain, - Psych/Mental Status: Normal Affect, Appropriate Debridement Note Post-Debridement Measurements/Treatment WC - Nurse 2 - General Ulcer CM Notes Start: 11/25/18 09:30 Freq: Status: Active Protocol: Activity Type Activity Date Activity User E-Sign Co-Sign Detail Recorded Client Recorded Date Recorded By Document 11/25/18 09:43 [id number] 11/25/18 09:45 [email or web address] 11/25/18 09:43 Wound Center Nurse 2 6-right medial upper leg wound -Time 09:43 -Correct Patient Yes -Correct Side, Site, Position Yes -Correct Procedure Yes -Procedure Performed Yes -Type of Procedure Debridement -Clinical Debridement Subcutaneous -Post Debridement Size (cm) - Length 0.3 -Post Debridement Size (cm) - Width 0.1 -Post Debridement Size (cm) - Depth 0.1 -Total Square Cm 0.03 -Wound/Ulcer Outcome Not Healed -Ulcer Cleansing Rinsed/ Irrigated with Saline -Foul Odor after Cleansing No -Bioengineered Tissue No -Bleeding Controlled with Pressure -Offloading No -Treatment Response Procedure Tolerated Well Pain Scale: 0-10 Numeric Is Patient Pain Free? Yes Wound debrided: proximal medial leg Laterality: Right Type of Debridement: Excisional debridement Anesthesia Used: 5% Lidocaine Gel Depth: in the subcutaneous layer Percentage of wound debrided: 100 Instrument Used: #15 blade Tissue Removed: fibrous, devitalized subcutaneous, biofilm, slough Severity: Fat Layer Exposed Amount of bleeding with debridement: Mild Bleeding Controlled with: Pressure Patient tolerated procedure well Assessment/Plan Active Problems Ulcer of right leg (Chronic) DM (diabetes mellitus) with peripheral vascular complication (Chronic) PAD (peripheral artery disease) (Chronic) Tobacco abuse (Chronic) Ulcer of right lower extremity with fat layer exposed (Chronic) Edema of right lower extremity (Chronic) Assessment: Ulcer right hallux -healed. Ulcer left hallux -healed. right leg ulcer, fat layer exposed. Peripheral vascular disease status post intervention. Diabetes with neuropathy. Malnutrition. Delayed healing Plan: I reviewed and discussed his case today. Debridement was performed as noted in the nursing clinical panel to the right leg. Bilateral hallux ulcer sites remained healed with full epithelialization. He was reassured no infection is noted. To change right leg ulcer dressings daily with Santyl; he has this at home already. No deep tissue or deep infection was appreciated at that time. I do recommend nutritional supplementation and a prescription was provided for Tc previously. He was advised on safe and proper use. Okay to continue with well fitted protective and supportive flow shoes is his foot ulcer sites have healed. It is also noted that he had vascular surgery intervention and is currently reperfused. To continue on Coumadin as advised and to follow-up with vascular surgery as scheduled. It is also noted that he is a smoker and he is on [employer] smoking cessation program. He is advised to discontinue tobacco products or any product that has nicotine in its due to the vasoconstriction issue. His smoking reduction is noted he was encouraged to continue. He was also advised on proper glycemic control to optimize healing. He understands he is high risk for limb loss. I recommend compression with 1 Tubigrip to control his leg edema. He is reassured there are no signs of blood clot or infection to the limb. To return to clinic in 1 week or call sooner if he has any concerns.
[2018-12-02 09:01] VITALS: BP 118/67; PULSE 79; RESP 18; TEMP 36.6; BMI 29.7
--- NOTE | 2018-12-02 09:55 | PCM.WC.PN ---
(1) Ulcer of right lower extremity with fat layer exposed Status: Chronic Current Visit: Yes Code(s): L97.912 - Non-pressure chronic ulcer of unspecified part of right lower leg with fat layer exposed (2) PAD (peripheral artery disease) Status: Chronic Current Visit: Yes Code(s): I73.9 - Peripheral vascular disease, unspecified (3) Tobacco abuse Status: Chronic Current Visit: Yes Code(s): Z72.0 - Tobacco use (4) Edema of right lower extremity Status: Chronic Current Visit: Yes Code(s): R60.0 - Localized edema Type of Wound Chief Complaint: right leg ulcer History of Wound: This is a 58-year-old male returns to clinic for right leg ulcer. His toe ulcers remain healed. The patient underwent right lower extremity revascularization on June 11, 2018. Surgery was performed at the [facility]. It appears he underwent a right femoral?popliteal bypass graft, with prosthetic graft material. He has been changing his dressing daily with Santyl. He denies current claudication, he denies fever, chill, nausea, vomiting. He continues to reduce his smoking activity. He has a new opening and drainage site just above his previous ulcer site to the leg. He is been wearing a compression garment that comes up to the knee level. Progress of Wound: Stable right leg ulcer site. New ulcer just proximal to the site - Physical Exam Vital Signs Temp Pulse Resp BP 97.9 F 79 18 118/67 12/02/18 09:01 12/02/18 09:01 12/02/18 09:01 12/02/18 09:01 General: Alert, Oriented x3, Cooperative Extremities: No cyanosis, Capillary Refill Less than 3 Seconds - Right lower extremity, No Calf Tenderness - Negative Kwame and Navarro sign, Diminished Peripheral Pulses, Edema - Moderate right lower extremity with some varicosities noted Skin: Ulcer/ Wound - No purulence, erythema, streaking, odor, infection. There is no deeper probing to both sites and these do not seem to be connected when probed with a metallic probe. The distal wound is tunneling proximally at the 12 o'clock position. The adjacent skin is hairless and atrophic. It is noted this is over his previous incision site. Wound Measurements and Assessment WC - Nurse 1 - General Ulcer Measurement Start: 11/25/18 09:30 Freq: Status: Active Protocol: Activity Type Activity Date Activity User E-Sign Co-Sign Detail Recorded Client Recorded Date Recorded By Document 12/02/18 09:01 DL [id number] 12/02/18 09:13 DL 12/02/18 09:01 Wound Center Nurse 1 [Ulcer Assessment] #7 R Med LE Sup -Current Size (cm) - Length 0.1 -Current Size (cm) - Width 0.1 -Current Size (cm) - Depth 0.1 -Total Square Cm 0.01 -Photo Taken Yes -Exudate Amt Small -Exudate Type Yellow/Green -Wound Margin Flat & Intact -Granulation Amt Small (1-33%) -Granulation Quality [place] -Necrosis Amt None Present (0 %) -Structure Exposed N/A -Texture (Scarlett-wound Skin Appearance) Scarring -Moisture (Scarlett-wound Skin Appearance No Abnormality ) -Color (Scarlett-wound Skin Appearance) No Abnormality -Temperature (Scarlett-wound Skin No Abnormality Appearance) (Pt Warm) -Tenderness on Palpation (Scarlett-wound No Skin Appearance) -Ulcer Cleansing Rinsed/ Irrigated with Saline -Foul Odor after Cleansing No -Anesthetic Used 4% Lidocaine Solution 6-right medial upper leg wound -Current Size (cm) - Length 0.1 -Current Size (cm) - Width 0.1 -Current Size (cm) - Depth 0.1 -Total Square Cm 0.01 -Photo Taken No -Exudate Amt None Present -Wound Margin Flat & Intact -Granulation Amt Small (1-33%) -Granulation Quality [place] -Necrosis Amt None Present (0 %) -Structure Exposed N/A -Texture (Scarlett-wound Skin Appearance) Scarring -Moisture (Scarlett-wound Skin Appearance No Abnormality ) -Color (Scarlett-wound Skin Appearance) No Abnormality -Temperature (Scarlett-wound Skin No Abnormality Appearance) (Pt Warm) -Ulcer Cleansing Rinsed/ Irrigated with Saline -Foul Odor after Cleansing No -Anesthetic Used 4% Lidocaine Solution [Edema Assessment] -Right Calf (cm) 41 -Right Ankle (cm) 24 WC - Nurse 2 - General Ulcer CM Notes Start: 11/25/18 09:30 Freq: Status: Active Protocol: Activity Type Activity Date Activity User E-Sign Co-Sign Detail Recorded Client Recorded Date Recorded By Document 12/02/18 09:33 [id number] [id number] 12/02/18 09:35 12/02/18 09:33 Wound Center Nurse 2 [Procedure/Treatment] #7 R Med LE Sup -Time 09:33 -Correct Patient Yes -Correct Side, Site, Position Yes -Correct Procedure Yes -Procedure Performed Yes -Type of Procedure Debridement -Clinical Debridement Subcutaneous -Post Debridement Size (cm) - Length 0.2 -Post Debridement Size (cm) - Width 0.2 -Post Debridement Size (cm) - Depth 0.4 -Total Square Cm 0.04 -Wound/Ulcer Outcome Not Healed -Ulcer Cleansing Rinsed/ Irrigated with Saline -Foul Odor after Cleansing No -Bioengineered Tissue No -Bleeding Controlled with Pressure -Offloading No -Treatment Response Procedure Tolerated Well 6-right medial upper leg wound -Time 09:34 -Correct Patient Yes -Correct Side, Site, Position Yes -Correct Procedure Yes -Procedure Performed Yes -Type of Procedure Debridement -Clinical Debridement Subcutaneous -Post Debridement Size (cm) - Length 0.2 -Post Debridement Size (cm) - Width 0.2 -Post Debridement Size (cm) - Depth 0.6 -Total Square Cm 0.04 -Wound/Ulcer Outcome Not Healed -Ulcer Cleansing Rinsed/ Irrigated with Saline -Foul Odor after Cleansing No -Bioengineered Tissue No -Bleeding Controlled with Pressure -Other tunnel at 6:00 at 0.6 cm -Offloading No -Treatment Response Procedure Tolerated Well [See Physician Procedure note for Specifics] Pain Scale: 0-10 Numeric [Pain] -Is Patient Pain Free? Yes Musculoskeletal: No Tenderness to Palpation of Joints or Extremities, Muscle Wasting, - - No fluctuance or bogginess on palpation Neurological: Sensory exam intact to light touch and pain Psych/Mental Status: Normal Affect, Appropriate Debridement Note Post-Debridement Measurements/Treatment WC - Nurse 2 - General Ulcer CM Notes Start: 11/25/18 09:30 Freq: Status: Active Protocol: Activity Type Activity Date Activity User E-Sign Co-Sign Detail Recorded Client Recorded Date Recorded By Document 11/25/18 09:43 [id number] 11/25/18 09:45 Document 12/02/18 09:33 [id number] 12/02/18 09:35 11/25/18 12/02/18 09:43 09:33 Wound Center Nurse 2 #7 R Med LE Sup -Time 09:33 -Correct Patient Yes -Correct Side, Site, Position Yes -Correct Procedure Yes -Procedure Performed Yes -Type of Procedure Debridement -Clinical Debridement Subcutaneous -Post Debridement Size (cm) - Length 0.2 -Post Debridement Size (cm) - Width 0.2 -Post Debridement Size (cm) - Depth 0.4 -Total Square Cm 0.04 -Wound/Ulcer Outcome Not Healed -Ulcer Cleansing Rinsed/ Irrigated with Saline -Foul Odor after Cleansing No -Bioengineered Tissue No -Bleeding Controlled with Pressure -Offloading No -Treatment Response Procedure Tolerated Well 6-right medial upper leg wound -Time 09:43 09:34 -Correct Patient Yes Yes -Correct Side, Site, Position Yes Yes -Correct Procedure Yes Yes -Procedure Performed Yes Yes -Type of Procedure Debridement Debridement -Clinical Debridement Subcutaneous Subcutaneous -Post Debridement Size (cm) - Length 0.3 0.2 -Post Debridement Size (cm) - Width 0.1 0.2 -Post Debridement Size (cm) - Depth 0.1 0.6 -Total Square Cm 0.03 0.04 -Wound/Ulcer Outcome Not Healed Not Healed -Ulcer Cleansing Rinsed/ Rinsed/ Irrigated with Irrigated with Saline Saline -Foul Odor after Cleansing No No -Bioengineered Tissue No No -Bleeding Controlled with Pressure Pressure -Other tunnel at 6:00 at 0.6 cm -Offloading No No -Treatment Response Procedure Procedure Tolerated Well Tolerated Well Pain Scale: 0-10 Numeric Is Patient Pain Free? Yes Yes Wound debrided: medial proximal leg (proximal ulcer) Laterality: Right Type of Debridement: Excisional debridement Anesthesia Used: 5% Lidocaine Gel Depth: in the subcutaneous layer Percentage of wound debrided: 100 Instrument Used: #15 blade Tissue Removed: fibrous, devitalized subcutaneous, biofilm, slough Severity: Fat Layer Exposed Amount of bleeding with debridement: Mild Bleeding Controlled with: Pressure Patient tolerated procedure well - Additional Wound Wound debrided: medial proximal leg (distal ulcer) Laterality: Right Type of Debridement: Excisional debridement Anesthesia Used: 5% Lidocaine Gel Depth: in the subcutaneous layer Percentage of wound debrided: 100 Instrument Used: #15 blade Tissue Removed: fibrous, devitalized subcutaneous, biofilm, slough Severity: Fat Layer Exposed Amount of bleeding with debridement: Mild Bleeding Controlled with: Pressure Patient tolerated procedure: Patient tolerated procedure well Assessment/Plan Active Problems Ulcer of right leg (Chronic) DM (diabetes mellitus) with peripheral vascular complication (Chronic) PAD (peripheral artery disease) (Chronic) Tobacco abuse (Chronic) Ulcer of right lower extremity with fat layer exposed (Chronic) Edema of right lower extremity (Chronic) Assessment: right leg ulcer, fat layer exposed now with new ulcer proximal to this location. Peripheral vascular disease status post intervention. Diabetes with neuropathy. Malnutrition. Delayed healing Plan: I reviewed and discussed his case today. Debridement was performed as noted in the nursing clinical panel to the right leg. His new ulcer site is noted and this was also debrided. he was reassured no infection is noted. To change right leg ulcer dressings daily with [employer] Ag. I do recommend nutritional supplementation and a prescription was provided for Tc previously. He was advised on safe and proper use. Okay to proceed with [place] protective and supportive shoes. It is also noted that he had vascular surgery intervention and is currently reperfused. To continue on Coumadin as advised and to follow-up with vascular surgery as scheduled. It is also noted that he is a smoker and he is on [employer] smoking cessation program. He is advised to discontinue tobacco products or any product that has nicotine in its due to the vasoconstriction issue. His smoking reduction is noted he was encouraged to continue. He was also advised on proper glycemic control to optimize healing. He understands he is high risk for limb loss. I recommend compression with 1 Tubigrip to control his leg edema. It is noted he has not been doing this. I do recommend he extend this up to the thigh level to better reduce edema at his leg ulcer site. To return to clinic in 1 week or call sooner if he has any concerns.
--- NOTE | 2018-12-02 10:00 | PN.PCM_ITS ---
(1) Ulcer of right lower extremity with fat layer exposed Status: Chronic Current Visit: Yes Code(s): L97.912 - Non-pressure chronic ulcer of unspecified part of right lower leg with fat layer exposed (2) PAD (peripheral artery disease) Status: Chronic Current Visit: Yes Code(s): I73.9 - Peripheral vascular disease, unspecified (3) Tobacco abuse Status: Chronic Current Visit: Yes Code(s): Z72.0 - Tobacco use (4) Edema of right lower extremity Status: Chronic Current Visit: Yes Code(s): R60.0 - Localized edema Type of Wound Chief Complaint: right leg ulcer History of Wound: This is a 58-year-old male returns to clinic for right leg ulcer. His toe ulcers remain healed. The patient underwent right lower extremity revascularization on June 11, 2018. Surgery was performed at the [facility]. It appears he underwent a right femoral?popliteal bypass graft, with prosthetic graft material. He has been changing his dressing daily with Santyl. He denies current claudication, he denies fever, chill, nausea, vomiting. He continues to reduce his smoking activity. He has a new opening and drainage site just above his previous ulcer site to the leg. He is been wearing a compression garment that comes up to the knee level. Progress of Wound: Stable right leg ulcer site. New ulcer just proximal to the site - Physical Exam Vital Signs Temp Pulse Resp BP 97.9 F 79 18 118/67 12/02/18 09:01 12/02/18 09:01 12/02/18 09:01 12/02/18 09:01 General: Alert, Oriented x3, Cooperative Extremities: No cyanosis, Capillary Refill Less than 3 Seconds - Right lower extremity, No Calf Tenderness - Negative Kwame and Navarro sign, Diminished Peripheral Pulses, Edema - Moderate right lower extremity with some varicosities noted Skin: Ulcer/ Wound - No purulence, erythema, streaking, odor, infection. There is no deeper probing to both sites and these do not seem to be connected when probed with a metallic probe. The distal wound is tunneling proximally at the 12 o'clock position. The adjacent skin is hairless and atrophic. It is noted this is over his previous incision site. Wound Measurements and Assessment WC - Nurse 1 - General Ulcer Measurement Start: 11/25/18 09:30 Freq: Status: Active Protocol: Activity Type Activity Date Activity User E-Sign Co-Sign Detail Recorded Client Recorded Date Recorded By Document 12/02/18 09:01 DL [id number] 12/02/18 09:13 DL 12/02/18 09:01 Wound Center Nurse 1 [Ulcer Assessment] #7 R Med LE Sup -Current Size (cm) - Length 0.1 -Current Size (cm) - Width 0.1 -Current Size (cm) - Depth 0.1 -Total Square Cm 0.01 -Photo Taken Yes -Exudate Amt Small -Exudate Type Yellow/Green -Wound Margin Flat & Intact -Granulation Amt Small (1-33%) -Granulation Quality [place] -Necrosis Amt None Present (0 %) -Structure Exposed N/A -Texture (Scarlett-wound Skin Appearance) Scarring -Moisture (Scarlett-wound Skin Appearance No Abnormality ) -Color (Scarlett-wound Skin Appearance) No Abnormality -Temperature (Scarlett-wound Skin No Abnormality Appearance) (Pt Warm) -Tenderness on Palpation (Scarlett-wound No Skin Appearance) -Ulcer Cleansing Rinsed/ Irrigated with Saline -Foul Odor after Cleansing No -Anesthetic Used 4% Lidocaine Solution 6-right medial upper leg wound -Current Size (cm) - Length 0.1 -Current Size (cm) - Width 0.1 -Current Size (cm) - Depth 0.1 -Total Square Cm 0.01 -Photo Taken No -Exudate Amt None Present -Wound Margin Flat & Intact -Granulation Amt Small (1-33%) -Granulation Quality [place] -Necrosis Amt None Present (0 %) -Structure Exposed N/A -Texture (Scarlett-wound Skin Appearance) Scarring -Moisture (Scarlett-wound Skin Appearance No Abnormality ) -Color (Scarlett-wound Skin Appearance) No Abnormality -Temperature (Scarlett-wound Skin No Abnormality Appearance) (Pt Warm) -Ulcer Cleansing Rinsed/ Irrigated with Saline -Foul Odor after Cleansing No -Anesthetic Used 4% Lidocaine Solution [Edema Assessment] -Right Calf (cm) 41 -Right Ankle (cm) 24 WC - Nurse 2 - General Ulcer CM Notes Start: 11/25/18 09:30 Freq: Status: Active Protocol: Activity Type Activity Date Activity User E-Sign Co-Sign Detail Recorded Client Recorded Date Recorded By Document 12/02/18 09:33 JF [id number] 12/02/18 09:35 12/02/18 09:33 Wound Center Nurse 2 [Procedure/Treatment] #7 R Med LE Sup -Time 09:33 -Correct Patient Yes -Correct Side, Site, Position Yes -Correct Procedure Yes -Procedure Performed Yes -Type of Procedure Debridement -Clinical Debridement Subcutaneous -Post Debridement Size (cm) - Length 0.2 -Post Debridement Size (cm) - Width 0.2 -Post Debridement Size (cm) - Depth 0.4 -Total Square Cm 0.04 -Wound/Ulcer Outcome Not Healed -Ulcer Cleansing Rinsed/ Irrigated with Saline -Foul Odor after Cleansing No -Bioengineered Tissue No -Bleeding Controlled with Pressure -Offloading No -Treatment Response Procedure Tolerated Well 6-right medial upper leg wound -Time 09:34 -Correct Patient Yes -Correct Side, Site, Position Yes -Correct Procedure Yes -Procedure Performed Yes -Type of Procedure Debridement -Clinical Debridement Subcutaneous -Post Debridement Size (cm) - Length 0.2 -Post Debridement Size (cm) - Width 0.2 -Post Debridement Size (cm) - Depth 0.6 -Total Square Cm 0.04 -Wound/Ulcer Outcome Not Healed -Ulcer Cleansing Rinsed/ Irrigated with Saline -Foul Odor after Cleansing No -Bioengineered Tissue No -Bleeding Controlled with Pressure -Other tunnel at 6:00 at 0.6 cm -Offloading No -Treatment Response Procedure Tolerated Well [See Physician Procedure note for Specifics] Pain Scale: 0-10 Numeric [Pain] -Is Patient Pain Free? Yes Musculoskeletal: No Tenderness to Palpation of Joints or Extremities, Muscle Wasting, - - No fluctuance or bogginess on palpation Neurological: Sensory exam intact to light touch and pain Psych/Mental Status: Normal Affect, Appropriate Debridement Note Post-Debridement Measurements/Treatment WC - Nurse 2 - General Ulcer CM Notes Start: 11/25/18 09:30 Freq: Status: Active Protocol: Activity Type Activity Date Activity User E-Sign Co-Sign Detail Recorded Client Recorded Date Recorded By Document 11/25/18 09:43 [id number] 11/25/18 09:45 Document 12/02/18 09:33 [id number] 12/02/18 09:35 11/25/18 12/02/18 09:43 09:33 Wound Center Nurse 2 #7 R Med LE Sup -Time 09:33 -Correct Patient Yes -Correct Side, Site, Position Yes -Correct Procedure Yes -Procedure Performed Yes -Type of Procedure Debridement -Clinical Debridement Subcutaneous -Post Debridement Size (cm) - Length 0.2 -Post Debridement Size (cm) - Width 0.2 -Post Debridement Size (cm) - Depth 0.4 -Total Square Cm 0.04 -Wound/Ulcer Outcome Not Healed -Ulcer Cleansing Rinsed/ Irrigated with Saline -Foul Odor after Cleansing No -Bioengineered Tissue No -Bleeding Controlled with Pressure -Offloading No -Treatment Response Procedure Tolerated Well 6-right medial upper leg wound -Time 09:43 09:34 -Correct Patient Yes Yes -Correct Side, Site, Position Yes Yes -Correct Procedure Yes Yes -Procedure Performed Yes Yes -Type of Procedure Debridement Debridement -Clinical Debridement Subcutaneous Subcutaneous -Post Debridement Size (cm) - Length 0.3 0.2 -Post Debridement Size (cm) - Width 0.1 0.2 -Post Debridement Size (cm) - Depth 0.1 0.6 -Total Square Cm 0.03 0.04 -Wound/Ulcer Outcome Not Healed Not Healed -Ulcer Cleansing Rinsed/ Rinsed/ Irrigated with Irrigated with Saline Saline -Foul Odor after Cleansing No No -Bioengineered Tissue No No -Bleeding Controlled with Pressure Pressure -Other tunnel at 6:00 at 0.6 cm -Offloading No No -Treatment Response Procedure Procedure Tolerated Well Tolerated Well Pain Scale: 0-10 Numeric Is Patient Pain Free? Yes Yes Wound debrided: medial proximal leg (proximal ulcer) Laterality: Right Type of Debridement: Excisional debridement Anesthesia Used: 5% Lidocaine Gel Depth: in the subcutaneous layer Percentage of wound debrided: 100 Instrument Used: #15 blade Tissue Removed: fibrous, devitalized subcutaneous, biofilm, slough Severity: Fat Layer Exposed Amount of bleeding with debridement: Mild Bleeding Controlled with: Pressure Patient tolerated procedure well - Additional Wound Wound debrided: medial proximal leg (distal ulcer) Laterality: Right Type of Debridement: Excisional debridement Anesthesia Used: 5% Lidocaine Gel Depth: in the subcutaneous layer Percentage of wound debrided: 100 Instrument Used: #15 blade Tissue Removed: fibrous, devitalized subcutaneous, biofilm, slough Severity: Fat Layer Exposed Amount of bleeding with debridement: Mild Bleeding Controlled with: Pressure Patient tolerated procedure: Patient tolerated procedure well Assessment/Plan Active Problems Ulcer of right leg (Chronic) DM (diabetes mellitus) with peripheral vascular complication (Chronic) PAD (peripheral artery disease) (Chronic) Tobacco abuse (Chronic) Ulcer of right lower extremity with fat layer exposed (Chronic) Edema of right lower extremity (Chronic) Assessment: right leg ulcer, fat layer exposed now with new ulcer proximal to this location. Peripheral vascular disease status post intervention. Diabetes with neuropathy. Malnutrition. Delayed healing Plan: I reviewed and discussed his case today. Debridement was performed as noted in the nursing clinical panel to the right leg. His new ulcer site is noted and this was also debrided. he was reassured no infection is noted. To change right leg ulcer dressings daily with [employer]. I do recommend nutritional supplementation and a prescription was provided for Tc previously. He was advised on safe and proper use. Okay to proceed with [place] protective and supportive shoes. It is also noted that he had vascular surgery intervention and is currently reperfused. To continue on Coumadin as advised and to follow-up with vascular surgery as scheduled. It is also noted that he is a smoker and he is on [email or web address] smoking cessation program. He is advised to discontinue tobacco products or any product that has nicotine in its due to the vasoconstriction issue. His smoking reduction is noted he was encouraged to continue. He was also advised on proper glycemic control to optimize healing. He understands he is high risk for limb loss. I recommend compression with 1 Tubigrip to control his leg edema. It is noted he has not been doing this. I do recommend he extend this up to the thigh level to better reduce edema at his leg ulcer site. To return to clinic in 1 week or call sooner if he has any concerns.
[2018-12-09 09:19] VITALS: BP 121/66; PULSE 76; RESP 20; TEMP 36.5; BMI 29.7
--- NOTE | 2018-12-09 10:03 | PCM.WC.PN ---
(1) Ulcer of right lower extremity with fat layer exposed Status: Chronic Current Visit: Yes Code(s): L97.912 - Non-pressure chronic ulcer of unspecified part of right lower leg with fat layer exposed (2) PAD (peripheral artery disease) Status: Chronic Current Visit: Yes Code(s): I73.9 - Peripheral vascular disease, unspecified (3) Tobacco abuse Status: Chronic Current Visit: Yes Code(s): Z72.0 - Tobacco use (4) Edema of right lower extremity Status: Chronic Current Visit: Yes Code(s): R60.0 - Localized edema Type of Wound Chief Complaint: right leg ulcer History of Wound: This is a 58-year-old male returns to clinic for right leg ulcer. His toe ulcers remain healed. The patient underwent right lower extremity revascularization on June 11, 2018. Surgery was performed at the [facility]. It appears he underwent a right femoral?popliteal bypass graft, with prosthetic graft material. He has been changing his dressing daily with Santyl. He denies current claudication, he denies fever, chill, nausea, vomiting. He continues to reduce his smoking activity. He wears compression and it slips on his thigh. he has decreased drainage. Progress of Wound: Stable right leg ulcer site. healed ulcer just proximal to the site - Physical Exam Vital Signs Temp Pulse Resp BP 97.7 F L 76 20 H 121/66 H 12/09/18 09:19 12/09/18 09:19 12/09/18 09:19 12/09/18 09:19 General: Alert, Oriented x3, Cooperative HEENT: Atraumatic Extremities: Capillary Refill Less than 3 Seconds, No Calf Tenderness, Diminished Peripheral Pulses, Edema - decreased right Skin: Ulcer/ Wound - no purulence, no erythema, no infection, no streaking noted. decreased depth to distal ulcer. Wound Measurements and Assessment WC - Nurse 1 - General Ulcer Measurement Start: 11/25/18 09:30 Freq: Status: Active Protocol: Activity Type Activity Date Activity User E-Sign Co-Sign Detail Recorded Client Recorded Date Recorded By Document 12/09/18 09:19 DL [id number] 12/09/18 09:25 DL 12/09/18 09:19 Wound Center Nurse 1 [Ulcer Assessment] #7 R Med LE Sup -Combined with other wound No -Current Size (cm) - Length 0.2 -Current Size (cm) - Width 0.2 -Current Size (cm) - Depth 0.2 -Total Square Cm 0.04 -Photo Taken No -Tunneling No -Undermining/Tunneling No -Circular Undermining No -Exudate Amt Small -Exudate Type Serosanguineous -Wound Margin Distinct, Outline Attached -Granulation Amt Medium (34-66%) -Granulation Quality [place] -Slough/Fibrin Yes -Necrosis Amt Medium (34-66%) -Necrotic Tissue Type Adherent Slough -Structure Exposed N/A -Texture (Scarlett-wound Skin Appearance) Assessed -Moisture (Scarlett-wound Skin Appearance Assessed ) -Color (Scarlett-wound Skin Appearance) Assessed -Temperature (Scarlett-wound Skin No Abnormality Appearance) (Pt Warm) -Tenderness on Palpation (Scarlett-wound No Skin Appearance) -Ulcer Cleansing Rinsed/ Irrigated with Saline -Foul Odor after Cleansing No -Anesthetic Used 4% Lidocaine Solution 6-right medial upper leg wound -Combined with other wound No -Current Size (cm) - Length 0.2 -Current Size (cm) - Width 0.2 -Current Size (cm) - Depth 0.2 -Total Square Cm 0.04 -Photo Taken No -Tunneling No -Undermining/Tunneling No -Circular Undermining No -Exudate Amt Small -Exudate Type Serosanguineous -Wound Margin Distinct, Outline Attached -Granulation Amt Large (67-100%) -Granulation Quality [place] -Slough/Fibrin Yes -Necrosis Amt Small (1-33%) -Structure Exposed N/A -Texture (Scarlett-wound Skin Appearance) Assessed -Moisture (Scarlett-wound Skin Appearance Assessed ) -Color (Scarlett-wound Skin Appearance) Assessed -Temperature (Scarlett-wound Skin No Abnormality Appearance) (Pt Warm) -Tenderness on Palpation (Scarlett-wound No Skin Appearance) -Ulcer Cleansing Rinsed/ Irrigated with Saline -Foul Odor after Cleansing No -Anesthetic Used 4% Lidocaine Solution [Edema Assessment] -Lower Limb Edema Present Yes -Right Calf (cm) 41 -Right Ankle (cm) 22 WC - Nurse 2 - General Ulcer CM Notes Start: 11/25/18 09:30 Freq: Status: Active Protocol: Activity Type Activity Date Activity User E-Sign Co-Sign Detail Recorded Client Recorded Date Recorded By Document 12/09/18 09:38 [id number] 12/09/18 09:39 12/09/18 09:38 Wound Center Nurse 2 [Procedure/Treatment] #7 R Med LE Sup -Correct Patient No -Correct Side, Site, Position No -Correct Procedure No -Procedure Performed No -Post Debridement Size (cm) - Length 0.1 -Post Debridement Size (cm) - Width 0.1 -Post Debridement Size (cm) - Depth 0.1 -Total Square Cm 0.01 -Wound/Ulcer Outcome Not Healed -Ulcer Cleansing Rinsed/ Irrigated with Saline -Foul Odor after Cleansing No -Bioengineered Tissue No -Bleeding Controlled with Pressure -Offloading No -Treatment Response Procedure Tolerated Well 6-right medial upper leg wound -Time 09:38 -Correct Patient Yes -Correct Side, Site, Position Yes -Correct Procedure Yes -Procedure Performed Yes -Type of Procedure Debridement -Clinical Debridement Subcutaneous -Post Debridement Size (cm) - Length 0.3 -Post Debridement Size (cm) - Width 0.2 -Post Debridement Size (cm) - Depth 0.2 -Total Square Cm 0.06 -Wound/Ulcer Outcome Not Healed -Ulcer Cleansing Rinsed/ Irrigated with Saline -Foul Odor after Cleansing No -Bioengineered Tissue No -Bleeding Controlled with Pressure -Offloading No -Treatment Response Procedure Tolerated Well [See Physician Procedure note for Specifics] Pain Scale: 0-10 Numeric [Pain] -Is Patient Pain Free? Yes Musculoskeletal: No Tenderness to Palpation of Joints or Extremities, Muscle Wasting, - - compartments remain soft right leg Neurological: Sensory exam intact to light touch and pain Psych/Mental Status: Normal Affect, Appropriate Debridement Note Post-Debridement Measurements/Treatment WC - Nurse 2 - General Ulcer CM Notes Start: 11/25/18 09:30 Freq: Status: Active Protocol: Activity Type Activity Date Activity User E-Sign Co-Sign Detail Recorded Client Recorded Date Recorded By Document 11/25/18 09:43 [id number] 11/25/18 09:45 Document 12/02/18 09:33 [id number] 12/02/18 09:35 Document 12/09/18 09:38 [id number] 12/09/18 09:39 11/25/18 12/02/18 12/09/18 09:43 09:33 09:38 Wound Center Nurse 2 #7 R Med LE Sup -Time 09:33 -Correct Patient Yes No -Correct Side, Site, Position Yes No -Correct Procedure Yes No -Procedure Performed Yes No -Type of Procedure Debridement -Clinical Debridement Subcutaneous -Post Debridement Size (cm) - Length 0.2 0.1 -Post Debridement Size (cm) - Width 0.2 0.1 -Post Debridement Size (cm) - Depth 0.4 0.1 -Total Square Cm 0.04 0.01 -Wound/Ulcer Outcome Not Healed Not Healed -Ulcer Cleansing Rinsed/ Rinsed/ Irrigated with Irrigated with Saline Saline -Foul Odor after Cleansing No No -Bioengineered Tissue No No -Bleeding Controlled with Pressure Pressure -Offloading No No -Treatment Response Procedure Procedure Tolerated Well Tolerated Well 6-right medial upper leg wound -Time 09:43 09:34 09:38 -Correct Patient Yes Yes Yes -Correct Side, Site, Position Yes Yes Yes -Correct Procedure Yes Yes Yes -Procedure Performed Yes Yes Yes -Type of Procedure Debridement Debridement Debridement -Clinical Debridement Subcutaneous Subcutaneous Subcutaneous -Post Debridement Size (cm) - Length 0.3 0.2 0.3 -Post Debridement Size (cm) - Width 0.1 0.2 0.2 -Post Debridement Size (cm) - Depth 0.1 0.6 0.2 -Total Square Cm 0.03 0.04 0.06 -Wound/Ulcer Outcome Not Healed Not Healed Not Healed -Ulcer Cleansing Rinsed/ Rinsed/ Rinsed/ Irrigated with Irrigated with Irrigated with Saline Saline Saline -Foul Odor after Cleansing No No No -Bioengineered Tissue No No No -Bleeding Controlled with Pressure Pressure Pressure -Other tunnel at 6:00 at 0.6 cm -Offloading No No No -Treatment Response Procedure Procedure Procedure Tolerated Well Tolerated Well Tolerated Well Pain Scale: 0-10 Numeric Is Patient Pain Free? Yes Yes Yes Wound debrided: leg medial Laterality: Right Type of Debridement: Excisional debridement Anesthesia Used: 5% Lidocaine Gel Depth: in the subcutaneous layer Percentage of wound debrided: 100 Instrument Used: #15 blade Tissue Removed: fibrous, devitalized subcutaneous, biofilm, slough Severity: Fat Layer Exposed Amount of bleeding with debridement: Mild Bleeding Controlled with: Pressure Patient tolerated procedure well Assessment/Plan Active Problems Ulcer of right leg (Chronic) DM (diabetes mellitus) with peripheral vascular complication (Chronic) PAD (peripheral artery disease) (Chronic) Tobacco abuse (Chronic) Ulcer of right lower extremity with fat layer exposed (Chronic) Edema of right lower extremity (Chronic) Assessment: right leg ulcer, fat layer exposed now with healed ulcer proximal to this location. Peripheral vascular disease status post intervention. Diabetes with neuropathy. Malnutrition. Delayed healing Plan: I reviewed and discussed his case today. Debridement was performed as noted in the nursing clinical panel to the right leg. The proximal site is healed today. he was reassured no infection is noted. To change right leg ulcer dressings daily with Aquacel Ag. I do recommend nutritional supplementation and a prescription was provided for Tc previously. He was advised on safe and proper use. Okay to proceed with [place] protective and supportive shoes. It is also noted that he had vascular surgery intervention and is currently reperfused. To continue on Coumadin as advised and to follow-up with vascular surgery as scheduled. It is also noted that he is a smoker and he is on [employer] smoking cessation program. He is advised to discontinue tobacco products or any product that has nicotine in its due to the vasoconstriction issue. His smoking reduction is noted he was encouraged to continue. He was also advised on proper glycemic control to optimize healing. He understands he is high risk for limb loss. I recommend compression with 1 Tubigrip and jasmin wrap extended to the thigh to control his leg edema.It is noted he had trouble with the compression rolling on the thigh level last week. To return to clinic in 1 week or call sooner if he has any concerns.
--- NOTE | 2018-12-09 10:16 | PN.PCM_ITS ---
(1) Ulcer of right lower extremity with fat layer exposed Status: Chronic Current Visit: Yes Code(s): L97.912 - Non-pressure chronic ulcer of unspecified part of right lower leg with fat layer exposed (2) PAD (peripheral artery disease) Status: Chronic Current Visit: Yes Code(s): I73.9 - Peripheral vascular disease, unspecified (3) Tobacco abuse Status: Chronic Current Visit: Yes Code(s): Z72.0 - Tobacco use (4) Edema of right lower extremity Status: Chronic Current Visit: Yes Code(s): R60.0 - Localized edema Type of Wound Chief Complaint: right leg ulcer History of Wound: This is a 58-year-old male returns to clinic for right leg ulcer. His toe ulcers remain healed. The patient underwent right lower extremity revascularization on June 11, 2018. Surgery was performed at the [facility]. It appears he underwent a right femoral?popliteal bypass graft, with prosthetic graft material. He has been changing his dressing daily with Santyl. He denies current claudication, he denies fever, chill, nausea, vomiting. He continues to reduce his smoking activity. He wears compression and it slips on his thigh. he has decreased drainage. Progress of Wound: Stable right leg ulcer site. healed ulcer just proximal to the site - Physical Exam Vital Signs Temp Pulse Resp BP 97.7 F L 76 20 H 121/66 H 12/09/18 09:19 12/09/18 09:19 12/09/18 09:19 12/09/18 09:19 General: Alert, Oriented x3, Cooperative HEENT: Atraumatic Extremities: Capillary Refill Less than 3 Seconds, No Calf Tenderness, Diminished Peripheral Pulses, Edema - decreased right Skin: Ulcer/ Wound - no purulence, no erythema, no infection, no streaking noted. decreased depth to distal ulcer. Wound Measurements and Assessment WC - Nurse 1 - General Ulcer Measurement Start: 11/25/18 09:30 Freq: Status: Active Protocol: Activity Type Activity Date Activity User E-Sign Co-Sign Detail Recorded Client Recorded Date Recorded By Document 12/09/18 09:19 DL [id number] 12/09/18 09:25 DL 12/09/18 09:19 Wound Center Nurse 1 [Ulcer Assessment] #7 R Med LE Sup -Combined with other wound No -Current Size (cm) - Length 0.2 -Current Size (cm) - Width 0.2 -Current Size (cm) - Depth 0.2 -Total Square Cm 0.04 -Photo Taken No -Tunneling No -Undermining/Tunneling No -Circular Undermining No -Exudate Amt Small -Exudate Type Serosanguineous -Wound Margin Distinct, Outline Attached -Granulation Amt Medium (34-66%) -Granulation Quality [place] -Slough/Fibrin Yes -Necrosis Amt Medium (34-66%) -Necrotic Tissue Type Adherent Slough -Structure Exposed N/A -Texture (Scarlett-wound Skin Appearance) Assessed -Moisture (Scarlett-wound Skin Appearance Assessed ) -Color (Scarlett-wound Skin Appearance) Assessed -Temperature (Scarlett-wound Skin No Abnormality Appearance) (Pt Warm) -Tenderness on Palpation (Scarlett-wound No Skin Appearance) -Ulcer Cleansing Rinsed/ Irrigated with Saline -Foul Odor after Cleansing No -Anesthetic Used 4% Lidocaine Solution 6-right medial upper leg wound -Combined with other wound No -Current Size (cm) - Length 0.2 -Current Size (cm) - Width 0.2 -Current Size (cm) - Depth 0.2 -Total Square Cm 0.04 -Photo Taken No -Tunneling No -Undermining/Tunneling No -Circular Undermining No -Exudate Amt Small -Exudate Type Serosanguineous -Wound Margin Distinct, Outline Attached -Granulation Amt Large (67-100%) -Granulation Quality [place] -Slough/Fibrin Yes -Necrosis Amt Small (1-33%) -Structure Exposed N/A -Texture (Scarlett-wound Skin Appearance) Assessed -Moisture (Scarlett-wound Skin Appearance Assessed ) -Color (Scarlett-wound Skin Appearance) Assessed -Temperature (Scarlett-wound Skin No Abnormality Appearance) (Pt Warm) -Tenderness on Palpation (Scarlett-wound No Skin Appearance) -Ulcer Cleansing Rinsed/ Irrigated with Saline -Foul Odor after Cleansing No -Anesthetic Used 4% Lidocaine Solution [Edema Assessment] -Lower Limb Edema Present Yes -Right Calf (cm) 41 -Right Ankle (cm) 22 WC - Nurse 2 - General Ulcer CM Notes Start: 11/25/18 09:30 Freq: Status: Active Protocol: Activity Type Activity Date Activity User E-Sign Co-Sign Detail Recorded Client Recorded Date Recorded By Document 12/09/18 09:38 [id number] 12/09/18 09:39 12/09/18 09:38 Wound Center Nurse 2 [Procedure/Treatment] #7 R Med LE Sup -Correct Patient No -Correct Side, Site, Position No -Correct Procedure No -Procedure Performed No -Post Debridement Size (cm) - Length 0.1 -Post Debridement Size (cm) - Width 0.1 -Post Debridement Size (cm) - Depth 0.1 -Total Square Cm 0.01 -Wound/Ulcer Outcome Not Healed -Ulcer Cleansing Rinsed/ Irrigated with Saline -Foul Odor after Cleansing No -Bioengineered Tissue No -Bleeding Controlled with Pressure -Offloading No -Treatment Response Procedure Tolerated Well 6-right medial upper leg wound -Time 09:38 -Correct Patient Yes -Correct Side, Site, Position Yes -Correct Procedure Yes -Procedure Performed Yes -Type of Procedure Debridement -Clinical Debridement Subcutaneous -Post Debridement Size (cm) - Length 0.3 -Post Debridement Size (cm) - Width 0.2 -Post Debridement Size (cm) - Depth 0.2 -Total Square Cm 0.06 -Wound/Ulcer Outcome Not Healed -Ulcer Cleansing Rinsed/ Irrigated with Saline -Foul Odor after Cleansing No -Bioengineered Tissue No -Bleeding Controlled with Pressure -Offloading No -Treatment Response Procedure Tolerated Well [See Physician Procedure note for Specifics] Pain Scale: 0-10 Numeric [Pain] -Is Patient Pain Free? Yes Musculoskeletal: No Tenderness to Palpation of Joints or Extremities, Muscle Wasting, - - compartments remain soft right leg Neurological: Sensory exam intact to light touch and pain Psych/Mental Status: Normal Affect, Appropriate Debridement Note Post-Debridement Measurements/Treatment WC - Nurse 2 - General Ulcer CM Notes Start: 11/25/18 09:30 Freq: Status: Active Protocol: Activity Type Activity Date Activity User E-Sign Co-Sign Detail Recorded Client Recorded Date Recorded By Document 11/25/18 09:43 [id number] 11/25/18 09:45 Document 12/02/18 09:33 [id number] 12/02/18 09:35 Document 12/09/18 09:38 [id number] 12/09/18 09:39 11/25/18 12/02/18 12/09/18 09:43 09:33 09:38 Wound Center Nurse 2 #7 R Med LE Sup -Time 09:33 -Correct Patient Yes No -Correct Side, Site, Position Yes No -Correct Procedure Yes No -Procedure Performed Yes No -Type of Procedure Debridement -Clinical Debridement Subcutaneous -Post Debridement Size (cm) - Length 0.2 0.1 -Post Debridement Size (cm) - Width 0.2 0.1 -Post Debridement Size (cm) - Depth 0.4 0.1 -Total Square Cm 0.04 0.01 -Wound/Ulcer Outcome Not Healed Not Healed -Ulcer Cleansing Rinsed/ Rinsed/ Irrigated with Irrigated with Saline Saline -Foul Odor after Cleansing No No -Bioengineered Tissue No No -Bleeding Controlled with Pressure Pressure -Offloading No No -Treatment Response Procedure Procedure Tolerated Well Tolerated Well 6-right medial upper leg wound -Time 09:43 09:34 09:38 -Correct Patient Yes Yes Yes -Correct Side, Site, Position Yes Yes Yes -Correct Procedure Yes Yes Yes -Procedure Performed Yes Yes Yes -Type of Procedure Debridement Debridement Debridement -Clinical Debridement Subcutaneous Subcutaneous Subcutaneous -Post Debridement Size (cm) - Length 0.3 0.2 0.3 -Post Debridement Size (cm) - Width 0.1 0.2 0.2 -Post Debridement Size (cm) - Depth 0.1 0.6 0.2 -Total Square Cm 0.03 0.04 0.06 -Wound/Ulcer Outcome Not Healed Not Healed Not Healed -Ulcer Cleansing Rinsed/ Rinsed/ Rinsed/ Irrigated with Irrigated with Irrigated with Saline Saline Saline -Foul Odor after Cleansing No No No -Bioengineered Tissue No No No -Bleeding Controlled with Pressure Pressure Pressure -Other tunnel at 6:00 at 0.6 cm -Offloading No No No -Treatment Response Procedure Procedure Procedure Tolerated Well Tolerated Well Tolerated Well Pain Scale: 0-10 Numeric Is Patient Pain Free? Yes Yes Yes Wound debrided: leg medial Laterality: Right Type of Debridement: Excisional debridement Anesthesia Used: 5% Lidocaine Gel Depth: in the subcutaneous layer Percentage of wound debrided: 100 Instrument Used: #15 blade Tissue Removed: fibrous, devitalized subcutaneous, biofilm, slough Severity: Fat Layer Exposed Amount of bleeding with debridement: Mild Bleeding Controlled with: Pressure Patient tolerated procedure well Assessment/Plan Active Problems Ulcer of right leg (Chronic) DM (diabetes mellitus) with peripheral vascular complication (Chronic) PAD (peripheral artery disease) (Chronic) Tobacco abuse (Chronic) Ulcer of right lower extremity with fat layer exposed (Chronic) Edema of right lower extremity (Chronic) Assessment: right leg ulcer, fat layer exposed now with healed ulcer proximal to this location. Peripheral vascular disease status post intervention. Diabetes with neuropathy. Malnutrition. Delayed healing Plan: I reviewed and discussed his case today. Debridement was performed as noted in the nursing clinical panel to the right leg. The proximal site is healed today. he was reassured no infection is noted. To change right leg ulcer dressings daily with Aquacel Ag. I do recommend nutritional supplementation and a prescription was provided for Tc previously. He was advised on safe and proper use. Okay to proceed with [place] protective and supportive shoes. It is also noted that he had vascular surgery intervention and is currently reperfused. To continue on Coumadin as advised and to follow- up with vascular surgery as scheduled. It is also noted that he is a smoker and he is on [employer] smoking cessation program. He is advised to discontinue tobacco products or any product that has nicotine in its due to the vasoconstriction issue. His smoking reduction is noted he was encouraged to continue. He was also advised on proper glycemic control to optimize healing. He understands he is high risk for limb loss. I recommend compression with 1 Tubigrip and jasmin wrap extended to the thigh to control his leg edema.It is noted he had trouble with the compression rolling on the thigh level last week. To return to clinic in 1 week or call sooner if he has any concerns.
[2018-12-16 09:08] VITALS: BP 98/64; PULSE 71; RESP 18; TEMP 36.4; BMI 29.7
--- NOTE | 2018-12-16 12:57 | PCM.WC.PN ---
(1) Ulcer of right lower extremity with fat layer exposed Status: Resolved Current Visit: Yes Code(s): L97.912 - Non-pressure chronic ulcer of unspecified part of right lower leg with fat layer exposed (2) PAD (peripheral artery disease) Status: Chronic Current Visit: Yes Code(s): I73.9 - Peripheral vascular disease, unspecified (3) Tobacco abuse Status: Chronic Current Visit: Yes Code(s): Z72.0 - Tobacco use (4) Edema of right lower extremity Status: Chronic Current Visit: Yes Code(s): R60.0 - Localized edema Type of Wound Date of Service: 12/16/18 Chief Complaint: right leg ulcer History of Wound: This is a 58-year-old male returns to clinic for right leg ulcer. His toe ulcers remain healed. The patient underwent right lower extremity revascularization on June 11, 2018. Surgery was performed at the [facility]. It appears he underwent a right femoral?popliteal bypass graft, with prosthetic graft material. He has been changing his dressing daily with Santyl. He wears a compression stocking but not the Valdez wrap on the thigh. He denies drainage and thinks the ulcer has healed. Progress of Wound: Healed - Physical Exam Vital Signs Temp Pulse Resp BP 97.5 F L 71 18 98/64 12/16/18 09:08 12/16/18 09:08 12/16/18 09:08 12/16/18 09:08 General: Alert, Oriented x3, Cooperative HEENT: Atraumatic Extremities: No cyanosis, Capillary Refill Less than 3 Seconds, No Calf Tenderness - Negative Kwame and Navarro sign right lower extremity, Diminished Peripheral Pulses, Edema - Decreased right leg Skin: Ulcer/ Wound - No purulence, erythema crusting, odor, infection, or ulcer noted. There is full epithelialization and the site has healed. There is no fluctuance on palpation. The skin around the site is still atrophic and hairless. Wound Measurements and Assessment WC - Nurse 1 - General Ulcer Measurement Start: 11/25/18 09:30 Freq: Status: Active Protocol: Activity Type Activity Date Activity User E-Sign Co-Sign Detail Recorded Client Recorded Date Recorded By Document 12/16/18 09:08 DV [id number] 12/16/18 09:13 DV 12/16/18 09:08 Wound Center Nurse 1 [Ulcer Assessment] #7 R Med LE Sup -Combined with other wound No -Current Size (cm) - Length 0.1 -Current Size (cm) - Width 0.1 -Current Size (cm) - Depth 0.1 -Total Square Cm 0.01 -Date of Last Picture (Recall this 12/16/18 field) -Photo Taken Yes -Epithelialization Large 67-100% -Tunneling No -Undermining/Tunneling No -Circular Undermining No -Classification - Thickness Full Thickness without Exposed Support Structure -Exudate Amt None Present -Wound Margin Flat & Intact -Granulation Amt None Present (0 %) -Granulation Quality N/A -Slough/Fibrin No -Necrosis Amt None Present (0 %) -Structure Exposed N/A -Texture (Scarlett-wound Skin Appearance) No Abnormality Assessed Scarring -Moisture (Scarlett-wound Skin Appearance Assessed ) Dry/Scaly -Color (Scarlett-wound Skin Appearance) No Abnormality Assessed -Temperature (Scarlett-wound Skin No Abnormality Appearance) (Pt Warm) -Tenderness on Palpation (Scarlett-wound No Skin Appearance) -Foul Odor after Cleansing No 6-right medial upper leg wound -Combined with other wound No -Current Size (cm) - Length 0.1 -Current Size (cm) - Width 0.1 -Current Size (cm) - Depth 0.1 -Total Square Cm 0.01 -Date of Last Picture (Recall this 12/16/18 field) -Photo Taken Yes -Epithelialization Large 67-100% -Tunneling No -Undermining/Tunneling No -Circular Undermining No -Classification - Thickness Full Thickness without Exposed Support Structure -Exudate Amt None Present -Wound Margin Flat & Intact -Granulation Amt None Present (0 %) -Granulation Quality N/A -Slough/Fibrin No -Necrosis Amt None Present (0 %) -Structure Exposed N/A -Texture (Scarlett-wound Skin Appearance) No Abnormality Assessed Scarring -Moisture (Scarlett-wound Skin Appearance No Abnormality ) Assessed Dry/Scaly -Color (Scarlett-wound Skin Appearance) No Abnormality Assessed -Temperature (Scarlett-wound Skin No Abnormality Appearance) (Pt Warm) -Tenderness on Palpation (Scarlett-wound No Skin Appearance) -Foul Odor after Cleansing No [Edema Assessment] -Lower Limb Edema Present No -Point of measurement (cm from the 42.0 medial instep) -Point of Measurement (cm from the 27.0 medial instep) WC - Nurse 2 - General Ulcer CM Notes Start: 11/25/18 09:30 Freq: Status: Active Protocol: Activity Type Activity Date Activity User E-Sign Co-Sign Detail Recorded Client Recorded Date Recorded By Document 12/16/18 09:47 [id number] 12/16/18 09:48 12/16/18 09:47 Wound Center Nurse 2 [Procedure/Treatment] #7 R Med LE Sup -Correct Patient No -Correct Side, Site, Position No -Correct Procedure No -Procedure Performed No -Post Debridement Size (cm) - Length 0 -Post Debridement Size (cm) - Width 0 -Post Debridement Size (cm) - Depth 0 -Total Square Cm 0 -Wound/Ulcer Outcome Healed- Epithelialized 6-right medial upper leg wound -Correct Patient No -Correct Side, Site, Position No -Correct Procedure No -Procedure Performed No -Post Debridement Size (cm) - Length 0 -Post Debridement Size (cm) - Width 0 -Post Debridement Size (cm) - Depth 0 -Total Square Cm 0 -Wound/Ulcer Outcome Healed- Epithelialized [See Physician Procedure note for Specifics] Pain Scale: 0-10 Numeric [Pain] -Is Patient Pain Free? Yes Musculoskeletal: No Tenderness to Palpation of Joints or Extremities, Muscle Wasting Neurological: Sensory exam intact to light touch and pain Psych/Mental Status: Normal Affect, Appropriate Debridement Note Post-Debridement Measurements/Treatment WC - Nurse 2 - General Ulcer CM Notes Start: 11/25/18 09:30 Freq: Status: Active Protocol: Activity Type Activity Date Activity User E-Sign Co-Sign Detail Recorded Client Recorded Date Recorded By Document 11/25/18 09:43 [id number] 11/25/18 09:45 Document 12/02/18 09:33 [id number] 12/02/18 09:35 Document 12/09/18 09:38 [id number] 12/09/18 09:39 Document 12/16/18 09:47 [id number] 12/16/18 09:48 11/25/18 12/02/18 12/09/18 09:43 09:33 09:38 Wound Center Nurse 2 #7 R Med LE Sup -Time 09:33 -Correct Patient Yes No -Correct Side, Site, Position Yes No -Correct Procedure Yes No -Procedure Performed Yes No -Type of Procedure Debridement -Clinical Debridement Subcutaneous -Post Debridement Size (cm) - Length 0.2 0.1 -Post Debridement Size (cm) - Width 0.2 0.1 -Post Debridement Size (cm) - Depth 0.4 0.1 -Total Square Cm 0.04 0.01 -Wound/Ulcer Outcome Not Healed Not Healed -Ulcer Cleansing Rinsed/ Rinsed/ Irrigated with Irrigated with Saline Saline -Foul Odor after Cleansing No No -Bioengineered Tissue No No -Bleeding Controlled with Pressure Pressure -Offloading No No -Treatment Response Procedure Procedure Tolerated Well Tolerated Well 6-right medial upper leg wound -Time 09:43 09:34 09:38 -Correct Patient Yes Yes Yes -Correct Side, Site, Position Yes Yes Yes -Correct Procedure Yes Yes Yes -Procedure Performed Yes Yes Yes -Type of Procedure Debridement Debridement Debridement -Clinical Debridement Subcutaneous Subcutaneous Subcutaneous -Post Debridement Size (cm) - Length 0.3 0.2 0.3 -Post Debridement Size (cm) - Width 0.1 0.2 0.2 -Post Debridement Size (cm) - Depth 0.1 0.6 0.2 -Total Square Cm 0.03 0.04 0.06 -Wound/Ulcer Outcome Not Healed Not Healed Not Healed -Ulcer Cleansing Rinsed/ Rinsed/ Rinsed/ Irrigated with Irrigated with Irrigated with Saline Saline Saline -Foul Odor after Cleansing No No No -Bioengineered Tissue No No No -Bleeding Controlled with Pressure Pressure Pressure -Other tunnel at 6:00 at 0.6 cm -Offloading No No No -Treatment Response Procedure Procedure Procedure Tolerated Well Tolerated Well Tolerated Well Pain Scale: 0-10 Numeric Is Patient Pain Free? Yes Yes Yes 12/16/18 09:47 Wound Center Nurse 2 #7 R John MOSER Sup -Time -Correct Patient No -Correct Side, Site, Position No -Correct Procedure No -Procedure Performed No -Type of Procedure -Clinical Debridement -Post Debridement Size (cm) - Length 0 -Post Debridement Size (cm) - Width 0 -Post Debridement Size (cm) - Depth 0 -Total Square Cm 0 -Wound/Ulcer Outcome Healed- Epithelialized -Ulcer Cleansing -Foul Odor after Cleansing -Bioengineered Tissue -Bleeding Controlled with -Offloading -Treatment Response 6-right medial upper leg wound -Time -Correct Patient No -Correct Side, Site, Position No -Correct Procedure No -Procedure Performed No -Type of Procedure -Clinical Debridement -Post Debridement Size (cm) - Length 0 -Post Debridement Size (cm) - Width 0 -Post Debridement Size (cm) - Depth 0 -Total Square Cm 0 -Wound/Ulcer Outcome Healed- Epithelialized -Ulcer Cleansing -Foul Odor after Cleansing -Bioengineered Tissue -Bleeding Controlled with -Other -Offloading -Treatment Response Pain Scale: 0-10 Numeric Is Patient Pain Free? Yes No debridement was completed today - the ulcer has healed Assessment/Plan Active Problems Ulcer of right leg (Chronic) DM (diabetes mellitus) with peripheral vascular complication (Chronic) PAD (peripheral artery disease) (Chronic) Tobacco abuse (Chronic) Edema of right lower extremity (Chronic) Assessment: right leg ulcer healed. Peripheral vascular disease status post intervention. Diabetes with neuropathy Plan: I reviewed and discussed his case today. No debridement was performed because the ulcer has healed. The proximal site is healed today. he was reassured no infection is noted. To discontinue dressing care and nutritional supplementation. To continue with compression stocking and periodic elevation to control his leg edema. He is reassured the ulcer site is healed and there is no signs of infection. He is discharged from the wound healing center at this time. He will follow-up with the [facility] palliative care and routine risk assessment due to his peripheral vascular disease. I answered all his questions.
== END 2018-12-17 23:59 ==
LOC: WC 09:00
PROVIDERS: Family Provider Nurse Practitioner; PCP Nurse Practitioner; Visit Provider Podiatrist
DX: E11.622 Type 2 diabetes mellitus with other skin ulcer (principal); E11.51 Type 2 diabetes mellitus with diabetic peripheral angiopathy without gangrene; E11.40 Type 2 diabetes mellitus with diabetic neuropathy, unspecified; F17.200 Nicotine dependence, unspecified, uncomplicated; R60.0 Localized edema; L97.812 Non-pressure chronic ulcer of other part of right lower leg with fat layer exposed
CPT/HCPCS: 11042; 99213; G0463

== ENCOUNTER 2018-12-19 05:17 | Observation (INO) | payer OTHER, SELFPAY ==
[2018-12-19] VITALS (35 sets, daily range): BP systolic 67–154; BP diastolic 46–107; PULSE 70–99; RESP 16–29; TEMP 35.6–36.8; O2SAT 86–100; BMI 30.7
--- NOTE | 2018-12-19 05:20 | ED.RN ---
called for ekg per dr request, pulled old ekgs
--- NOTE | 2018-12-19 05:33 | EKG12_ITS ---
Test Reason : Blood Pressure : / mmHG Vent. Rate : 095 BPM Atrial Rate : 095 BPM P-R Int : 178 ms QRS Dur : 102 ms QT Int : 350 ms P-R-T Axes : 049 063 136 degrees QTc Int : 439 ms Normal sinus rhythm Possible Left atrial enlargement Low voltage QRS Inferior infarct , age undetermined Abnormal ECG Confirmed by PHILIP LLAMAS, LISA ([id number]), art editor CLEO ESTEBAN ([id number]) on 12/21/2018 2:10:46 PM Referred By: IBETH Confirmed By:LISA PALACIOS MD
--- NOTE | 2018-12-19 05:33 | RAD_ITS ---
STUDY: X-RAY CHEST REASON FOR EXAM: Male, 58 years old. Shortness of breath TECHNIQUE: Frontal view COMPARISON: 07/04/2018 FINDINGS: Lungs are expanded. There is a RIGHT upper lobe/paratracheal opacity measuring 7 cm in diameter which could be an infiltrate or mass. There is no demonstrated pleural abnormality. Heart is enlarged. There has been open heart surgery. Pacemaker lead is in proper position. Normal mediastinum and sanjiv. Normal visualized pulmonary arteries. Normal visualized aortic arch and descending thoracic aorta. Normal visualized thoracic spine. Normal visualized ribs, clavicles, and shoulders. There is no demonstrated abnormality of the visualized soft tissue structures of the upper abdomen. RAD/Chest PA and Lateral IMPRESSION: Lungs are expanded. There is a RIGHT upper lobe/paratracheal opacity measuring 7 cm in diameter which could be an infiltrate or mass. There is no demonstrated pleural abnormality. Heart is enlarged. There has been open heart surgery. Pacemaker lead is in proper position. Electronically Signed: Gelacio Mcbride MD at 7:05 EST , Service support ,
[2018-12-19] MEDS: Aspirin 81 MG TAB.CHEW 324 MG PO (05:49)
[2018-12-19 05:50] LABS: Absolute Lymphocyte Count 2.42 X10^3/ul (0.83-4.51); Absolute Neutrophil Count 11.1 X10^3/uL (2.0-7.7); Basophil# 0.05 X10^3/uL; Basophil% 0.3 % (0-1); Eosinophil# 0.12 X10^3/uL; Eosinophils% 0.8 % (0-5); Hematocrit 41.4 % (40-54); Hemoglobin 13.5 g/dl (13.0-16.5); Lymphocyte # 2.42 X10^3/ul (4.0); Lymphocyte % 16.5 % (19-41); Mean Corp Hgb Conc 32.6 g/gl (32-36); Mean Corpuscular Hgb 29.3 pg (27.0-32.0); Mean Platelet Vol. 10.6 fl (6.2-12.0); Monocyte# 0.96 X10^3/uL; Monocyte% 6.6 % (0-10); Neutrophil # 11.06 X10^3/uL (2.7-7.7); Neutrophil % 75.5 % (47-70); Platelet Count 231 K/mm3 (150-450); RBC Distribution Width CV 14.8 % (11.6-14.6); RBC Distribution Width SD 48.2 fl (35.1-43.9); White Blood Count 14.7 K/mm3 (4.4-11.0)
[2018-12-19 05:57] LABS: POSITIVE COUNT NO; POSITIVE DIFFERENTIAL NO; POSITIVE MORPHOLOGY NO
[2018-12-19 06:12] LABS: Anion Gap 11 (5-15); BUN 16 mg/dL (7-18); BUN/Creat Ratio 12.1 RATIO (10-20); Calcium,Total 8.8 mg/dL (8.5-10.1); Chloride 102 mmol/L (98-107); Creatinine, Serum 1.32 mg/dL (0.70-1.30); EST Glomerular Filtration Rate 59 mL/min (>60); Est Glom Filt Rate - Afr Amer 71 mL/min (>60); Estimated Creatinine Clearance 66.14 ml/min; Glucose 261 mg/dL (74-106); Potassium 4.8 mmol/L (3.5-5.1); Sodium Level 134 mmol/L (136-145)
[2018-12-19 06:19] LABS: Prothrombin Time (Protime)PT. 31.2 SECONDS (11.7-14.9)
--- NOTE | 2018-12-19 06:25 | ED.DCSUM_ITS ---
- ER Visit Summary Date of Service: 12/19/18 Chief Complaint: Shortness of breath History of Present Illness: The patient is a 58 M who presents with shortness of breath for about 24 hours. He complains of chest discomfort. He also has a sensation of feeling like he needs to belch as well as epigastric pressure. He states he is actually been short of breath for months however it acutely worsened about a day ago. He has had nausea and dry heaves. He has a chronic cough which he attributes to his smoking which is unchanged from baseline. No fevers. No infectious symptoms such as congestion rhinorrhea sore throat. Physical Examination: Afebrile vitals stable Moist mucous membranes Heart regular rate and rhythm Lungs are clear Abdomen soft nontender to palpation nondistended Extremities nontender Alert Test Results: EKG shows normal sinus rhythm at a rate of [address] depression and T wave inversions in V4 through V6 as well as inferior Q waves consistent with an old inferior [place]. This appears similar to prior EKG. labs notable for white blood cell count 14.7, creatinine 1.32, glucose 261. INR 3.0. Troponin 0 0.016. Chest x-ray showed right upper lobe infiltrate versus mass. CT the chest shows a 6.3 cm right upper lobe mass with hilar lymphadenopathy as well as a moderate sized pericardial effusion. Emergency Department Course and Treatment: Given patient's initial presentation I was concerned this was angina. He was given aspirin. He was given sublingual nitroglycerin without change in symptoms. Workup as above is concerning for lung cancer. He has a moderate pericardial effusion as well. I spoke to the hospitalist who also requested that I consult pulmonology. Pulmonology can see the patient in consultation and patient was admitted to the medical service. Treatment Plan: [] Disposition: Admit Impression: Right upper lobe mass Pericardial effusion This note was generated with [employer] dictation software. It may contain incorrect words, spelling, and punctuation that were not noted in review of the chart prior to signing ED Disposition - Plan for ED Patient: Referrals: Carrie Hicks, S[facility]IOR [facility] [Primary Care Provider] -
--- NOTE | 2018-12-19 06:35 | CT_ITS ---
PRELIMINARY Final Report pending confirmation of receipt of findings. STUDY: CT CHEST WITH CONTRAST REASON FOR EXAM: Male, 58 years old. Cough RADIATION DOSAGE (If Supplied By Facility): CTDIvol = ( 13.14 ) mGy, DLP = ( 886.83 ) mGycm TECHNIQUE: Transaxial imaging was performed following intravenous administration of Isovue 300 100 IV. Individualized dose optimization techniques were used for this CT. COMPARISON: None. FINDINGS: TRACHEA, THYROID, ESOPHAGUS: No tracheomalacia,stricture or wall thickening. Thyroid and esophagus are normal CARDIOVASCULAR SYSTEM: The thoracic aorta is normal with no focal aneurysm or dissection. There are no abnormal calcifications/metallic densities at the aortic root. The pulmonary trunk and the left and right pulmonary arteries and their lobar and segmental branches all fail to show any abnormal and persistent filling defects to indicate the presence of pulmonary embolism. There is pericardial effusion with a thickness of 2.1 cm at the level of the left ventricle.. DION AND LYMPH NODES: There is a large 2.1 x 2.5 cm subcarinal lymph node, a 1.2 cm pretracheal lymph node and a 2 cm right hilar adenopathy. LUNGS, LOW-ATTENUATION: No traction bronchiectasis, honeycombing,emphysema, lung cysts or cavitations LUNGS, HIGH ATTENUATION: There is a large 6.3 cm upper lobe mass. LUNGS, MOSAIC/CRAZY PAVING: Not evident PLEURA AND CHEST WALL: No plural effusions, pneumothoraces,rib fractures or any osteolytic/osteoblastic changes . The soft tissue chest wall including the breasts are normal UPPER ABDOMEN: Unremarkable. No metastatic disease to the adrenals . CT/Chest WITH Contrast IMPRESSION: A large 6.3 cm right upper lobe mass associated mediastinal and right hilar adenopathy. Bronchogenic carcinoma is suspected. No metastatic disease into the adrenals A moderate-sized pericardial effusion Electronically Signed: Jorge Le MD at 7:35 EST Tel , Service support ,
--- NOTE | 2018-12-19 09:05 | HP.PCM_ITS ---
Problem List (1) Mass of upper lobe of right lung Status: Acute (2) Acute hypoxic respiratory failure Status: Acute (3) History of coronary artery bypass graft x 3 Status: Chronic (4) Ulcer of right lower extremity with fat layer exposed Status: Resolved (5) Atrial fibrillation Status: Chronic (6) Cardiac defibrillator in place Status: Chronic (7) Coronary artery disease Status: Chronic Qualifiers: Coronary Disease-Associated Artery/Lesion type: [place] artery [place] vs. transplanted heart: [place] heart (8) DM (diabetes mellitus) with peripheral vascular complication Status: Chronic (9) Edema of right lower extremity Status: Chronic (10) Gangrene Status: Resolved (11) Hyperlipidemia Status: Chronic (12) Ischemia of right lower extremity Status: Chronic (13) PAD (peripheral artery disease) Status: Chronic (14) Right leg swelling Status: Chronic (15) Tobacco abuse Status: Chronic (16) Tobacco abuse counseling Status: Chronic (17) Ulcer of right great toe due to diabetes mellitus Status: Chronic (18) Ulcer of right leg Status: Chronic Qualifiers: Non-pressure ulcer stage: with fat layer exposed (19) Chronic ulcer of left foot with fat layer exposed Status: Resolved (20) Ulcer of right foot with fat layer exposed Status: Resolved (21) Ulcer of right lower extremity with fat layer exposed Status: Resolved (22) Ulcer of right second toe Status: Resolved Qualifiers: History of Present Illness Date of Admission: 12/19/18 Chief Complaint: Progressive worsening of shortness of breath for 4-6 months The patient is a 58 year old M with history of multiple comorbidities as listed above including COPD, tobacco dependence, cigarette smoking 2-1/2 packs daily since age of 14 years, recently cut down to 3-5 cigarettes daily last week came to ED with progressive worsening of shortness of breath for 4-6 months. Patient has chronic COPD cough but denies any change in the pattern or sputum. Denies chest pain. Patient gets easily up short of breath even on bending down or mild short of breath but for last 1 day short of breath even at rest and at all position. Chest x-ray was done in ED shows right upper lobe/paratracheal opacity about 7 cm in diameter representing mass for which CT chest with contrast was done which revealed large 6.3 cm right upper lobe mass associated with mediastinal and right hilar adenopathy with high suspicion of bronchogenic carcinoma. No metastatic disease to adrenals. A moderate-sized pericardial effusion. EKG was done which shows normal sinus rhythm with left atrial enlargement, T inversion in V2 through V6 with no significant change from previous EKG of June 2018. 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 fib, AICD, peripheral with history of gangrene in feet. [] Past Medical History Past Medical History (Chronic Problems): Chronic Problems Ulcer of right leg (Chronic) Ulcer of right great toe due to diabetes mellitus (Chronic) DM (diabetes mellitus) with peripheral vascular complication (Chronic) PAD (peripheral artery disease) (Chronic) Coronary artery disease (Chronic) Atrial fibrillation (Chronic) Cardiac defibrillator in place (Chronic) Right leg swelling (Chronic) Ischemia of right lower extremity (Chronic) History of coronary artery bypass graft x 3 (Chronic) Tobacco abuse (Chronic) Tobacco abuse counseling (Chronic) Hyperlipidemia (Chronic) Edema of right lower extremity (Chronic) Allergies No Known Allergies Allergy (Verified 12/19/18 05:20) Home Medications: Ambulatory Orders Medication Instructions Recorded Aspirin E.C. [Ecotrin] 81 mg PO DAILY@0800 05/19/18 Atorvastatin Calcium [Lipitor] 80 mg PO QHS 05/19/18 Bisoprolol Fumarate [Zebeta] 15 mg PO DAILY 05/19/18 Cholecalciferol (Vitamin D3) 5,000 unit PO DAILY 05/19/18 [Vitamin D3] Famotidine 20 mg PO DAILY 05/19/18 Glucosamine/D3/Boswellia Melonie 1 each PO DAILY 05/19/18 [Osteo Bi-Flex Tablet] Lisinopril [Zestril] 10 mg PO DAILY 05/19/18 Metformin HCl [Metformin HCl ER] 500 mg PO TID 05/19/18 Multivitamin [Daily Multiple 1 each PO DAILY 05/19/18 Vitamin] Sitagliptin Phosphate [Januvia] 100 mg PO DAILY 06/07/18 Spironolactone [Aldactone] 25 mg PO DAILY 06/07/18 Cyanocobalamin (Vitamin B-12) 500 mcg PO DAILY 07/04/18 [Vitamin B-12] Magnesium Oxide [Magnesium] 800 mg PO BREAKFAST 07/04/18 Warfarin [Coumadin ([facility])] 10 mg PO SUMOWETHSA 07/04/18 Warfarin [Coumadin ([facility])] 12 mg PO TUFR 07/04/18 Magnesium Oxide 400 mg PO QHS 12/19/18 Surgical History: - - Patient has previously undergone coronary revascularization ?3, at which time valve repair was performed. The patient is also undergone open reduction and internal fixation of the left femur fracture in the past. Smoking Status: Current every day smoker - Smokes cigarettes 2-1/2 pack since age of 14 until 1week 5 cigarettes daily - *Family History Paternal History Items: - - The patient's father at the age of 78 from cancer of unknown etiology. The patient's mother at age of 68 from liver cancer. Review of Systems Constitutional: Reports: Malaise, Weakness. Denies: Chills, Fever, Weight Change HEENT: Denies: Head Aches, Sinus Congestion, Sinus Drainage Cardiovascular: Reports: Orthopnea. Denies: Chest Pain, Palpitations Respiratory: Reports: Cough, Shortness of Breath, Shortness of breath at rest, Shortness of breath upon exertion. Denies: Sputum production Gastrointestinal: Denies: Abdominal Pain, Nausea, Vomiting Genitourinary: Denies: Dysuria, Frequency, Hematuria, Hesitancy Musculoskeletal: Reports: Joint Pain. Denies: Joint Tenderness Skin: Denies: Rash, Wounds Neurological: Denies: Numbness, Tingling, Focal weakness Psychiatric: Denies: Anxiety, Depression, Homicidal Ideations, Suicidal Ideations Hematologic/ Lymphatic: Denies: Easy Bruising, Easy Bleeding VTE Information - Inpt Only VTE Present on Admission: No VTE Mechan Device Prophylaxis: None Reason prophylaxis not ordered:: Procedure Not Indicated - On Coumadin Patient Problems: Active and Suspected Problems Mass of upper lobe of right lung (Acute) Acute hypoxic respiratory failure (Acute) - Physical Exam General: Alert, Oriented x3, Cooperative HEENT: Atraumatic, PERRLA, EOMI, Normocephalic Neck: Supple, No JVD, Negative Carotid Bruits Lungs: Clear to auscultation, No rhonchi, No wheeze, Diminished - Air entry diminished right upper posterior. Cardiovascular: Regular rate, No murmurs Abdomen: Bowel Sounds Present, Soft, Non Tender, Non-Distended Extremities: No edema, Capillary Refill Less than 3 Seconds, Diminished Peripheral Pulses - Popliteal, posterior tibial and dorsalis pedis Skin: No rashes, No breakdown, Rash Present - Chronic skin changes of peripheral arterial disease, venous edema Musculoskeletal: No Tenderness to Palpation of Joints or Extremities, Arthritic Changes, Muscle Wasting Neurological: Cranial nerves II-XII grossly intact Psych/Mental Status: Normal Affect, Appropriate Vital Signs Temp Pulse Resp BP Pulse Ox 97.7 F L 88 16 93/68 99 12/19/18 09:00 12/19/18 09:00 12/19/18 09:00 12/19/18 09:03 12/19/18 09:00 Oxygen Flow Rate (L/min) 2 Oxygen Delivery Method Nasal Cannula Weight: 226 lb 3.108 oz Body Mass Index (BMI) 30.7 Laboratory Tests Past 24 Hrs 12/19/18 12/19/18 12/19/18 05:44 05:44 05:44 WBC 14.7 H RBC 4.60 Hgb 13.5 Hct 41.4 MCV 90.0 MCH 29.3 MCHC 32.6 RDW 14.8 H RDW Differential 48.2 H Plt Count 231 MPV 10.6 Immature Gran % (Auto) 0.300 Neut % (Auto) 75.5 H Lymph % (Auto) 16.5 L [place] % (Auto) 6.6 Eos % (Auto) 0.8 Baso % (Auto) 0.3 Absolute Neuts (auto) 11.1 H Absolute Lymphs (auto) 2.42 Total Counted Not Reportable PT 31.2 H INR 3.0 Sodium 134 L Potassium 4.8 Chloride 102 Carbon Dioxide 21.0 Anion Gap 11 BUN 16 Creatinine 1.32 H Estim Creat Clear Calc 66.14 Est GFR (MDRD) Af Amer 71 Est GFR (MDRD) Non-Af 59 L BUN/Creatinine Ratio 12.1 Glucose 261 H Calcium 8.8 Troponin I 0.016 Assessment/Plan All Active Problems Ulcer of right second toe (Resolved) Gangrene (Resolved) Ulcer of right foot with fat layer exposed (Resolved) Chronic ulcer of left foot with fat layer exposed (Resolved) Ulcer of right lower extremity with fat layer exposed (Resolved) Ulcer of right lower extremity with fat layer exposed (Resolved) Mass of upper lobe of right lung (Acute) Acute hypoxic respiratory failure (Acute) The patient is a 58 year old M with history of multiple comorbidities as listed above including COPD, tobacco dependence, cigarette smoking 2-1/2 packs daily since age of 14 years, recently cut down to 3-5 cigarettes daily last week came to ED with progressive worsening of shortness of breath for 4-6 months. Patient has chronic COPD cough but denies any change in the pattern or sputum. Denies chest pain. Patient gets easily up short of breath even on bending down or mild short of breath but for last 1 day short of breath even at rest and at all position. Chest x-ray was done in ED shows right upper lobe/paratracheal opacity about 7 cm in diameter representing mass for which CT chest with contrast was done which revealed large 6.3 cm right upper lobe mass associated with mediastinal and right hilar adenopathy with high suspicion of bronchogenic carcinoma. No metast atic disease to adrenals. A moderate-sized pericardial effusion. Patient previous chest x-ray did not show mass and actually reported no acute process. EKG was done which shows normal sinus rhythm with left atrial enlargement, T inversion in V2 through V6 with no significant change from previous EKG of June 2018. 1. Acute hypoxic respiratory failure secondary to advanced COPD with mild diagnosis of right upper lobe mass: Patient is being admitted on PCU for further evaluation and management. Sports Athletic Trainer has been consulted. Discussed with the family member including sister, [id number] present in the room about the CT scan findings. Patient sister said he was recently evaluated in [facility] in October and had echocardiogram but was not told about mass. Oxygen support. Bronchodilator as needed. Patient does not seem to be in COPD exacerbation 2. Right upper lobe mass with mediastinal right hilar adenopathy with high suspicion of bronchogenic carcinoma: Needs further tissue biopsy. Rest as mentioned above. No pleural effusion, pneumothorax or rib fracture or osteolytic or osteoblastic changes mentioned on the CT scan. 3. Pericardial effusion, 2.1 cm at the base of left ventricle on CT scan: Cardiac conditions: Coronary artery disease status post three-vessel CABG, paroxysmal A. fib on Coumadin, status post defibrillator, chronic systolic heart failure: Patient had 2D echo about a month ago in [facility] by his cocoa bean roaster. We will try to get a record of it. 2D echo is ordered. Continue home cardiac medications. INR is supratherapeutic and Coumadin is being held. 4. Diabetes mellitus type 2: Accu-Chek before meals and at bedtime cover with NovoLog sliding scale. Metformin being held. IV fluid normal saline to prevent contrast-induced nephropathy. A1c tomorrow a.m. 5. Peripheral arterial disease with history of chronic ulcers and gangrene on feet: Patient follows Dr. sol, the orientation & mobility specialist and Dr. Butler vascular surgeon. 6. DVT prophylaxis: On Coumadin which is transiently being held for INR 1.3. Code Visit Inpatient E&M: 88822 Init Hosp L3
[2018-12-19] MEDS: 0.9% Normal Saline 1,000 ML 50 ML IV ×2 (10:01→10:17)
[2018-12-19] MEDS: oxyCODONE 5 MG Tablet PO (10:01)
[2018-12-19] MEDS: Mag Hydrox/Al Hydrox/Simeth 30 ML UDC PO (10:02)
[2018-12-19] MEDS: 0.9% Saline Lock 10 ML Syringe IV (10:17)
[2018-12-19] MEDS: Famotidine 20 MG Tablet PO (11:14)
[2018-12-19] MEDS: Lisinopril 10 MG Tablet PO (11:15)
[2018-12-19] MEDS: Bisoprolol Fumarate 5 MG Tablet 15 MG PO (11:15)
[2018-12-19] MEDS: LINAGLIPTIN 5 MG TABLET PO (11:15)
[2018-12-19] MEDS: Insulin Lispro 100 UNIT/ML INSULN.PEN SQ ×3 (11:39→21:51)
[2018-12-19 11:41] LABS: Bedside Glucose 218 mg/dL (70-110)
[2018-12-19] MEDS: Acetaminophen 325 MG Tablet 650 MG PO (11:45)
--- NOTE | 2018-12-19 13:07 | EKG12_ITS ---
Test Reason : CP Blood Pressure : / mmHG Vent. Rate : 088 BPM Atrial Rate : 088 BPM P-R Int : 174 ms QRS Dur : 106 ms QT Int : 394 ms P-R-T Axes : 050 092 148 degrees QTc Int : 476 ms Normal sinus rhythm Rightward axis Possible Inferior infarct , age undetermined ST & T wave abnormality, consider lateral ischemia Abnormal ECG When compared with ECG of 19-DEC-2018 05:22, MANUAL COMPARISON REQUIRED, DATA IS UNCONFIRMED Confirmed by PHILIP LLAMAS, LISA ([id number]), marketing editor CLEO ESTEBAN ([id number] on 12/22/2018 1:15:45 PM Referred By: GUICHO Confirmed By:LISA PALACIOS MD
--- NOTE | 2018-12-19 13:10 | CASEMGMT ---
LATHA TURCIOS assessment: Face to Face with patient for initial transition planning/care coordination assessment. LATHA TURCIOS introduced self and role at [facility], pt voices understanding and consents to assessment at this time. Pt is sitting up in bed in no distress at this time. Pt is A/Ox4 at this time and answers all questions appropriately at this time. Pt with multiple family members at bedside during assessment. Care providers, pharmacy, and demographics verified/updated at this time. PCP: Carrie Hicks Specialists: Pt states has multiple cardiac specialists at [facility]. Preferred Pharmacy: [facility] Insurance: [facility] Prescription Benefit: [facility] Living Will/HPOA: Pt states does not currently have LW/HPOA but is interested in completing at a later date. Referral to SW at this time, voice understanding. LNOK: Alesia Rolon, Living Arrangements: Pt states lives with in 2 story home and states no concerns at home at this time. Pt states is independent with ADL's. Transportation: Pt states drives self and states no transportation concerns at this time. DME/HHC: Pt states has the following DME: cane, walker, grab bars, and shower chair. Pt states uses the cane occasionally but does not use the walker. Pt no need for any further DME at this time. Pt states no hx of HHC or SNF in the past. Pt states that his daughter does have a oxygen concentrator at home currently but he is not sure who it is through. Pt states no concerns with going home at time of discharge. 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 Pt states smokes about 3-5cigarettes daily and drinks 'very little' ETOH. Pt states no further questions/concerns/needs at this time. CM to follow for any further discharge planning/needs. Advised pt to ask for CM if any further questions/concerns/needs arise, voices understanding. Plan: [place] LATHA TURCIOS
[2018-12-19] MEDS: ALPRAZolam 0.5 MG Tablet PO (13:39)
[2018-12-19] MEDS: 0.9% Normal Saline 1,000 ML 999 ML IV ×2 (14:00→19:58)
[2018-12-19] MEDS: 0.9% Normal Saline 1,000 ML 100 ML IV (15:00)
[2018-12-19] MEDS: Clopidogrel Bisulfate 300 MG Tablet PO (15:15)
--- NOTE | 2018-12-19 15:53 | PCM.HOSP.N ---
Hospitalist Note The patient chest pain is almost resolved. Blood pressure is still low 8359, 79/50 1:09 liter of normal saline bolus. Patient denies lower urinary tract symptoms, flulike symptoms including cough, sore throat or recent sick contact. Patient felt like fever yesterday. No tachycardia. No tachypnea. Respiratory rate 16-17. Sepsis screen lab ordered. Blood cultures x2, UA and urine culture ordered. Respiratory panel ordered. CT chest does not show acute pneumonic consolidation but large right upper lobe mass as mentioned before. I think hypotension probably related to medication. Patient is being transferred to ICU for intensive monitoring
[2018-12-19 16:00] LABS: Bedside Glucose 268 mg/dL (70-110)
[2018-12-19] MEDS: Ipratropium/Albuterol Sulfate 3 ML AMPUL.NEB INHALATION ×2 (16:33→22:58)
[2018-12-19 17:02] LABS: Hematocrit 37.6 % (40-54); Hemoglobin 12.3 g/dl (13.0-16.5); Mean Corp Hgb Conc 32.7 g/gl (32-36); Mean Corpuscular Volume 91.7 fL (80-94); Mean Platelet Vol. 10.9 fl (6.2-12.0); Platelet Count 184 K/mm3 (150-450); RBC Distribution Width CV 14.8 % (11.6-14.6); RBC Distribution Width SD 50.1 fl (35.1-43.9); White Blood Count 15.1 K/mm3 (4.4-11.0)
[2018-12-19 17:03] LABS: Scan Indicated on CBC? Y/N NO
[2018-12-19 17:44] LABS: Lactic Acid 6.9 mmol/L (0.4-2.0)
[2018-12-19] MEDS: Lactated Ringers 1,000 ML 999 ML IV (18:00)
[2018-12-19 18:41] LABS: AST(SGOT) 119 U/L (15-37); Alanine Aminotransfer ALT/SGPT 146 U/L (16-61); Albumin, Serum 3.5 g/dL (3.2-5.0); Alkaline Phosphatase 59 U/L (45-117); Anion Gap 12 (5-15); BUN 22 mg/dL (7-18); BUN/Creat Ratio 15.1 RATIO (10-20); Calcium,Total 7.9 mg/dL (8.5-10.1); Chloride 102 mmol/L (98-107); Creatinine, Serum 1.46 mg/dL (0.70-1.30); EST Glomerular Filtration Rate 52 mL/min (>60); Est Glom Filt Rate - Afr Amer 63 mL/min (>60); Estimated Creatinine Clearance 59.79 ml/min; Globulin 3.4 g/dL (2.2-4.2); Glucose 252 mg/dL (74-106); Potassium 6.8 mmol/L (3.5-5.1); Protein, Total 6.9 g/dL (6.4-8.2); Sodium Level 131 mmol/L (136-145)
--- NOTE | 2018-12-19 19:25 | PCM.CONS.C ---
Reason for Consult Date of Consultation: 12/19/18 Reason for Consultation: Shortness of breath and hypotension History of Present Illness: The patient is a 58 year old M with a complicated past medical history who presented to the emergency room with not feeling well for about a month as well as shortness of breath. He was evaluated in the emergency room and was noted to have a 6+ centimeter lung mass as well as hilar adenopathy. He was also noted to have a moderate pericardial effusion by CT scan. He was admitted to the telemetry care unit he subsequently became hypotensive and was transferred to the intensive care unit. I was called for further evaluation and management. He denies any chest pain no paroxysmal nocturnal dyspnea he is short of breath with exertion no dizziness or diaphoresis no near syncope or syncope. He does have a history of known coronary artery disease, and valvular heart disease. He underwent a mitral valve repair with Sharlene annuloplasty ring in 2008. He also has a history of ischemic cardiomyopathy status post coronary artery bypass surgery x3 and had an ICD placed in 2008 with a revision in 2012. His ICD is set at a VVI of 40. He also has significant peripheral vascular disease and has recently been documented to have aortoiliac disease for which he underwent angioplasty stenting and bovine patch angioplasty. He has common femoral artery disease and an occluded SFA. He unfortunately continues to smoke 2 packs of cigarettes a day. He was last in the clinic in October 2018 after his ICD apparently went off. It was interrogated it was noted to be functioning normally he had an echocardiogram performed which demonstrated severe reduction in left ventricular systolic function estimated at 29% with evidence of inferior posterior wall anterolateral and basal inferoseptal akinesis, severe hypokinesis of the anterior wall apical wall. The rest of the sarkar were also severely hypokinetic. There was a small pericardial effusion noted as well as a pericardial fat pad present. [] Past Medical History Allergies/Adverse Reactions: Allergies No Known Allergies Allergy (Verified 12/19/18 05:20) Home Medications: Ambulatory Orders Medication Instructions Recorded Aspirin E.C. [Ecotrin] 81 mg PO DAILY@0800 05/19/18 Atorvastatin Calcium [Lipitor] 80 mg PO QHS 05/19/18 Bisoprolol Fumarate [Zebeta] 15 mg PO DAILY 05/19/18 Cholecalciferol (Vitamin D3) 5,000 unit PO DAILY 05/19/18 [Vitamin D3] Famotidine 20 mg PO DAILY 05/19/18 Glucosamine/D3/Boswellia Melonie 1 each PO DAILY 05/19/18 [Osteo Bi-Flex Tablet] Lisinopril [Zestril] 10 mg PO DAILY 05/19/18 Metformin HCl [Metformin HCl ER] 500 mg PO TID 05/19/18 Multivitamin [Daily Multiple 1 each PO DAILY 05/19/18 Vitamin] Sitagliptin Phosphate [Januvia] 100 mg PO DAILY 06/07/18 Spironolactone [Aldactone] 25 mg PO DAILY 06/07/18 Cyanocobalamin (Vitamin B-12) 500 mcg PO DAILY 07/04/18 [Vitamin B-12] Magnesium Oxide [Magnesium] 800 mg PO BREAKFAST 07/04/18 Warfarin [Coumadin ([facility])] 10 mg PO SUMOWETHSA 07/04/18 Warfarin [Coumadin ([facility])] 12 mg PO TUFR 07/04/18 Magnesium Oxide 400 mg PO QHS 12/19/18 Past Medical History (Chronic Problems): Chronic Problems Ulcer of right leg (Chronic) Ulcer of right great toe due to diabetes mellitus (Chronic) DM (diabetes mellitus) with peripheral vascular complication (Chronic) PAD (peripheral artery disease) (Chronic) Coronary artery disease (Chronic) Atrial fibrillation (Chronic) Cardiac defibrillator in place (Chronic) Right leg swelling (Chronic) Ischemia of right lower extremity (Chronic) History of coronary artery bypass graft x 3 (Chronic) Tobacco abuse (Chronic) Tobacco abuse counseling (Chronic) Hyperlipidemia (Chronic) Edema of right lower extremity (Chronic) Surgical History: coronary bypass surgery, - - Patient has previously undergone coronary revascularization ?3, at which time valve repair was performed. The patient is also undergone open reduction and internal fixation of the left femur fracture in the past. - *Family History Paternal History Items: - - The patient's father at the age of 78 from cancer of unknown etiology. The patient's mother at age of 68 from liver cancer. Lives: Spouse/ Significant Other Smoking Status: Current every day smoker - Smokes cigarettes 2-1/2 pack since age of 14 until 1week 5 cigarettes daily Tobacco Use: Cigarettes Alcohol: Occasional Drugs: None Review of Systems - Review of Systems General: Reports: Fatigue, Malaise, Weakness. Denies: Fever, Night Sweats HEENT: Denies: Vision Change Cardiovascular: Reports: Shortness of Breath, Shortness of Breath at Rest, Shortness of Breath with Exertion. Denies: Chest Discomfort, Orthopnea, PND, Peripheral Edema, Palpitations, Lightheadedness, Dizziness, Near Syncope, Syncope Respiratory: Denies: Cough, Sputum Production, Hemoptysis Gastrointestinal: Denies: Indigestion, Hematemesis, Hematochezia, Melena Genitourinary: Denies: Dysuria, Hematuria Muscoloskeletal: Denies: Myalgias Skin: Denies: Rash Neurological: Denies: Dizziness Psychiatric: Denies: Anxiety Endocrine: Denies: Unexplained Weight Loss Hematologic/ Lymphatic: Denies: Anemia Subjectve: Middle-aged man in no distress with a flat affect Objective: Vital Signs Temp Pulse Resp BP Pulse Ox 97.0 F L 88 25 H 94/77 98 12/19/18 16:15 12/19/18 18:30 12/19/18 18:30 12/19/18 18:30 12/19/18 18:30 Oxygen Flow Rate (L/min) 2 Oxygen Delivery Method Nasal Cannula Weight: 226 lb 3.108 oz Body Mass Index (BMI) 30.7 Intake and Output for Last 24 Hours 12/17/18 12/18/18 12/19/18 23:59 23:59 23:59 Intake Total 120 / 120 Output Total Balance 119 / 119 General: Awake, Alert, Oriented x 3, Ill Appearing HEENT: PERRL, EOMI, Sclera Non Icteric Neck: Supple, Good ROM, No Lymph Node Enlargement Lungs: Diminished Madi Bases Cardiovascular: Regular Rhythm, Normal S1, Normal S2, No Murmurs, No Rubs, No Gallops Vascular: No Carotid Bruits, Normal Femoral Pulses, Normal Radial Pulses, Normal Dorsalis Pedal Pulse, Normal Posterior Tibial Pulses Abdomen: Bowel Sounds Present, Soft, Non Tender, No HSM, No Organomegaly Extremities: No Clubbing, No edema, Cyanosis Musculoskeletal: No Erythema Skin: No Rashes Lymphatic: No Lymph Node Enlargement Neurological: No Focal Motor or Sensory Deficit Psych/Mental Status: Flat Affect 12/19/18 05:44: WBC 14.7 H, RBC 4.60, Hgb 13.5, Hct 41.4, MCV 90.0, MCH 29.3, MCHC 32.6, RDW 14.8 H, RDW Differential 48.2 H, Plt Count 231, MPV 10.6, Immature Gran % (Auto) 0.300, Neut % (Auto) 75.5 H, Lymph % (Auto) 16.5 L, Emanuel % (Auto) 6.6, Eos % (Auto) 0.8, Baso % (Auto) 0.3, Absolute Neuts (auto) 11.1 H, Total Counted Not Reportable 12/19/18 05:44: PT 31.2 H, INR 3.0 12/19/18 05:44: Sodium 134 L, Potassium 4.8, Chloride 102, Carbon Dioxide 21.0, Anion Gap 11, BUN 16, Creatinine 1.32 H, Est GFR (MDRD) Af Amer 71, Est GFR (MDRD) Non-Af 59 L, BUN/Creatinine Ratio 12.1, Glucose 261 H, Calcium 8.8, Troponin I 0.016 12/19/18 13:45: Troponin I 0.056 H 12/19/18 16:48: Sodium Cancelled, Potassium Cancelled, Chloride Cancelled, Carbon Dioxide Cancelled, Anion Gap Cancelled, BUN Cancelled, Creatinine Cancelled, Est GFR (MDRD) Af Amer Cancelled, Est GFR (MDRD) Non-Af Cancelled, BUN/Creatinine Ratio Cancelled, Glucose Cancelled, Calcium Cancelled, Total Bilirubin Cancelled, Troponin I Cancelled 12/19/18 16:48: WBC 15.1 H, RBC 4.10 L, Hgb 12.3 L, Hct 37.6 L, MCV 91.7, MCH 30.0, MCHC 32.7, RDW 14.8 H, RDW Differential 50.1 H, Plt Count 184, MPV 10.9 12/19/18 16:48: Lactic Acid 6.9 H* 12/19/18 18:05: Sodium 131 L, Potassium 6.8 H*, Chloride 102, Carbon Dioxide 17.0 L, Anion Gap 12, BUN 22 H, Creatinine 1.46 H, Est GFR (MDRD) Af Amer 63, Est GFR (MDRD) Non-Af 52 L, BUN/Creatinine Ratio 15.1, Glucose 252 H, Calcium 7.9 L, Total Bilirubin 1.60 H, Troponin I 0.056 H Rhythm: EKG: Normal sinus rhythm with a rate of 88 bpm and evidence of previous inferior wall myocardial infarction ECHO: Bedside echocardiogram demonstrates severe left ventricular systolic dysfunction with an estimated ejection fraction of 20% with segmental wall motion abnormalities. Moderate pericardial effusion noted with no obvious tamponade but incipient tamponade cannot be completely excluded. Pericardial fat pad noted. ICD noted. Assessment/Plan 1. Hypotension with pericardial effusion Patient presents with lung mass pericardial effusion and developed hypotension. There is concerned that this is secondary to tamponade. The echocardiogram that was just performed does not demonstrate direct evidence of right ventricular chamber collapse. The right atrium could not be very well visualized. Would recommend continued IV fluids with another bolus. At this particular time the patient appears to be hemodynamically stable with heart rate of 88 bpm and blood pressure 102 systolic and is mentating well As there is high likelihood that this effusion is secondary to his malignancy it may be prudent to transfer him to a tertiary care center where a pericardial window and biopsy may be able to be performed. I have discussed this with the patient, his daughter, and his they understand and agreed to proceed. They are to do preferred to go to the [facility] I have suggested to him that there is an urgency to this. 2. Ischemic cardiomyopathy Patient has severe left ventricular systolic dysfunction with estimated ejection fraction of 20%. He was documented to be 29% at the [facility] approximately a month ago. At this time with his hypertension we will hold his medications and treat him symptomatically. 3. Status post ICD implantation His ICD was interrogated less than a month ago it appeared to be functioning well set at a VVI of 40. 4. Coronary artery disease He does have evidence of coronary artery disease and has mild troponin elevation. We will continue to monitor him. 5. Valvular heart disease He is status post mitral valve repair with minimal regurgitation. This was reevaluated with echocardiogram. 6. Electrolyte abnormalities He appears to be hyperkalemic. This was discussed with the hospitalist and will be treated appropriately with insulin glucose and calcium supplementation. 7. Peripheral vascular disease Patient is noted to have severe peripheral vascular disease and recently within the last 6 months had revascularization of his lower extremities. He is on Coumadin for this which would need to be held in case procedure needs to be performed. Bedside echocardiogram was performed with handheld echo which demonstrated ejection fraction of 20% with segmental wall motion abnormalities present, moderate pericardial effusion with no obvious tamponade noted, right atrium not very well seen. Thank you for allowing me to participate in the care of your patient. Please don't hesitate to call if any issues arise. Above discussed with hospitalist production operations engineer as well as area field manager and nurses. Arrangements being made for transfer to a tertiary care.. Thank you for allowing us to participate in the patients plan of care, if you have any questions please do not hesitate to call. Total time 1 hour of critical care time
--- NOTE | 2018-12-19 19:29 | CON.PCM_ITS ---
Reason for Consult Date of Consultation: 12/19/18 Reason for Consultation: Shortness of breath and hypotension History of Present Illness: The patient is a 58 year old M with a complicated past medical history who presented to the emergency room with not feeling well for about a month as well as shortness of breath. He was evaluated in the emergency room and was noted to have a 6+ centimeter lung mass as well as hilar adenopathy. He was also noted to have a moderate pericardial effusion by CT scan. He was admitted to the telemetry care unit he subsequently became hypotensive and was transferred to the intensive care unit. I was called for further evaluation and management. He denies any chest pain no paroxysmal nocturnal dyspnea he is short of breath with exertion no dizziness or diaphoresis no near syncope or syncope. He does have a history of known coronary artery disease, and valvular heart disease. He underwent a mitral valve repair with Sharlene annuloplasty ring in 2008. He also has a history of ischemic cardiomyopathy status post coronary artery bypass surgery x3 and had an ICD placed in 2008 with a revision in 2012. His ICD is set at a VVI of 40. He also has significant peripheral vascular disease and has recently been documented to have aortoiliac disease for which he underwent angioplasty stenting and bovine patch angioplasty. He has common femoral artery disease and an occluded SFA. He unfortunately continues to smoke 2 packs of cigarettes a day. He was last in the clinic in October 2018 after his ICD apparently went off. It was interrogated it was noted to be functioning normally he had an echocardiogram performed which demonstrated severe reduction in left ventricular systolic function estimated at 29% with evidence of inferior posterior wall anterolateral and basal inferoseptal akinesis, severe hypokinesis of the anterior wall apical wall. The rest of the sarkar were also severely hypokinetic. There was a small pericardial effusion noted as well as a pericardial fat pad present. [] Past Medical History Allergies/Adverse Reactions: Allergies No Known Allergies Allergy (Verified 12/19/18 05:20) Home Medications: Ambulatory Orders Medication Instructions Recorded Aspirin E.C. [Ecotrin] 81 mg PO DAILY@0800 05/19/18 Atorvastatin Calcium [Lipitor] 80 mg PO QHS 05/19/18 Bisoprolol Fumarate [Zebeta] 15 mg PO DAILY 05/19/18 Cholecalciferol (Vitamin D3) 5,000 unit PO DAILY 05/19/18 [Vitamin D3] Famotidine 20 mg PO DAILY 05/19/18 Glucosamine/D3/Boswellia Melonie 1 each PO DAILY 05/19/18 [Osteo Bi-Flex Tablet] Lisinopril [Zestril] 10 mg PO DAILY 05/19/18 Metformin HCl [Metformin HCl ER] 500 mg PO TID 05/19/18 Multivitamin [Daily Multiple 1 each PO DAILY 05/19/18 Vitamin] Sitagliptin Phosphate [Januvia] 100 mg PO DAILY 06/07/18 Spironolactone [Aldactone] 25 mg PO DAILY 06/07/18 Cyanocobalamin (Vitamin B-12) 500 mcg PO DAILY 07/04/18 [Vitamin B-12] Magnesium Oxide [Magnesium] 800 mg PO BREAKFAST 07/04/18 Warfarin [Coumadin ([facility])] 10 mg PO SUMOWETHSA 07/04/18 Warfarin [Coumadin ([facility])] 12 mg PO TUFR 07/04/18 Magnesium Oxide 400 mg PO QHS 12/19/18 Past Medical History (Chronic Problems): Chronic Problems Ulcer of right leg (Chronic) Ulcer of right great toe due to diabetes mellitus (Chronic) DM (diabetes mellitus) with peripheral vascular complication (Chronic) PAD (peripheral artery disease) (Chronic) Coronary artery disease (Chronic) Atrial fibrillation (Chronic) Cardiac defibrillator in place (Chronic) Right leg swelling (Chronic) Ischemia of right lower extremity (Chronic) History of coronary artery bypass graft x 3 (Chronic) Tobacco abuse (Chronic) Tobacco abuse counseling (Chronic) Hyperlipidemia (Chronic) Edema of right lower extremity (Chronic) Surgical History: coronary bypass surgery, - - Patient has previously undergone coronary revascularization ?3, at which time valve repair was performed. The p atient is also undergone open reduction and internal fixation of the left femur fracture in the past. - *Family History Paternal History Items: - - The patient's father at the age of 78 from cancer of unknown etiology. The patient's mother at age of 68 from liver cancer. Lives: Spouse/ Significant Other Smoking Status: Current every day smoker - Smokes cigarettes 2-1/2 pack since age of 14 until 1week 5 cigarettes daily Tobacco Use: Cigarettes Alcohol: Occasional Drugs: None Review of Systems - Review of Systems General: Reports: Fatigue, Malaise, Weakness. Denies: Fever, Night Sweats HEENT: Denies: Vision Change Cardiovascular: Reports: Shortness of Breath, Shortness of Breath at Rest, Shortness of Breath with Exertion. Denies: Chest Discomfort, Orthopnea, PND, Peripheral Edema, Palpitations, Lightheadedness, Dizziness, Near Syncope, Syncope Respiratory: Denies: Cough, Sputum Production, Hemoptysis Gastrointestinal: Denies: Indigestion, Hematemesis, Hematochezia, Melena Genitourinary: Denies: Dysuria, Hematuria Muscoloskeletal: Denies: Myalgias Skin: Denies: Rash Neurological: Denies: Dizziness Psychiatric: Denies: Anxiety Endocrine: Denies: Unexplained Weight Loss Hematologic/ Lymphatic: Denies: Anemia Subjectve: Middle-aged man in no distress with a flat affect Objective: Vital Signs Temp Pulse Resp BP Pulse Ox 97.0 F L 88 25 H 94/77 98 12/19/18 16:15 12/19/18 18:30 12/19/18 18:30 12/19/18 18:30 12/19/18 18:30 Oxygen Flow Rate (L/min) 2 Oxygen Delivery Method Nasal Cannula Weight: 226 lb 3.108 oz Body Mass Index (BMI) 30.7 Intake and Output for Last 24 Hours 12/17/18 12/18/18 12/19/18 23:59 23:59 23:59 Intake Total 120 / 120 Output Total Balance 119 / 119 General: Awake, Alert, Oriented x 3, Ill Appearing HEENT: PERRL, EOMI, Sclera Non Icteric Neck: Supple, Good ROM, No Lymph Node Enlargement Lungs: Diminished Madi Bases Cardiovascular: Regular Rhythm, Normal S1, Normal S2, No Murmurs, No Rubs, No Gallops Vascular: No Carotid Bruits, Normal Femoral Pulses, Normal Radial Pulses, Normal Dorsalis Pedal Pulse, Normal Posterior Tibial Pulses Abdomen: Bowel Sounds Present, Soft, Non Tender, No HSM, No Organomegaly Extremities: No Clubbing, No edema, Cyanosis Musculoskeletal: No Erythema Skin: No Rashes Lymphatic: No Lymph Node Enlargement Neurological: No Focal Motor or Sensory Deficit Psych/Mental Status: Flat Affect 12/19/18 05:44: WBC 14.7 H, RBC 4.60, Hgb 13.5, Hct 41.4, MCV 90.0, MCH 29.3, MCHC 32.6, RDW 14.8 H, RDW Differential 48.2 H, Plt Count 231, MPV 10.6, Immature Gran % (Auto) 0.300, Neut % (Auto) 75.5 H, Lymph % (Auto) 16.5 L, Wake % (Auto) 6.6, Eos % (Auto) 0.8, Baso % (Auto) 0.3, Absolute Neuts (auto) 11.1 H, Total Counted Not Reportable 12/19/18 05:44: PT 31.2 H, INR 3.0 12/19/18 05:44: Sodium 134 L, Potassium 4.8, Chloride 102, Carbon Dioxide 21.0, Anion Gap 11, BUN 16, Creatinine 1.32 H, Est GFR (MDRD) Af Amer 71, Est GFR (MDRD) Non-Af 59 L, BUN/Creatinine Ratio 12.1, Glucose 261 H, Calcium 8.8, Troponin I 0.016 12/19/18 13:45: Troponin I 0.056 H 12/19/18 16:48: Sodium Cancelled, Potassium Cancelled, Chloride Cancelled, Carbon Dioxide Cancelled, Anion Gap Cancelled, BUN Cancelled, Creatinine Cancelled, Est GFR (MDRD) Af Amer Cancelled, Est GFR (MDRD) Non-Af Cancelled, BUN/Creatinine Ratio Cancelled, Glucose Cancelled, Calcium Cancelled, Total Bilirubin Cancelled, Troponin I Cancelled 12/19/18 16:48: WBC 15.1 H, RBC 4.10 L, Hgb 12.3 L, Hct 37.6 L, MCV 91.7, MCH 30.0, MCHC 32.7, RDW 14.8 H, RDW Differential 50.1 H, Plt Count 184, MPV 10.9 12/19/18 16:48: Lactic Acid 6.9 H* 12/19/18 18:05: Sodium 131 L, Potassium 6.8 H*, Chloride 102, Carbon Dioxide 17.0 L, Anion Gap 12, BUN 22 H, Creatinine 1.46 H, Est GFR (MDRD) Af Amer 63, Est GFR (MDRD) Non-Af 52 L, BUN/Creatinine Ratio 15.1, Glucose 252 H, Calcium 7.9 L, Total Bilirubin 1.60 H, Troponin I 0.056 H Rhythm: EKG: Normal sinus rhythm with a rate of 88 bpm and evidence of previous inferior wall myocardial infarction ECHO: Bedside echocardiogram demonstrates severe left ventricular systolic dysfunction with an estimated ejection fraction of 20% with segmental wall hola on abnormalities. Moderate pericardial effusion noted with no obvious tamponade but incipient tamponade cannot be completely excluded. Pericardial fat pad noted. ICD noted. Assessment/Plan 1. Hypotension with pericardial effusion * Patient presents with lung mass pericardial effusion and developed hypotension. There is concerned that this is secondary to tamponade. The echocardiogram that was just performed does not demonstrate direct evidence of right ventricular chamber collapse. The right atrium could not be very well visualized. * Would recommend continued IV fluids with another bolus. At this particular time the patient appears to be hemodynamically stable with heart rate of 88 bpm and blood pressure 102 systolic and is mentating well * As there is high likelihood that this effusion is secondary to his malignancy it may be prudent to transfer him to a tertiary care center where a pericardial window and biopsy may be able to be performed. I have discussed this with the patient, his daughter, and his they understand and agreed to proceed. They are to do preferred to go to the [facility] I have suggested to him that there is an urgency to this. * 2. Ischemic cardiomyopathy * Patient has severe left ventricular systolic dysfunction with estimated ejection fraction of 20%. He was documented to be 29% at the [facility] approximately a month ago. * At this time with his hypertension we will hold his medications and treat him symptomatically. * 3. Status post ICD implantation * His ICD was interrogated less than a month ago it appeared to be functioning well set at a VVI of 40. * 4. Coronary artery disease * He does have evidence of coronary artery disease and has mild troponin elevation. * We will continue to monitor him. * 5. Valvular heart disease * He is status post mitral valve repair with minimal regurgitation. This was reevaluated with echocardiogram. * 6. Electrolyte abnormalities * He appears to be hyperkalemic. This was discussed with the hospitalist and will be treated appropriately with insulin glucose and calcium supplementation. * 7. Peripheral vascular disease * Patient is noted to have severe peripheral vascular disease and recently within the last 6 months had revascularization of his lower extremities. * He is on Coumadin for this which would need to be held in case procedure needs to be performed. * Bedside echocardiogram was performed with handheld echo which demonstrated ejection fraction of 20% with segmental wall motion abnormalities present, moderate pericardial effusion with no obvious tamponade noted, right atrium not very well seen. Thank you for allowing me to participate in the care of your patient. Please don't hesitate to call if any issues arise. Above discussed with hospitalist production line worker as well as gps navigation installer and nurses. Arrangements being made for transfer to a tertiary care.. Thank you for allowing us to participate in the patients plan of care, if you have any questions please do not hesitate to call. Total time 1 hour of critical care time
[2018-12-19] MEDS: Insulin Lispro 100 UNIT/ML INSULN.PEN 10 UNIT SC (19:57)
[2018-12-19] MEDS: Dextrose 50%-Water 25 GM/50 ML DISP.SYRIN IV (19:57)
[2018-12-19] MEDS: Sodium Polystyrene Sulfonate 15 GM/60 ML UDC 30 GM PO (20:00)
[2018-12-19 20:21] LABS: Bedside Glucose 225 mg/dL (70-110)
[2018-12-19 20:54] LABS: Reflex Lactate? Y
[2018-12-19] MEDS: Magnesium Oxide 400 MG Tablet PO (21:53)
[2018-12-19] MEDS: Atorvastatin Calcium 80 MG Tablet PO (21:53)
[2018-12-19 22:01] LABS: Bedside Glucose 251 mg/dL (70-110)
[2018-12-19 22:19] LABS: Anion Gap 13 (5-15); BUN 22 mg/dL (7-18); BUN/Creat Ratio 19.3 RATIO (10-20); Calcium,Total 8.2 mg/dL (8.5-10.1); Chloride 105 mmol/L (98-107); Creatinine, Serum 1.14 mg/dL (0.70-1.30); EST Glomerular Filtration Rate 70 mL/min (>60); Est Glom Filt Rate - Afr Amer 84 mL/min (>60); Estimated Creatinine Clearance 76.58 ml/min; Glucose 272 mg/dL (74-106); Potassium 5.4 mmol/L (3.5-5.1); Sodium Level 135 mmol/L (136-145)
[2018-12-19 23:35] LABS: Bedside Glucose 242 mg/dL (70-110)
[2018-12-20] VITALS: BP 89/69; PULSE 95; PULSE 96; RESP 29; TEMP 35.9; O2SAT 99
[2018-12-20 01:00] VITALS: BP 102/71; PULSE 96; RESP 25; TEMP 36.1; O2SAT 99
[2018-12-20] MEDS: Acetaminophen 325 MG Tablet 650 MG PO (01:11)
--- NOTE | 2018-12-20 01:15 | NURSING ---
pt states he will take glasses and ring with him during transport, family will take clothing, cell phone and cane.
--- NOTE | 2018-12-20 07:37 | PCM.DC.SUM ---
Discharge Date and Diagnosis Date of Admission: 12/19/18 Date of Discharge: 12/20/18 - Primary Discharge Diagnosis Right lung mass with high suspicion of bronchogenic carcinoma Acute hypoxic respiratory failure Hypotension with moderate pericardial effusion - Secondary Discharge Diagnosis Chronic Problems Ulcer of right leg (Chronic) Ulcer of right great toe due to diabetes mellitus (Chronic) DM (diabetes mellitus) with peripheral vascular complication (Chronic) PAD (peripheral artery disease) (Chronic) Coronary artery disease (Chronic) Atrial fibrillation (Chronic) Cardiac defibrillator in place (Chronic) Right leg swelling (Chronic) Ischemia of right lower extremity (Chronic) 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 Patient has chronic COPD cough but denies any change in the pattern or sputum. Denies chest pain. Patient gets easily up short of breath even on bending down or mild short of breath but for last 1 day short of breath even at rest and at all position. Chest x-ray was done in ED shows right upper lobe/paratracheal opacity about 7 cm in diameter representing mass for which CT chest with contrast was done which revealed large 6.3 cm right upper lobe mass associated with mediastinal and right hilar adenopathy with high suspicion of bronchogenic carcinoma. No metastatic disease to adrenals. A moderate-sized pericardial effusion. Patient previous chest x-ray did not show mass and actually reported no acute process. EKG was done which shows normal sinus rhythm with left atrial enlargement, T inversion in V2 through V6 with no significant change from previous EKG of June 2018. 1. Acute hypoxic respiratory failure secondary to advanced COPD with mild diagnosis of right upper lobe mass: Patient is being admitted on PCU for further evaluation and management. Multimedia Manager has been consulted. Discussed with the family member including sister, [id number] present in the room about the CT scan findings. Patient sister said he was recently evaluated in [facility] in October and had echocardiogram but was not told about mass. Oxygen support. Bronchodilator as needed. Patient does not seem to be in COPD exacerbation 2. Right upper lobe mass with mediastinal right hilar adenopathy with high suspicion of bronchogenic carcinoma: Needs further tissue biopsy. Rest as mentioned above. No pleural effusion, pneumothorax or rib fracture or osteolytic or osteoblastic changes mentioned on the CT scan. 3. Atypical left-sided chest pain with radiation to left shoulder: Patient did not had chest pain at time of admission but developed later on about 2 PM. Patient has shortness of breath with no change from morning. Repeat EKG was done does not show any change from previous ER EKG and June [address] depression and T inversion in V4 to V6 late. Serial troponin 0.016, 0.056 and 0.056. Windows Deployment Technician was consulted. 4 hypertension: Patient also dropped blood pressure after bisoprolol. Blood pressure 83/60. 2 L of normal saline and 1 L of Ringer lactate bolus was given still blood pressure was not normal. It came up to 95/53, 101/83 even though total 3 L of IV fluid bolus given. Windows Deployment Technician Dr. chanel came to see the patient. Patient had echo done in October 2017 which showed EF 29% with evidence of inferior posterior wall anterolateral and basal inferoseptal akinesis and severe hypokinesis of anterior wall and apical wall with a small pericardial effusion. Repeat bedside echo was done and no right ventricular chamber collapse was found. Right atrium could not be well visualized. No cardiac tamponade. EF 20% with segmental wall motion abnormalities. Moderate pericardial effusion was found. ICD noted. Windows Deployment Technician thought there was high likelihood of effusion secondary to malignancy and advised transfer to tertiary care center for pericardial window or biopsy can be performed. This was discussed with the patient's family and his by digital marketing consultant and patient was transferred. Hold antihypertensive/nitro ointment. 5 Pericardial effusion, 2.1 cm at the base of left ventricle on CT scan: Cardiac conditions: Coronary artery disease status post three-vessel CABG, paroxysmal A. fib on Coumadin, status post defibrillator, chronic systolic heart failure: Patient had 2D echo about a month ago in [facility] by his digital marketing consultant. We will try to get a record of it. 2D echo is ordered. Continue home cardiac medications. INR is supratherapeutic and Coumadin is being held. Please see above 4. Diabetes mellitus type 2: Accu-Chek before meals and at bedtime cover with NovoLog sliding scale. Metformin being held. IV fluid normal saline to prevent contrast-induced nephropathy. A1c tomorrow a.m was ordered but patient was transferred before that 5. Peripheral arterial disease with history of chronic ulcers and gangrene on feet: Patient follows Dr. sol, the biomedical technician and Dr. Butler vascular surgeon. 6. DVT prophylaxis: On Coumadin which is transiently being held for INR 1.3. Patient was transferred to tertiary [facility]. Patient transfer process was initiated by my colleague and was transferred at 1:30 AM on 12/20/2018. Subjective: Patient was discharged to acute care hospital before I saw the patient in the morning. He was transferred at 1:30 AM on 12/20/2018. Objective: Please see my physical finding and exam and H&P of 12/19/2018. Patient was not seen and examined today 330 as he was discharged post midnight at 1:30 AM. He was seen by nighttime hospitalist and digital marketing consultant. - Physical Exam Vital Signs Temp Pulse Resp BP Pulse Ox 96.9 F L 96 25 H 102/71 99 12/20/18 01:00 12/20/18 01:00 12/20/18 01:00 12/20/18 01:00 12/20/18 01:00 Oxygen Flow Rate (L/min) 3 Oxygen Delivery Method Nasal Cannula Weight: 226 lb 3.108 oz Body Mass Index (BMI) 30.7 Intake and Output for Last 24 Hours 12/18/18 12/19/18 12/20/18 23:59 23:59 23:59 Intake Total 3277 / 3277 Output Total Balance 3276 / 3276 Laboratory Tests Past 24 Hrs 12/19/18 12/19/18 12/19/18 13:45 16:48 16:48 WBC 15.1 H RBC 4.10 L Hgb 12.3 L Hct 37.6 L MCV 91.7 MCH 30.0 MCHC 32.7 RDW 14.8 H RDW Differential 50.1 H Plt Count 184 MPV 10.9 Sodium Cancelled Potassium Cancelled Chloride Cancelled Carbon Dioxide Cancelled Anion Gap Cancelled BUN Cancelled Creatinine Cancelled Estim Creat Clear Calc Cancelled Est GFR (MDRD) Af Amer Cancelled Est GFR (MDRD) Non-Af Cancelled BUN/Creatinine Ratio Cancelled Glucose Cancelled Lactic Acid Calcium Cancelled Total Bilirubin Cancelled AST Cancelled ALT Cancelled Alkaline Phosphatase Cancelled Troponin I 0.056 H Cancelled Total Protein Cancelled Albumin Cancelled Globulin Cancelled Albumin/Globulin Ratio Cancelled 12/19/18 12/19/18 12/19/18 16:48 18:05 21:50 WBC RBC Hgb Hct MCV MCH MCHC RDW RDW Differential Plt Count MPV Sodium 131 L 135 L Potassium 6.8 H* 5.4 H Chloride 102 105 Carbon Dioxide 17.0 L 17.0 L Anion Gap 12 13 BUN 22 H 22 H Creatinine 1.46 H 1.14 Estim Creat Clear Calc 59.79 76.58 Est GFR (MDRD) Af Amer 63 84 Est GFR (MDRD) Non-Af 52 L 70 BUN/Creatinine Ratio 15.1 19.3 Glucose 252 H 272 H Lactic Acid 6.9 H* Calcium 7.9 L 8.2 L Total Bilirubin 1.60 H AST 119 H ALT 146 H Alkaline Phosphatase 59 Troponin I 0.056 H Total Protein 6.9 Albumin 3.5 Globulin 3.4 Albumin/Globulin Ratio 1.0 POC Glucose 12/19/18 12/19/18 12/19/18 23:28 21:47 19:54 POC Glucose 242 H 251 H 225 H 12/19/18 12/19/18 15:29 11:09 POC Glucose 268 H 218 H Home Medications: Medications to take at Discharge Aspirin E.C. [Ecotrin] 81 mg PO DAILY@0800 05/19/18 Atorvastatin Calcium [Lipitor] 80 mg PO QHS 05/19/18 Bisoprolol Fumarate [Zebeta] 15 mg PO DAILY 05/19/18 Cholecalciferol (Vitamin D3) [Vitamin D3] 5,000 unit PO DAILY 05/19/18 Famotidine 20 mg PO DAILY 05/19/18 Glucosamine/D3/Boswellia Melonie [Osteo Bi-Flex Tablet] 1 each PO DAILY 05/19/18 Lisinopril [Zestril] 10 mg PO DAILY 05/19/18 Metformin HCl [Metformin HCl ER] 500 mg PO TID 05/19/18 Multivitamin [Daily Multiple Vitamin] 1 each PO DAILY 05/19/18 Sitagliptin Phosphate [Januvia] 100 mg PO DAILY 06/07/18 Spironolactone [Aldactone] 25 mg PO DAILY 06/07/18 Cyanocobalamin (Vitamin B-12) [Vitamin B-12] 500 mcg PO DAILY 07/04/18 Magnesium Oxide [Magnesium] 800 mg PO BREAKFAST 07/04/18 Warfarin [Coumadin ([facility])] 10 mg PO SUMOWETHSA 07/04/18 Warfarin [Coumadin ([facility])] 12 mg PO TUFR 07/04/18 Magnesium Oxide 400 mg PO QHS 12/19/18 Primary Care Physician: Carrie Hicks NP-C [Primary Care Provider] - Medical Necessity - Tobacco Use Smoking Status: Current every day smoker - Smokes cigarettes 2-1/2 pack since age of 14 until 1week 5 cigarettes daily Tobacco Use: Cigarettes Meaningful Use Info Meaningful Use Diagnoses (Choose all that apply): None applicable Code Visit Inpatient E&M: 99486 Disch Hosp
--- NOTE | 2018-12-21 16:23 | CASEMGMT ---
[facility] CM DISCHARGE PHONE CALL DC DATE: 12/19/18 DC DISPOSITION: Home LACE/STRATA: 07/22 No answer to call and message machine did not have identifier. Nandini DIXONN RN ACM
== END 2018-12-20 01:30 | disposition short-term general hospital (02) | DRG 180 ==
LOC: ED 05:46 → PCU 08:38 → ICU 16:12 → PCU 02-25 10:46
PROVIDERS: Family Medicine; Admitting Provider Internal Medicine; Emergency Provider Emergency Medicine; Family Provider Nurse Practitioner; PCP Nurse Practitioner; Visit Provider Internal Medicine
DX: J96.01 Acute respiratory failure with hypoxia (principal); R91.8 Other nonspecific abnormal finding of lung field; J44.9 Chronic obstructive pulmonary disease, unspecified; F17.210 Nicotine dependence, cigarettes, uncomplicated; I11.0 Hypertensive heart disease with heart failure; I31.3 Pericardial effusion (noninflammatory); E78.5 Hyperlipidemia, unspecified; I25.10 Atherosclerotic heart disease of native coronary artery without angina pectoris; E11.51 Type 2 diabetes mellitus with diabetic peripheral angiopathy without gangrene; I95.9 Hypotension, unspecified; I48.0 Paroxysmal atrial fibrillation; I50.22 Chronic systolic (congestive) heart failure; Z79.899 Other long term (current) drug therapy; Z79.84 Long term (current) use of oral hypoglycemic drugs; Z95.1 Presence of aortocoronary bypass graft; Z79.01 Long term (current) use of anticoagulants; Z95.810 Presence of automatic (implantable) cardiac defibrillator
CPT/HCPCS: 36415; 36569; 71046; 71260; 80048; 80053; 82962; 83605; 84484; 85025; 85027; 85610; 87040; 87633; 93005; 94640; 96361; 96365; 96366; 96367; 96375; 99218; 99283; J7030; J7040; J7120; Q9967; A4216; G0378; J0610

== ENCOUNTER 2019-03-03 08:25 | Outpatient (RCR) | payer OTHER, SELFPAY ==
[2018-12-19 09:45] VITALS: BMI 30.7
[2019-03-03 08:45] VITALS: BP 108/62; PULSE 95; RESP 18; TEMP 36; BMI 29.7
--- NOTE | 2019-03-03 09:21 | PN.PCM_ITS ---
(1) Ulcer of left lower extremity with fat layer exposed Status: Chronic Current Visit: Yes Code(s): L97.922 - Non-pressure chronic ulcer of unspecified part of left lower leg with fat layer exposed (2) DM (diabetes mellitus) with peripheral vascular complication Status: Chronic Current Visit: Yes Code(s): E11.51 - Type 2 diabetes mellitus with diabetic peripheral angiopathy without gangrene (3) PAD (peripheral artery disease) Status: Chronic Current Visit: Yes Code(s): I73.9 - Peripheral vascular disease, unspecified (4) Right leg swelling Status: Chronic Current Visit: Yes Code(s): M79.89 - Other specified soft tissue disorders (5) Tobacco abuse Status: Chronic Current Visit: Yes Code(s): Z72.0 - Tobacco use (6) Edema of right lower extremity Status: Chronic Current Visit: Yes Code(s): R60.0 - Localized edema Type of Wound Date of Service: 03/03/19 Chief Complaint: right leg ulcer History of Wound: This is a 58-year-old male returns to clinic for left the onset of these ulcers was 2 weeks ago after his leg leg ulcer. Had increase in swelling. He is been more recently treated for lung cancer with metastasis and he is undergoing radiation therapy. He continues to smoke. His Lasix has recently been adjusted and is now decreased to 20 mg daily. He is previously well-known to the wound healing center for right leg peripheral vascular disease and bilateral hallux ulcers which remain healed. He denies fever, chill, nausea, vomiting, loss of appetite. He denies trauma. He is taking Premier protein supplementation daily and is unable to afford Tc that was previously recommended. He continues to follow-up at the [facility] for cancer management. Progress of Wound: Stable - Physical Exam Vital Signs Temp Pulse Resp BP 96.8 F L 95 18 108/62 03/03/19 08:45 03/03/19 08:45 03/03/19 08:45 03/03/19 08:45 General: Alert, Oriented x3, Cooperative HEENT: Atraumatic Extremities: No cyanosis, Capillary Refill Less than 3 Seconds - All digits bilateral, No Calf Tenderness - Negative Homans and Navarro signs bilateral, Diminished Peripheral Pulses - nonpalpable DP and PT pulses bilateral. The temperature gradient from the ankle to the toes is decreased at the toe level however there is no cyanosis or critical limb ischemia suspected today, Edema - moderate bilateral lower extremities with varicosities Skin: Ulcer/ Wound - No purulence, erythema, streaking, odor, or acute signs of infection bilateral. No interdigital maceration. The anterior lateral left leg ulcer has eschar in place with underlying fibrous tissue and this is a wound that is a cluster. The proximal anterior leg is atrophic and fibrous with serous drainage. There is no bogginess or fluctuance on palpation. The peripheral skin is very hairless and atrophic Wound Measurements and Assessment WC - Nurse 1 - General Ulcer Measurement Start: 03/03/19 08:44 Freq: Status: Active Protocol: Activity Type Activity Date Activity User E-Sign Co-Sign Detail Recorded Client Recorded Date Recorded By Document 03/03/19 08:45 BENJIE [id number] 03/03/19 08:55 BENJIE 03/03/19 08:45 Wound Center Nurse 1 [Ulcer Assessment] 9-left lateral superior ankle -Combined with other wound No -Current Size (cm) - Length 0.6 -Current Size (cm) - Width 0.8 -Current Size (cm) - Depth 0.1 -Total Square Cm 0.48 -Photo Taken Yes -Epithelialization None Present -Tunneling No -Undermining/Tunneling No -Circular Undermining No -Exudate Amt None Present -Wound Margin Flat & Intact -Granulation Amt None Present (0 %) -Slough/Fibrin Yes -Necrosis Amt Large (67-100%) -Necrotic Tissue Type Adherent Slough -Structure Exposed N/A -Texture (Scarlett-wound Skin Appearance) Assessed -Moisture (Scarlett-wound Skin Appearance Assessed ) Dry/Scaly -Color (Scarlett-wound Skin Appearance) Assessed -Temperature (Scarlett-wound Skin No Abnormality Appearance) (Pt Warm) -Tenderness on Palpation (Scarlett-wound No Skin Appearance) -Ulcer Cleansing Rinsed/ Irrigated with Saline -Foul Odor after Cleansing No -Anesthetic Used 4% Lidocaine Solution 8-left lateral inferior ankle cluster -Combined with other wound No -Current Size (cm) - Length 1 -Current Size (cm) - Width 2 -Current Size (cm) - Depth 0.1 -Total Square Cm 2 -Photo Taken Yes -Epithelialization Small 1-33% -Tunneling No -Undermining/Tunneling No -Circular Undermining No -Classification - Thickness Unclassifiable (Eschar Covered ) -Exudate Amt None Present -Wound Margin Flat & Intact -Granulation Amt None Present (0 %) -Slough/Fibrin Yes -Necrosis Amt Large (67-100%) -Necrotic Tissue Type Adherent Slough -Structure Exposed N/A -Texture (Scarlett-wound Skin Appearance) Assessed -Moisture (Scarlett-wound Skin Appearance Assessed ) Dry/Scaly -Color (Scarlett-wound Skin Appearance) Assessed -Temperature (Scarlett-wound Skin No Abnormality Appearance) (Pt Warm) -Tenderness on Palpation (Scarlett-wound No Skin Appearance) -Ulcer Cleansing Rinsed/ Irrigated with Saline -Foul Odor after Cleansing No -Anesthetic Used 4% Lidocaine Solution [Edema Assessment] -Lower Limb Edema Present Yes -Right Calf (cm) 42 -Right Ankle (cm) 27 -Left Calf (cm) 43.3 -Left Ankle (cm) 28.0 WC - Nurse 2 - General Ulcer CM Notes Start: 03/03/19 08:44 Freq: Status: Active Protocol: Activity Type Activity Date Activity User E-Sign Co-Sign Detail Recorded Client Recorded Date Recorded By Document 03/03/19 09:11 AN [id number] 03/03/19 09:16 AN 03/03/19 09:11 Wound Center Nurse 2 [Procedure/Treatment] 9-left lateral superior ankle -Time 09:11 -Correct Patient Yes -Correct Side, Site, Position Yes -Correct Procedure Yes -Procedure Performed Yes -Type of Procedure Debridement -Clinical Debridement Subcutaneous -Post Debridement Size (cm) - Length 1.1 -Post Debridement Size (cm) - Width 2.1 -Post Debridement Size (cm) - Depth 0.1 -Total Square Cm 2.31 -Wound/Ulcer Outcome Not Healed -Ulcer Cleansing Rinsed/ Irrigated with Saline -Foul Odor after Cleansing No -Bleeding Controlled with Pressure -Treatment Response Procedure Tolerated Well 8-left lateral inferior ankle cluster -Time 09:11 -Correct Patient Yes -Correct Side, Site, Position Yes -Correct Procedure Yes -Procedure Performed Yes -Type of Procedure Debridement -Clinical Debridement Subcutaneous -Post Debridement Size (cm) - Length 0.7 -Post Debridement Size (cm) - Width 0.9 -Post Debridement Size (cm) - Depth 0.1 -Total Square Cm 0.63 -Wound/Ulcer Outcome Not Healed -Bleeding Controlled with Pressure [See Physician Procedure note for Specifics] Pain Scale: 0-10 Numeric [Pain] -Is Patient Pain Free? Yes Musculoskeletal: No Tenderness to Palpation of Joints or Extremities, Muscle Wasting, - - active range of motion ankles and toes in all directions noted bilateral Neurological: - - lack of normal epicritic sensation light touch bilateral lower extremities Psych/Mental Status: Normal Affect, Appropriate Debridement Note Post-Debridement Measurements/Treatment WC - Nurse 2 - General Ulcer CM Notes Start: 03/03/19 08:44 Freq: Status: Active Protocol: Activity Type Activity Date Activity User E-Sign Co-Sign Detail Recorded Client Recorded Date Recorded By Document 03/03/19 09:11 AN [id number] 03/03/19 09:16 AN 03/03/19 09:11 Wound Center Nurse 2 9-left lateral superior ankle -Time 09:11 -Correct Patient Yes -Correct Side, Site, Position Yes -Correct Procedure Yes -Procedure Performed Yes -Type of Procedure Debridement -Clinical Debridement Subcutaneous -Post Debridement Size (cm) - Length 1.1 -Post Debridement Size (cm) - Width 2.1 -Post Debridement Size (cm) - Depth 0.1 -Total Square Cm 2.31 -Wound/Ulcer Outcome Not Healed -Ulcer Cleansing Rinsed/ Irrigated with Saline -Foul Odor after Cleansing No -Bleeding Controlled with Pressure -Treatment Response Procedure Tolerated Well 8-left lateral inferior ankle cluster -Time 09:11 -Correct Patient Yes -Correct Side, Site, Position Yes -Correct Procedure Yes -Procedure Performed Yes -Type of Procedure Debridement -Clinical Debridement Subcutaneous -Post Debridement Size (cm) - Length 0.7 -Post Debridement Size (cm) - Width 0.9 -Post Debridement Size (cm) - Depth 0.1 -Total Square Cm 0.63 -Wound/Ulcer Outcome Not Healed -Bleeding Controlled with Pressure Pain Scale: 0-10 Numeric Is Patient Pain Free? Yes Wound debrided: proximal anterior leg Laterality: Left Wound Grade/Stage: grade 1 Type of Debridement: Excisional debridement Anesthesia Used: 5% Lidocaine Gel Depth: in the subcutaneous layer Percentage of wound debrided: 100 Instrument Used: #15 blade Tissue Removed: fibrous, devitalized subcutaneous, biofilm, slough Severity: Fat Layer Exposed Amount of bleeding with debridement: Mild Bleeding Controlled with: Pressure Patient tolerated procedure well - Additional Wound Wound debrided: anterior lateral ankle (leg) Laterality: Left Wound Grade/Stage: grade 1 Type of Debridement: Excisional debridement Anesthesia Used: 5% Lidocaine Gel Depth: in the subcutaneous layer Percentage of wound debrided: 100 Instrument Used: #15 blade Tissue Removed: fibrous, devitalized subcutaneous, biofilm, slough Severity: Fat Layer Exposed Amount of bleeding with debridement: Mild Bleeding Controlled with: Pressure Patient tolerated procedure: Patient tolerated procedure well Assessment/Plan Active Problems DM (diabetes mellitus) with peripheral vascular complication (Chronic) PAD (peripheral artery disease) (Chronic) Right leg swelling (Chronic) Tobacco abuse (Chronic) Edema of right lower extremity (Chronic) Ulcer of left lower extremity with fat layer exposed (Chronic) Assessment: New left leg ulcer x2. Lower extremity edema. lung cancer undergoing radiation therapy. Peripheral vascular disease status post intervention. Diabetes with neuropathy. History of delayed healing. Malnutrition. Current smoker Plan: I reviewed and discussed his case today. Debridement was performed today as noted in the clinical panel to both sites.to change dressing daily with Santyl and this was applied today. Transition to different wound healing product or events prior to be considered pending reduction of fibers and eschar tissue. To utilize bilateral single layer Tubigrip with periodic elevation to control his leg edema. To avoid idle standing or sittin no infection is noted and he was reassured. To continue to work with head porter and primary care provider to adjust his Lasix and other medications to optimize swelling reduction of the limbs. He understands he is at high risk for limb loss. To continue with nutritional supplementation; Premier nutrition shake is okay if he is unable to obtain the recommended Tc. To discontinue smoking; this is imperative for his cancer and ulcer treatment plans. To continue follow-up with the [facility] for his lung cancer treatment. It is noted he has had previous extensive arterial work-up and intervention. Pending healing progress a screening noninvasive vascular study will be ordered to see if anything is compromised. I answered all his questions. The patient was advised to return to the wound healing center in 1 week or call sooner if he has any questions or concerns.
--- NOTE | 2019-03-10 12:26 | PCM.WC.PN ---
(1) Ulcer of left lower extremity with fat layer exposed Status: Chronic Code(s): L97.922 - Non-pressure chronic ulcer of unspecified part of left lower leg with fat layer exposed (2) DM (diabetes mellitus) with peripheral vascular complication Status: Chronic Code(s): E11.51 - Type 2 diabetes mellitus with diabetic peripheral angiopathy without gangrene (3) PAD (peripheral artery disease) Status: Chronic Code(s): I73.9 - Peripheral vascular disease, unspecified (4) Right leg swelling Status: Chronic Code(s): M79.89 - Other specified soft tissue disorders (5) Tobacco abuse Status: Chronic Code(s): Z72.0 - Tobacco use (6) Edema of right lower extremity Status: Chronic Code(s): R60.0 - Localized edema Type of Wound Chief Complaint: right leg ulcer History of Wound: This is a 58-year-old male returns to clinic for left the onset of these ulcers was 2 weeks ago after his leg leg ulcer. Had increase in swelling. He is been more recently treated for lung cancer with metastasis and he is undergoing radiation therapy. He continues to smoke. His Lasix has recently been adjusted and is now decreased to 20 mg daily. He is previously well-known to the wound healing center for right leg peripheral vascular disease and bilateral hallux ulcers which remain healed. He denies fever, chill, nausea, vomiting, loss of appetite. He denies trauma. He is taking Premier protein supplementation daily and is unable to afford Tc that was previously recommended. He continues to follow-up at the [facility] for cancer management. Progress of Wound: Stable - Physical Exam Vital Signs Temp Pulse Resp BP 96.8 F L 95 18 108/62 03/03/19 08:45 03/03/19 08:45 03/03/19 08:45 03/03/19 08:45 Debridement Note Post-Debridement Measurements/Treatment WC - Nurse 2 - General Ulcer CM Notes Start: 03/03/19 08:44 Freq: Status: Active Protocol: Activity Type Activity Date Activity User E-Sign Co-Sign Detail Recorded Client Recorded Date Recorded By Document 03/03/19 09:11 AN [id number] 03/03/19 09:16 AN 03/03/19 09:11 Wound Center Nurse 2 9-left lateral superior ankle -Time 09:11 -Correct Patient Yes -Correct Side, Site, Position Yes -Correct Procedure Yes -Procedure Performed Yes -Type of Procedure Debridement -Clinical Debridement Subcutaneous -Post Debridement Size (cm) - Length 1.1 -Post Debridement Size (cm) - Width 2.1 -Post Debridement Size (cm) - Depth 0.1 -Total Square Cm 2.31 -Wound/Ulcer Outcome Not Healed -Ulcer Cleansing Rinsed/ Irrigated with Saline -Foul Odor after Cleansing No -Bleeding Controlled with Pressure -Treatment Response Procedure Tolerated Well 8-left lateral inferior ankle cluster -Time 09:11 -Correct Patient Yes -Correct Side, Site, Position Yes -Correct Procedure Yes -Procedure Performed Yes -Type of Procedure Debridement -Clinical Debridement Subcutaneous -Post Debridement Size (cm) - Length 0.7 -Post Debridement Size (cm) - Width 0.9 -Post Debridement Size (cm) - Depth 0.1 -Total Square Cm 0.63 -Wound/Ulcer Outcome Not Healed -Bleeding Controlled with Pressure Pain Scale: 0-10 Numeric Is Patient Pain Free? Yes Wound debrided: anterior leg Laterality: Left Type of Debridement: Excisional debridement Anesthesia Used: 5% Lidocaine Gel Depth: in the subcutaneous layer Percentage of wound debrided: 100 Instrument Used: #15 blade Tissue Removed: fibrous, devitalized subcutaneous, biofilm, slough Severity: Fat Layer Exposed Amount of bleeding with debridement: Mild Bleeding Controlled with: Pressure Patient tolerated procedure well Assessment/Plan Assessment: New left leg ulcer x2. Lower extremity edema. lung cancer undergoing radiation therapy. Peripheral vascular disease status post intervention. Diabetes with neuropathy. History of delayed healing. Malnutrition. Current smoker Plan: I reviewed and discussed his case today. Debridement was performed today as noted in the clinical panel to both sites.to change dressing daily with Santyl and this was applied today. Transition to different wound healing product or events prior to be considered pending reduction of fibers and eschar tissue. To utilize bilateral single layer Tubigrip with periodic elevation to control his leg edema. To avoid idle standing or sittin no infection is noted and he was reassured. To continue to work with nurse sane and primary care provider to adjust his Lasix and other medications to optimize swelling reduction of the limbs. He understands he is at high risk for limb loss. To continue with nutritional supplementation; Premier nutrition shake is okay if he is unable to obtain the recommended Tc. To discontinue smoking; this is imperative for his cancer and ulcer treatment plans. To continue follow-up with the [facility] for his lung cancer treatment. It is noted he has had previous extensive arterial work-up and intervention. Pending healing progress a screening noninvasive vascular study will be ordered to see if anything is compromised. I answered all his questions. The patient was advised to return to the wound healing center in 1 week or call sooner if he has any questions or concerns.
== END 2019-03-19 23:59 ==
LOC: WC 08:25
PROVIDERS: Family Provider Nurse Practitioner; PCP Nurse Practitioner; Visit Provider Podiatrist
DX: E11.622 Type 2 diabetes mellitus with other skin ulcer (principal); E11.51 Type 2 diabetes mellitus with diabetic peripheral angiopathy without gangrene; L97.822 Non-pressure chronic ulcer of other part of left lower leg with fat layer exposed; M79.89 Other specified soft tissue disorders; R60.0 Localized edema; F17.200 Nicotine dependence, unspecified, uncomplicated; C34.90 Malignant neoplasm of unspecified part of unspecified bronchus or lung
CPT/HCPCS: 11042; 99213; G0463

== ENCOUNTER 2019-03-29 11:06 | Day surgery (SDC) | payer SELFPAY ==
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
[2019-03-29 11:41] LABS: Bedside Glucose 127 mg/dL (70-110)
[2019-03-29 11:52] VITALS: BP 97/82; PULSE 82; RESP 18; TEMP 36.3; O2SAT 100; BMI 29.4
[2019-03-29] MEDS: Cefazolin 2 GM in 0.9% Normal Saline 100 ML IV (13:51)
[2019-03-29] MEDS: Bupivacaine Mpf 0.5% 30 ML VIAL (14:14)
--- NOTE | 2019-03-29 14:33 | PCM.OPRPT ---
Report of Operation Date of Procedure: 03/29/19 Pre-Operative Diagnosis: metastatic lung cancer, malignant ascites Post-Operative Diagnosis: metastatic lung cancer, malignant ascites - successful peritoneal catheter placement Surgery/Procedure Performed:: ultrasound guided tunneled peritoneal catheter placement. print binding and finishing worker: None Specimen's removed: none Drains: peritoneal drain - 3000cc Estimated Blood Loss (mL): <5cc Fluids Replaced: 500 Description of Procedure: The patient was brought to the operating suite. Sign was performed verifying patient, site, position, skip antibiotic prophylaxis-2 g of Ancef and DVT prophylaxis with SCDs. Ultrasound was used to evaluate the lower abdomen and a window marked providing good entry into the peritoneal cavity along with marking the inferior epigastric to avoid the risks for bleeding was marked on the skin in the Following IV sedation, abdomen were prepped and draped in the usual fashion. Timeout was performed verifying patient, site, position. Local anesthetic was injected and a Seldinger needle was used to access the peritoneal cavity without difficulty. A guidewire was inserted and advanced into the peritoneal space. Local anesthetic was injected and incision made for the catheter exit site. Next the catheter was tunneled from the skin exit site to the wire. Dilators were placed over the wire until the largest dilator with introducer sheath were placed. The wire and dilator removed. The catheter was fed through the introducer suture sheath and adjusted to the edge of the abdominal cavity with the fenestrations . There was good return of ascites fluid. The Pleurx catheter was affixed to an adapter and ascetic fluid was drained. A total of approximately 3000cc of fluid was drained. The catheter was secured with a 3-0 silk suture at the skin exit site. The abdominal insertion site skin was closed with 4-0 Biosyn interrupted subcuticular sutures. Dermabond was applied to the abdominal insertion site. A dressing was applied. The catheter was then capped and dressed with the occlusive dressing The patient was brought to recovery room in stable condition.
[2019-03-29 14:40] VITALS: BP 94/68; BP 97/82; PULSE 90; RESP 16; TEMP 37.1; O2SAT 100
[2019-03-29 14:45] VITALS: BP 96/67; BP 97/82; PULSE 88; RESP 16; O2SAT 100
[2019-03-29 14:50] VITALS: BP 83/56; BP 97/82; PULSE 89; RESP 16; O2SAT 100
[2019-03-29 14:55] VITALS: BP 86/59; BP 97/82; PULSE 89; RESP 16; TEMP 37.2; O2SAT 100
[2019-03-29 15:49] VITALS: BP 93/64; BP 97/82; PULSE 89; RESP 16; TEMP 37.2; O2SAT 100
== END 2019-03-29 16:03 | disposition hospice, inpatient (51) ==
LOC: SDC 11:09 → AC 11:12
PROVIDERS: Family Provider Nurse Practitioner; PCP Nurse Practitioner; Referring Provider Surgery; Visit Provider Surgery
PROC: 0WHG43Z Insertion of Infusion Device into Peritoneal Cavity, Percutaneous Endoscopic Approach (ICD-10-PCS; CPT 49324; principal; 2019-03-29 13:15)
DX: C34.91 Malignant neoplasm of unspecified part of right bronchus or lung (principal); C78.7 Secondary malignant neoplasm of liver and intrahepatic bile duct; R06.02 Shortness of breath; C79.31 Secondary malignant neoplasm of brain; I31.3 Pericardial effusion (noninflammatory); J91.0 Malignant pleural effusion; R18.0 Malignant ascites; E11.51 Type 2 diabetes mellitus with diabetic peripheral angiopathy without gangrene; Z95.0 Presence of cardiac pacemaker; F17.210 Nicotine dependence, cigarettes, uncomplicated
CPT/HCPCS: 00790; 49418; 82962; J7120; C1729